=== PATIENT | female | born 1955 | race Caucasian/White ===

== ENCOUNTER 2018-02-09 17:25 | Emergency (ER) | payer OTHER ==
--- OUTSIDE RECORDS SUMMARY | 2018-02-09 17:27 | XMS REPORT | Clinical Summary ---
:1955 Author Organization [facility] Address [address] [place] [address] Care Team Providers Name Role Phone Asked, No Pcp Primary Care Provider Unavailable Allergies Active Allergy Reactions Severity Noted Date Comments Sulfamethoxazole-Trimethoprim Rash High 09/26/2017 Current Medications No known medications Active Problems No known active problems Encounters Date Type Specialty Care Team Description 10/05/2017 Hospital Encounter Radiology Kory Nicole Acute pain of left MD Sebastián knee 09/26/2017 Office Visit Orthopedic Surgery Kory Nicole Acute pain of left MD Sebastián knee (Primary Dx) 09/26/2017 Orders Only Orthopedic Surgery Renetta Davey, Acute pain of left MA knee (Primary Dx) 09/26/2017 Orders Only Orthopedic Surgery Renetta Davey, Left leg pain MA (Primary Dx) 09/26/2017 Ancillary Orders Orthopedic Surgery Kory Nicole Acute pain of left MD Sebastián knee after 02/08/2017 Social History Tobacco Use Types Packs/Day Years Used Date Never Assessed Sex Assigned at Date Recorded Not on file Last Filed Vital Signs Not on file Plan of Treatment Date Type Specialty Care Team Description 03/14/2018 Office Visit Orthopedic Surgery Kory Nicole MD [address] [place] [address] [place] [id number] 03/18/2018 Surgery Orthopedic Surgery Kory Nicole J., MD ARTHROPLASTY, KNEE [address] [place] [address] [place] [address] 03/18/2018 Procedure Pass Orthopedic Surgery 03/18/2018 Hospital Encounter Orthopedic Surgery Kory Nicole MD [address] [facility] [address] [place] [address] Health Maintenance Due Date Last Done Comments CERVICAL CANCER SCREENING 1977 BREAST CANCER SCREENING 2006 COLON CANCER SCREENING 2006 SHINGRIX VACCINE (#1) 2006 ZOSTER VACCINE 2016 INFLUENZA VACCINE 11/28/2017 Procedures Procedure Name Priority Date/Time Associated Comments Diagnosis CT LOWER EXTREMITY Routine 10/05/2017 10:34 AM Acute pain of left Results for this WO CONTRAST LEFT CDT knee procedure are in the results section. XR KNEE 3 VW LEFT Routine 09/26/2017 1:48 PM Acute pain of left Results for this CDT knee procedure are in the results section. XR LEG LENGTH Routine 09/26/2017 1:41 PM Acute pain of left Results for this EVALUATION CDT knee procedure are in the results section. after 02/08/[address] Lower Extremity Wo Contrast Left (10/05/2017 10:34 AM) Narrative Performed At EXAMINATION:CT LOWER EXTREMITY WO CONTRAST LEFT [facility] CLINICAL HISTORY:M25.562 Pain in left knee, JOINT PAINKNEE, EVALUATE CYSTIC MASS. INCLUDE LEFT LOWER LEG. TECHNIQUE: Multiple axial images of the left lower extremity were obtained without contrast. CT imaging was performed with iterative reconstruction technique and/or automated exposure control to reduce radiation dose. COMPARISON:Knee radiographs dated 09/26/2017 FINDINGS: 1.There is a focal fluid collection within the popliteus fossa which extends between the semimembranosus and medial head of the gastrocnemius. This is best seen on series 306, image 39 and measures approximately 3.8 cm anteroposterior, 2.6 cm transverse, and extends approximately 4.0 cm in the craniocaudal dimension. This is most suggestive of a Allen's cyst. 2.Incidental note is made of a muscle hernia of the medial head of the gastrocnemius as noted on series 306, image 90 with buckling of the overlying skin. This is also seen on image 8991. No definite additional soft tissue abnormality can be seen. 3.Prior total knee arthroplasty with a cemented tibial component. The metal cement interface of the tibial component measures up to 2 mm which is within normal limits. There is no discrete focal region of osteolysis along the base plate or the pegs of the tibial implant. There is no evidence of osteolysis involving the femoral implant. There is no displacement or osteolysis of the patellar implant. There is no excessive patellar shift or tilt. There is no evidence of displacement of the liner. 4.There is a large knee joint effusion with synovitis. IMPRESSION: 1.Moderate size popliteal fossa cyst with diffuse synovitis. 2.Muscle herniation of the medial head of the gastrocnemius through a small fascial defect. 3.No additional discrete soft tissue mass. 4.Prior cemented total knee arthroplasty without evidence of osteolysis or periprosthetic fracture. 5.Large joint effusion with synovitis. 1. [facility]-[id number] Procedure Note [facility], Radiology Results Incoming - 10/05/2017 10:59 AM CDT EXAMINATION: CT LOWER EXTREMITY WO CONTRAST LEFT CLINICAL HISTORY: M25.562 Pain in left knee, JOINT PAIN KNEE, EVALUATE CYSTIC MASS. INCLUDE LEFT LOWER LEG. TECHNIQUE: Multiple axial images of the left lower extremity were obtained without contrast. CT imaging was performed with iterative reconstruction technique and/or automated exposure control to reduce radiation dose. COMPARISON: Knee radiographs dated 09/26/2017 FINDINGS: 1. There is a focal fluid collection within the popliteus fossa which extends between the semimembranosus and medial head of the gastrocnemius. This is best seen on series 306, image 39 and measures approximately 3.8 cm anteroposterior, 2.6 cm transverse, and extends approximately 4.0 cm in the craniocaudal dimension. This is most suggestive of a Allen's cyst. 2. Incidental note is made of a muscle hernia of the medial head of the gastrocnemius as noted on series 306, image 90 with buckling of the overlying skin. This is also seen on image 8991. No definite additional soft tissue abnormality can be seen. 3. Prior total knee arthroplasty with a cemented tibial component. The metal cement interface of the tibial component measures up to 2 mm which is within normal limits. There is no discrete focal region of osteolysis along the base plate or the pegs of the tibial implant. There is no evidence of osteolysis involving the femoral implant. There is no displacement or osteolysis of the patellar implant. There is no excessive patellar shift or tilt. There is no evidence of displacement of the liner. 4. There is a large knee joint effusion with synovitis. IMPRESSION: 1. Moderate size popliteal fossa cyst with diffuse synovitis. 2. Muscle herniation of the medial head of the gastrocnemius through a small fascial defect. 3. No additional discrete soft tissue mass. 4. Prior cemented total knee arthroplasty without evidence of osteolysis or periprosthetic fracture. 5. Large joint effusion with synovitis. 1. [facility]-[id number] Performing Organization Address City/[facility]/Zipcode Phone Number [facility] [address] [place] [address] XR Knee 3 Vw Left (09/26/2017 1:48 PM) Narrative Performed At Knee x-rays show a cemented Depue mobile-bearing knee arthroplasty in [facility]. Components appear fixed. Performing Organization Address [facility]/Zipcode Phone Number [facility] [address] [place] [address] XR Leg Length Evaluation (09/26/2017 1:41 PM) Narrative Performed At Long-leg radiographs demonstrate valgus alignment of the left lower [facility] extremity with a knee arthroscopy place. There is varus alignment of the right lower extremity with medial compartment knee arthritis. Performing Organization Address [facility] Phone Number [facility] [address] [place] [address] after 02/08/2017 Insurance Payer Benefit Plan / Group Subscriber ID Type Phone Address [employer] Home: [id number] [phone] [place], [place] [id number]
[2018-02-09] MEDS ORDERED: ONDANSETRON 4 MG/2 ML VIAL ONE (18:02)
[2018-02-09] MEDS ORDERED: NA CHLORIDE 0.9% 1,000 ML ONE (18:02)
[2018-02-09] MEDS ORDERED: MORPHINE 4 MG/ML SYR ONE ×2 (18:02→19:54)
[2018-02-09 18:13] LABS: Absolute Lymphocytes (CBC) 1.7 K/uL (0.7-4.9); Absolute Monocytes 0.6 K/uL (0.1-1.3); Basophils % 0.3 % (0-1.3); Eosinophils % 3.6 % (0-4.4); Hematocrit 43.1 % (36.0-45.0); Lymphocytes % 30.7 % (15.3-44.8); MCH 30.8 pg (27.0-35.0); MCV 89.4 fL (80-100); MPV 7.9 fL (7.6-11.3); Monocytes % 10.4 % (3.3-12.3); RBC Red Blood Cell Count 4.82 M/uL (3.86-4.86)
[2018-02-09 18:27] LABS: ALT/SGPT 25 U/L (12-78); AST/SGOT 23 U/L (15-37); Albumin 3.4 g/dL (3.4-5.0); Alkaline Phosphatase 113 U/L (45-117); BUN Blood Urea Nitrogen 12 mg/dL (7-18); Bicarbonate 32 mmol/L (21-32); Bilirubin Direct 0.2 mg/dL (0-0.2); Bilirubin Total 0.5 mg/dL (0.2-1.0); Glucose Level 100 mg/dL (74-106); Lipase 137 U/L (73-393); Potassium 3.5 mmol/L (3.5-5.1); Protein, Total 7.1 g/dL (6.4-8.2); Sodium Level 140 mmol/L (136-145)
--- NOTE | 2018-02-09 20:14 | RAD REPORT ---
EXAM DESCRIPTION: CT - Abdomen Pelvis W Contrast - 02/09/2018 8:01 pm CLINICAL HISTORY: Pelvic pain, abdominal pain, right flank pain COMPARISON: None. TECHNIQUE: Biphasic, helical CT imaging of the abdomen and pelvis was performed following 100 ml non -ionic IV contrast. Oral contrast was given. All CT scans are performed using dose optimization technique as appropriate and may include automated exposure control or mA/KV adjustment according to patient size. FINDINGS: No suspicious findings in the lung bases. No focal liver lesions seen. Liver capsule is nodular. This could be from cirrhosis or other hepatic parenchymal disease. No splenomegaly or focal splenic finding. Pancreas within normal limits. Gallbla dder and biliary tree are also without suspicious finding. Symmetric renal function is seen with no hydronephrosis or suspicious renal mass. No pyelonephritis o r acute renal parenchymal process. No adrenal abnormality. Urinary bladder shows no suspicious findin gs. Uterus is absent. Ovaries are absent or atrophic. No adnexal mass. No dilated bowel loops or bowel wall thickening. No acute GI process identified. Appendix is not you rly defined and may be surgically absent. This may have occurred at the time of the hysterectomy. Mod erate stool volume seen in the colon. No free air, free fluid or inflammatory stranding. No hernia, mass or bulky lymphadenopathy. A few small nonspecific mesenteric lymph nodes are present along with nonspecific lymph nodes near the jody hepatis in gastrohepatic ligament. No suspicious bony findings. IMPRESSION: Contrast enhanced CT imaging shows no surgically emergent finding. No acute GI process seen. Patient does have nonspecific small lymph nodes. Nodular contour to the liver. Cirrhosis or diffuse hepatic parenchymal disease are not excluded.
[2018-02-09] MEDS ORDERED: HYDROMORPHONE HCL 0.5 MG/0.5 ML INJ ONE (21:13)
--- NOTE | 2018-02-09 21:29 | ER ---
Nurse's Notes [facility] Name: Anastasiya Proctor Age: 62 yrs Sex: Female : 1955 Arrival Date: 02/09/2018 Time: 17:28 Bed 20 Private MD: Diagnosis: Cystocele Presentation: 02/09 17:31 Presenting complaint: Patient states: I have been having back pain for the last month, la1 much worse the last 3 days. Last year I had multiple surgery for my bladder sling and others and now something is different inside my vagina I think something came loose. Transition of care: patient was not received from another setting of care. Onset of symptoms was February 09, 2018. Risk Assessment: Do you want to hurt yourself or someone else? Patient reports no desire to harm self or others. Initial Sepsis Screen: Does the patient meet any 2 criteria? No. Patient's initial sepsis screen is negative. Does the patient have a suspected source of infection? No. Patient's initial sepsis screen is negative. Care prior to arrival: None. 17:31 Method Of Arrival: Ambulatory la1 17:31 Acuity: HALIE 3 la1 Triage Assessment: 17:37 General: Appears in no apparent distress. uncomfortable, Behavior is calm, cooperative, hj appropriate for age. Pain: Complains of pain in back. Musculoskeletal: Circulation, motion, and sensation intact. 17:37 General: Reports pain form previous mesh bladder surgery;. EENT: No signs and/or hj symptoms were reported regarding the EENT system. Neuro: Level of Consciousness is awake, alert, obeys commands, Oriented to person, place, time, situation, Appropriate for age. Cardiovascular: Capillary refill < 3 seconds Patient's skin is warm and dry. Respiratory: Airway is patent Respiratory effort is even, unlabored, Respiratory pattern is regular, symmetrical. GI: No signs and/or symptoms were reported involving the gastrointestinal system. : No signs and/or symptoms were reported regarding the genitourinary system. Derm: No signs and/or symptoms reported regarding the dermatologic system. Historical: - Allergies: 17:35 Sumatriptan Succinate; la1 17:35 Bactrim; la1 - Home Meds: 18:17 lisinopril 40 mg Oral tab 1 tab twice a day [Active]; diltiazem HCl 180 mg Oral cpER 1 hj cap once daily [Active]; - PMHx: 17:35 Hypertension; la1 - PSHx: 17:35 Knee surgery; Mastectomy; mid-urethral sling; interior colporrhaphy; la1 sacrospinosligament suspension; - Immunization history:: Adult Immunizations up to date. - Social history:: Smoking status: Patient/guardian denies using tobacco, Patient/guardian denies using alcohol. - Ebola Screening: : Patient negative for fever greater than or equal to 101.5 degrees Fahrenheit, and additional compatible Ebola Virus Disease symptoms Patient denies exposure to infectious person Patient denies travel to an Ebola-affected area in the 21 days before illness onset. Screenin:36 Abuse screen: Denies threats or abuse. Denies injuries from another. Nutritional hj screening: No deficits noted. Tuberculosis screening: No symptoms or risk factors identified. Fall Risk None identified. Assessment: 18:18 Reassessment: see triage for assessment;. 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 18:34 Reassessment: pt finished contrast; technical communication teacher informed;. hj 19:15 General: Appears uncomfortable, Behavior is appropriate for age. Pain: Complains of lp1 pain in pelvis Pain currently is 9 out of 10 on a pain scale. Quality of pain is described as pressure. Neuro: Level of Consciousness is awake, alert, obeys commands, Oriented to person, place, time, situation. Cardiovascular: Patient's skin is warm and dry. Respiratory: Respiratory effort is even, unlabored. GI: Abdomen is non-distended, Abdomen is tender to palpation in suprapubic area, right lower quadrant and left lower quadrant. : No signs and/or symptoms were reported regarding the genitourinary system. EENT: No signs and/or symptoms were reported regarding the EENT system. Derm: Skin is pink, warm \T\ dry. Musculoskeletal: Circulation, motion, and sensation intact. 19:45 Reassessment: Provider at bedside to pelvic exam, chaperoned by mallory Mclain. lp1 20:00 Reassessment: Patient to CT. lp1 21:00 Reassessment: Patient is alert, oriented x 3, equal unlabored respirations, skin lp1 warm/dry/pink. Patient continued pain to pelvic area. Vital Signs: 17:35 BP 156 / 102; Pulse 87; Resp 16; Temp 97.2; Pulse Ox 96% on R/A; la1 17:35 Weight 76.2 kg; la1 18:35 BP 153 / 94; Pulse 85; Resp 18; Pulse Ox 100% on R/A; hj 19:15 BP 144 / 82; Pulse 92; Resp 18; Pulse Ox 96% on R/A; lp1 20:00 BP 132 / 82; Pulse 94; Resp 18; Pulse Ox 97% on R/A; lp1 21:00 BP 126 / 77; Pulse 96; Resp 16; Pulse Ox 96% on R/A; lp1 ED Course: 17:28 Patient arrived in ED. tw3 17:33 Triage completed. la1 17:35 Arm band placed on left wrist. la1 17:36 Mohan Jacobs, RN is Primary Nurse. hj 17:36 Shay Jacobs PA is PHCP. [facility] 17:36 Jourdan Salinas MD is Attending Physician. [facility] 17:37 Patient has correct armband on for positive identification. Placed in gown. Bed in low hj position. Call light in reach. Side rails up X 1. 18:12 Initial lab(s) drawn, by ma, sent to lab. Inserted saline lock: 22 gauge in left mh5 antecubital area, using aseptic technique. Blood collected. 18:13 Basic Metabolic Panel Sent. 5 18:13 CBC with Diff Sent. 5 18:13 Creatinine for Radiology Sent. 5 18:13 Hepatic Function Sent. 5 18:13 Lipase Sent. 5 18:14 Procalcitonin Sent. 5 18:16 Inserted saline lock: in right forearm, using aseptic technique. hj 20:01 CT completed. Patient moved to CT via wheelchair. Patient moved back from CT. cw1 20:02 CT Abd/Pelvis - W/Contrast In Process Unspecified. EDMS 21:28 No provider procedures requiring assistance completed. lp1 21:54 IV discontinued, No redness/swelling at site. Pressure dressing applied. lp1 Administered Medications: 18:01 Drug: Zofran 4 mg Route: IVP; Site: left antecubital; hj 19:04 Follow up: Response: No adverse reaction hj 18:02 Drug: NS 0.9% 1000 ml Route: IV; Rate: 1000 ml; Site: left antecubital; hj 19:04 Follow up: IV Status: Completed infusion hj 18:02 Drug: morphine 4 mg Route: IVP; Site: left antecubital; hj 19:04 Follow up: Response: No adverse reaction; Pain is unchanged, physician notified hj 19:53 Drug: morphine 4 mg Route: IVP; Site: right forearm; lp1 21:04 Follow up: Response: Pain is unchanged, physician notified lp1 21:16 Drug: Dilaudid 0.5 mg Route: IVP; Site: right forearm; lp1 21:54 Follow up: Response: Pain is decreased 1 Outcome: 21:29 Discharge ordered by MD. mady 21:54 Discharged to home ambulatory, with family. 1 21:54 Condition: good 21:54 Discharge instructions given to patient, Instructed on discharge instructions, follow up and referral plans. medication usage, Demonstrated understanding of instructions, follow-up care, medications, Prescriptions given X 1. 21:54 Patient left the ED. lp1 Signatures: Dispatcher [employer] EDMS Shay Jacobs PA PA jmm Woodley, Crystal cw1 Maddison Mercedes RN RN lp1 Jasmeet Dominique RN RN la1 Mohan Jacobs, Kaitlin Malin RN [facility] Tia Brown 3
--- NOTE | 2018-02-09 21:29 | EDPHYS ---
Physician Documentation [facility] Name: Anastasiya Proctor Age: 62 yrs Sex: Female : 1955 Arrival Date: 02/09/2018 Time: 17:28 Bed 20 Private MD: ED Physician Jourdan Salinas HPI: 02/09 17:54 This 62 yrs old Female presents to ER via Ambulatory with complaints of Back jmm Pain. 17:54 The patient presents with pain that is acute. The symptoms are located in the right jmm flank. Onset: The symptoms/episode began/occurred gradually, 3 day(s) ago. The pain radiates to the abdomen. This is a 62 year old female with a history of htn that present to the ED 3 days of progressively worsening right flank pain and lower back pain. Patient also complains of abdominal pain. Patient had mid urethral sling, interior colporrhaphy performed on 03/19/[address] Shane Loo. Patient states her bladder is now protruding through her vagina. . Historical: - Allergies: 17:35 Sumatriptan Succinate; la1 17:35 Bactrim; la1 - Home Meds: 18:17 lisinopril 40 mg Oral tab 1 tab twice a day [Active]; diltiazem HCl 180 mg Oral cpER 1 hj cap once daily [Active]; - PMHx: 17:35 Hypertension; la1 - PSHx: 17:35 Knee surgery; Mastectomy; mid-urethral sling; interior colporrhaphy; la1 sacrospinosligament suspension; - Immunization history:: Adult Immunizations up to date. - Social history:: Smoking status: Patient/guardian denies using tobacco, Patient/guardian denies using alcohol. - Ebola Screening: : Patient negative for fever greater than or equal to 101.5 degrees Fahrenheit, and additional compatible Ebola Virus Disease symptoms Patient denies exposure to infectious person Patient denies travel to an Ebola-affected area in the 21 days before illness onset. ROS: 17:54 Constitutional: Negative for fever, chills, and weight loss, Cardiovascular: Negative jmm for chest pain, palpitations, and edema, Respiratory: Negative for shortness of breath, cough, wheezing, and pleuritic chest pain. 17:54 Abdomen/GI: Positive for abdominal pain. 17:54 Back: Positive for flank pain, on the right. 17:54 : Positive for pelvic pain. 17:54 All other systems are negative. Exam: 17:54 Head/Face: atraumatic. Chest/axilla: Normal chest wall appearance and motion. [facility] Cardiovascular: Regular rate and rhythm. No edema appreciated Respiratory: Normal respirations, no respiratory distress appreciated 17:54 Constitutional: The patient appears in no acute distress, alert, awake. 17:54 Back: CVA tenderness, that is moderate, is noted on the right. 17:54 Musculoskeletal/extremity: ROM: intact in all extremities. 17:54 Neuro: Orientation: is normal, Mentation: is normal, Memory: is normal, Gait: is steady. 17:54 Psych: Behavior/mood is pleasant, cooperative. Vital Signs: 17:35 BP 156 / 102; Pulse 87; Resp 16; Temp 97.2; Pulse Ox 96% on R/A; la1 17:35 Weight 76.2 kg; la1 18:35 BP 153 / 94; Pulse 85; Resp 18; Pulse Ox 100% on R/A; hj 19:15 BP 144 / 82; Pulse 92; Resp 18; Pulse Ox 96% on R/A; lp1 20:00 BP 132 / 82; Pulse 94; Resp 18; Pulse Ox 97% on R/A; lp1 21:00 BP 126 / 77; Pulse 96; Resp 16; Pulse Ox 96% on R/A; lp1 MDM: 17:41 Patient medically screened. faith 21:25 Data reviewed: vital signs, nurses notes, lab test result(s), radiologic studies, CT [facility] scan. Counseling: I had a detailed discussion with the patient and/or guardian regarding: the historical points, exam findings, and any diagnostic results supporting the discharge/admit diagnosis, lab results, radiology results, the need for outpatient follow up, to return to the emergency department if symptoms worsen or persist or if there are any questions or concerns that arise at home. ED course: Patient's pain is relieved. Patient will follow up with urology on Sunday for reevaluation. Patient given strict return precautions. . 02/09 17:51 Order name: Basic Metabolic Panel; Complete Time: 18:39 [facility] 02/09 17:51 Order name: CBC with Diff; Complete Time: 18:27 [facility] 02/09 17:51 Order name: Creatinine for Radiology; Complete Time: 18:27 [facility] 02/09 17:51 Order name: Hepatic Function; Complete Time: 18:39 [facility] 02/09 17:51 Order name: Lipase; Complete Time: 18:39 [facility] 02/09 17:51 Order name: Procalcitonin; Complete Time: 18:49 [facility] 02/09 17:51 Order name: IV Saline Lock; Complete Time: 18:02 [facility] 02/09 17:51 Order name: Labs collected and sent; Complete Time: 18:02 [facility] 02/09 18:11 Order name: CT Abd/Pelvis - W/Contrast; Complete Time: 20:18 [facility] 02/09 18:52 Order name: Pelvic Exam Setup; Complete Time: 19:04 [facility] Administered Medications: 18:01 Drug: Zofran 4 mg Route: IVP; Site: left antecubital; hj 19:04 Follow up: Response: No adverse reaction 18:02 Drug: NS 0.9% 1000 ml Route: IV; Rate: 1000 ml; Site: left antecubital; hj 19:04 Follow up: IV Status: Completed infusion hj 18:02 Drug: morphine 4 mg Route: IVP; Site: left antecubital; hj 19:04 Follow up: Response: No adverse reaction; Pain is unchanged, physician notified hj 19:53 Drug: morphine 4 mg Route: IVP; Site: right forearm; lp1 21:04 Follow up: Response: Pain is unchanged, physician notified lp1 21:16 Drug: Dilaudid 0.5 mg Route: IVP; Site: right forearm; lp1 21:54 Follow up: Response: Pain is decreased lp1 Disposition: 02/09/18 21:29 Discharged to Home. Impression: Cystocele. - Condition is Stable. - Discharge Instructions: Cystocele Repair, Care After. - Prescriptions for Ultracet 37.5- 325 mg Oral Tablet - take 1 tablet by ORAL route every 6 hours - for up to 5 days; do not exceed 8 tablets per day.; 12 tablet. - Medication Reconciliation Form, Thank You Letter, Antibiotic Education, Prescription Opioid Use form. - Follow up: Private Physician; When: 2 - 3 days; Reason: Recheck today's complaints, Continuance of care, Re-evaluation by your physician. - Notes: Please follow up with Urology for further evaluation. Please return to the ED if you develop increased pain, vomiting, inability to urinate or any other concerning symptoms. Addendum: 02/11/2018 07:15 Co-signature as Attending Physician, Jourdan Salinas MD I agree with the assessment and c saucedo plan of care. Signatures: Dispatcher [employer] EDMS Jourdan Salinas MD MD cha Mickail, Joel, PA PA [facility] Maddison Mercedes RN RN lp1 Jasmeet Dominique RN RN la1 Mohan Jacobs RN RN hj Corrections: (The following items were deleted from the chart) 02/09 21:32 17:54 This is a 62 year old female with a history of htn that present to the ED 3 days jmm of progressively worsening right flank pain. Patient also complains of abdominal pain. Patient had mid urethral sling, interior colporrhaphy performed on 03/19/[address] Shane Loo. Patient states her bladder is now protruding through her vagina. . [facility] 21:54 21:29 02/09/2018 21:29 Discharged to Home. Impression: Cystocele. Condition is Stable. lp1 Forms are Medication Reconciliation Form, Thank You Letter, Antibiotic Education, Prescription Opioid Use. Follow up: Private Physician; When: 2 - 3 days; Reason: Recheck today's complaints, Continuance of care, Re-evaluation by your physician. [facility]
[2018-02-09 21:58] VITALS: TEMP 97.2
[2018-02-09 22:03] VITALS: BP 126/77; O2SAT 96
== END 2018-02-09 21:54 | disposition home or self-care (01) ==
LOC: ER 17:25
DX: N81.10 Cystocele, unspecified (principal); I10 Essential (primary) hypertension; Z88.1 Allergy status to other antibiotic agents; Z88.6 Allergy status to analgesic agent
CPT/HCPCS: 36415; 74177; 80048; 80076; 83690; 84145; 85025; 99284; J1170; J2405; J7030; Q9967

== ENCOUNTER 2021-02-04 23:13 | Inpatient (IN) | payer OTHER ==
[2021-02-04] MEDS ORDERED: HYDROCODONE/APAP 5/325 MG TAB PO ONE (23:30)
[2021-02-04 23:49] VITALS: BMI 32.9
[2021-02-04] MEDS ORDERED: ACETAMINOPHEN 500 MG TAB PO PRN (23:50)
[2021-02-04] MEDS ORDERED: MORPHINE 4 MG/ML SYR IV PRN (23:50)
[2021-02-04] MEDS ORDERED: ONDANSETRON 4 MG/2 ML VIAL IV PRN (23:50)
[2021-02-05] MEDS ORDERED: HYDRALAZINE HCL 20 MG/ML VIAL IV PRN
[2021-02-05] MEDS ORDERED: DIAZEPAM 5 MG TABLET PO ONE
--- NOTE | 2021-02-05 00:16 | P.HP ---
Certification for Inpatient Patient admitted to: Inpatient With expected LOS: <2 Midnights Patient will require the following post-hospital care: None Practitioner: I am a practitioner with admitting privileges, knowledge of patient current condition, hospital course, and medical plan of care. Services: Services provided to patient in accordance with Admission requirements found in Title 42 Section 412.3 of the Code of Federal Regulations <Tru Pierre - Last Filed: 02/05/21 00:22> Patient History Date of Service: 02/05/21 Primary Care Provider: Caroline Reason for admission: right inguinal hernia History of Present Illness: Ms. Proctor is a 65 yo F with HTN who presents with one day 10 sharp intermittent right lower quadrant abdominal pain. She initially thought that she had a UTI due to frequency and dysuria. Denies fever, nausea and vomiting. She was sent over from [place] due to her imaging findings and surgery has agreed to see her in the AM. CT ABDOMEN IMPRESSION: prominent loop of small bowel now seen within the right inguinal hernia with a small amount of adjacent fluid. - Past Medical/Surgical History Has patient received pneumonia vaccine in the past: No Diabetic: No -: Hypertension -: Anxiety -: carpal tunnel -: a-fib/svt s/p ablation -: double mastectomy -: heart ablation -: ankle surgery -: hysterectomy -: carpal tunnel -: left knee replacement -: append -: nose sx - Family History Father -: Heart disease Mother -: Cancer Sister -: Cancer - Social History Smoking Status: Never smoker Alcohol use: Yes CD- Drugs: No Caffeine use: No Place of Residence: Home <Tru Pierre - Last Filed: 02/05/21 00:22> Date of Service: 02/05/21 <Tripp Price - Last Filed: 02/05/21 10:10> Allergies sumatriptan [From Imitrex] Allergy (Verified 12/27/16 21:41) Anaphylaxis sumatriptan succinate [From Imitrex] Allergy (Verified 12/27/16 21:41) Anaphylaxis Home Medications: Diltiazem HCl [Diltiazem 24Hr Cd] 1 cap PO BEDTIME 02/05/21 Diltiazem HCl [Diltiazem 24Hr ER] 1 cap PO SEECOM 02/05/21 Furosemide 1 tab PO PRN PRN 10/09/21 lisinopriL [Lisinopril] 1 tab PO BID 02/05/21 Review of Systems 10-point ROS is otherwise unremarkable Gastrointestinal: Abdominal Pain Genitourinary: Dysuria, Frequency <Tru Pierre - Last Filed: 02/05/21 00:22> Physical Examination - Physical Exam General: Alert, In no apparent distress HEENT: Atraumatic, PERRLA, Mucous membr. moist/pink, EOMI, Sclerae nonicteric Neck: Supple, 2+ carotid pulse no bruit, No LAD, Without JVD or thyroid abnormality Respiratory: Clear to auscultation bilaterally, Normal air movement Cardiovascular: Regular rate/rhythm, Normal S1 S2 Gastrointestinal: Normal bowel sounds, Soft and benign, Non-distended, No ascites, No masses, No rebound, No guarding, Other (severe tenderness in RLQ ), Tenderness Musculoskeletal: No tenderness Integumentary: No rashes Neurological: Normal gait, Normal speech, Normal strength at 5/5 x4 extr, Normal tone, Normal affect Lymphatics: No axilla or inguinal lymphadenopathy <Tru Pierre - Last Filed: 02/05/21 00:22> - Studies Laboratory Data (last 24 hrs) 02/05/21 05:32: Sodium 141, Potassium 3.6, BUN 8, Creatinine 0.42 L, Glucose 92, Phosphorus 3.7, Magnesium 1.8, Total Bilirubin 0.5, AST 25, ALT 24, Alkaline Phosphatase 77, Triglycerides 92, Cholesterol 172, HDL Cholesterol 52, Cholesterol/HDL Ratio 3.31 02/05/21 05:32: WBC 3.70 L, Hgb 12.8, Hct 37.5, Plt Count 197 <Tripp Price - Last Filed: 02/05/21 10:10> Assessment and Plan - Problems (Diagnosis) (1) Right inguinal hernia Current Visit: Yes Status: Acute (2) Hypertension Onset Date: 12/29/16 Current Visit: No Status: Chronic Qualifiers: Hypertension type: primary hypertension Qualified Code(s): I10 - Essential (primary) hypertension - Plan surgery consulted NPO at midnight continue IVF hydration and IV antibiotics pain management and antiemetics as needed BP stable, continue to monitor DVT ppx Discharge Plan: Home Plan to discharge in: 48 Hours - Advance Directives Does patient have a Living Will: No Does patient have a Durable POA for Healthcare: No - Code Status/Comfort Care Code Status Assessed: Yes (full code ) Critical Care: No Time Spent Managing Pts Care (In Minutes): 70 <Tru Pierre - Last Filed: 02/05/21 00:22> Date of Service: 02/05/21 Subjective: Agree with the HPI as above Physical Examination: Vitals: Afebrile vital signs are stable Physical exam: Cardiovascular: Within normal limits. Lungs: Within normal limits Abdomen: Within normal limits Neuro: Awake, alert, oriented to person place and time Assessment: 1. Small-bowel obstruction secondary to strangulated ventral hernia Plan: 1. NPO 2. Surgery consultation 3. Prophylactic antibiotic coverage 4. IV hydration 5. Pain control 6. GI and DVT prophylaxis <Tripp Price - Last Filed: 02/05/21 10:10>
[2021-02-05] MEDS: NA CHLORIDE 0.9% 1,000 ML IV SCH ×3 (00:17→19:58)
[2021-02-05] MEDS: PIPER TAZO 3.375 GM in NA CHLORIDE 0.9% 100 ML IV SCH ×3 (00:18→17:52)
[2021-02-05] MEDS ORDERED: NA CHLORIDE 0.9% 0 ML ONE (00:31)
[2021-02-05 01:36] LABS: Urine Appearance CLEAR (Clear); Urine Bilirubin NEGATIVE (Negative); Urine Blood NEGATIVE (Negative); Urine Color YELLOW (Yellow); Urine Glucose NEGATIVE (Negative); Urine Protein NEGATIVE (Negative); Urine Specific Gravity >=1.030 (1.005-1.030); Urine pH 6.5 (5.0-7.0)
[2021-02-05 01:38] LABS: Urine Microscopic Reflex NO UMIC
[2021-02-05] MEDS: MORPHINE 4 MG/ML SYR IV PRN ×3 (03:37→15:43)
[2021-02-05 06:13] LABS: Absolute Lymphocytes (CBC) 0.8 K/uL (0.7-4.9); Basophils % 0.5 % (0-1.3); Hematocrit 37.5 % (36.0-45.0); Lymphocytes % 22.8 % (15.3-44.8); MPV 7.8 fL (7.6-11.3); RBC Red Blood Cell Count 4.13 M/uL (3.86-4.86)
[2021-02-05 06:27] LABS: ALT/SGPT 24 U/L (12-78); AST/SGOT 25 U/L (15-37); Albumin 3.1 g/dL (3.4-5.0); Alkaline Phosphatase 77 U/L (45-117); BUN Blood Urea Nitrogen 8 mg/dL (7-18); Bicarbonate 29 mmol/L (21-32); Bilirubin Total 0.5 mg/dL (0.2-1.0); Glucose Level 92 mg/dL (74-106); HDL Cholesterol 52 mg/dL (40-60); LDL Cholesterol, Calculated 102 (<130); Magnesium 1.8 mg/dL (1.8-2.4); Phosphorus 3.7 mg/dL (2.5-4.9); Potassium 3.6 mmol/L (3.5-5.1); Protein, Total 6.1 g/dL (6.4-8.2); Sodium Level 141 mmol/L (136-145); Thyroid Stimulating Hormone 0.866 uIU/mL (0.360-3.740)
[2021-02-05] MEDS ORDERED: KCL 20 MEQ/100 mL IVPB 20 MEQ/100 ML BAG IV SCH (07:00)
[2021-02-05] MEDS ORDERED: MAGNESIUM SULFATE 1 gm IVPB 1 GM/100 ML BAG IV ONE (08:00)
[2021-02-05 08:53] LABS: Urine Appearance CLEAR (Clear); Urine Bilirubin NEGATIVE (Negative); Urine Blood NEGATIVE (Negative); Urine Color YELLOW (Yellow); Urine Glucose NEGATIVE (Negative); Urine Protein NEGATIVE (Negative); Urine Specific Gravity 1.015 (1.005-1.030)
[2021-02-05 09:00] LABS: Urine Microscopic Reflex NO UMIC
[2021-02-05] MEDS ORDERED: MORPHINE 2 MG/ML SYR IV ONE (09:00)
[2021-02-05] MEDS ORDERED: NA CHLORIDE 0.9% 100 ML ONE (09:36)
[2021-02-05] MEDS ORDERED: PIPERACIL/TAZO 3.375 GM VIAL IV ONE (09:39)
[2021-02-05] MEDS ORDERED: propofoL 200 MG/20 ML VIAL IV ONE (09:53)
[2021-02-05] MEDS ORDERED: LIDOCAINE 2% MPF 5 ML VIAL ONE (09:54)
[2021-02-05] MEDS ORDERED: ROCURONIUM 50 MG/5 ML VIAL IV ONE (09:54)
[2021-02-05] MEDS ORDERED: KETOROLAC 30 MG/ML INJ ONE (09:54)
[2021-02-05] MEDS ORDERED: FENTANYL CITR 100 MCG/2 ML ONE ×2 (09:54→11:51)
[2021-02-05] MEDS ORDERED: dexAMETHasone 10 MG/ML VIAL ONE (09:54)
[2021-02-05] MEDS ORDERED: Ringers Lactate 1,000 ML IV ONE (10:11)
[2021-02-05] MEDS ORDERED: ACETAMINOPHEN 500 MG TAB ONE (10:11)
[2021-02-05] MEDS ORDERED: CELECOXIB 100 MG CAPSULE ONE (10:27)
[2021-02-05] MEDS ORDERED: BUPIVACAINE 0.25% PF 30 ML VIAL ONE (10:30)
[2021-02-05] MEDS ORDERED: BUPIVACAINE 0.25% PF 10 ML VIAL ONE (10:31)
[2021-02-05] MEDS ORDERED: GLYCOPYRROLATE 0.2 MG/ML SYR ONE (12:38)
[2021-02-05] MEDS ORDERED: NEOSTIGMINE 1 MG/ML -5 ML ONE (12:38)
--- NOTE | 2021-02-05 12:42 | CON ---
Date of Consultation: 02/05/2021 Brief History Of Present Illness: The patient is a 65-year-old female, known to me from previous lef t lower extremity surgery, who has a history of hypertension as well as breast cancer, status post do uble mastectomy with TRAM flap reconstruction, who presents to the hospital with right lower quadrant abdominal pain beginning approximately the day before. She states the pain was relatively rapid ons et, right in the right inguinal and pubic area. It was unrelenting and did not get any better. The pain continued to get progressively worse. It was not associated with vomiting, but had some mild na usea associated. She has continued to have bowel function, passing gas, and having bowel movements, but does feel worsening abdominal tenderness as well. No skin changes as of yet, but the pain has be en unrelenting with the exception with pain medication. It is not improved since her admission to [facility] and continues to be only managed minimally with pain medication. She thought this was due to urinary tract infection; however, she was transferred here from [facility] the [facility] with CT, which showed a prominent loop of small bowel now seen in the right inguinal hernia wit h small amount of adjacent fluid. Allergies: TO IMITREX. Past Medical History: Significant for hypertension, anxiety, carpal tunnel syndrome, atrial fibrilla tion, SVT status post ablation, breast cancer. Past Surgical History: Includes double mastectomy as well as bilateral TRAM flap reconstruction, car diac ablation for atrial fibrillation. She has had a left calf surgery for hematoma/seroma. She had a hysterectomy, carpal tunnel, left knee replacement, appendectomy, and no surgery. Family History: Significant for heart disease in her father. Her sister and mother both had cancer. Social History: She denies smoking. Drinks alcohol recreationally. Denies any recreational drug. Review of Systems: Ten-point review of systems other than HPI, she admits to dysuria and frequency. Ten-point review of systems, otherwise, were with the exception of above is negative. Physical Examination: Vital Signs: At time of my examination, her vital signs were stable. She had a blood pressure of 14 9/67, respiratory rate 16, pulse was 61, temperature 98.4. General: She is awake, alert, and oriented. Psychiatric: She is appropriate, conversive. HEENT: She is normocephalic. Her sclerae were anicteric. Mucous membranes were moist. Oropharynx is clear. Neck: Supple without JVD. Chest: Normal expansion and excursion. Cardiovascular: Regular rate and rhythm. Pulmonary: Clear to auscultation bilaterally. Abdomen: Soft with well-healed surgical scars, particularly in the lower abdomen. She has tendernes s in the right lower quadrant. No skin changes. It is difficult to palpate her abdomen due to her r econstruction, but she does have tenderness in the pubic and inguinal area on the right, consistent w ith a possible inguinal hernia. She guards in this area and makes examination somewhat difficult, bu t I am unable to reduce a bulge in this right inguinal area as such is consistent with an inguinal he rnia with incarceration. Extremities: No clubbing, cyanosis, or edema. Well-healed surgical scars evident in the knee and th e left calf area. Laboratory Data: Laboratory exam, which reveals a white blood cell count of 3.7, hemoglobin 12.8, he matocrit 37.5, platelet count was 197. Her neutrophils were 57%. Her sodium 141, potassium 3.6, chl oride 108, carbon dioxide 29, BUN 8, creatinine 0.4, glucose was 92. Her phosphorus is 3.7, calcium 8.1. Total bilirubin was 0.5, AST 25, ALT 24, alkaline phosphatase is 77. She had a UA, which only showed 2+ urobilinogen, otherwise, negative. She had a CT scan performed of the abdomen and pelvis a [facility]. The official report is in hand and is read as a loop of small bowel seen ext ending into the right inguinal hernia, new from prior. Bowel loop is more prominent, however, no ove rt bowel obstruction seen. Diverticula are noted in the sigmoid colon with surrounding inflammatory changes. Appendix is not visualized, but there are no inflammatory changes at the expected location. 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 Diffuse a therosclerotic disease is noted in the abdominal aorta with no aneurysmal formation seen. The offici al impression is; 1.Prominent loop of small bowel now seen within the right inguinal hernia with a small amount of adj acent fluid. Recommend correlation physical exam to assess for reduced bilirubin. No upper bowel ob struction seen. 2.Cirrhotic morphology of the liver with large portosystemic varices in the left pelvis. 3.Sigmoid diverticulosis without evidence of acute diverticulitis and other findings as described. Assessment And Plan: This is a 65-year-old female with multiple medical problems as described, who c omes in with a likely right inguinal hernia, incarcerated at this time and worsening abdominal pain. As such, I have recommended; 1.IV fluid hydration. 2.Antibiotic coverage. 3.Medical management. 4.I have explained the risks, benefits, and alternatives of open inguinal hernia repair with mesh in cluding, but not limited to bleeding, infection, damage to the surrounding tissue, need further opera tion and procedures. The patient agrees to proceed as indicated. LIA/RL Voice ID: [id number] Report ID: [id number]
--- NOTE | 2021-02-05 12:50 | P.OP ---
Preoperative diagnosis: RIGHT incarcerated inguinal hernia Postoperative diagnosis: RIGHT incarcerated inguinal hernia Primary procedure: Open RIGHT inguinal hernia repair with mesh Secondary procedure: Open RIGHT inguinal lymph node biopsy Anesthesia: GETA Local Estimated blood loss: ~20cc Specimen: RIGHT superficial inguinal lymph node Findings: black LN anterior to ext oblique aponeurosis, [place] inguinal hernia Complications: None Implants: [employer] Small Perfix Hernia plug and patch repair system Transferred to: Recovery Room Condition: Good
[2021-02-05] MEDS ORDERED: HYDROCODONE/APAP 5/325 MG TAB PO PRN (13:08)
[2021-02-05] MEDS: HYDROMORPHONE HCL 1 MG/ML INJ ONE ×2 (13:19→13:24)
[2021-02-05] MEDS: HYDROMORPHONE HCL 2 MG/ML inj ONE ×6 (13:30→14:00)
--- NOTE | 2021-02-05 15:21 | OP ---
Date of Procedure: 02/05/2021 Surgeon: Castro Norris MD, Preoperative Diagnosis: Right incarcerated inguinal hernia. Postoperative Diagnosis: Right incarcerated inguinal hernia. Procedures Performed: 1.Open right inguinal hernia repair with plug and patch mesh system. 2.Open right inguinal lymph node biopsy. Anesthesia: General endotracheal plus local with 0.25% Marcaine. Estimated Blood Loss: 20 cc. Specimen: Right superficial inguinal lymph node. Findings: 1.There was an enlarged, discolored, firm, black inguinal lymph node anterior to the external obliqu e aponeurosis in an unusual anatomic position, which was removed and sent for pathologic examination. 2.The patient had components of both direct and indirect - pantaloon type inguinal hernia with no gregory wel contained, however, incarceration was evident with intra-abdominal adipose tissue. 3.The patient had oozing throughout procedure; however, the patient apparently has evidence of cirrh otic changes, which were undiagnosed at this point, as the patient's family and the patient was unawa re of any hepatic dysfunction. 4.Abnormal position of vasculature with enlarged veins and unusual course of epigastric vessels. Ho wever, patient did have TRAM flap reconstruction, which appeared to have perhaps altered the anatomy in this region. Complications: None. Implants: Bard PerFix hernia plug and patch small repair system. Disposition: The patient transferred to recovery in good condition. Procedure In Detail: After informed consent was obtained, patient was brought to the operating room, prepped and draped in the usual sterile fashion after adequate anesthesia achieved, I palpated the a flex. The anterior superior iliac spine and the pubic tubercle, I made an inguinal incision superior to the inguinal crease down top of a bulged area near the pubic tubercle, which was the area of great est tenderness prior to surgery. Dissection continued down through subcutaneous tissues using electr ocautery after opening the skin with a 10 blade down to subcutaneous tissues. Hemostasis was require d using a combination of electrocautery as well as suture ligation of enlarged blood vessels in the v patrick superficial position in the subcutaneous tissues. Significant scar tissue was evident at the obs curing the anatomy significantly likely contributed to by prior surgery. As the dissection continued down, I encountered a large black lymph node, which was approximately almost 2 cm in size. I circum ferentially dissected this free and using medium clips, I clipped the lymphatic channels to this and the blood supply to this area and then removed a portion of the lymph node and sent it off for pathol ogic examination. I then continued dissection to the external oblique through Camper fat and Donna fascia, which were difficult to dissect as the planes as I said were quite obscured due to scar tissu e. The area was quite fibrotic. However, I did expose the external oblique aponeurosis and I swept back all the other tissues away from this. However, on the superior medial aspect just anterior to t he external oblique aponeurosis, there were several large blood vessels and artery; the vein which wa s quite dilated at a small artery in this area to which had multiple branch points. This was suture ligated and the vein was clipped with a medium clip plumber maintenance to achieve hemostasis. At this point, th tere vessels were swept back. I then turned my attention back to the external oblique aponeurosis. T his was sharply opened with a 15 blade with a small puncture. I then opened in its entirety using Me tzenbaum scissors while sweeping structures away from the incision line. Dissection continued down m edially near the pubic tubercle, at which point, a bulge was appreciated consistent with a hernia. I palpated the area was able to reduce this to the preperitoneal space. It was almost immediately ant erior medial to the pubic tubercle and a defect in the floor of the inguinal canal was appreciated at this point. I therefore swept all the tissues back and placed a small Bard PerFix plug through this defect as I was palpated into the preperitoneal space. I felt this was the defect, which was seen o n previous CT. After the mesh was unfurled in its entirety, I secured it circumferentially around th e floor of the inguinal canal in a parachute type fashion with 2-0 PDS sutures around the superficial inguinal ring, I believe. At this point, I turned my attention back to the deep inguinal ring. I c ircumferentially dissected the round ligament and cord structures at this point, and placed a [place] underneath this dissecting inferior and medial to this to ensure no defects were appreciated. It wa s a general, just weakness of the floor of the inguinal canal appreciated, but no obvious defects wer e appreciated upon palpation of this area. As such, I brought a hernia patch on in a [place] ty pe fashion. I brought the patch down onto the floor of the inguinal canal after trimming the mesh ap propriately to reconstitute the course of the cord/round ligament structures and wrapped the tissues. I secured this mesh then to the pubic tubercle medially with a 2-0 PDS and then to the undersurface of the external oblique aponeurosis/internal oblique aponeurosis on the medial aspect and the unders urface of the inguinal ligament on the lateral surface. I then ensured that the mesh was in good tino tomic position reconstituting the deep inguinal ring and irrigated the area. The hernia defect was f ound to be closed and I have the patient given Valsalva at this time and no additional defects were a ppreciated. I then opted to close the external oblique aponeurosis with a running 3-0 Vicryl suture and I then closed Camper fat and Donna fascia en bloc using the same set 3-0 Vicryl suture in a runn ing fashion. Deep dermal planes were closed with 3-0 Vicryl suture and skin was closed with 4-0 [place] cryl in a running fashion. Dermabond was placed over top. The patient tolerated the procedure well without any complication and transferred to PACU in good condition. All counts were correct at the e nd of the case. LIA/RL Voice ID: [id number] Report ID: [id number]
[2021-02-05] MEDS: HYDROMORPHONE HCL 2 MG/ML inj IV PRN ×2 (17:52→22:17)
[2021-02-06] MEDS: HYDROMORPHONE HCL 2 MG/ML inj IV PRN ×3 (00:43→06:56)
[2021-02-06] MEDS: PIPER TAZO 3.375 GM in NA CHLORIDE 0.9% 100 ML IV SCH ×3 (02:20→17:03)
[2021-02-06 06:24] LABS: BUN Blood Urea Nitrogen 10 mg/dL (7-18); Bicarbonate 29 mmol/L (21-32); Glucose Level 140 mg/dL (74-106); Magnesium 2.1 mg/dL (1.8-2.4); Potassium 4.1 mmol/L (3.5-5.1); Sodium Level 140 mmol/L (136-145)
[2021-02-06] MEDS: NA CHLORIDE 0.9% 1,000 ML IV SCH ×2 (08:53→15:50)
--- NOTE | 2021-02-06 10:52 | P.PN ---
Subjective Date of Service: 02/06/21 Primary Care Provider: Caroline Chief Complaint: right inguinal hernia Subjective: Improving (Patient had some significant pain last night, but now much improved, passing gas, tolerating diet well, request more substantive food today) Physical Examination - Vital Signs Temperature: 97.5 F Blood Pressure: 153/72 Pulse: 58 Respirations: 19 Pulse Ox (%): 93 - Physical Exam General: Alert, Cooperative Respiratory: Clear to auscultation bilaterally, Normal air movement Cardiovascular: No edema, Normal pulses, Regular rate/rhythm Gastrointestinal: Other (soft, mild apporpriate TTP, ND, incision is clean and dry) - Studies Laboratory Data (last 24 hrs) 02/06/21 05:52: Sodium 140, Potassium 4.1, BUN 10, Creatinine 0.47 L, Glucose 140 H, Magnesium 2.1 Assessment And Plan - Current Problems (Diagnosis) (1) Right inguinal hernia Current Visit: Yes Status: Acute Plan: s/p Open inguinal hernia repair and inguinal lymph node biopsy - advance diet - patient miryam has cirrhosis - i have discussed the need for to have close follow up with gastroenterology as an outpatient - continue medical management, - encourage PO pain medication
[2021-02-06] MEDS ORDERED: HYDROCODONE/APAP 5/325 MG TAB PO PRN (11:45)
[2021-02-06] MEDS: HYDROCODONE/APAP 10/325 TAB PO PRN ×2 (12:09→19:38)
[2021-02-07] MEDS: HYDROCODONE/APAP 10/325 TAB PO PRN ×3 (01:33→14:27)
[2021-02-07] MEDS: PIPER TAZO 3.375 GM in NA CHLORIDE 0.9% 100 ML IV SCH ×2 (01:35→10:20)
[2021-02-07] MEDS ORDERED: FUROSEMIDE 40 MG TABLET PO PRN (02:07)
--- NOTE | 2021-02-07 02:12 | P.PN ---
Subjective Date of Service: 02/06/21 Patient is clinically doing well with no new complaints. Still having some pain but this is better than on admission. Clinically improving. Spoke with General surgery and anticipate discharge tomorrow if patient continues to improve. Review of Systems 10-point ROS is otherwise unremarkable Physical Examination - Vital Signs Temperature: 98.8 F Blood Pressure: 180/78 Pulse: 67 Respirations: 16 Pulse Ox (%): 97 - Physical Exam General: Alert, In no apparent distress, Oriented x3 Respiratory: Clear to auscultation bilaterally, Normal air movement Cardiovascular: Regular rate/rhythm, Normal S1 S2 Gastrointestinal: Normal bowel sounds, Soft and benign, Non-distended, Tenderness (Minimal in the right upper quadrant) Musculoskeletal: No clubbing, No swelling, No tenderness Neurological: Normal strength at 5/5 x4 extr, Sensation intact, Cranial nerves 3-12 intact - Studies Laboratory Data (last 24 hrs) 02/06/21 05:52: Sodium 140, Potassium 4.1, BUN 10, Creatinine 0.47 L, Glucose 140 H, Magnesium 2.1 Medications List Reviewed: Yes Assessment & Plan - Problems (Diagnosis) (1) Strangulated inguinal hernia Current Visit: Yes Status: Acute (2) Atrial fibrillation Onset Date: 12/29/16 Current Visit: No Status: Chronic Qualifiers: Atrial fibrillation type: chronic (3) Hypertension Onset Date: 12/29/16 Current Visit: No Status: Chronic Qualifiers: Hypertension type: primary hypertension Qualified Code(s): I10 - Essential (primary) hypertension (4) Obesity (BMI 30.0-34.9) Onset Date: 12/29/16 Current Visit: No Status: Chronic - Plan Plan: 1. Management per General surgery as far as discharge planning 2. Pain control 3. Out of bed and ambulate 4. Monitor GI exam closely 5. Anticipate discharge in the morning 6. Close outpatient follow with surgery 7. GI and DVT prophylaxis Discharge Plan: Home Plan to discharge in: Greater than 2 days - Advance Directives Does patient have a Living Will: No Does patient have a Durable POA for Healthcare: No - Code Status/Comfort Care Code Status Assessed: Yes Code Status: Full Code Critical Care: No Time Spent Managing PTS Care (In Minutes): 35
[2021-02-07 06:38] LABS: Absolute Lymphocytes (CBC) 1.2 K/uL (0.7-4.9); Basophils % 0.3 % (0-1.3); Hematocrit 37.1 % (36.0-45.0); Lymphocytes % 14.8 % (15.3-44.8); MPV 7.9 fL (7.6-11.3); RBC Red Blood Cell Count 4.08 M/uL (3.86-4.86)
[2021-02-07 06:49] LABS: Protime INR 1.15
[2021-02-07 06:52] LABS: ALT/SGPT 26 U/L (12-78); AST/SGOT 24 U/L (15-37); Albumin 3.1 g/dL (3.4-5.0); Alkaline Phosphatase 69 U/L (45-117); BUN Blood Urea Nitrogen 10 mg/dL (7-18); Bicarbonate 30 mmol/L (21-32); Bilirubin Total 0.5 mg/dL (0.2-1.0); Glucose Level 108 mg/dL (74-106); Magnesium 1.8 mg/dL (1.8-2.4); Potassium 3.4 mmol/L (3.5-5.1); Sodium Level 143 mmol/L (136-145)
[2021-02-07] MEDS ORDERED: POTASSIUM 25 MEQ EFFERV TAB PO ONE (09:00)
[2021-02-07] MEDS ORDERED: DILTIAZEM HCL 120 MG SR CAP PO SCH ×2 (09:00→21:00)
[2021-02-07] MEDS ORDERED: lisinopriL 20 MG TAB PO SCH (09:00)
[2021-02-07] MEDS ORDERED: MAGNESIUM SULFATE 1 gm IVPB 1 GM/100 ML BAG IV ONE (09:00)
[2021-02-07 09:47] VITALS: TEMP 98
--- NOTE | 2021-02-07 10:42 | P.PN ---
Subjective Date of Service: 02/07/21 Primary Care Provider: Velazquez Chief Complaint: right inguinal hernia Subjective: Improving complaints of mild swelling @ neck Physical Examination - Vital Signs Temperature: 98.0 F Blood Pressure: 184/89 Pulse: 72 Respirations: 18 Pulse Ox (%): 97 - Physical Exam General: Alert, In no apparent distress, Cooperative Respiratory: Clear to auscultation bilaterally Cardiovascular: Regular rate/rhythm Gastrointestinal: Other (soft, mild appropriate TTP, ND, incision clean) - Studies Laboratory Data (last 24 hrs) 02/07/21 06:03: Sodium 143, Potassium 3.4 L, BUN 10, Creatinine 0.37 L, Glucose 108 H, Magnesium 1.8, Total Bilirubin 0.5, AST 24, ALT 26, Alkaline Phosphatase 69 02/07/21 06:03: PT 13.2 H, INR 1.15, APTT 31.3 02/07/21 06:03: WBC 7.80 D, Hgb 12.7, Hct 37.1, Plt Count 204 Medications List Reviewed: Yes Assessment And Plan - Current Problems (Diagnosis) (1) Right inguinal hernia Current Visit: Yes Status: Acute Plan: s/p Open inguinal hernia repair and inguinal lymph node biopsy - advance diet - patient miryam has cirrhosis - i have discussed the need for to have close follow up with gastroenterology as an outpatient - continue medical management, - encourage PO pain medication - ok to DC from surgical standpoint
--- NOTE | 2021-02-07 11:02 | P.DS ---
Admission Date: 02/04/21 Discharge Date: 02/07/21 Primary Care Provider: Dr. Velazquez Disposition: ROUTINE DISCHARGE Discharge Condition: GOOD Reason for Admission: right inguinal hernia Consultations: Surgery-Dr. Norris Procedures: COVID: Negative Surgery: Date of Procedure: 02/05/2021 Surgeon: Castro Norris MD Preoperative Diagnosis: Right incarcerated inguinal hernia. Postoperative Diagnosis: Right incarcerated inguinal hernia. Procedures Performed: 1. Open right inguinal hernia repair with plug and patch mesh system. 2. Open right inguinal lymph node biopsy. Anesthesia: General endotracheal plus local with 0.25% Marcaine. Estimated Blood Loss: 20 cc. Specimen: Right superficial inguinal lymph node. Findings: 1. There was an enlarged, discolored, firm, black inguinal lymph node anterior to the external oblique aponeurosis in an unusual anatomic position, which was removed and sent for pathologic examination. 2. The patient had components of both direct and indirect - pantaloon type inguinal hernia with no bowel contained, however, incarceration was evident with intra-abdominal adipose tissue. 3. The patient had oozing throughout procedure; however, the patient apparently has evidence of cirrhotic changes, which were undiagnosed at this point, as the patient's family and the patient was unaware of any hepatic dysfunction. 4. Abnormal position of vasculature with enlarged veins and unusual course of epigastric vessels. However, patient did have TRAM flap reconstruction, which appeared to have perhaps altered the anatomy in this region. Complications: None. Implants: Bard PerFix hernia plug and patch small repair system. Medical Problem List: Abdominal pain secondary to right incarcerated inguinal hernia status post open right inguinal hernia repair with plug and patch mesh system and open right inguinal lymph node biopsy Hypertension History of breast cancer Submandibular adenopathy Brief History of Present Illness: 65-year-old female presented to the emergency room with abdominal pain. Patient with history of hypertension and breast cancer with prior double mastectomy with TRAM flap reconstruction. Patient presented with right lower quadrant abdominal pain. Patient was seen at [place] emergency room. CT scan showed prominent loop of small bowel seen in the right inguinal hernia. Patient was transferred to the hospital for further evaluation and treatment. Hospital Course: Patient presented with abdominal pain to the right lower quadrant. Patient was seen by [place] emergency room. She was found to have right incarcerated inguinal hernia. Patient was transferred to the hospital for further evaluation and treatment. Patient seen and evaluated by surgery. Surgical intervention was required. Patient had open right inguinal hernia repair with plug and patch mesh system and open right inguinal lymph node biopsy. Patient tolerated procedure well. Patient has done well postoperatively. Patient able to ambulate and tolerate diet. Patient able to pass stool and gas. Surgery has cleared patient for discharge. At discharge patient will continue with Augmentin 500 mg 1 pill twice daily for 5 more days. Patient will be given a limited supply of [place] 7.5 mg 1 pill 3 times a day as needed for pain. Recommend follow-up with surgery within 1 week. Recommend no heavy lifting, pushing or pulling. Education on inguinal hernia repair provided. Biopsy of l ymph node will be followed up by surgery. Recommend follow-up with PCP within 1 week to follow-up his hospitalization. Patient with hypertension. Overall stable. At discharge patient will continue with her regimen of diltiazem and lisinopril. Recommend to maintain blood pressure less than 130/80. If blood pressures remain above 140/90 further adjustment in medication may be required. This can be done with the help of her PCP. Patient had some submandibular adenopathy prior to discharge. Patient will continue with Augmentin as directed. If this persists this may need to be further evaluated by ENT or surgery. Patient had biopsy of lymph node. This can be followed up by surgery. Vital Signs/Physical Exam: Temp Pulse Resp BP Pulse Ox 98.0 F 72 18 184/89 H 97 02/07/21 10:42 02/07/21 10:42 02/07/21 10:42 02/07/21 10:42 02/07/21 10:42 General: Alert, In no apparent distress, Oriented x3, Cooperative HEENT: Atraumatic Neck: Supple, Other (Submandibular adenopathy) Respiratory: Clear to auscultation bilaterally, Normal air movement Cardiovascular: Normal pulses, Regular rate/rhythm Gastrointestinal: Normal bowel sounds, Other (Postsurgical changes noted. No significant postsurgical pain) Musculoskeletal: No erythema, No tenderness, No warmth Integumentary: No tenderness/swelling Neurological: Normal speech, Normal strength at 5/5 x4 extr, Normal tone Laboratory Data at Discharge: WBC 7.80 K/uL (4.3-10.9) D 02/07/21 06:03 Hgb 12.7 g/dL (12.0-15.0) 02/07/21 06:03 Hct 37.1 % (36.0-45.0) 02/07/21 06:03 Plt Count 204 K/uL (152-406) 02/07/21 06:03 PT 13.2 SECONDS (9.5-12.5) H 02/07/21 06:03 INR 1.15 02/07/21 06:03 APTT 31.3 SECONDS (24.3-36.9) 02/07/21 06:03 Sodium 143 mmol/L (136-145) 02/07/21 06:03 Potassium 3.4 mmol/L (3.5-5.1) L 02/07/21 06:03 BUN 10 mg/dL (7-18) 02/07/21 06:03 Creatinine 0.37 mg/dL (0.55-1.3) L 02/07/21 06:03 Glucose 108 mg/dL (74-106) H 02/07/21 06:03 Phosphorus 3.7 mg/dL (2.5-4.9) 02/05/21 05:32 Magnesium 1.8 mg/dL (1.8-2.4) 02/07/21 06:03 Total Bilirubin 0.5 mg/dL (0.2-1.0) 02/07/21 06:03 AST 24 U/L (15-37) 02/07/21 06:03 ALT 26 U/L (12-78) 02/07/21 06:03 Alkaline Phosphatase 69 U/L (45-117) 02/07/21 06:03 Triglycerides 92 mg/dL (<150) 02/05/21 05:32 Cholesterol 172 mg/dL (<200) 02/05/21 05:32 HDL Cholesterol 52 mg/dL (40-60) 02/05/21 05:32 Cholesterol/HDL Ratio 3.31 02/05/21 05:32 Home Medications: Diltiazem HCl [Diltiazem 24Hr Cd] 1 cap PO BEDTIME 02/05/21 Diltiazem HCl [Diltiazem 24Hr ER] 1 cap PO SEECOM 02/05/21 Furosemide 1 tab PO PRN PRN 02/05/21 lisinopriL [Lisinopril] 1 tab PO BID 02/05/21 Amox/Clavulanate [Augmentin 500-125 mg Tab] 500 mg PO BID #10 tab 02/07/21 Hydrocodone 7.5/APAP 325 [[place] 7.5/325 mg] 1 tab PO TID PRN #10 tab 02/07/21 New Medications: Amox/Clavulanate [Augmentin 500-125 mg Tab] 500 mg PO BID #10 tab Hydrocodone 7.5/APAP 325 [[place] 7.5/325 mg] 1 tab PO TID PRN #10 tab PRN Reason: Pain Physician Discharge Instructions: Patient presented with abdominal pain to the right lower quadrant. Patient was seen by [place] emergency room. She was found to have right incarcerated inguinal hernia. Patient was transferred to the hospital for further evaluation and treatment. Patient seen and evaluated by surgery. Surgical intervention was required. Patient had open right inguinal hernia repair with plug and patch mesh system and open right inguinal lymph node biopsy. Patient tolerated procedure well. Patient has done well postoperatively. Patient able to ambulate and tolerate diet. Patient able to pass stool and gas. Surgery has cleared patient for discharge. At discharge patient will continue with Augmentin 500 mg 1 pill twice daily for 5 more days. Patient will be given a limited supply of [place] 7.5 mg 1 pill 3 times a day as needed for pain. Recommend follow-up with surgery within 1 week. Recommend no heavy lifting, pushing or pulling. Education on inguinal hernia repair provided. Biopsy of lymph node will be followed up by surgery. Recommend follow-up with PCP within 1 week to follow-up his hospitalization. Patient with hypertension. Overall stable. At discharge patient will continue with her regimen of diltiazem and lisinopril. Recommend to maintain blood pressure less than 130/80. If blood pressures remain above 140/90 further adjustment in medication may be required. This can be done with the help of her PCP. Patient had some submandibular adenopathy prior to discharge. Patient will continue with Augmentin as directed. If this persists this may need to be further evaluated by ENT or surgery. Patient had biopsy of lymph node. This can be followed up by surgery. Diet: Regular Activity: Ad lana Followup: Castro Norris MD [ACTIVE - CAN ADMIT] - Time spent managing pt's care (in minutes): 55
[2021-02-07 13:12] VITALS: O2SAT 97
[2021-02-07 13:36] VITALS: BP 165/81
[2021-02-07] MEDS ORDERED: DOCUSATE NA 100 MG CAP PO SCH (21:00)
[2021-02-09 18:44] LABS: HBsAG Nonreactive (Nonreactive)
[2021-02-10 19:22] LABS: Hep C Virus RNA (PCR)log <1.18 log IU/mL
== END 2021-02-07 14:50 | disposition home or self-care (01) | DRG 351 ==
LOC: 2ND 23:13
PROVIDERS: ADMIT Hospitalist; ATTEND Hospitalist
PROC: 07BH0ZX Excision of Right Inguinal Lymphatic, Open Approach, Diagnostic (ICD-10-PCS; 2021-02-05)
PROC: 0YU50JZ Supplement Right Inguinal Region with Synthetic Substitute, Open Approach (ICD-10-PCS; principal; 2021-02-05 09:30)
DX: K40.30 Unilateral inguinal hernia, with obstruction, without gangrene, not specified as recurrent (principal); I48.20 Chronic atrial fibrillation, unspecified; I10 Essential (primary) hypertension; R59.9 Enlarged lymph nodes, unspecified; K74.60 Unspecified cirrhosis of liver; E66.9 Obesity, unspecified; Z68.32 Body mass index [BMI] 32.0-32.9, adult; Z85.3 Personal history of malignant neoplasm of breast; Z96.652 Presence of left artificial knee joint
CPT/HCPCS: 36415; 80048; 80053; 80061; 80074; 81003; 83735; 84100; 84439; 84443; 85025; 85610; 85730; 87522; 88305; 94760; J0360; J1100; J1170; J2270; J2543; J2704; J2710; J3010; J3475; J3480; J7030; J7120

== ENCOUNTER 2021-06-23 22:12 | Inpatient (IN) | payer OTHER ==
--- OUTSIDE RECORDS SUMMARY | 2021-06-23 22:23 | XMS REPORT | Continuity of Care Document ---
:1955 Author Organization [facility] t Address [address] [place] [address] Care Team Providers Name Role Phone Velazquez, E Primary Care Physician GADIEL Attending Clinician Unavailable ANDIE Attending Clinician Unavailable TRANG Attending Clinician Unavailable Carmella HUTCHISON, K.H. Attending Clinician Otilia HUTCHISON Attending Clinician OTILIA Attending Clinician Unavailable Ale Shanks MD Attending Clinician ALE SHANKS Attending Clinician Unavailable Gadiel HUTCHISON Attending Clinician Mauricio BROWN Attending Clinician Unavailable VIRGIL Attending Clinician Unavailable Russ SMITH JR Attending Clinician Unavailable Doctor Unassigned, Name Attending Clinician Unavailable Draw, Lab Attending Clinician Unavailable HALIE, N Attending Clinician Unavailable Only, Test Attending Clinician Unavailable Andie HUTCHISON Attending Clinician Edd HUTCHISON Attending Clinician CARMELLA K.H. Attending Clinician Unavailable Ishmael HUTCHISON Attending Clinician GADIEL Admitting Clinician Unavailable ANDIE Admitting Clinician Unavailable Gadiel HUTCHISON Admitting Clinician Andie HUTCHISON Admitting Clinician Payers Payer Name Policy Type Policy Number Effective Date Expiration Date Denzel hanson [facility] [id number] 2017 CHOICE 00:00:00 Problems Condition Condition Condition Status Onset Resolution Last Treating Co mments Source Name Details Category Date Date Treatment Clinician Date Obesity Obesity Disease Active Univers (BMI (BMI 1-17 ity of 30-39.9) 30-39.9) 00:00: [place] 00 Medical Branch Screening Screening Disease Active 2019-04 Uni vers for colon for colon 2-15 ity of cancer cancer 00:00: [place] 00 Medical Branch Rectocele Rectocele Disease Active 2019-04 Uni vers 2-15 ity of 00:00: [place] [facility] Enterocele Enterocele Disease Active 2019-04 U nivers 2-15 ity of 00:00: [place] 00 Medical Branch Status Status Disease Active Univers post post 7-23 it[place] of circumfere [place]fere [place] 00 Medical ablation ablation 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 Added automatic ally from request for surgery [id number] Pelvic Pelvic Disease Active Overview: [facility] organ organ 8-01 Formattin ity of prolapse prolapse 00:00: g of this [place] as quantifica quantifica 00 note Me dical tion stage tion stage might be Branch 2 2 different cystocele cystocele from the original. Added automatic ally from request for surgery [id number] Essential Essential Disease Active Uni vers hypertensi hypertensi 7-08 it y of on on 00:00: [place] 00 Medical Branch Allergies, Adverse Reactions, Alerts Allergy Allergy Status Severity Reaction(s) Onset Inactive Treating Comm ents Source Name Type Date Date Clinician SULFAMET DRUG Active Hives 2016-04 Univers HOXAZOLE INGREDI 0-26 ity of 00:00: [place] 00 Medical Branch Sulfamet Propensi Active Hives 2016-04 Univer s hoxazole ty to 0-26 ity of adverse 00:00: [place] reaction 00 Medical s Branch SUMATRIP DRUG Active Palpitations Un radha GRAVES INGREDI - ity of SUCCINAT 00:00: [place] E 00 Medical Branch Sumatrip Propensi Active Palpitations Univers graves ty to 7-07 ity of Succinat adverse 00:00: [place] e reaction 00 Medical s Branch Social History Social Habit Start Date Stop Date Quantity Comments Source Exposure to Not sure [facility] SARS-CoV-2 (event) Medica l Branch Tobacco use and 2016-11-03 2016-11-03 Never used [facility] exposure 00:00:00 00:00:00 Medical Branch Sex [birth year] [facility] 00:00:00 00:00:00 Medical Branch Smoking Status Start Date Stop Date Source Former smoker 2016-11-03 00:00:00 2016-11-03 00:00:00 [facility] Medical Branch Medications Ordered Filled Start Stop Current Ordering Indication Dosage Frequency Signature Comments Components Source Medication Medication Date Date Medication? Clinician (SIG) Name Name DILT-XR 120 2020-04 Yes TAKE 1 Univ ers mg 24 hr 0-22 CAPSULE BY ity o f capsule 00:00: MOUTH AT [place] 00 BEDTIME Medical Branch diltiazem 2020-04- No 120mg Take 120 Un radha XR 120 mg 0-21 10-21 mg by ity of 24 hr 08:30: 00:00 mouth at [place] capsule 27 :00 bedtime. Medical Branch diltiazem 2020-04 Yes 120mg Take 1 Unive rs XR 120 mg 0-21 capsule by ity of 24 hr 00:00: mouth at [place] capsule 00 bedtime. Medical Branch diltiazem 2020-04- No 120mg Take 1 Univ ers XR 120 mg 0-21 10-22 capsule by ity of 24 hr 00:00: 00:00 mouth at [place] capsule 00 :00 bedtime. Medical Branch iopamidol 2020- No [id number] 100mL 100 mL, Univers (ISOVUE 8-06 08-06 Intravenou ity o f 370-500 mL) 15:10: 15:10 s, ONCE, 1 [place] injection 00 :00 dose, Fri Medic al 100 mL 12/03/20 at Branch 1030, Routine iohexol 2020-0 2020- No 120mL 120 mL, Unive rs (OMNIPAQUE 06-28- Intravenou it y of 350 23:15: 22:57 s, ONCE, 1 [place] BULK-150 00 :00 dose, Mon Medica l mL) 06/28/20 at Branch injection 1715, 120 mL Routine omeprazole 2020-0 Yes Univers 40 mg 2-23 ity of capsule 00:00: [place] [address] Medical Branch fluconazole 2020-0 Yes 200mg Take 200 U nivers 200 mg 2-23 mg by ity of tablet 00:00: mouth [place] [address] every Medical morning. Branch omeprazole 2020-0 Yes Univers 40 mg 2-23 ity of capsule 00:00: [place] [address] Medical Branch fluconazole 2020-0 Yes 200mg Take 200 U nivers 200 mg 2-23 mg by ity of tablet 00:00: mouth [place] [address] every Medical morning. Branch omeprazole 2020-0 Yes Univers 40 mg 2-23 ity of capsule 00:00: [place] [address] Medical Branch fluconazole 2020-0 Yes 200mg Take 200 U nivers 200 mg 2-23 mg by ity of tablet 00:00: mouth [place] [address] every Medical morning. Branch omeprazole 2020-0 Yes Univers 40 mg 2-23 ity of capsule 00:00: [place] [address] Medical Branch fluconazole 1-0 Yes 200mg Take 200 U nivers 200 mg 2-23 mg by ity of tablet 00:00: mouth [place] [address] every Medical morning. Branch omeprazole 2020-0 Yes Univers 40 mg 2-23 ity of capsule 00:00: [place] [address] Medical Branch fluconazole 1-0 Yes 200mg Take 200 U nivers 200 mg 2-23 mg by ity of tablet 00:00: mouth [place] [address] every Medical morning. Branch omeprazole 2020-0 Yes Univers 40 mg 2-23 ity of capsule 00:00: [address] Branch fluconazole 1-0 Yes 200mg Take 200 U nivers 200 mg 2-23 mg by ity of tablet 00:00: mouth [place] [address] every Medical morning. Branch omeprazole 2020-0 Yes Univers 40 mg 2-23 ity of capsule 00:00: [place] [address] Medical Branch fluconazole 1-0 Yes 200mg Take 200 U nivers 200 mg 2-23 mg by ity of tablet 00:00: mouth [place] [address] every Medical morning. Branch omeprazole 1-0 Yes Univers 40 mg 2-23 ity of capsule 00:00: [place] 00 Medical Branch fluconazole 1-0 Yes 200mg Take 200 U nivers 200 mg 2-23 mg by ity of tablet 00:00: mouth [place] 00 every Medical morning. Branch omeprazole 1-0 Yes Univers 40 mg 2-23 ity of capsule 00:00: [place] 00 Medical Branch fluconazole 1-0 Yes 200mg Take 200 U nivers 200 mg 2-23 mg by ity of tablet 00:00: mouth [place] 00 every Medical morning. Branch omeprazole 1-0 Yes Univers 40 mg 2-23 ity of capsule 00:00: [place] 00 Medical Branch fluconazole 1-0 Yes 200mg Take 200 U nivers 200 mg 2-23 mg by ity of tablet 00:00: mouth [place] every Medical morning. Branch omeprazole 2020-0 Yes Univers 40 mg 2-23 ity of capsule 00:00: [place] 00 Medical Branch fluconazole 1-0 Yes 200mg Take 200 U nivers 200 mg 2-23 mg by ity of tablet 00:00: mouth [place] [address] every Medical morning. Branch omeprazole 2020-0 Yes Univers 40 mg 2-23 ity of capsule 00:00: [place] 00 Medical Branch fluconazole 1-0 Yes 200mg Take 200 U nivers 200 mg 2-23 mg by ity of tablet 00:00: mouth [place] every Medical morning. Branch omeprazole 1-0 Yes Univers 40 mg 2-23 ity of capsule 00:00: [place] 00 Medical Branch fluconazole 1-0 Yes 200mg Take 200 U nivers 200 mg 2-23 mg by ity of tablet 00:00: mouth [place] [address] every Medical morning. Branch omeprazole 1-0 Yes Univers 40 mg 2-23 ity of capsule 00:00: [place] 00 Medical Branch fluconazole 2021-0 Yes 200mg Take 200 U nivers 200 mg 2-23 mg by ity of tablet 00:00: mouth [place] [address] every Medical morning. Branch omeprazole 2020-0 Yes Univers 40 mg 2-23 ity of capsule 00:00: [place] 00 Medical Branch fluconazole 2021-0 Yes 200mg Take 200 U nivers 200 mg 2-23 mg by ity of tablet 00:00: mouth [place] 00 every Medical morning. Branch omeprazole 2020-0 Yes Univers 40 mg 2-23 ity of capsule 00:00: [place] 00 Medical Branch fluconazole 1-0 Yes 200mg Take 200 U nivers 200 mg 2-23 mg by ity of tablet 00:00: [facility] every Medical morning. Branch omeprazole 2020-0 Yes Univers 40 mg 2-23 ity of capsule 00:00: [place] 00 Medical Branch omeprazole 1-0 Yes Univers 40 mg 2-23 ity of capsule 00:00: [place] 00 Medical Branch fluconazole 1-0 Yes 200mg Take 200 U nivers 200 mg 2-23 mg by ity of tablet 00:00: [facility] every Medical morning. Branch fluconazole 1-0 Yes 200mg Take 200 U nivers 200 mg 2-23 mg by ity of tablet 00:00: [facility] every Medical morning. Branch omeprazole 2020-0 Yes Univers 40 mg 2-23 ity of capsule 00:00: [place] 00 Medical Branch fluconazole 1-0 Yes 200mg Take 200 U nivers 200 mg 2-23 mg by ity of tablet 00:00: [facility] every Medical morning. Branch LISINOPRIL 2020-0 Yes [id number] TAKE 1 Univers 20 mg 2-17 TABLET BY ity of tablet 00:00: [facility] 00 TWICE Medical DAILY Branch LISINOPRIL 2020-0 Yes [id number] TAKE 1 Univers 20 mg 2-17 TABLET BY ity of tablet 00:00: [facility] 00 TWICE Medical DAILY Branch LISINOPRIL 2020-0 Yes [id number] TAKE 1 Univers 20 mg 2-17 TABLET BY ity of tablet 00:00: [facility] 00 TWICE Medical DAILY Branch LISINOPRIL 2020-0 Yes [id number] TAKE 1 Univers 20 mg 2-17 TABLET BY ity of tablet 00:00: [facility] 00 TWICE Medical DAILY Branch LISINOPRIL 2020-0 Yes [id number] TAKE 1 Univers 20 mg 2-17 TABLET BY ity of tablet 00:00: [facility] 00 TWICE Medical DAILY Branch LISINOPRIL 1-0 Yes [id number] TAKE 1 Univers 20 mg 2-17 TABLET BY ity of tablet 00:00: [facility] 00 TWICE Medical DAILY Branch LISINOPRIL 1-0 Yes [id number] TAKE 1 Univers 20 mg 2-17 TABLET BY ity of tablet 00:00: MOUTH TWICE Medical DAILY Branch LISINOPRIL 2021-0 Yes [id number] TAKE 1 Univers 20 mg 2-17 TABLET BY ity of tablet 00:00: TWICE Medical DAILY Branch LISINOPRIL 2021-0 Yes [id number] TAKE 1 Univers 20 mg 2-17 TABLET BY ity of tablet 00:00: TWICE Medical DAILY Branch LISINOPRIL 2021-0 Yes [id number] TAKE 1 Univers 20 mg 2-17 TABLET BY ity of tablet 00:00: TWICE Medical DAILY Branch LISINOPRIL 2021-0 Yes [id number] TAKE 1 Univers 20 mg 2-17 TABLET BY ity of tablet 00:00: TWICE Medical DAILY Branch LISINOPRIL 2021-0 Yes [id number] TAKE 1 Univers 20 mg 2-17 TABLET BY ity of tablet 00:00: TWICE Medical DAILY Branch LISINOPRIL 2021-0 Yes [id number] TAKE 1 Univers 20 mg 2-17 TABLET BY ity of tablet 00:00: TWICE Medical DAILY Branch LISINOPRIL 2021-0 Yes [id number] TAKE 1 Univers 20 mg 2-17 TABLET BY ity of tablet 00:00: [facility] TWICE Medical DAILY Branch LISINOPRIL 2021-0 Yes [id number] TAKE 1 Univers 20 mg 2-17 TABLET BY ity of tablet 00:00: [facility] TWICE Medical DAILY Branch LISINOPRIL 2021-0 Yes [id number] TAKE 1 Univers 20 mg 2-17 TABLET BY ity of tablet 00:00: [facility] TWICE Medical DAILY Branch LISINOPRIL 2021-0 Yes [id number] TAKE 1 Univers 20 mg 2-17 TABLET BY ity of tablet 00:00: [facility] TWICE Medical DAILY Branch LISINOPRIL 2021-0 Yes [id number] TAKE 1 Univers 20 mg 2-17 TABLET BY ity of tablet 00:00: [facility] TWICE Medical DAILY Branch LISINOPRIL 2021-0 Yes [id number] TAKE 1 Univers 20 mg 2-17 TABLET BY ity of tablet 00:00: [facility] TWICE Medical DAILY Branch LISINOPRIL 2021-0 Yes [id number] TAKE 1 Univers 20 mg 2-17 TABLET BY ity of tablet 00:00: MOUTH [place] 00 TWICE Medical DAILY [place] LISINOPRIL 1-0 Yes [id number] TAKE 1 Univers 20 mg 2-17 TABLET BY ity of tablet 00:00: MOUTH [place] 00 TWICE Medical DAILY Branch dextroamphe 2021-0 Yes 10mg Take 10 mg Univers tamine-amph 2-11 by mouth 2 it y of etamine 10 00:00: (two) [place] mg tablet 00 times Medical daily. Branch dextroamphe 2021-0 Yes 10mg Take 10 mg Univers tamine-amph 2-11 by mouth 2 it y of etamine 10 00:00: (two) [place] mg tablet 00 times Medical daily. Branch dextroamphe 2021-0 Yes 10mg Take 10 mg Univers tamine-amph 2-11 by mouth 2 it y of etamine 10 00:00: (two) [place] mg tablet 00 times Medical daily. Branch dextroamphe 2021-0 Yes 10mg Take 10 mg Univers tamine-amph 2-11 by mouth 2 it y of etamine 10 00:00: (two) [place] mg tablet 00 times Medical daily. Branch dextroamphe 2021-0 Yes 10mg Take 10 mg Univers tamine-amph 2-11 by mouth 2 it y of etamine 10 00:00: (two) [place] mg tablet 00 times Medical daily. Branch dextroamphe 2021-0 Yes 10mg Take 10 mg Univers tamine-amph 2-11 by mouth 2 it y of etamine 10 00:00: (two) [place] mg tablet 00 times Medical daily. Branch dextroamphe 2021-0 Yes 10mg Take 10 mg Univers tamine-amph 2-11 by mouth 2 it y of etamine 10 00:00: (two) [place] mg tablet 00 times Medical daily. Branch dextroamphe 2021-0 Yes 10mg Take 10 mg Univers tamine-amph 2-11 by mouth 2 it y of etamine 10 00:00: (two) [place] mg tablet 00 times Medical daily. Branch dextroamphe 2021-0 Yes 10mg Take 10 mg Univers tamine-amph 2-11 by mouth 2 it y of etamine 10 00:00: (two) [place] mg tablet 00 times Medical daily. Branch dextroamphe 2021-0 Yes 10mg Take 10 mg Univers tamine-amph 2-11 by mouth 2 it y of etamine 10 00:00: (two) [place] mg tablet 00 times Medical daily. Branch dextroamphe 1-0 Yes 10mg Take 10 mg Univers tamine-amph 2-11 by mouth 2 it y of etamine 10 00:00: (two) [place] mg tablet 00 times Medical daily. Branch dextroamphe 1-0 Yes 10mg Take 10 mg Univers tamine-amph 2-11 by mouth 2 it y of etamine 10 00:00: (two) [place] mg tablet 00 times Medical daily. Branch dextroamphe 1-0 Yes 10mg Take 10 mg Univers tamine-amph 2-11 by mouth 2 it y of etamine 10 00:00: (two) [place] mg tablet 00 times Medical daily. Branch dextroamphe 1-0 Yes 10mg Take 10 mg Univers tamine-amph 2-11 by mouth 2 it y of etamine 10 00:00: (two) [place] mg tablet 00 times Medical daily. Branch dextroamphe 1-0 Yes 10mg Take 10 mg Univers tamine-amph 2-11 by mouth 2 it y of etamine 10 00:00: (two) [place] mg tablet 00 times Medical daily. Branch diltiazem 2020-0 Yes 240mg Take 240 Uni vers XR 240 mg 1-20 mg by ity of 24 hr 18:41: mouth [place] capsule 16 daily. Medical Branch diltiazem 2020-0 Yes 120mg Take 120 Uni vers XR 120 mg 1-20 mg by ity of 24 hr 18:41: mouth at [place] capsule 16 bedtime. Medical Branch diltiazem 2020-0 Yes 240mg Take 240 Uni vers XR 240 mg 1-20 mg by ity of 24 hr 18:41: mouth [place] capsule 16 daily. Medical Branch diltiazem 2020-0 Yes 120mg Take 120 Uni vers XR 120 mg 1-20 mg by ity of 24 hr 18:41: mouth at [place] capsule 16 bedtime. Medical Branch diltiazem 1-0 Yes 240mg Take 240 Uni vers XR 240 mg 1-20 mg by ity of 24 hr 18:41: mouth [place] capsule 16 daily. Medical Branch diltiazem 1-0 Yes 120mg Take 120 Uni vers XR 120 mg 1-20 mg by ity of 24 hr 18:41: mouth at [place] capsule 16 bedtime. Medical Branch diltiazem 0 Yes 240mg Take 240 Uni vers XR 240 mg 1-20 mg by ity of 24 hr 18:41: mouth [place] capsule 16 daily. Medical Branch diltiazem 0 Yes 120mg Take 120 Uni vers XR 120 mg 1-20 mg by ity of 24 hr 18:41: mouth at [place] capsule 16 bedtime. Medical Branch diltiazem 0 Yes 240mg Take 240 Uni vers XR 240 mg 1-20 mg by ity of 24 hr 18:41: mouth [place] capsule 16 daily. Medical Branch diltiazem Yes 120mg Take 120 Uni vers XR 120 mg 1-20 mg by ity of 24 hr 18:41: mouth at [place] capsule 16 bedtime. Medical Branch diltiazem 0 Yes 240mg Take 240 Uni vers XR 240 mg 1-20 mg by ity of 24 hr 18:41: mouth [place] capsule 16 daily. Medical Branch diltiazem Yes 120mg Take 120 Uni vers XR 120 mg 1-20 mg by ity of 24 hr 18:41: mouth at [place] capsule 16 bedtime. Medical Branch diltiazem Yes 240mg Take 240 Uni vers XR 240 mg 1-20 mg by ity of 24 hr 18:41: mouth [place] capsule 16 daily. Medical Branch diltiazem Yes 120mg Take 120 Uni vers XR 120 mg 1-20 mg by ity of 24 hr 18:41: mouth at [place] capsule 16 bedtime. Medical Branch diltiazem Yes 240mg Take 240 Uni vers XR 240 mg 1-20 mg by ity of 24 hr 18:41: mouth [place] capsule 16 daily. Medical Branch diltiazem Yes 120mg Take 120 Uni vers XR 120 mg 1-20 mg by ity of 24 hr 18:41: mouth at [place] capsule 16 bedtime. Medical Branch diltiazem 0 Yes 240mg Take 240 Uni vers XR 240 mg 1-20 mg by ity of 24 hr 18:41: mouth [place] capsule 16 daily. Medical Branch diltiazem 0 Yes 120mg Take 120 Uni vers XR 120 mg 1-20 mg by ity of 24 hr 18:41: mouth at [place] capsule 16 bedtime. Medical Branch diltiazem 2021-0 Yes 240mg Take 240 Uni vers XR 240 mg 1-20 mg by ity of 24 hr 18:41: mouth [place] capsule 16 daily. Medical Branch diltiazem Yes 120mg Take 120 Uni vers XR 120 mg 1-20 mg by ity of 24 hr 18:41: mouth at [place] capsule 16 bedtime. Medical Branch diltiazem 0 Yes 240mg Take 240 Uni vers XR 240 mg 1-20 mg by ity of 24 hr 18:41: mouth [place] capsule 16 daily. Medical Branch diltiazem Yes 120mg Take 120 Uni vers XR 120 mg 1-20 mg by ity of 24 hr 18:41: mouth at [place] capsule 16 bedtime. Medical Branch diltiazem 0 Yes 240mg Take 240 Uni vers XR 240 mg 1-20 mg by ity of 24 hr 18:41: mouth [place] capsule 16 daily. Medical Branch diltiazem Yes 120mg Take 120 Uni vers XR 120 mg 1-20 mg by ity of 24 hr 18:41: mouth at [place] capsule 16 bedtime. Medical Branch diltiazem Yes 240mg Take 240 Uni vers XR 240 mg 1-20 mg by ity of 24 hr 18:41: mouth [place] capsule 16 daily. Medical Branch diltiazem Yes 120mg Take 120 Uni vers XR 120 mg 1-20 mg by ity of 24 hr 18:41: mouth at [place] capsule 16 bedtime. Medical Branch diltiazem Yes 240mg Take 240 Uni vers XR 240 mg 1-20 mg by ity of 24 hr 18:41: mouth [place] capsule 16 daily. Medical Branch diltiazem Yes 120mg Take 120 Uni vers XR 120 mg 1-20 mg by ity of 24 hr 18:41: mouth at [place] capsule 16 bedtime. Medical Branch diltiazem 0 Yes 240mg Take 240 Uni vers XR 240 mg 1-20 mg by ity of 24 hr 18:41: mouth [place] capsule 16 daily. Medical Branch diltiazem 0 Yes 120mg Take 120 Uni vers XR 120 mg 1-20 mg by ity of 24 hr 18:41: mouth at [place] capsule 16 bedtime. Medical Branch diltiazem 0 Yes 240mg Take 240 Uni vers XR 240 mg 1-20 mg by ity of 24 hr 18:41: mouth [place] capsule 16 daily. Medical Branch diltiazem Yes 120mg Take 120 Uni vers XR 120 mg 1-20 mg by ity of 24 hr 18:41: mouth at [place] capsule 16 bedtime. Medical Branch diltiazem Yes 240mg Take 240 Uni vers XR 240 mg 1-20 mg by ity of 24 hr 18:41: mouth [place] capsule 16 daily. Medical Branch diltiazem Yes 120mg Take 120 Uni vers XR 120 mg 1-20 mg by ity of 24 hr 18:41: mouth at [place] capsule 16 bedtime. Medical Branch diltiazem Yes 240mg Take 240 Uni vers XR 240 mg 1-20 mg by ity of 24 hr 18:41: mouth [place] capsule 16 daily. Medical Branch diltiazem Yes 120mg Take 120 Uni vers XR 120 mg 1-20 mg by ity of 24 hr 18:41: mouth at [place] capsule 16 bedtime. Medical Branch diltiazem Yes 240mg Take 240 Uni vers XR 240 mg 1-20 mg by ity of 24 hr 18:41: mouth [place] capsule 16 daily. Medical Branch diltiazem Yes 120mg Take 120 Uni vers XR 120 mg 1-20 mg by ity of 24 hr 18:41: mouth at [place] capsule 16 bedtime. Medical Branch lidocaine Yes 15mL Take 15 mL Un rad[facility] 2% viscous 1-20 by mouth ity o f (LIDOCAINE 18:41: every 4 [place] VISCOUS) 2 15 (four) Medical % solution hours as Branc h needed. ALPRAZolam Yes 1mg Take 1 mg Un radha (XANAX) 1 1-20 by mouth 3 ity of mg tablet 18:41: (three) [place] 15 times Medical daily. Branch amphetamine Yes 15mg Take 15 mg Univers -dextroamph 1-20 by mouth ity of etamine 15 18:41: as needed. [place] mg 24 hr 15 Medical capsule Branch lidocaine Yes 15mL Take 15 mL Un rad[facility] 2% viscous 1-20 by mouth ity o f (LIDOCAINE 18:41: every 4 [place] VISCOUS) 2 15 (four) Medical % solution hours as Branc h needed. ALPRAZolam 2020-0 Yes 1mg Take 1 mg Un radha (XANAX) 1 1-20 by mouth 3 ity of mg tablet 18:41: (three) [place] 15 times Medical daily. Branch amphetamine 2020-0 Yes 15mg Take 15 mg Univers -dextroamph 1-20 by mouth ity of etamine 15 18:41: as needed. [place] mg 24 hr 15 Medical capsule Branch lidocaine 2020-0 Yes 15mL Take 15 mL Un rad[facility] 2% viscous 1-20 by mouth ity o f (LIDOCAINE 18:41: every 4 [place] VISCOUS) 2 15 (four) Medical % solution hours as Branc h needed. ALPRAZolam 2020-0 Yes 1mg Take 1 mg Un radha (XANAX) 1 1-20 by mouth 3 ity of mg tablet 18:41: (three) [place] 15 times Medical daily. Branch amphetamine 0 Yes 15mg Take 15 mg Univers -dextroamph 1-20 by mouth ity of etamine 15 18:41: as needed. [place] mg 24 hr 15 Medical capsule Branch lidocaine 2020-0 Yes 15mL Take 15 mL Un rad[facility] 2% viscous 1-20 by mouth ity o f (LIDOCAINE 18:41: every 4 [place] VISCOUS) 2 15 (four) Medical % solution hours as Branc h needed. ALPRAZolam 2020-0 Yes 1mg Take 1 mg Un radha (XANAX) 1 1-20 by mouth 3 ity of mg tablet 18:41: (three) [place] 15 times Medical daily. Branch amphetamine 2020-0 Yes 15mg Take 15 mg Univers -dextroamph 1-20 by mouth ity of etamine 15 18:41: as needed. [place] mg 24 hr 15 Medical capsule Branch lidocaine 2020-0 Yes 15mL Take 15 mL Un rad[facility] 2% viscous 1-20 by mouth ity o f (LIDOCAINE 18:41: every 4 [place] VISCOUS) 2 15 (four) Medical % solution hours as Branc h needed. ALPRAZolam 2020-0 Yes 1mg Take 1 mg Un radha (XANAX) 1 1-20 by mouth 3 ity of mg tablet 18:41: (three) [place] 15 times Medical daily. Branch amphetamine 0 Yes 15mg Take 15 mg Univers -dextroamph 1-20 by mouth ity of etamine 15 18:41: as needed. [place] mg 24 hr 15 Medical capsule Branch lidocaine 0 Yes 15mL Take 15 mL Un [place] 2% viscous 1-20 by mouth ity o f (LIDOCAINE 18:41: every 4 [place] VISCOUS) 2 15 (four) Medical % solution hours as Branc h needed. ALPRAZolam 0 Yes 1mg Take 1 mg Un rad[facility] (XANAX) 1 1-20 by mouth 3 ity of mg tablet 18:41: (three) [place] 15 times Medical daily. Branch amphetamine 0 Yes 15mg Take 15 mg Univers -dextroamph 1-20 by mouth ity of etamine 15 18:41: as needed. [place] mg 24 hr 15 Medical capsule Branch lidocaine 0 Yes 15mL Take 15 mL Un rad[facility] 2% viscous 1-20 by mouth ity o f (LIDOCAINE 18:41: every 4 [place] VISCOUS) 2 15 (four) Medical % solution hours as Branc h needed. ALPRAZolam 0 Yes 1mg Take 1 mg Un rad[facility] (XANAX) 1 1-20 by mouth 3 ity of mg tablet 18:41: (three) [place] 15 times Medical daily. Branch amphetamine 0 Yes 15mg Take 15 mg Univers -dextroamph 1-20 by mouth ity of etamine 15 18:41: as needed. [place] mg 24 hr 15 Medical capsule Branch lidocaine 0 Yes 15mL Take 15 mL Un rad[facility] 2% viscous 1-20 by mouth ity o f (LIDOCAINE 18:41: every 4 [place] VISCOUS) 2 15 (four) Medical % solution hours as Branc h needed. ALPRAZolam 0 Yes 1mg Take 1 mg Un rad[facility] (XANAX) 1 1-20 by mouth 3 ity of mg tablet 18:41: (three) [place] 15 times Medical daily. Branch amphetamine 2020-0 Yes 15mg Take 15 mg Univers -dextroamph 1-20 by mouth ity of etamine 15 18:41: as needed. [place] mg 24 hr 15 Medical capsule Branch lidocaine 2020-0 Yes 15mL Take 15 mL Un rad[facility] 2% viscous 1-20 by mouth ity o f (LIDOCAINE 18:41: every 4 [place] VISCOUS) 2 15 (four) Medical % solution hours as Branc h needed. ALPRAZolam 2020-0 Yes 1mg Take 1 mg Un rad[facility] (XANAX) 1 1-20 by mouth 3 ity of mg tablet 18:41: (three) [place] 15 times Medical daily. Branch amphetamine 2020-0 Yes 15mg Take 15 mg Univers -dextroamph 1-20 by mouth ity of etamine 15 18:41: as needed. [place] mg 24 hr 15 Medical capsule Branch lidocaine 2020-0 Yes 15mL Take 15 mL [facility] 2% viscous 1-20 by mouth ity o f (LIDOCAINE 18:41: every 4 [place] VISC[place] 2 15 (four) Medical % solution hours as Branc h needed. ALPRAZolam 0 Yes 1mg Take 1 mg [facility] (XANAX) 1 1-20 by mouth 3 ity of mg tablet 18:41: (three) [place] 15 times Medical daily. Branch amphetamine 2020-0 Yes 15mg Take 15 mg [facility] -dextroamph 1-20 by mouth ity of etamine 15 18:41: as needed. [place] mg 24 hr 15 Medical capsule Branch lidocaine 2020-0 Yes 15mL Take 15 mL [facility] 2% viscous 1-20 by mouth ity o f (LIDOCAINE 18:41: every 4 [place] VISCOUS[place] 2 15 (four) Medical % solution hours as Branc h needed. ALPRAZolam 0 Yes 1mg Take 1 mg [facility] (XANAX) 1 1-20 by mouth 3 ity of mg tablet 18:41: (three) [place] 15 times Medical daily. Branch amphetamine 2020-0 Yes 15mg Take 15 mg [facility] -dextroamph 1-20 by mouth ity of etamine 15 18:41: as needed. [place] mg 24 hr 15 Medical capsule Branch lidocaine 2020-0 Yes 15mL Take 15 mL [facility] 2% viscous 1-20 by mouth ity o f (LIDOCAINE 18:41: every 4 [place] VISCOUS[place] 2 15 (four) Medical % solution hours as Branc h needed. ALPRAZolam 2020-0 Yes 1mg Take 1 mg [facility] (XANAX) 1 1-20 by mouth 3 ity of mg tablet 18:41: (three) [place] 15 times Medical daily. Branch amphetamine 2020-0 Yes 15mg Take 15 mg [facility] -dextroamph 1-20 by mouth ity of etamine 15 18:41: as needed. [place] mg 24 hr 15 Medical capsule Branch lidocaine 2020-0 Yes 15mL Take 15 mL [facility] 2% viscous 1-20 by mouth ity o f (LIDOCAINE 18:41: every 4 [place] VISCOUS) 2 15 (four) Medical % solution hours as Branc h needed. ALPRAZolam 2020-0 Yes 1mg Take 1 mg [facility] (XANAX) 1 1-20 by mouth 3 ity of mg tablet 18:41: (three) [place] 15 times Medical daily. Branch amphetamine 2020-0 Yes 15mg Take 15 mg [facility] -dextroamph 1-20 by mouth ity of etamine 15 18:41: as needed. [place] mg 24 hr 15 Medical capsule Branch lidocaine 2020-0 Yes 15mL Take 15 mL [facility] 2% viscous 1-20 by mouth ity o f (LIDOCAINE 18:41: every 4 [place] VISCOUS) 2 15 (four) Medical % solution hours as Branc h needed. ALPRAZolam 2020-0 Yes 1mg Take 1 mg [facility] (XANAX) 1 1-20 by mouth 3 ity of mg tablet 18:41: (three) [place] 15 times Medical daily. Branch amphetamine 2020-0 Yes 15mg Take 15 mg [facility] -dextroamph 1-20 by mouth ity of etamine 15 18:41: as needed. [place] mg 24 hr 15 Medical capsule Branch lidocaine 2020-0 Yes 15mL Take 15 mL [facility] 2% viscous 1-20 by mouth ity o f (LIDOCAINE 18:41: every 4 [place] VISCOUS) 2 15 (four) Medical % solution hours as Branc h needed. ALPRAZolam 2020-0 Yes 1mg Take 1 mg [facility] (XANAX) 1 1-20 by mouth 3 ity of mg tablet 18:41: (three) [place] 15 times Medical daily. Branch amphetamine 2020-0 Yes 15mg Take 15 mg [facility] -dextroamph 1-20 by mouth ity of etamine 15 18:41: as needed. [place] mg 24 hr 15 Medical capsule Branch lidocaine 2020-0 Yes 15mL Take 15 mL [facility] 2% viscous 1-20 by mouth ity o f (LIDOCAINE 18:41: every 4 [place] VISCOUS) 2 15 (four) Medical % solution hours as Branc h needed. ALPRAZolam 0 Yes 1mg Take 1 mg [facility] (XANAX) 1 1-20 by mouth 3 ity of mg tablet 18:41: (three) [place] 15 times Medical daily. Branch amphetamine 0 Yes 15mg Take 15 mg [facility] -dextroamph 1-20 by mouth ity of etamine 15 18:41: as needed. [place] mg 24 hr 15 Medical capsule Branch lidocaine 0 Yes 15mL Take 15 mL [facility] 2% viscous 1-20 by mouth ity o f (LIDOCAINE 18:41: every 4 [place] VISCOUS) 2 15 (four) Medical % solution hours as Branc h needed. ALPRAZolam 0 Yes 1mg Take 1 mg [facility] (XANAX) 1 1-20 by mouth 3 ity of mg tablet 18:41: (three) [place] 15 times Medical daily. Branch amphetamine 0 Yes 15mg Take 15 mg [facility] -dextroamph 1-20 by mouth ity of etamine 15 18:41: as needed. [place] mg 24 hr 15 Medical capsule Branch lidocaine 2020-0 Yes 15mL Take 15 mL [facility] 2% viscous 1-20 by mouth ity o f (LIDOCAINE 18:41: every 4 [place] VISCOUS) 2 15 (four) Medical % solution hours as Branc h needed. ALPRAZolam 0 Yes 1mg Take 1 mg [facility] (XANAX) 1 1-20 by mouth 3 ity of mg tablet 18:41: (three) [place] 15 times Medical daily. Branch amphetamine 2020-0 Yes 15mg Take 15 mg [facility] -dextroamph 1-20 by mouth ity of etamine 15 18:41: as needed. [place] mg 24 hr 15 Medical capsule Branch lidocaine 2020-0 Yes 15mL Take 15 mL [facility] 2% viscous 1-20 by mouth ity o f (LIDOCAINE 18:41: every 4 [place] VISCOUS) 2 15 (four) Medical % solution hours as Branc h needed. ALPRAZolam Yes 1mg Take 1 mg [facility] (XANAX) 1 1-20 by mouth 3 ity of mg tablet 18:41: (three) [place] 15 times Medical daily. Branch amphetamine Yes 15mg Take 15 mg [facility] -dextroamph 1-20 by mouth ity of etamine 15 18:41: as needed. [place] mg 24 hr 15 Medical capsule Branch FENTanyl PF Yes 25ug 25 mcg, Uni vers (SUBLIMAZE 1-20 Slow IV ity of (PF)) 17:28: Push, [place] injection 48 Q5MIN PRN, Medi [place] 25 mcg 4 doses, Branch Starting Sun05/19/20 at 1128, Until Discontinu ed, Routine, Pain (scale 4-6), PACU ondansetron 2020- No 4mg 4 mg, Slow [facility] (ZOFRAN 20 -20 IV Push, ity of (PF)) 17:28: 17:31 PRN, 1 [place] injection 4 48 :00 dose, Medical mg Starting Branch Sun05/19/20 at 1128, Until Sun05/19/20 at 1131, Routine, Nausea and Vomiting (N/V), PACU HYDROcodone 2020- No 1{tbl} 1 tablet, [facility] -acetaminop 05-1920 Oral, PRN, i ty of hen (NORCO) 16:55: 17:12 1 dose, [place] 10-325 mg 35 :00 Starting Medica l tablet 1 Sun Branch tablet 05/19/20 at 1055, Until Discontinu ed, Routine, Pain (scale 7-10), DSU Recovery HYDROcodone Yes 1{tbl} 1 tablet, [facility] -acetaminop 1-20 Oral, PRN, it y of hen (NORCO 16:55: 1 dose, [place] 5) 5-325 mg 32 Starting Medi [place] tablet 1 Sun Branch tablet 05/19/20 at 1055, Until Discontinu ed, Routine, Pain (scale 4-6), DSU Recovery ibuprofen 2020- No 800mg 800 mg, Uni vers (IBU) 05-1920 Oral, PRN, ity of tablet 800 16:55: 17:12 1 dose, [place] mg 15 :00 Starting Medical Wed Branch 05/19/20 at 1055, Until Discontinu ed, Routine, Pain (scale 1-3), DSU Recovery NaCl 0.9% Yes CONTINUOUS [facility] (NS) IV 1-20 PRN, ity of infusion 15:39: Starting [place] [facility] Medical 05/19/20 at Branch 0939, Until Discontinu ed, Routine, Intra-op lactated 2020- No 1000mL at 42 Un[facility] rs ringers IV 1-20 01-20 mL/hr, ity of infusion 14:15: 14:38 1,000 mL, [place] 1,000 mL 00 :00 IV Medical Infusion, [place] ONCE, 1 dose, 05/19/20 at 0815, Routine, DSU Pre-op lidocaine Yes 15mL Take 15 mL [facility] 2% viscous 1-20 by mouth ity o f (LIDOCAINE 13:46: every 4 [place] VISCOUS) 2 12 (four) Medical % solution hours as Branc h needed. ALPRAZolam Yes 1mg Take 1 mg [facility] (XANAX) 1 1-20 by mouth 3 ity of mg tablet 13:46: (three) [place] 12 times Medical daily. Branch amphetamine Yes 15mg Take 15 mg [facility] -dextroamph 1-20 by mouth ity of etamine 15 13:46: as needed. [place] mg 24 hr 12 Medical capsule Branch diltiazem 0 Yes 240mg Take 240 Uni vers XR 240 mg 1-20 mg by ity of 24 hr 13:46: mouth [place] capsule 12 daily. Medical Branch diltiazem 0 Yes 120mg Take 120 Uni vers XR 120 mg 1-20 mg by ity of 24 hr 13:46: mouth at [place] capsule 12 bedtime. Medical Branch diltiazem 2020-0 Yes 240mg Take 240 Uni vers XR 240 mg 1-20 mg by ity of 24 hr 12:41: mouth [place] capsule 16 daily. Medical Branch diltiazem 2020-0 Yes 120mg Take 120 Uni vers XR 120 mg 1-20 mg by ity of 24 hr 12:41: mouth at [place] capsule 16 bedtime. Medical Branch diltiazem 0 Yes 240mg Take 240 Uni vers XR 240 mg 1-20 mg by ity of 24 hr 12:41: mouth [place] capsule 16 daily. Medical Branch diltiazem 0 Yes 240mg Take 240 Uni vers XR 240 mg 1-20 mg by ity of 24 hr 12:41: mouth [place] capsule 16 daily. Medical Branch lidocaine 2020-0 Yes 15mL Take 15 mL [facility] 2% viscous 1-20 by mouth ity o f (LIDOCAINE 12:41: every 4 [place] VISCOUS) 2 15 (four) Medical % solution hours as Branc h needed. ALPRAZolam 0 Yes 1mg Take 1 mg [facility] (XANAX) 1 1-20 by mouth 3 ity of mg tablet 12:41: (three) [place] 15 times Medical daily. Branch amphetamine 0 Yes 15mg Take 15 mg [facility] -dextroamph 1-20 by mouth ity of etamine 15 12:41: as needed. [place] mg 24 hr 15 Medical capsule Branch lidocaine 0 Yes 15mL Take 15 mL [facility] 2% viscous 1-20 by mouth ity o f (LIDOCAINE 12:41: every 4 [place] VISCOUS) 2 15 (four) Medical % solution hours as Branc h needed. ALPRAZolam 0 Yes 1mg Take 1 mg [facility] (XANAX) 1 1-20 by mouth 3 ity of mg tablet 12:41: (three) [place] 15 times Medical daily. Branch amphetamine 2020-0 Yes 15mg Take 15 mg [facility] -dextroamph 1-20 by mouth ity of etamine 15 12:41: as needed. [place] mg 24 hr 15 Medical capsule Branch lidocaine 2020-0 Yes 15mL Take 15 mL [facility] 2% viscous 1-20 by mouth ity o f (LIDOCAINE 12:41: every 4 [place] VISCOUS) 2 15 (four) Medical % solution hours as Branc h needed. ALPRAZolam 2020-0 Yes 1mg Take 1 mg [facility] (XANAX) 1 1-20 by mouth 3 ity of mg tablet 12:41: (three) [place] 15 times Medical daily. Branch amphetamine 2020-0 Yes 15mg Take 15 mg [facility] -dextroamph 1-20 by mouth ity of etamine 15 12:41: as needed. [place] mg 24 hr 15 Medical capsule Branch ibuprofen 2020-0 Yes [id number] 800mg Take 1 [facility] 800 mg 1-20 tablet by ity of tablet 00:00: mouth [place] 00 every 6 Medical (six) Branch hours as needed for Alternate with [place] for pain scale 4-6. docusate 2020-0 Yes [id number] 100mg Take 1 U nivers 100 mg 1-20 capsule by ity of capsule 00:00: mouth [place] 00 daily. Medical Branch sennosides- 2020-0 Yes [id number] 1{tbl} Take 1 [facility] docusate 1-20 tablet by ity of sodium 00:00: mouth [place] 8.6-50 mg 00 daily. Medical per tablet Branch polyethylen 2020-0 Yes [id number] 17g Take 17 g Univers e glycol 1-20 by mouth ity of 3350 17 00:00: as needed [place] gram/dose 00 for Medical powder Constipati Branch on. ibuprofen 2020-0 Yes [id number] 800mg Take 1 [facility] 800 mg 1-20 tablet by ity of tablet 00:00: mouth [place] 00 every 6 Medical (six) Branch hours as needed for Alternate with [place] for pain scale 4-6. docusate 2020-0 Yes [id number] 100mg Take 1 U nivers 100 mg 1-20 capsule by ity of capsule 00:00: mouth [place] 00 daily. Medical Branch sennosides- 2020-0 Yes [id number] 1{tbl} Take 1 Univers docusate 1-20 tablet by ity of sodium 00:00: mouth [place] 8.6-50 mg 00 daily. Medical per tablet Branch polyethylen 2020-0 Yes [id number] 17g Take 17 g Univers e glycol 1-20 by mouth ity of 3350 17 00:00: as needed [place] gram/dose 00 for Medical powder Constipati Branch on. ibuprofen 2020-0 Yes [id number] 800mg Take 1 [facility] 800 mg 1-20 tablet by ity of tablet 00:00: mouth [place] 00 every 6 Medical (six) Branch hours as needed for Alternate with [place] for pain scale 4-6. docusate 2020-0 Yes [id number] 100mg Take 1 U nivers 100 mg 1-20 capsule by ity of capsule 00:00: mouth [place] 00 daily. Medical Branch sennosides- 2021-0 Yes [id number] 1{tbl} Take 1 [facility] docusate 1-20 tablet by ity of sodium 00:00: mouth [place] 8.6-50 mg 00 daily. Medical per tablet Branch polyethylen Yes [id number] 17g Take 17 g Univers e glycol 1-20 by mouth ity of 3350 17 00:00: as needed [place] gram/dose 00 for Medical powder Constipati Branch on. ibuprofen Yes [id number] 800mg Take 1 [facility] 800 mg 1-20 tablet by ity of tablet 00:00: mouth [place] 00 every 6 Medical (six) Branch hours as needed for Alternate with [place] for pain scale 4-6. docusate Yes [id number] 100mg Take 1 U nivers 100 mg 1-20 capsule by ity of capsule 00:00: mouth [place] 00 daily. Medical Branch sennosides- Yes [id number] 1{tbl} Take 1 Univers docusate 1-20 tablet by ity of sodium 00:00: mouth [place] 8.6-50 mg 00 daily. Medical per tablet Branch polyethylen Yes [id number] 17g Take 17 g [facility] e glycol 1-20 by mouth ity of 3350 17 00:00: as needed [place] gram/dose 00 for Medical powder Constipati Branch on. ibuprofen Yes [id number] 800mg Take 1 [facility] 800 mg 1-20 tablet by ity of tablet 00:00: mouth [place] 00 every 6 Medical (six) Branch hours as needed for Alternate with [place] for pain scale 4-6. docusate Yes [id number] 100mg Take 1 U nivers 100 mg 1-20 capsule by ity of capsule 00:00: mouth [place] 00 daily. Medical Branch sennosides- Yes [id number] 1{tbl} Take 1 Univers docusate 1-20 tablet by ity of sodium 00:00: mouth [place] 8.6-50 mg 00 daily. Medical per tablet Branch polyethylen Yes [id number] 17g Take 17 g Univers e glycol 1-20 by mouth ity of 3350 17 00:00: as needed [place] gram/dose 00 for Medical powder Constipati Branch on. ibuprofen 2020-0 Yes [id number] 800mg Take 1 [facility] 800 mg 1-20 tablet by ity of tablet 00:00: mouth [place] 00 every 6 Medical (six) Branch hours as needed for Alternate with [place] for pain scale 4-6. docusate 2020-0 Yes [id number] 100mg Take 1 U nivers 100 mg 1-20 capsule by ity of capsule 00:00: mouth [place] 00 daily. Medical Branch sennosides- 2020-0 Yes [id number] 1{tbl} Take 1 Univers docusate 1-20 tablet by ity of sodium 00:00: mouth [place] 8.6-50 mg 00 daily. Medical per tablet Branch polyethylen 0 Yes [id number] 17g Take 17 g Univers e glycol 1-20 by mouth ity of 3350 17 00:00: as needed [place] gram/dose 00 for Medical powder Constipati Branch on. ibuprofen 0 Yes [id number] 800mg Take 1 [facility] 800 mg 1-20 tablet by ity of tablet 00:00: mouth [place] 00 every 6 Medical (six) Branch hours as needed for Alternate with [place] for pain scale 4-6. docusate 0 Yes [id number] 100mg Take 1 U nivers 100 mg 1-20 capsule by ity of capsule 00:00: mouth [place] 00 daily. Medical Branch sennosides- Yes [id number] 1{tbl} Take 1 Univers docusate 1-20 tablet by ity of sodium 00:00: mouth [place] 8.6-50 mg 00 daily. Medical per tablet Branch polyethylen 2020-0 Yes [id number] 17g Take 17 g Univers e glycol 1-20 by mouth ity of 3350 17 00:00: as needed [place] gram/dose 00 for Medical powder Constipati Branch on. ibuprofen 2020-0 Yes [id number] 800mg Take 1 [facility] 800 mg 1-20 tablet by ity of tablet 00:00: mouth [place] 00 every 6 Medical (six) Branch hours as needed for Alternate with [place] for pain scale 4-6. docusate 2020-0 Yes [id number] 100mg Take 1 U nivers 100 mg 1-20 capsule by ity of capsule 00:00: mouth [place] 00 daily. Medical Branch sennosides- 2021-0 Yes [id number] 1{tbl} Take 1 Univers docusate 1-20 tablet by ity of sodium 00:00: mouth [place] 8.6-50 mg 00 daily. Medical per tablet Branch polyethylen Yes [id number] 17g Take 17 g Univers e glycol 1-20 by mouth ity of 3350 17 00:00: as needed [place] gram/dose 00 for Medical powder Constipati Branch on. ibuprofen 0 Yes [id number] 800mg Take 1 [facility] 800 mg 1-20 tablet by ity of tablet 00:00: mouth [place] 00 every 6 Medical (six) Branch hours as needed for Alternate with [place] for pain scale 4-6. docusate Yes [id number] 100mg Take 1 U nivers 100 mg 1-20 capsule by ity of capsule 00:00: mouth [place] 00 daily. Medical Branch sennosides- Yes [id number] 1{tbl} Take 1 Univers docusate 1-20 tablet by ity of sodium 00:00: mouth [place] 8.6-50 mg 00 daily. Medical per tablet Branch polyethylen Yes [id number] 17g Take 17 g Univers e glycol 1-20 by mouth ity of 3350 17 00:00: as needed [place] gram/dose 00 for Medical powder Constipati Branch on. ibuprofen 0 Yes [id number] 800mg Take 1 [facility] 800 mg 1-20 tablet by ity of tablet 00:00: mouth [place] 00 every 6 Medical (six) Branch hours as needed for Alternate with [place] for pain scale 4-6. docusate Yes [id number] 100mg Take 1 U nivers 100 mg 1-20 capsule by ity of capsule 00:00: mouth [place] 00 daily. Medical Branch sennosides- Yes [id number] 1{tbl} Take 1 Univers docusate 1-20 tablet by ity of sodium 00:00: mouth [place] 8.6-50 mg 00 daily. Medical per tablet Branch polyethylen Yes [id number] 17g Take 17 g Univers e glycol 1-20 by mouth ity of 3350 17 00:00: as needed [place] gram/dose 00 for Medical powder Constipati Branch on. ibuprofen 2020-0 Yes [id number] 800mg Take 1 [facility] 800 mg 1-20 tablet by ity of tablet 00:00: mouth [place] 00 every 6 Medical (six) Branch hours as needed for Alternate with [place] for pain scale 4-6. docusate 2020-0 Yes [id number] 100mg Take 1 U nivers 100 mg 1-20 capsule by ity of capsule 00:00: mouth [place] 00 daily. Medical Branch sennosides- 2020-0 Yes [id number] 1{tbl} Take 1 Univers docusate 1-20 tablet by ity of sodium 00:00: mouth [place] 8.6-50 mg 00 daily. Medical per tablet Branch polyethylen 0 Yes [id number] 17g Take 17 g Univers e glycol 1-20 by mouth ity of 3350 17 00:00: as needed [place] gram/dose 00 for Medical powder Constipati Branch on. ibuprofen Yes [id number] 800mg Take 1 [facility] 800 mg 1-20 tablet by ity of tablet 00:00: mouth [place] 00 every 6 Medical (six) Branch hours as needed for Alternate with [place] for pain scale 4-6. docusate Yes [id number] 100mg Take 1 U nivers 100 mg 1-20 capsule by ity of capsule 00:00: mouth [place] 00 daily. Medical Branch sennosides- Yes [id number] 1{tbl} Take 1 Univers docusate 1-20 tablet by ity of sodium 00:00: mouth [place] 8.6-50 mg 00 daily. Medical per tablet Branch polyethylen 2020-0 Yes [id number] 17g Take 17 g [facility] e glycol 1-20 by mouth ity of 3350 17 00:00: as needed [place] gram/dose 00 for Medical powder Constipati Branch on. ibuprofen 2020-0 Yes [id number] 800mg Take 1 [facility] 800 mg 1-20 tablet by ity of tablet 00:00: mouth [place] 00 every 6 Medical (six) Branch hours as needed for Alternate with [place] for pain scale 4-6. docusate 0 Yes [id number] 100mg Take 1 U nivers 100 mg 1-20 capsule by ity of capsule 00:00: mouth [place] 00 daily. Medical Branch sennosides- 0 Yes [id number] 1{tbl} Take 1 Univers docusate 1-20 tablet by ity of sodium 00:00: mouth [place] 8.6-50 mg 00 daily. Medical per tablet Branch polyethylen 0 Yes [id number] 17g Take 17 g Univers e glycol 1-20 by mouth ity of 3350 17 00:00: as needed [place] gram/dose 00 for Medical powder Constipati Branch on. ibuprofen 2020-0 Yes [id number] 800mg Take 1 [facility] 800 mg 1-20 tablet by ity of tablet 00:00: mouth [place] 00 every 6 Medical (six) Branch hours as needed for Alternate with [place] for pain scale 4-6. docusate 2020- Yes [id number] 100mg Take 1 U nivers 100 mg 1-20 capsule by ity of capsule 00:00: mouth [place] 00 daily. Medical Branch sennosides- Yes [id number] 1{tbl} Take 1 Univers docusate 1-20 tablet by ity of sodium 00:00: mouth [place] 8.6-50 mg 00 daily. Medical per tablet Branch polyethylen Yes [id number] 17g Take 17 g Univers e glycol 1-20 by mouth ity of 3350 17 00:00: as needed [place] gram/dose 00 for Medical powder Constipati Branch on. ibuprofen 2020-0 Yes [id number] 800mg Take 1 [facility] 800 mg 1-20 tablet by ity of tablet 00:00: mouth [place] 00 every 6 Medical (six) Branch hours as needed for Alternate with [place] for pain scale 4-6. ibuprofen 2020-0 Yes [id number] 800mg Take 1 [facility] 800 mg 1-20 tablet by ity of tablet 00:00: mouth [place] 00 every 6 Medical (six) Branch hours as needed for Alternate with [place] for pain scale 4-6. docusate 2020-0 Yes [id number] 100mg Take 1 U nivers 100 mg 1-20 capsule by ity of capsule 00:00: mouth [place] 00 daily. Medical Branch sennosides- Yes [id number] 1{tbl} Take 1 [facility] docusate 1-20 tablet by ity of sodium 00:00: mouth [place] 8.6-50 mg 00 daily. Medical per tablet Branch polyethylen 2020-0 Yes [id number] 17g Take 17 g Univers e glycol 1-20 by mouth ity of 3350 17 00:00: as needed [place] gram/dose 00 for Medical powder Constipati Branch on. docusate Yes [id number] 100mg Take 1 U nivers 100 mg 1-20 capsule by ity of capsule 00:00: mouth [place] 00 daily. Medical Branch sennosides- Yes [id number] 1{tbl} Take 1 Univers docusate 1-20 tablet by ity of sodium 00:00: mouth [place] 8.6-50 mg 00 daily. Medical per tablet Branch ibuprofen Yes [id number] 800mg Take 1 [facility] 800 mg 1-20 tablet by ity of tablet 00:00: mouth [place] 00 every 6 Medical (six) Branch hours as needed for Alternate with [place] for pain scale 4-6. docusate Yes [id number] 100mg Take 1 U nivers 100 mg 1-20 capsule by ity of capsule 00:00: mouth [place] 00 daily. Medical Branch sennosides- Yes [id number] 1{tbl} Take 1 [facility] docusate 1-20 tablet by ity of sodium 00:00: mouth [place] 8.6-50 mg 00 daily. Medical per tablet Branch polyethylen 0 Yes [id number] 17g Take 17 g [facility] e glycol 1-20 by mouth ity of 3350 17 00:00: as needed [place] gram/dose 00 for Medical powder Constipati Branch on. polyethylen Yes [id number] 17g Take 17 g [facility] e glycol 1-20 by mouth ity of 3350 17 00:00: as needed [place] gram/dose 00 for Medical powder Constipati Branch on. ibuprofen 0 Yes [id number] 800mg Take 1 [facility] 800 mg 1-20 tablet by ity of tablet 00:00: mouth [place] 00 every 6 Medical (six) Branch hours as needed for Alternate with [place] for pain scale 4-6. docusate Yes [id number] 100mg Take 1 U nivers 100 mg 1-20 capsule by ity of capsule 00:00: mouth [place] 00 daily. Medical Branch sennosides- Yes [id number] 1{tbl} Take 1 [facility] docusate 1-20 tablet by ity of sodium 00:00: mouth [place] 8.6-50 mg 00 daily. Medical per tablet Branch polyethylen 2020-0 Yes [id number] 17g Take 17 g [facility] e glycol 1-20 by mouth ity of 3350 17 00:00: as needed [place] gram/dose 00 for Medical powder Constipati Branch on. ibuprofen 2020-0 Yes [id number] 800mg Take 1 [facility] 800 mg 1-20 tablet by ity of tablet 00:00: mouth [place] 00 every 6 Medical (six) Branch hours as needed for Alternate with [place] for pain scale 4-6. docusate 2020-0 Yes [id number] 100mg Take 1 U nivers 100 mg 1-20 capsule by ity of capsule 00:00: mouth [place] 00 daily. Medical Branch sennosides- Yes [id number] 1{tbl} Take 1 [facility] docusate 1-20 tablet by ity of sodium 00:00: mouth [place] 8.6-50 mg 00 daily. Medical per tablet Branch polyethylen 2020-0 Yes [id number] 17g Take 17 g [facility] e glycol 1-20 by mouth ity of 3350 17 00:00: as needed [place] gram/dose 00 for Medical powder Constipati Branch on. ibuprofen 2020-0 Yes [id number] 800mg Take 1 [facility] 800 mg 1-20 tablet by ity of tablet 00:00: mouth [place] 00 every 6 Medical (six) Branch hours as needed for Alternate with [place] for pain scale 4-6. docusate 2020-0 Yes [id number] 100mg Take 1 U nivers 100 mg 1-20 capsule by ity of capsule 00:00: mouth [place] 00 daily. Medical Branch sennosides- 2020-0 Yes [id number] 1{tbl} Take 1 [facility] docusate 1-20 tablet by ity of sodium 00:00: mouth [place] 8.6-50 mg 00 daily. Medical per tablet Branch polyethylen 2020-0 Yes [id number] 17g Take 17 g [facility] e glycol 1-20 by mouth ity of 3350 17 00:00: as needed [place] gram/dose 00 for Medical powder Constipati Branch on. ibuprofen 2020-0 Yes [id number] 800mg Take 1 [facility] 800 mg 1-20 tablet by ity of tablet 00:00: mouth [place] 00 every 6 Medical (six) Branch hours as needed for Alternate with [place] for pain scale 4-6. docusate Yes [id number] 100mg Take 1 U nivers 100 mg 1-20 capsule by ity of capsule 00:00: mouth [place] 00 daily. Medical Branch sennosides- Yes [id number] 1{tbl} Take 1 [facility] docusate 1-20 tablet by ity of sodium 00:00: mouth [place] 8.6-50 mg 00 daily. Medical per tablet Branch polyethylen Yes [id number] 17g Take 17 g [facility] e glycol 1-20 by mouth ity of 3350 17 00:00: as needed [place] gram/dose 00 for Medical powder Constipati Branch on. ibuprofen Yes [id number] 800mg Take 1 [facility] 800 mg 1-20 tablet by ity of tablet 00:00: mouth [place] 00 every 6 Medical (six) Branch hours as needed for Alternate with [place] for pain scale 4-6. docusate Yes [id number] 100mg Take 1 U nivers 100 mg 1-20 capsule by ity of capsule 00:00: mouth [place] 00 daily. Medical Branch [facility]- Yes [id number] 1{tbl} Take 1 [facility] docusate 1-20 tablet by ity of sodium 00:00: mouth [place] 8.6-50 mg 00 daily. Medical per tablet Branch polyethylen Yes [id number] 17g Take 17 g Univers e glycol 1-20 by mouth ity of 3350 17 00:00: as needed [place] gram/dose 00 for Medical powder Constipati Branch on. HYDROcodone 2020- No [id number] 1{tbl} Take 1 U nivers -acetaminop 1-20 - tablet by it y of hen 5-325 00:00: 05:59 mouth [place] mg tablet 00 :00 every 6 Medical (six) Branch hours as needed for Pain (scale 4-6) or Pain (scale 7-10) (alternate with ibuprofen) for up to 7 days. Indication s: acute pain lidocaine 2019-04 Yes 15mL Take 15 mL [facility] 2% viscous 2-22 by mouth ity o f (LIDOCAINE 20:29: every 4 [place] VISCOUS) 2 24 (four) Medical % solution hours as Branc h needed. ALPRAZolam 2019-04 Yes 1mg Take 1 mg [facility] (XANAX) 1 2-22 by mouth 3 ity of mg tablet 20:29: (three) [place] 24 times Medical daily. Branch amphetamine 2019-04 Yes 15mg Take 15 mg [facility] -dextroamph 2-22 by mouth ity of etamine 15 20:29: as needed. [place] [place] [facility] 24 hr 24 [facility] capsule Branch lidocaine 2019-04 Yes 15mL Take 15 mL [facility] 2% viscous 2-22 by mouth ity o f (LIDOCAINE 20:29: every 4 [place] VISC[place] 2 24 (four) Medical % solution hours as Branc h needed. ALPRAZolam 2019-04 Yes 1mg Take 1 mg [facility] (XANAX) 1 2-22 by mouth 3 ity of mg tablet 20:29: (three) [place] 24 times Medical daily. Branch amphetamine 2019-04 Yes 15mg Take 15 mg [facility] -dextroamph 2-22 by mouth ity of etamine 15 20:29: as needed. [place] [facility] 24 hr 24 [facility] capsule [facility] ALPRAZolam 2019-04 Yes 1mg Take 1 mg [facility] (XANAX) 1 2-22 by mouth 3 ity of mg tablet 14:36: (three) [place] 09 times Medical daily. Branch ALPRAZolam 2019-04 Yes 1mg Take 1 mg [facility] (XANAX) 1 2-22 by mouth 3 ity of mg tablet 14:36: (three) [place] 09 times Medical daily. Branch ALPRAZolam 2019-04 Yes 1mg Take 1 mg [facility] (XANAX) 1 2-22 by mouth 3 ity of mg tablet 14:36: (three) [place] 09 times Medical daily. Branch lidocaine 2019-04 Yes 15mL Take 15 mL [facility] 2% viscous 2-22 by mouth ity o f (LIDOCAINE 00:07: every 4 [place] VISCOUS[place] 2 22 (four) Medical % solution hours as Branc h needed. ALPRAZolam 2019-04 Yes 1mg Take 1 mg [facility] (XANAX) 1 2-22 by mouth 3 ity of mg tablet 00:07: (three) [place] 22 times Medical daily. Branch amphetamine 2019-04 Yes 15mg Take 15 mg [facility] -dextroamph 2-22 by mouth ity of etamine 15 00:07: as needed. [place] [facility] 24 hr 22 [facility] capsule [facility] lidocaine 2019-04 Yes 15mL Take 15 mL [facility] 2% viscous 2-22 by mouth ity o f (LIDOCAINE 00:07: every 4 [place] VISC[place] 2 22 (four) Medical % solution hours as Branc h needed. amphetamine 2019-04 Yes 15mg Take 15 mg [facility] -dextroamph 2-22 by mouth ity of etamine 15 00:07: as needed. [place] [facility] 24 hr 22 [facility] capsule [facility] lidocaine 2019-04 Yes 15mL Take 15 mL [facility] 2% viscous 2-22 by mouth ity o f (LIDOCAINE 00:07: every 4 [place] VISC[place] 2 22 (four) Medical % solution hours as Branc h needed. amphetamine 2019-04 Yes 15mg Take 15 mg [facility] -dextroamph 2-22 by mouth ity of etamine 15 00:07: as needed. [place] [facility] 24 hr 22 [facility] capsule [facility] lidocaine 2019-04 Yes 15mL Take 15 mL [facility] 2% viscous 2-22 by mouth ity o f (LIDOCAINE 00:07: every 4 [place] VISCOUS) 2 22 (four) Medical % solution hours as Branc h needed. amphetamine 2019-04 Yes 15mg Take 15 mg [facility] -dextroamph 2-22 by mouth ity of etamine 15 00:07: as needed. [place] [facility] 24 hr 22 [facility] capsule [facility] lactated 2019-04 Yes 1000mL at 75 [facility] ringers IV 2-21 mL/hr, it[facility] infusion 23:30: 1,000 mL, [place] 1,000 mL 00 IV Medical Infusion, Branch CONTINUOUS , Starting 04/19/20 at 1730, Until Discontinu ed, Routine, PACU FENTanyl PF 2019-04 Yes 25ug 25 mcg, [facility] vers (SUBLIMAZE 2-21 Slow IV ity of (PF)) 23:24: Push, [place] injection 23 Q5MIN PRN, Medi [place] 25 mcg 4 doses, Branch Starting 04/19/20 at 1724, Until Discontinu ed, Routine, Pain (scale 4-6), PACU ondansetron 2019-04 Yes 4mg 4 mg, Slow [facility] (ZOFRAN 2-21 IV Push, ity of (PF)) 23:24: PRN, 1 [place] injection 4 23 dose, Medical mg Starting Branch 04/19/20 at 1724, Until Discontinu ed, Routine, Nausea and Vomiting (N/V), PACU simethicone 2019-04 Yes PRN, [facility]iver [facility] (GAS RELIEF 2-21 Starting ity of (SIMETHICON 20:17: Mon [place] E)) 40 00 04/19/20 Medical mg/0.6 mL at 1417, Branch drops Until Discontinu ed, Routine, Intra-op lactated 2019-04 2020- No 1000mL at 42 Un[facility] rs ringers IV 2-21 12-21 mL/hr, ity of infusion 20:00: 20:08 1,000 mL, [place] 1,000 mL 00 :00 IV Medical Infusion, Branch ONCE, 1 dose, 04/19/20 at 1400, Routine, DSU Pre-op lidocaine 2019-04 Yes 15mL Take 15 mL [facility] 2% viscous 2-18 by mouth ity o f (LIDOCAINE 18:28: every 4 [place] VISCOUS) 2 09 (four) Medical % solution hours as Branc h needed. ALPRAZolam 2019-04 Yes 1mg Take 1 mg [facility] (XANAX) 1 2-18 by mouth 3 ity of mg tablet 18:28: (three) [place] 09 times Medical daily. Branch HYDROcodone 2019-04- No 4647 1{tbl} Take 1 U n[facility] -acetaminop 2-17 12-25 tablet by it y of hen ([facility]) 00:00: 05:59 [place] 5-325 mg 00 :00 every 6 Medical tablet (six) Branch hours as needed for Pain (scale 4-6) for up to 7 days. Indication s: acute pain HYDROcodone 2019-04 2020- No 4647 1{tbl} Take 1 U n[facility] -acetaminop 2-17 12-25 tablet by it y of hen ([facility]) 00:00: 05:59 [place] 5-325 mg 00 :00 every 6 Medical tablet (six) Branch hours as needed for Pain (scale 4-6) for up to 7 days. Indication s: acute pain HYDROcodone 2019-04- No 4647 1{tbl} Take 1 U nivers -acetaminop 2-17 12-25 tablet by it y of hen ([facility]) 00:00: 05:59 [place] 5-325 mg 00 :00 every 6 Medical tablet (six) Branch hours as needed for Pain (scale 4-6) for up to 7 days. Indication s: acute pain HYDROcodone 2019-04- No 4647 1{tbl} Take 1 [facility] nivers -acetaminop 2-17 12-25 tablet by it y of hen ([employer]) 00:00: 05:59 [place] 5-325 mg 00 :00 every 6 Medical tablet (six) Branch hours as needed for Pain (scale 4-6) for up to 7 days. Indication s: acute pain HYDROcodone 2019-04- No 4647 1{tbl} Take 1 U nivers -acetaminop 2-17 12-25 tablet by it y of hen ([employer]) 00:00: 05:59 [place] 5-325 mg 00 :00 every 6 Medical tablet (six) Branch hours as needed for Pain (scale 4-6) for up to 7 days. Indication s: acute pain amphetamine 2019-04 Yes 15mg Take 15 mg [facility] -dextroamph 2-15 by mouth ity of etamine 15 17:24: as needed. [place] [facility] 24 hr 09 Medical capsule [facility] amphetamine 2019-04 Yes 15mg Take 15 mg [facility] -dextroamph 2-15 by mouth ity of etamine 15 17:24: as needed. [place] [facility] 24 hr 09 Medical capsule [facility] amphetamine 2019-04 Yes 15mg Take 15 mg [facility] -dextroamph 2-15 by mouth ity of etamine 15 17:24: as needed. [place] [facility] 24 hr 09 Medical capsule [facility] amphetamine 2019-04 Yes 15mg Take 15 mg [facility] -dextroamph 2-15 by mouth ity of etamine 15 17:24: as needed. [place] [facility] 24 hr 09 Medical capsule [facility] amphetamine 2019-04 Yes 15mg Take 15 mg [facility] -dextroamph 2-15 by mouth ity of etamine 15 17:24: as needed. [place] [facility] 24 hr 09 Medical capsule [facility] amphetamine 2019-04 Yes 15mg Take 15 mg [facility] -dextroamph 2-15 by mouth ity of etamine 15 17:24: as needed. [place] [facility] 24 hr 09 Medical capsule [facility] amphetamine 2019-04 Yes 15mg Take 15 mg [facility] -dextroamph 2-15 by mouth ity of etamine 15 17:24: as needed. [place] [facility] 24 hr 09 Medical capsule [facility] amphetamine 2019-04 Yes 15mg Take 15 mg [facility] -dextroamph 2-15 by mouth ity of etamine 15 17:24: as needed. [place] [facility] 24 hr 09 Medical capsule [facility] amphetamine 2019-04 Yes 15mg Take 15 mg [facility] -dextroamph 2-15 by mouth ity of etamine 15 17:24: as needed. [place] [facility] 24 hr 09 Medical capsule [facility] amphetamine 2019-04 Yes 15mg Take 15 mg [facility] -dextroamph 2-15 by mouth ity of etamine 15 17:24: as needed. [place] [facility] 24 hr 09 Medical capsule [facility] amphetamine 2019-04 Yes 15mg Take 15 mg [facility] -dextroamph 2-15 by mouth ity of etamine 15 17:24: as needed. [place] [facility] 24 hr 09 Medical capsule [facility] amphetamine 2019-04 Yes 15mg Take 15 mg [facility] -dextroamph 2-15 by mouth ity of etamine 15 17:24: as needed. [place] [facility] 24 hr 09 Medical capsule [facility] amphetamine 2019-04 Yes 15mg Take 15 mg [facility] -dextroamph 2-15 by mouth ity of etamine 15 17:24: as needed. [place] [facility] 24 hr 09 Medical capsule Branch HYDROcodone 2019-04- No 4647 1{tbl} Take 1 [facility] nivers -acetaminop 2-15 12-23 tablet by it y of hen ([facility]) 00:00: 05:59 [place] 5-325 mg 00 :00 every 6 Medical tablet (six) Branch hours as needed for Pain (scale 4-6) for up to 7 days. Indication s: acute pain HYDROcodone 2019-04- No 4647 1{tbl} Take 1 [facility] nivers -acetaminop 2-15 12-23 tablet by it y of hen ([facility]) 00:00: 05:59 [place] 5-325 mg 00 :00 every 6 Medical tablet (six) Branch hours as needed for Pain (scale 4-6) for up to 7 days. Indication s: acute pain HYDROcodone 2019-04- No 4647 1{tbl} Take 1 [facility] nivers -acetaminop 2-15 12-23 tablet by it y of hen ([employer]) 00:00: 05:59 [place] 5-325 mg 00 :00 every 6 Medical tablet (six) Branch hours as needed for Pain (scale 4-6) for up to 7 days. Indication s: acute pain HYDROcodone 2019-04- No 4647 1{tbl} Take 1 U nivers -acetaminop 2-15 12-23 tablet by it y of hen ([employer]) 00:00: 05:59 [place] 5-325 mg 00 :00 every 6 Medical tablet (six) Branch hours as needed for Pain (scale 4-6) for up to 7 days. Indication s: acute pain HYDROcodone 2019-04 No 4647 1{tbl} Take 1 U nivers -acetaminop 2-15 12-23 tablet by it y of hen ([employer]) 00:00: 05:59 [place] 5-325 mg 00 :00 every 6 Medical tablet (six) Branch hours as needed for Pain (scale 4-6) for up to 7 days. Indication s: acute pain HYDROcodone 2019-04 No 4647 1{tbl} Take 1 [facility] nivers -acetaminop 2-15 12-23 tablet by it y of hen ([employer]) 00:00: 05:59 [place] 5-325 mg 00 :00 every 6 Medical tablet (six) Branch hours as needed for Pain (scale 4-6) for up to 7 days. Indication s: acute pain HYDROcodone 2019-04 No 4647 1{tbl} Take 1 [facility] nivers -acetaminop 2-15 12-23 tablet by it y of hen ([employer]) 00:00: 05:59 [place] 5-325 mg 00 :00 every 6 Medical tablet (six) Branch hours as needed for Pain (scale 4-6) for up to 7 days. Indication s: acute pain HYDROcodone 2019-04 No 4647 1{tbl} Take 1 [facility] nivers -acetaminop 2-15 12-23 tablet by it y of hen ([employer]) 00:00: 05:59 [place] 5-325 mg 00 :00 every 6 Medical tablet (six) Branch hours as needed for Pain (scale 4-6) for up to 7 days. Indication s: acute pain HYDROcodone 2019-04- No 4647 1{tbl} Take 1 [facility] nivers -acetaminop 2-15 12-23 tablet by it y of hen ([employer]) 00:00: 05:59 [place] 5-325 mg 00 :00 every 6 Medical tablet (six) Branch hours as needed for Pain (scale 4-6) for up to 7 days. Indication s: acute pain HYDROcodone 2019-04- No 4647 1{tbl} Take 1 U nivers -acetaminop 2-15 12-23 tablet by it y of hen ([employer]) 00:00: 05:59 mouth [place] 5-325 mg 00 :00 every 6 Medical tablet (six) Branch hours as needed for Pain (scale 4-6) for up to 7 days. Indication s: acute pain HYDROcodone 2019-04 No 4647 1{tbl} Take 1 U nivers -acetaminop 2-15 12-23 tablet by it y of hen ([employer]) 00:00: 05:59 mouth [place] 5-325 mg 00 :00 every 6 Medical tablet (six) Branch hours as needed for Pain (scale 4-6) for up to 7 days. Indication s: acute pain HYDROcodone 2019-04- No 4647 1{tbl} Take 1 [facility] nivers -acetaminop 2-15 12-23 tablet by it y of hen ([employer]) 00:00: 05:59 mouth [place] 5-325 mg 00 :00 every 6 Medical tablet (six) Branch hours as needed for Pain (scale 4-6) for up to 7 days. Indication s: acute pain HYDROcodone 2019-04 No 4647 1{tbl} Take 1 [facility] nivers -acetaminop 2-15 12-23 tablet by it y of hen ([employer]) 00:00: 05:59 mouth [place] 5-325 mg 00 :00 every 6 Medical tablet (six) Branch hours as needed for Pain (scale 4-6) for up to 7 days. Indication s: acute pain barium 2019-04- No 355mL 355 mL, [facility] sulfate 2-10 12-10 Oral, ity of (LIQUID E-Z 16:15: 15:15 ONCE, 1 [place]) 60 % 00 :00 dose, [place] [facility] ical (w/v) oral 04/08/20 Branc h suspension at 1015, 355 mL Routine lidocaine 2019-04 Yes 15mL Take 15 mL [facility] 2% viscous 2-08 by mouth ity o f (LIDOCAINE 20:29: every 4 [place] VISCOUS) 2 49 (four) Medical % solution hours as Branc h needed. ALPRAZolam 2019-04 Yes 1mg Take 1 mg [facility] (XANAX) 1 2-08 by mouth 3 ity of mg tablet 20:29: (three) [place] 49 times Medical daily. Branch lidocaine 2019-04 Yes 15mL Take 15 mL [facility] 2% viscous 2-08 by mouth ity o f (LIDOCAINE 20:29: every 4 [place] VISCOUS) 2 49 (four) Medical % solution hours as Branc h needed. ALPRAZolam 2019-04 Yes 1mg Take 1 mg [facility] (XANAX) 1 2-08 by mouth 3 ity of mg tablet 20:29: (three) [place] 49 times Medical daily. Branch lidocaine 2019-04 Yes 15mL Take 15 mL [facility] 2% viscous 2-08 by mouth ity o f (LIDOCAINE 20:29: every 4 [place] VISCOUS) 2 49 (four) Medical % solution hours as Branc h needed. ALPRAZolam 2019-04 Yes 1mg Take 1 mg [facility] (XANAX) 1 2-08 by mouth 3 ity of mg tablet 20:29: (three) [place] 49 times Medical daily. Branch lidocaine 2019-04 Yes 15mL Take 15 mL [facility] 2% viscous 2-08 by mouth ity o f (LIDOCAINE 20:29: every 4 [place] VISCOUS) 2 49 (four) Medical % solution hours as Branc h needed. ALPRAZolam 2019-04 Yes 1mg Take 1 mg [facility] (XANAX) 1 2-08 by mouth 3 ity of mg tablet 20:29: (three) [place] 49 times Medical daily. Branch lidocaine 2019-04 Yes 15mL Take 15 mL [facility] 2% viscous 2-08 by mouth ity o f (LIDOCAINE 20:29: every 4 [place] VISCOUS) 2 49 (four) Medical % solution hours as Branc h needed. ALPRAZolam 2019-04 Yes 1mg Take 1 mg [facility] (XANAX) 1 2-08 by mouth 3 ity of mg tablet 20:29: (three) [place] 49 times Medical daily. Branch lidocaine 2019-04 Yes 15mL Take 15 mL [facility] 2% viscous 2-08 by mouth ity o f (LIDOCAINE 20:29: every 4 [place] VISCOUS) 2 49 (four) Medical % solution hours as Branc h needed. ALPRAZolam 2019-04 Yes 1mg Take 1 mg [facility] (XANAX) 1 2-08 by mouth 3 ity of mg tablet 20:29: (three) [place] 49 times Medical daily. Branch lidocaine 2019-04 Yes 15mL Take 15 mL [facility] 2% viscous 2-08 by mouth ity o f (LIDOCAINE 20:29: every 4 [place] VISCOUS) 2 49 (four) Medical % solution hours as Branc h needed. ALPRAZolam 2019-04 Yes 1mg Take 1 mg [facility] (XANAX) 1 2-08 by mouth 3 ity of mg tablet 20:29: (three) [place] 49 times Medical daily. Branch lidocaine 2019-04 Yes 15mL Take 15 mL [facility] 2% viscous 2-08 by mouth ity o f (LIDOCAINE 20:29: every 4 [place] VISCOUS) 2 49 (four) Medical % solution hours as Branc h needed. ALPRAZolam 2019-04 Yes 1mg Take 1 mg [facility] (XANAX) 1 2-08 by mouth 3 ity of mg tablet 20:29: (three) [place] 49 times Medical daily. Branch lidocaine 2019-04 Yes 15mL Take 15 mL [facility] 2% viscous 2-08 by mouth ity o f (LIDOCAINE 20:29: every 4 [place] VISCOUS) 2 49 (four) Medical % solution hours as Branc h needed. ALPRAZolam 2019-04 Yes 1mg Take 1 mg [facility] (XANAX) 1 2-08 by mouth 3 ity of mg tablet 20:29: (three) [place] 49 times Medical daily. Branch lidocaine 2019-04 Yes 15mL Take 15 mL [facility] 2% viscous 2-08 by mouth ity o f (LIDOCAINE 20:29: every 4 [place] VISCOUS) 2 49 (four) Medical % solution hours as Branc h needed. ALPRAZolam 2019-04 Yes 1mg Take 1 mg [facility] (XANAX) 1 2-08 by mouth 3 ity of mg tablet 20:29: (three) [place] 49 times Medical daily. Branch lidocaine 2019-04 Yes 15mL Take 15 mL [facility] 2% viscous 2-08 by mouth ity o f (LIDOCAINE 20:29: every 4 [place] VISCOUS) 2 49 (four) Medical % solution hours as Branc h needed. ALPRAZolam 2019-04 Yes 1mg Take 1 mg [facility] (XANAX) 1 2-08 by mouth 3 ity of mg tablet 20:29: (three) [place] 49 times Medical daily. Branch lidocaine 2019-04 Yes 15mL Take 15 mL [facility] 2% viscous 2-08 by mouth ity o f (LIDOCAINE 20:29: every 4 [place] VISCOUS) 2 49 (four) Medical % solution hours as Branc h needed. ALPRAZolam 2019-04 Yes 1mg Take 1 mg [facility] (XANAX) 1 2-08 by mouth 3 ity of mg tablet 20:29: (three) [place] 49 times Medical daily. Branch lidocaine 2019-04 Yes 15mL Take 15 mL [facility] 2% viscous 2-08 by mouth ity o f (LIDOCAINE 20:29: every 4 [place] VISCOUS) 2 49 (four) Medical % solution hours as Branc h needed. ALPRAZolam 2019-04 Yes 1mg Take 1 mg [facility] (XANAX) 1 2-08 by mouth 3 ity of mg tablet 20:29: (three) [place] 49 times Medical daily. Branch estradioL 2019-04 Yes [id number] 1g Insert 1 g [facility] (ESTRACE) 2-08 into ity of 0.01 % (0.1 00:00: [place] mg/gram) 00 daily. Medical vaginal Branch cream estradioL 2019-04 Yes [id number] 1g Insert 1 g [facility] (ESTRACE) 2-08 into ity of 0.01 % (0.1 00:00: [place] mg/gram) 00 daily. Medical vaginal Branch cream estradioL 2019-04 Yes [id number] 1g Insert 1 g [facility] (ESTRACE) 2-08 into ity of 0.01 % (0.1 00:00: [place] mg/gram) 00 daily. Medical vaginal Branch cream estradioL 2019-04 Yes [id number] 1g Insert 1 g [facility] (ESTRACE) 2-08 into ity of 0.01 % (0.1 00:00: [place] mg/gram) 00 daily. Medical vaginal Branch cream estradioL 2019-04 Yes [id number] 1g Insert 1 g [facility] (ESTRACE) 2-08 into ity of 0.01 % (0.1 00:00: [place] mg/gram) 00 daily. Medical vaginal Branch cream estradioL 2019-04 Yes [id number] 1g Insert 1 g [facility] (ESTRACE) 2-08 into ity of 0.01 % (0.1 00:00: [place] mg/gram) 00 daily. Medical vaginal Branch cream estradioL 2019-04 Yes [id number] 1g Insert 1 g [facility] (ESTRACE) 2-08 into ity of 0.01 % (0.1 00:00: [place] mg/gram) 00 daily. Medical vaginal Branch cream estradioL 2019-04 Yes [id number] 1g Insert 1 g [facility] (ESTRACE) 2-08 into ity of 0.01 % (0.1 00:00: [place] mg/gram) 00 daily. Medical vaginal Branch cream estradioL 2019-04 Yes [id number] 1g Insert 1 g [facility] (ESTRACE) 2-08 into ity of 0.01 % (0.1 00:00: [place] mg/gram) 00 daily. Medical vaginal Branch cream estradioL 2019-04 Yes [id number] 1g Insert 1 g [facility] (ESTRACE) 2-08 into ity of 0.01 % (0.1 00:00: [place] mg/gram) 00 daily. Medical vaginal Branch cream estradioL 2019-04 Yes [id number] 1g Insert 1 g [facility] (ESTRACE) 2-08 into ity of 0.01 % (0.1 00:00: [place] mg/gram) 00 daily. Medical vaginal Branch cream estradioL 2019-04 Yes [id number] 1g Insert 1 g [facility] (ESTRACE) 2-08 into ity of 0.01 % (0.1 00:00: [place] mg/gram) 00 daily. Medical vaginal Branch cream estradioL 2019-04 Yes [id number] 1g Insert 1 g [facility] (ESTRACE) 2-08 into ity of 0.01 % (0.1 00:00: [place] mg/gram) 00 daily. Medical vaginal Branch cream estradioL 2019-04 Yes [id number] 1g Insert 1 g [facility] (ESTRACE) 2-08 into ity of 0.01 % (0.1 00:00: [place] mg/gram) 00 daily. Medical vaginal Branch cream estradioL 2019-04 Yes [id number] 1g Insert 1 g [facility] (ESTRACE) 2-08 into ity of 0.01 % (0.1 00:00: [place] mg/gram) 00 daily. Medical vaginal Branch cream estradioL 2019-04 Yes [id number] 1g Insert 1 g [facility] (ESTRACE) 2-08 into ity of 0.01 % (0.1 00:00: [place] mg/gram) 00 daily. Medical vaginal Branch cream estradioL 2019-04 Yes [id number] 1g Insert 1 g [facility] (ESTRACE) 2-08 into ity of 0.01 % (0.1 00:00: [place] mg/gram) 00 daily. Medical vaginal Branch cream estradioL 2019-04 Yes [id number] 1g Insert 1 g [facility] (ESTRACE) 2-08 into ity of 0.01 % (0.1 00:00: [place] mg/gram) 00 daily. Medical vaginal Branch cream estradioL 2019-04 Yes [id number] 1g Insert 1 g [facility] (ESTRACE) 2-08 into ity of 0.01 % (0.1 00:00: [place] mg/gram) 00 daily. Medical vaginal Branch cream estradioL 2019-04 Yes [id number] 1g Insert 1 g [facility] (ESTRACE) 2-08 into ity of 0.01 % (0.1 00:00: [place] mg/gram) 00 daily. Medical vaginal Branch cream estradioL 2019-04 Yes [id number] 1g Insert 1 g [facility] (ESTRACE) 2-08 into ity of 0.01 % (0.1 00:00: [place] mg/gram) 00 daily. Medical vaginal Branch cream estradioL 2019-04 Yes [id number] 1g Insert 1 g [facility] (ESTRACE) 2-08 into ity of 0.01 % (0.1 00:00: [place] mg/gram) 00 daily. Medical vaginal Branch cream estradioL 2019-04 Yes [id number] 1g Insert 1 g [facility] (ESTRACE) 2-08 into ity of 0.01 % (0.1 00:00: [place] mg/gram) 00 daily. Medical vaginal Branch cream estradioL 2019-04 Yes [id number] 1g Insert 1 g [facility] (ESTRACE) 2-08 into ity of 0.01 % (0.1 00:00: [place] mg/gram) 00 daily. Medical vaginal Branch cream estradioL 2019-04 Yes [id number] 1g Insert 1 g [facility] (ESTRACE) 2-08 into ity of 0.01 % (0.1 00:00: [place] mg/gram) 00 daily. Medical vaginal Branch cream estradioL 2019-04 Yes [id number] 1g Insert 1 g [facility] (ESTRACE) 2-08 into ity of 0.01 % (0.1 00:00: [place] mg/gram) 00 daily. Medical vaginal Branch cream estradioL 2019-04 Yes [id number] 1g Insert 1 g [facility] (ESTRACE) 2-08 into ity of 0.01 % (0.1 00:00: [place] mg/gram) 00 daily. Medical vaginal Branch cream estradioL 2019-04 Yes [id number] 1g Insert 1 g [facility] (ESTRACE) 2-08 into ity of 0.01 % (0.1 00:00: [place] mg/gram) 00 daily. Medical vaginal Branch cream estradioL 2019-04 Yes [id number] 1g Insert 1 g [facility] (ESTRACE) 2-08 into ity of 0.01 % (0.1 00:00: [place] mg/gram) 00 daily. Medical vaginal Branch cream estradioL 2019-04 Yes [id number] 1g Insert 1 g [facility] (ESTRACE) 2-08 into ity of 0.01 % (0.1 00:00: [place] mg/gram) 00 daily. Medical vaginal Branch cream estradioL 2019-04 Yes [id number] 1g Insert 1 g [facility] (ESTRACE) 2-08 into ity of 0.01 % (0.1 00:00: [place] mg/gram) 00 daily. Medical vaginal Branch cream estradioL 2019-04 Yes [id number] 1g Insert 1 g [facility] (ESTRACE) 2-08 into ity of 0.01 % (0.1 00:00: [place] mg/gram) 00 daily. Medical vaginal Branch cream estradioL 2019-04 Yes [id number] 1g Insert 1 g [facility] (ESTRACE) 2-08 into ity of 0.01 % (0.1 00:00: [place] mg/gram) 00 daily. Medical vaginal Branch cream estradioL 2019-04 Yes [id number] 1g Insert 1 g [facility] (ESTRACE) 2-08 into ity of 0.01 % (0.1 00:00: [place] mg/gram) 00 daily. Medical vaginal Branch cream estradioL 2019-04 Yes [id number] 1g Insert 1 g [facility] (ESTRACE) 2-08 into ity of 0.01 % (0.1 00:00: [place] mg/gram) 00 daily. Medical vaginal Branch cream estradioL 2019-04 Yes [id number] 1g Insert 1 g [facility] (ESTRACE) 2-08 into ity of 0.01 % (0.1 00:00: [place] mg/gram) 00 daily. Medical vaginal Branch cream estradioL 2019-04 Yes [id number] 1g Insert 1 g [facility] (ESTRACE) 2-08 into ity of 0.01 % (0.1 00:00: [place] mg/gram) 00 daily. Medical vaginal Branch cream estradioL 2019-04 Yes [id number] 1g Insert 1 g [facility] (ESTRACE) 2-08 into ity of 0.01 % (0.1 00:00: [place] mg/gram) 00 daily. Medical vaginal Branch cream estradioL 2019-04 Yes [id number] 1g Insert 1 g [facility] (ESTRACE) 2-08 into ity of 0.01 % (0.1 00:00: [place] mg/gram) 00 daily. Medical vaginal Branch cream estradioL 2019-04 Yes [id number] 1g Insert 1 g [facility] (ESTRACE) 2-08 into ity of 0.01 % (0.1 00:00: [place] mg/gram) 00 daily. Medical vaginal Branch cream estradioL 2019-04 Yes [id number] 1g Insert 1 g [facility] (ESTRACE) 2-08 into ity of 0.01 % (0.1 00:00: [place] mg/gram) 00 daily. Medical vaginal Branch cream estradioL 2019-04 Yes [id number] 1g Insert 1 g [facility] (ESTRACE) 2-08 into ity of 0.01 % (0.1 00:00: [place] mg/gram) 00 daily. Medical vaginal Branch cream estradioL 2019-04 Yes [id number] 1g Insert 1 g [facility] (ESTRACE) 2-08 into ity of 0.01 % (0.1 00:00: [place] mg/gram) 00 daily. Medical vaginal Branch cream lisinopriL 2020-1 Yes [id number] 20mg Take 1 [facility] 20 mg 1-13 tablet by ity of tablet 00:00: mouth 2 (two) Medical times Branch daily. lisinopriL 2020-1 Yes [id number] 20mg Take 1 [facility] 20 mg 1-13 tablet by ity of tablet 00:00: mouth 2 (two) Medical times Branch daily. lisinopriL 2020-1 Yes [id number] 20mg Take 1 [facility] 20 mg 1-13 tablet by ity of tablet 00:00: mouth (two) Medical times Branch daily. lisinopriL 2020-1 Yes [id number] 20mg Take 1 [facility] 20 mg 1-13 tablet by ity of tablet 00:00: mouth (two) Medical times Branch daily. lisinopriL 2020-1 Yes [id number] 20mg Take 1 [facility] 20 mg 1-13 tablet by ity of tablet 00:00: mouth (two) Medical times Branch daily. lisinopriL 2020-1 Yes [id number] 20mg Take 1 [facility] 20 mg 1-13 tablet by ity of tablet 00:00: mouth (two) Medical times Branch daily. lisinopriL 2020-1 Yes [id number] 20mg Take 1 [facility] 20 mg 1-13 tablet by ity of tablet 00:00: mouth (two) Medical times Branch daily. lisinopriL 2020-1 Yes [id number] 20mg Take 1 [facility] 20 mg 1-13 tablet by ity of tablet 00:00: mouth (two) Medical times Branch daily. lisinopriL 2020-1 Yes [id number] 20mg Take 1 [facility] 20 mg 1-13 tablet by ity of tablet 00:00: mouth (two) Medical times Branch daily. lisinopriL 2020-1 Yes [id number] 20mg Take 1 [facility] 20 mg 1-13 tablet by ity of tablet 00:00: mouth 2 (two) Medical times Branch daily. lisinopriL 2020-1 Yes [id number] 20mg Take 1 [facility] 20 mg 1-13 tablet by ity of tablet 00:00: mouth 2 (two) Medical times Branch daily. lisinopriL 2020-1 Yes [id number] 20mg Take 1 [facility] 20 mg 1-13 tablet by ity of tablet 00:00: mouth (two) Medical times Branch daily. lisinopriL 2020-1 Yes [id number] 20mg Take 1 [facility] 20 mg 1-13 tablet by ity of tablet 00:00: mouth (two) Medical times Branch daily. lisinopriL 2020-1 Yes [id number] 20mg Take 1 [facility] 20 mg 1-13 tablet by ity of tablet 00:00: mouth (two) Medical times Branch daily. lisinopriL 2020-1 Yes [id number] 20mg Take 1 [facility] 20 mg 1-13 tablet by ity of tablet 00:00: mouth [place] (two) Medical times Branch daily. lisinopriL 2020-1 Yes [id number] 20mg Take 1 [facility] 20 mg 1-13 tablet by [facility] tablet 00:00: mouth [place] (two) Medical times Branch daily. lisinopriL 2020-1 Yes [id number] 20mg Take 1 [facility] 20 mg 1-13 tablet by [facility] tablet 00:00: mouth [place] (two) Medical times Branch daily. lisinopriL 2020-1 Yes [id number] 20mg Take 1 [facility] 20 mg 1-13 tablet by [facility] tablet 00:00: mouth [place] (two) Medical times Branch daily. lisinopriL 2020-1 Yes [id number] 20mg Take 1 [facility] 20 mg 1-13 tablet by [facility] tablet 00:00: mouth [place] (two) Medical times Branch daily. lisinopriL 2020-1 Yes [id number] 20mg Take 1 [facility] 20 mg 1-13 tablet by [facility] tablet 00:00: mouth [place] (two) Medical times Branch daily. lisinopriL 2020-1 Yes [id number] 20mg Take 1 [facility] 20 mg 1-13 tablet by [facility] tablet 00:00: mouth 2 [place] (two) Medical times Branch daily. lisinopriL 2020-1 Yes [id number] 20mg Take 1 [facility] 20 mg 1-13 tablet by [facility] tablet 00:00: mouth [place] (two) Medical times Branch daily. lisinopriL 2020-1 Yes [id number] 20mg Take 1 [facility] 20 mg 1-13 tablet by [facility] tablet 00:00: mouth 2 [place] 00 (two) Medical times Branch daily. lisinopriL 2019-04- No [id number] 20mg Take 1 [facility] 20 mg 1-13 02-17 tablet by [facility] tablet 00:00: 00:00 mouth 2 [place] 00 :00 (two) Medical times Branch daily. lidocaine 2019-04 Yes 15mL Take 15 mL [facility] 2% viscous 0-06 by mouth [facility] o f (LIDOCAINE 18:24: every 4 [place] VISC[facility] 2 10 (four) Medical % solution hours as Branc h needed. ALPRAZolam 2019-04 Yes 1mg Take 1 mg [facility] (XANAX) 1 0-06 by mouth 3 [facility] of mg tablet 18:24: (three) [place] 10 times Medical daily. Branch amphetamine 2019-04 Yes 15mg Take 15 mg [facility] -dextroamph 0-06 by mouth [facility] etamine 15 18:24: as needed. [place] mg 24 hr 10 Medical capsule Branch lidocaine 2019-04 Yes 15mL Take 15 mL [facility] 2% viscous 0-06 by mouth [facility] o f (LIDOCAINE 18:24: every 4 [place] VISCOUS[place] 2 10 (four) Medical % solution hours as Branc h needed. ALPRAZolam 2019-04 Yes 1mg Take 1 mg [facility] (XANAX) 1 0-06 by mouth 3 [facility] of mg tablet 18:24: (three) [place] 10 times Medical daily. Branch amphetamine 2019-04 Yes 15mg Take 15 mg [facility] -dextroamph 0-06 by mouth [facility] of etamine 15 18:24: as needed. [place] mg 24 hr 10 Medical capsule Branch lidocaine 2019-04 Yes 15mL Take 15 mL [facility] 2% viscous 0-06 by mouth [facility] o f (LIDOCAINE 18:24: every 4 [place] VISCOUS[place] 2 10 (four) Medical % solution hours as Branc h needed. ALPRAZolam 2019-04 Yes 1mg Take 1 mg [facility] (XANAX) 1 0-06 by mouth 3 [facility] of mg tablet 18:24: (three) [place] 10 times Medical daily. Branch amphetamine 2019-04 Yes 15mg Take 15 mg [facility] -dextroamph 0-06 by mouth [facility] of etamine 15 18:24: as needed. [place] mg 24 hr 10 Medical capsule Branch lidocaine 2019-04 Yes 15mL Take 15 mL [facility] 2% viscous 0-06 by mouth [facility] o f (LIDOCAINE 18:24: every 4 [place] VISCOUS[place] 2 10 (four) Medical % solution hours as Branc h needed. ALPRAZolam 2019-04 Yes 1mg Take 1 mg [facility] (XANAX) 1 0-06 by mouth 3 [facility] of mg tablet 18:24: (three) [place] 10 times Medical daily. Branch amphetamine 2019-04 Yes 15mg Take 15 mg [facility] -dextroamph 0-06 by mouth [facility] of etamine 15 18:24: as needed. [place] mg 24 hr 10 Medical capsule Branch lidocaine 2019-04 Yes 15mL Take 15 mL [facility] 2% viscous 0-06 by mouth [facility] o f (LIDOCAINE 18:24: every 4 [place] VISCOUS) 2 10 (four) Medical % solution hours as Branc h needed. ALPRAZolam 2019-04 Yes 1mg Take 1 mg [facility] (XANAX) 1 0-06 by mouth 3 [facility] of mg tablet 18:24: (three) [place] 10 times Medical daily. Branch amphetamine 2019-04 Yes 15mg Take 15 mg [facility] -dextroamph 0-06 by mouth [facility] of etamine 15 18:24: as needed. [place] mg 24 hr 10 Medical capsule Branch lidocaine 2019-04 Yes 15mL Take 15 mL [facility] 2% viscous 0-06 by mouth [facility] o f (LIDOCAINE 18:24: every 4 [place] VISCOUS) 2 10 (four) Medical % solution hours as Branc h needed. ALPRAZolam 2019-04 Yes 1mg Take 1 mg [facility] (XANAX) 1 0-06 by mouth 3 [facility] of mg tablet 18:24: (three) [place] 10 times Medical daily. Branch amphetamine 2019-04 Yes 15mg Take 15 mg [facility] -dextroamph 0-06 by mouth [facility] of etamine 15 18:24: as needed. [place] mg 24 hr 10 Medical capsule Branch amphetamine 2019-04 Yes 15mg Take 15 mg [facility] -dextroamph 0-06 by mouth [facility] of etamine 15 18:24: as needed. [place] mg 24 hr 10 Medical capsule Branch furosemide 2020-1 Yes [id number] TAKE ONE [facility] 40 mg 0-06 TABLET BY [facility] of tablet 00:00: MOUTH [place] 00 NEEDED Medical DAILY. Branch BASED ONWAIT AND LEG SWELLING furosemide 2020-1 Yes [id number] TAKE ONE [facility] 40 mg 0-06 TABLET BY [facility] of tablet 00:00: MOUTH [place] 00 NEEDED Medical DAILY. Branch BASED ONWAIT AND LEG SWELLING furosemide 2020-1 Yes [id number] TAKE ONE [facility] 40 mg 0-06 TABLET BY [facility] of tablet 00:00: MOUTH [place] 00 NEEDED Medical DAILY. Branch BASED ONWAIT AND LEG SWELLING furosemide 2020-1 Yes [id number] TAKE ONE [facility] 40 mg 0-06 TABLET BY [facility] of tablet 00:00: MOUTH [place] 00 NEEDED Medical DAILY. Branch BASED ONWAIT AND LEG SWELLING furosemide 2019-1 Yes [id number] TAKE ONE [facility] 40 mg 0-06 TABLET BY [facility] of tablet 00:00: MOUTH [place] 00 NEEDED Medical DAILY. Branch BASED ONWAIT AND LEG SWELLING furosemide 2020-1 Yes [id number] TAKE ONE [facility] 40 mg 0-06 TABLET BY [facility] of tablet 00:00: MOUTH [place] 00 NEEDED Medical DAILY. Branch BASED ONWAIT AND LEG SWELLING furosemide 2019-1 Yes [id number] TAKE ONE [facility] 40 mg 0-06 TABLET BY [facility] of tablet 00:00: MOUTH [place] 00 NEEDED Medical DAILY. Branch BASED ONWAIT AND LEG SWELLING furosemide 2020-1 Yes [id number] TAKE ONE [facility] 40 mg 0-06 TABLET BY [facility] of tablet 00:00: MOUTH [place] 00 NEEDED Medical DAILY. Branch BASED ONWAIT AND LEG SWELLING furosemide 2020-1 Yes [id number] TAKE ONE [facility] 40 mg 0-06 TABLET BY [facility] of tablet 00:00: MOUTH [place] 00 NEEDED Medical DAILY. Branch BASED ONWAIT AND LEG SWELLING furosemide 2020-1 Yes [id number] TAKE ONE [facility] 40 mg 0-06 TABLET BY [facility] of tablet 00:00: MOUTH [place] 00 NEEDED Medical DAILY. Branch BASED ONWAIT AND LEG SWELLING furosemide 2020-1 Yes [id number] TAKE ONE [facility] 40 mg 0-06 TABLET BY [facility] of tablet 00:00: MOUTH [place] 00 NEEDED Medical DAILY. Branch BASED ONWAIT AND LEG SWELLING furosemide 2020-1 Yes [id number] TAKE ONE [facility] 40 mg 0-06 TABLET BY [facility] of tablet 00:00: MOUTH [place] 00 NEEDED Medical DAILY. Branch BASED ONWAIT AND LEG SWELLING furosemide 2020-1 Yes [id number] TAKE ONE [facility] 40 mg 0-06 TABLET BY [facility] of tablet 00:00: MOUTH [place] 00 NEEDED Medical DAILY. Branch BASED ONWAIT AND LEG SWELLING furosemide 2020-1 Yes [id number] TAKE ONE [facility] 40 mg 0-06 TABLET BY [facility] of tablet 00:00: MOUTH [place] 00 NEEDED Medical DAILY. Branch BASED ONWAIT AND LEG SWELLING furosemide 2020-1 Yes [id number] TAKE ONE [facility] 40 mg 0-06 TABLET BY [facility] of tablet 00:00: MOUTH [place] 00 NEEDED Medical DAILY. Branch BASED ONWAIT AND LEG SWELLING furosemide 2019- Yes [id number] TAKE ONE [facility] 40 mg 0-06 TABLET BY [facility] of tablet 00:00: MOUTH [place] 00 NEEDED Medical DAILY. Branch BASED ONWAIT AND LEG SWELLING furosemide 2019- Yes [id number] TAKE ONE [facility] 40 mg 0-06 TABLET BY [facility] of tablet 00:00: MOUTH [place] 00 NEEDED Medical DAILY. Branch BASED ONWAIT AND LEG SWELLING furosemide 2020-1 Yes [id number] TAKE ONE [facility] 40 mg 0-06 TABLET BY [facility] of tablet 00:00: MOUTH [place] 00 NEEDED Medical DAILY. Branch BASED ONWAIT AND LEG SWELLING furosemide 2019-1 Yes [id number] TAKE ONE [facility] 40 mg 0-06 TABLET BY [facility] of tablet 00:00: MOUTH [place] 00 NEEDED Medical DAILY. Branch BASED ONWAIT AND LEG SWELLING furosemide 2019- Yes [id number] TAKE ONE [facility] 40 mg 0-06 TABLET BY [facility] of tablet 00:00: MOUTH [place] 00 NEEDED Medical DAILY. Branch BASED ONWAIT AND LEG SWELLING furosemide 2020-1 Yes [id number] TAKE ONE [facility] 40 mg 0-06 TABLET BY [facility] of tablet 00:00: MOUTH [place] 00 NEEDED Medical DAILY. Branch BASED ONWAIT AND LEG SWELLING furosemide 2020-1 Yes [id number] TAKE ONE [facility] 40 mg 0-06 TABLET BY [facility] of tablet 00:00: MOUTH [place] 00 NEEDED Medical DAILY. Branch BASED ONWAIT AND LEG SWELLING furosemide 2020-1 Yes [id number] TAKE ONE [facility] 40 mg 0-06 TABLET BY [facility] of tablet 00:00: MOUTH [place] 00 NEEDED Medical DAILY. Branch BASED ONWAIT AND LEG SWELLING furosemide 2020-1 Yes [id number] TAKE ONE [facility] 40 mg 0-06 TABLET BY [facility] of tablet 00:00: MOUTH [place] 00 NEEDED Medical DAILY. Branch BASED ONWAIT AND LEG SWELLING furosemide 2020-1 Yes [id number] TAKE ONE [facility] 40 mg 0-06 TABLET BY [facility] of tablet 00:00: MOUTH [place] 00 NEEDED Medical DAILY. Branch BASED ONWAIT AND LEG SWELLING furosemide 2020-1 Yes [id number] TAKE ONE [facility] 40 mg 0-06 TABLET BY [facility] of tablet 00:00: MOUTH [place] 00 NEEDED Medical DAILY. Branch BASED ONWAIT AND LEG SWELLING furosemide 2020-1 Yes [id number] TAKE ONE [facility] 40 mg 0-06 TABLET BY [facility] of tablet 00:00: MOUTH [place] 00 NEEDED Medical DAILY. Branch BASED ONWAIT AND LEG SWELLING furosemide 2020-1 Yes [id number] TAKE ONE [facility] 40 mg 0-06 TABLET BY [facility] of tablet 00:00: MOUTH [place] 00 NEEDED Medical DAILY. Branch BASED ONWAIT AND LEG SWELLING furosemide 2020-1 Yes [id number] TAKE ONE [facility] 40 mg 0-06 TABLET BY [facility] of tablet 00:00: MOUTH [place] 00 NEEDED Medical DAILY. Branch BASED ONWAIT AND LEG SWELLING furosemide 2020-1 Yes [id number] TAKE ONE [facility] 40 mg 0-06 TABLET BY [facility] of tablet 00:00: MOUTH [place] 00 NEEDED Medical DAILY. Branch BASED ONWAIT AND LEG SWELLING furosemide 2020-1 Yes [id number] TAKE ONE [facility] 40 mg 0-06 TABLET BY [facility] of tablet 00:00: MOUTH [place] 00 NEEDED Medical DAILY. Branch BASED ONWAIT AND LEG SWELLING furosemide 2020-1 Yes [id number] TAKE ONE [facility] 40 mg 0-06 TABLET BY [facility] of tablet 00:00: MOUTH [place] 00 NEEDED Medical DAILY. Branch BASED ONWAIT AND LEG SWELLING furosemide 2020-1 Yes [id number] TAKE ONE [facility] 40 mg 0-06 TABLET BY [facility] of tablet 00:00: MOUTH [place] 00 NEEDED Medical DAILY. Branch BASED ONWAIT AND LEG SWELLING furosemide 2020-1 Yes [id number] TAKE ONE [facility] 40 mg 0-06 TABLET BY [facility] of tablet 00:00: MOUTH [place] 00 NEEDED Medical DAILY. Branch BASED ONWAIT AND LEG SWELLING furosemide 2020-1 Yes [id number] TAKE ONE [facility] 40 mg 0-06 TABLET BY [facility] of tablet 00:00: MOUTH [place] 00 NEEDED Medical DAILY. Branch BASED ONWAIT AND LEG SWELLING furosemide 2020-1 Yes [id number] TAKE ONE [facility] 40 mg 0-06 TABLET BY [facility] of tablet 00:00: MOUTH [place] 00 NEEDED Medical DAILY. Branch BASED ONWAIT AND LEG SWELLING furosemide 2020- Yes [id number] TAKE ONE [facility] 40 mg 0-06 TABLET BY [facility] of tablet 00:00: MOUTH [place] 00 NEEDED Medical DAILY. Branch BASED ONWAIT AND LEG SWELLING furosemide 2020- Yes [id number] TAKE ONE [facility] 40 mg 0-06 TABLET BY [facility] of tablet 00:00: MOUTH [place] 00 NEEDED Medical DAILY. Branch BASED ONWAIT AND LEG SWELLING furosemide 2019- Yes [id number] TAKE ONE [facility] 40 mg 0-06 TABLET BY [facility] of tablet 00:00: MOUTH [place] 00 NEEDED Medical DAILY. Branch BASED ONWAIT AND LEG SWELLING furosemide 2019- Yes [id number] TAKE ONE [facility] 40 mg 0-06 TABLET BY [facility] of tablet 00:00: MOUTH [place] 00 NEEDED Medical DAILY. Branch BASED ONWAIT AND LEG SWELLING furosemide 2019- Yes [id number] TAKE ONE [facility] 40 mg 0-06 TABLET BY [facility] of tablet 00:00: MOUTH [place] 00 NEEDED Medical DAILY. Branch BASED ONWAIT AND LEG SWELLING furosemide 2019- Yes [id number] TAKE ONE [facility] 40 mg 0-06 TABLET BY [facility] of tablet 00:00: MOUTH [place] 00 NEEDED Medical DAILY. Branch BASED ONWAIT AND LEG SWELLING furosemide 2019-1 Yes [id number] TAKE ONE [facility] 40 mg 0-06 TABLET BY [facility] of tablet 00:00: MOUTH [place] 00 NEEDED Medical DAILY. Branch BASED ONWAIT AND LEG SWELLING furosemide 2020-1 Yes [id number] TAKE ONE [facility] 40 mg 0-06 TABLET BY [facility] of tablet 00:00: MOUTH [place] 00 NEEDED Medical DAILY. Branch BASED ONWAIT AND LEG SWELLING furosemide 2019-1 Yes [id number] TAKE ONE [facility] 40 mg 0-06 TABLET BY [facility] of tablet 00:00: MOUTH [place] 00 NEEDED Medical DAILY. Branch BASED ONWAIT AND LEG SWELLING furosemide 2020-1 Yes [id number] TAKE ONE [facility] 40 mg 0-06 TABLET BY [facility] of tablet 00:00: MOUTH [place] 00 NEEDED Medical DAILY. Branch BASED ONWAIT AND LEG SWELLING furosemide 2020-1 Yes [id number] TAKE ONE [facility] 40 mg 0-06 TABLET BY [facility] of tablet 00:00: MOUTH [place] 00 NEEDED Medical DAILY. Branch BASED ONWAIT AND LEG SWELLING furosemide 2019-04 Yes [id number] TAKE ONE [facility] 40 mg 0-06 TABLET BY [facility] of tablet 00:00: MOUTH [place] 00 NEEDED Medical DAILY. Branch BASED ONWAIT AND LEG SWELLING lisinopriL 2019-04- No [id number] 20mg Take 1 [facility] 20 mg 0-06 01-05 tablet by [facility] of tablet 00:00: 05:59 mouth 2 [place] 00 :00 (two) Medical times Branch daily for 90 days. apixaban 5 2019-04- No 1358 5mg Take 1 [facility] mg tablet 0-06 01-05 tablet by [facility] of 00:00: 05:59 mouth 2 [place] 00 :00 (two) Medical times Branch daily for 90 days. Indication s: atrial fibrillati on diltiazem 2019-04- No [id number] 120mg Take 1 [facility] 120 mg 24 0-06 01-05 capsule by [facility] of hr capsule 00:00: 05:59 mouth [place] 00 :00 every Medical evening Branch for 90 days. diltiazem 2019-04- No [id number] 240mg Take 1 [facility] 240 mg 24 0-06 01-05 tablet by [facility] of hr tablet 00:00: 05:59 mouth [place] 00 :00 every Medical morning Branch for 90 days. lisinopriL 2019-04- No [id number] 20mg Take 1 [facility] 20 mg 0-06 01-05 tablet by [facility] of tablet 00:00: 05:59 mouth 2 [place] 00 :00 (two) Medical times Branch daily for 90 days. apixaban 5 2019-04- No 1358 5mg Take 1 [facility] mg tablet 0-06 01-05 tablet by ity of 00:00: 05:59 mouth 2 [place] 00 :00 (two) Medical times Branch daily for 90 days. Indication s: atrial fibrillati on diltiazem 2019-04- No [id number] 120mg Take 1 [facility] 120 mg 24 0-06 01-05 capsule by [facility] of hr capsule 00:00: 05:59 mouth [place] 00 :00 every Medical evening Branch for 90 days. diltiazem 2019-04- No [id number] 240mg Take 1 [facility] 240 mg 24 0-06 01-05 tablet by ity of hr tablet 00:00: 05:59 mouth [place] 00 :00 every Medical morning Branch for 90 days. lisinopriL 2019-04 No [id number] 20mg Take 1 [facility] 20 mg 0-06 01-05 tablet by ity of tablet 00:00: 05:59 mouth 2 [place] 00 :00 (two) Medical times Branch daily for 90 days. apixaban 5 2019-04 No 1358 5mg Take 1 [facility] mg tablet 0- 01-05 tablet by ity of 00:00: 05:59 mouth 2 [place] 00 :00 (two) Medical times Branch daily for 90 days. Indication s: atrial fibrillati on diltiazem 2019-04 No [id number] 120mg Take 1 [facility] 120 mg 24 0-06 01-05 capsule by [facility]y of hr capsule 00:00: 05:59 mouth [place] 00 :00 every Medical evening Branch for 90 days. diltiazem 2019-04 No [id number] 240mg Take 1 [facility] 240 mg 24 0-06 -05 tablet by ity of hr tablet 00:00: 05:59 mouth [place] 00 :00 every Medical morning Branch for 90 days. lisinopriL 2019-04 No [id number] 20mg Take 1 [facility] 20 mg 0-06 -05 tablet by ity of tablet 00:00: 05:59 mouth 2 [place] 00 :00 (two) Medical times Branch daily for 90 days. apixaban 5 2019-04 No 1358 5mg Take 1 [facility] mg tablet 0-09 28-05 tablet by ity of 00:00: 05:59 mouth 2 [place] 00 :00 (two) Medical times Branch daily for 90 days. Indication s: atrial fibrillati on diltiazem 2019-04- No [id number] 120mg Take 1 [facility] 120 mg 24 0-06 01-05 capsule by [facility]y of hr capsule 00:00: 05:59 mouth [place] 00 :00 every Medical evening Branch for 90 days. diltiazem 2019-04- No [id number] 240mg Take 1 [facility] 240 mg 24 0-06 01-05 tablet by [facility]y of hr tablet 00:00: 05:59 mouth [place] 00 :00 every Medical morning Branch for 90 days. apixaban 5 2019-04- No 1358 5mg Take 1 [facility] mg tablet 0-06 01-05 tablet by ity of 00:00: 05:59 mouth 2 [place] 00 :00 (two) Medical times Branch daily for 90 days. Indication s: atrial fibrillati on diltiazem 2019-04 No [id number] 120mg Take 1 [facility] 120 mg 24 0-06 01-05 capsule by [facility] of hr capsule 00:00: 05:59 mouth [place] 00 :00 every Medical evening Branch for 90 days. diltiazem 2019-04 No [id number] 240mg Take 1 [facility] 240 mg 24 0-06 01-05 tablet by [facility] of hr tablet 00:00: 05:59 mouth [place] 00 :00 every Medical morning Branch for 90 days. apixaban 5 2019-04 No 1358 5mg Take 1 [facility] mg tablet 0-06 01-05 tablet by [facility] of 00:00: 05:59 mouth 2 [place] 00 :00 (two) Medical times Branch daily for 90 days. Indication s: atrial fibrillati on diltiazem 2019-04 No [id number] 120mg Take 1 [facility] 120 mg 24 0-06 01-05 capsule by [facility] of hr capsule 00:00: 05:59 mouth [place] 00 :00 every Medical evening Branch for 90 days. diltiazem 2019-04 No [id number] 240mg Take 1 [facility] 240 mg 24 0-06 01-05 tablet by [facility]y of hr tablet 00:00: 05:59 mouth [place] 00 :00 every Medical morning Branch for 90 days. apixaban 5 2019-04 No 1358 5mg Take 1 [facility] mg tablet 0-06 01-05 tablet by ity of 00:00: 05:59 mouth 2 [place] 00 :00 (two) Medical times Branch daily for 90 days. Indication s: atrial fibrillati on diltiazem 2019-04- No [id number] 120mg Take 1 [facility] 120 mg 24 0-06 01-05 capsule by [facility] of hr capsule 00:00: 05:59 mouth [place] 00 :00 every Medical evening Branch for 90 days. diltiazem 2019-04- No [id number] 240mg Take 1 [facility] 240 mg 24 0-06 01-05 tablet by [facility] of hr tablet 00:00: 05:59 mouth [place] 00 :00 every Medical morning Branch for 90 days. apixaban 5 2019-04 No 1358 5mg Take 1 [facility] mg tablet 0-09 28-05 tablet by ity of 00:00: 05:59 mouth 2 [place] 00 :00 (two) Medical times Branch daily for 90 days. Indication s: atrial fibrillati on diltiazem 2019-04- No [id number] 120mg Take 1 [facility] 120 mg 24 0- 01-05 capsule by [facility] of hr capsule 00:00: 05:59 mouth [place] 00 :00 every Medical evening Branch for 90 days. diltiazem 2019-04 No [id number] 240mg Take 1 [facility] 240 mg 24 0-09 28-05 tablet by [facility] of hr tablet 00:00: 05:59 mouth [place] 00 :00 every Medical morning Branch for 90 days. apixaban 5 2019-04 No 1358 5mg Take 1 [facility] mg tablet 0-09 28-05 tablet by ity of 00:00: 05:59 mouth 2 [place] 00 :00 (two) Medical times Branch daily for 90 days. Indication s: atrial fibrillati on diltiazem 2019-04 No [id number] 120mg Take 1 [facility] 120 mg 24 0-09 28-05 capsule by [facility] of hr capsule 00:00: 05:59 mouth [place] 00 :00 every Medical evening Branch for 90 days. diltiazem 2019-04- No [id number] 240mg Take 1 [facility] 240 mg 24 0-09 28-05 tablet by [facility] of hr tablet 00:00: 05:59 mouth [place] 00 :00 every Medical morning Branch for 90 days. apixaban 5 2019-04 No 1358 5mg Take 1 [facility] mg tablet 0- 01-05 tablet by ity of 00:00: 05:59 mouth 2 [place] 00 :00 (two) Medical times Branch daily for 90 days. Indication s: atrial fibrillati on diltiazem 2019-04- No [id number] 120mg Take 1 [facility] 120 mg 24 0-06 01-05 capsule by [facility] of hr capsule 00:00: 05:59 mouth [place] 00 :00 every Medical evening Branch for 90 days. diltiazem 2019-04- No [id number] 240mg Take 1 [facility] 240 mg 24 0-05 tablet by [facility] of hr tablet 00:00: 05:59 mouth [place] 00 :00 every Medical morning Branch for 90 days. apixaban 5 2019-04- No 1358 5mg Take 1 [facility] mg tablet 0-05 tablet by ity of 00:00: 05:59 mouth 2 [place] 00 :00 (two) Medical times Branch daily for 90 days. Indication s: atrial fibrillati on diltiazem 2019-04- No [id number] 120mg Take 1 [facility] 120 mg 24 0-09 28-05 capsule by [facility] of hr capsule 00:00: 05:59 mouth [place] 00 :00 every Medical evening Branch for 90 days. diltiazem 2019-04- No [id number] 240mg Take 1 [facility] 240 mg 24 0-09 28-05 tablet by [facility]y of hr tablet 00:00: 05:59 mouth [place] 00 :00 every Medical morning Branch for 90 days. diltiazem 2019-04- No [id number] 120mg Take 1 [facility] 120 mg 24 0-05 capsule by [facility] of hr capsule 00:00: 05:59 mouth [place] 00 :00 every Medical evening Branch for 90 days. diltiazem 2019-04- No [id number] 240mg Take 1 [facility] 240 mg 24 0-09 28-05 tablet by [facility] of hr tablet 00:00: 05:59 mouth [place] 00 :00 every Medical morning Branch for 90 days. diltiazem 2019-04- No [id number] 120mg Take 1 [facility] 120 mg 24 0-09 28-05 capsule by [facility] of hr capsule 00:00: 05:59 mouth [place] 00 :00 every Medical evening Branch for 90 days. diltiazem 2019-04- No [id number] 240mg Take 1 [facility] 240 mg 24 0-09 28-05 tablet by [facility] of hr tablet 00:00: 05:59 mouth [place] 00 :00 every Medical morning Branch for 90 days. diltiazem 2019-04- No [id number] 120mg Take 1 [facility] 120 mg 24 0-09 28-05 capsule by [facility] of hr capsule 00:00: 05:59 mouth [place] 00 :00 every Medical evening Branch for 90 days. diltiazem 2019-04- No [id number] 240mg Take 1 [facility] 240 mg 24 0-06 01-05 tablet by [facility] of hr tablet 00:00: 05:59 mouth [place] 00 :00 every Medical morning Branch for 90 days. diltiazem 2019-04- No [id number] 120mg Take 1 [facility] 120 mg 24 0-06 01-05 capsule by [facility] of hr capsule 00:00: 05:59 mouth [place] 00 :00 every Medical evening Branch for 90 days. diltiazem 2019-04- No [id number] 240mg Take 1 [facility] 240 mg 24 0-06 01-05 tablet by [facility] of hr tablet 00:00: 05:59 mouth [place] 00 :00 every Medical morning Branch for 90 days. diltiazem 2019-04- No [id number] 120mg Take 1 [facility] 120 mg 24 0-06 -05 capsule by [facility] of hr capsule 00:00: 05:59 mouth [place] 00 :00 every Medical evening Branch for 90 days. diltiazem 2019-04- No [id number] 240mg Take 1 [facility] 240 mg 24 0-06 -05 tablet by ity of hr tablet 00:00: 05:59 mouth [place] 00 :00 every Medical morning Branch for 90 days. diltiazem 2019-04- No [id number] 120mg Take 1 [facility] 120 mg 24 0-06 01-05 capsule by [facility] of hr capsule 00:00: 05:59 mouth [place] 00 :00 every Medical evening Branch for 90 days. diltiazem 2019-04- No [id number] 240mg Take 1 [facility] 240 mg 24 0-06 01-05 tablet by [facility]y of hr tablet 00:00: 05:59 mouth [place] 00 :00 every Medical morning Branch for 90 days. diltiazem 2019-04- No [id number] 120mg Take 1 [facility] 120 mg 24 0-06 01-05 capsule by [facility] of hr capsule 00:00: 05:59 mouth [place] 00 :00 every Medical evening Branch for 90 days. diltiazem 2019-04- No [id number] 240mg Take 1 [facility] 240 mg 24 0-06 01-05 tablet by [facility] of hr tablet 00:00: 05:59 mouth [place] 00 :00 every Medical morning Branch for 90 days. diltiazem 2019-04- No [id number] 120mg Take 1 [facility] 120 mg 24 0-06 01-05 capsule by [facility] of hr capsule 00:00: 05:59 mouth [place] 00 :00 every Medical evening Branch for 90 days. diltiazem 2019-04- No [id number] 240mg Take 1 [facility] 240 mg 24 0-06 01-05 tablet by [facility] of hr tablet 00:00: 05:59 mouth [place] 00 :00 every Medical morning Branch for 90 days. diltiazem 2019-04- No [id number] 120mg Take 1 [facility] 120 mg 24 0-06 01-05 capsule by [facility] of hr capsule 00:00: 05:59 mouth [place] 00 :00 every Medical evening Branch for 90 days. diltiazem 2019-04- No [id number] 240mg Take 1 [facility] 240 mg 24 0-06 01-05 tablet by [facility] of hr tablet 00:00: 05:59 mouth [place] 00 :00 every Medical morning Branch for 90 days. diltiazem 2019-04- No [id number] 120mg Take 1 [facility] 120 mg 24 0-06 01-05 capsule by [facility] of hr capsule 00:00: 05:59 mouth [place] 00 :00 every Medical evening Branch for 90 days. diltiazem 2019-04- No [id number] 240mg Take 1 [facility] 240 mg 24 0-06 01-05 tablet by [facility] of hr tablet 00:00: 05:59 mouth [place] 00 :00 every Medical morning Branch for 90 days. diltiazem 2019-04- No [id number] 120mg Take 1 [facility] 120 mg 24 0-06 01-05 capsule by [facility] of hr capsule 00:00: 05:59 mouth [place] 00 :00 every Medical evening Branch for 90 days. diltiazem 2019-04- No [id number] 240mg Take 1 [facility] 240 mg 24 0-06 01-05 tablet by [facility] of hr tablet 00:00: 05:59 mouth [place] 00 :00 every Medical morning Branch for 90 days. diltiazem 2019-04- No [id number] 120mg Take 1 [facility] 120 mg 24 0-06 01-05 capsule by [facility] of hr capsule 00:00: 05:59 mouth [place] 00 :00 every Medical evening Branch for 90 days. diltiazem 2019-04- No [id number] 240mg Take 1 [facility] 240 mg 24 0-06 01-05 tablet by [facility] of hr tablet 00:00: 05:59 mouth [place] 00 :00 every Medical morning Branch for 90 days. diltiazem 2019-04- No [id number] 120mg Take 1 [facility] 120 mg 24 0-06 01-05 capsule by [facility] of hr capsule 00:00: 05:59 mouth [place] 00 :00 every Medical evening Branch for 90 days. diltiazem 2019-04 No [id number] 240mg Take 1 [facility] 240 mg 24 0-06 01-05 tablet by [facility] of hr tablet 00:00: 05:59 mouth [place] 00 :00 every Medical morning Branch for 90 days. diltiazem 2019-04 No [id number] 120mg Take 1 [facility] 120 mg 24 0-09 28-05 capsule by [facility] of hr capsule 00:00: 05:59 mouth [place] 00 :00 every Medical evening Branch for 90 days. diltiazem 2019-04 No [id number] 240mg Take 1 [facility] 240 mg 24 0-09 28-05 tablet by [facility] of hr tablet 00:00: 05:59 mouth [place] 00 :00 every Medical morning Branch for 90 days. apixaban 5 2019-04 No 1358 5mg Take 1 [facility] mg tablet 0- 12-16 tablet by [facility] 00:00: 00:00 mouth 2 [place] 00 :00 (two) Medical times Branch daily for 90 days. Indication s: atrial fibrillati on apixaban 5 2019-04 No 1358 5mg Take 1 [facility] mg tablet 0- 12-16 tablet by [facility] 00:00: 00:00 mouth 2 [place] 00 :00 (two) Medical times Branch daily for 90 days. Indication s: atrial fibrillati on apixaban 5 2019-04 No 1358 5mg Take 1 [facility] mg tablet 0-06 12-16 tablet by [facility] of 00:00: 00:00 mouth 2 [place] 00 :00 (two) Medical times Branch daily for 90 days. Indication s: atrial fibrillati on apixaban 5 2019-04 No 1358 5mg Take 1 [facility] mg tablet 0-06 12-16 tablet by [facility] 00:00: 00:00 mouth 2 [place] 00 :00 (two) Medical times Branch daily for 90 days. Indication s: atrial fibrillati on apixaban 5 2019-2019- No 1358 5mg Take 1 [facility] mg tablet 0- 12-16 tablet by [facility] 00:00: 00:00 mouth 2 [place] 00 :00 (two) Medical times Branch daily for 90 days. Indication s: atrial fibrillati on apixaban 5 2019-04- No 1358 5mg Take 1 [facility] mg tablet 0 12-16 tablet by [facility] of 00:00: 00:00 mouth 2 [place] 00 :00 (two) Medical times Branch daily for 90 days. Indication s: atrial fibrillati on lisinopriL 2019-2019- No [id number] 20mg Take 1 [facility] 20 mg 0- 11-13 tablet by [facility] tablet 00:00: 00:00 mouth 2 [place] 00 :00 (two) Medical times Branch daily for 90 days. LISINOPRIL 2020-0 Yes [id number] TAKE 1 [facility] 20 mg 9-04 TABLET BY [facility] tablet 00:00: MOUTH [place] 00 TWICE Medical DAILY Branch DILTIAZEM 2020-0 Yes TAKE ONE [facility] 120 mg 24 9-04 CAPSULE BY [facility] hr capsule 00:00: MOUTH [place] 00 EVERY Medical EVENING Branch metoprolol 2020-0 Yes 25mg Take 1 [facility] succinate 9-04 tablet by [facility] o f XL 25 mg 24 00:00: mouth 2 [place] hr tablet 00 (two) Medical times Branch daily. diltiazem 2020-0 Yes 240mg Take 1 [facility] 240 mg 24 9-04 tablet by [facility] hr tablet 00:00: mouth [place] 00 every Medical morning. Branch LISINOPRIL 2020-0 Yes [id number] TAKE 1 [facility] 20 mg 9-04 TABLET BY [facility] tablet 00:00: MOUTH [place] 00 TWICE Medical DAILY Branch DILTIAZEM 2020-0 Yes TAKE ONE [facility] 120 mg 24 9-04 CAPSULE BY [facility] hr capsule 00:00: MOUTH [place] 00 EVERY Medical EVENING Branch metoprolol 2020-0 Yes 25mg Take 1 [facility] succinate 9-04 tablet by [facility] o f XL 25 mg 24 00:00: mouth 2 [place] hr tablet 00 (two) Medical times Branch daily. diltiazem 2020-0 Yes 240mg Take 1 [facility] 240 mg 24 9-04 tablet by [facility] hr tablet 00:00: mouth [place] 00 every Medical morning. Branch LISINOPRIL 2020-0 Yes [id number] TAKE 1 [facility] 20 mg 9-04 TABLET BY [facility] tablet 00:00: MOUTH [place] 00 TWICE Medical DAILY Branch DILTIAZEM 2020-0 Yes TAKE ONE [facility] 120 mg 24 9-04 CAPSULE BY [facility] hr capsule 00:00: MOUTH [place] 00 EVERY Medical EVENING Branch metoprolol 2020-0 Yes 25mg Take 1 [facility] succinate 9-04 tablet by [facility] o f XL 25 mg 24 00:00: mouth 2 [place] hr tablet 00 (two) Medical times Branch daily. diltiazem 2020-0 Yes 240mg Take 1 [facility] 240 mg 24 9-04 tablet by [facility] hr tablet 00:00: mouth [place] 00 every Medical morning. Branch LISINOPRIL 2019-0 2020- No [id number] TAKE 1 [facility] 20 mg 9-04 10-06 TABLET BY [facility] tablet 00:00: 00:00 MOUTH [place] 00 :00 TWICE Medical DAILY Branch DILTIAZEM 2019-0 2020- No TAKE ONE [facility] 120 mg 24 9-04 10-06 CAPSULE BY [facility] hr capsule 00:00: 00:00 MOUTH [place] 00 :00 EVERY Medical EVENING Branch metoprolol 2020-0 2020- No 25mg Take 1 [facility] succinate 9-04 10-06 tablet by [facility] XL 25 mg 24 00:00: 00:00 mouth 2 [place] hr tablet 00 :00 (two) Medical times Branch daily. diltiazem 2020-0 2020- No 240mg Take 1 [facility] 240 mg 24 9-04 10-06 tablet by [facility] hr tablet 00:00: 00:00 mouth [place] 00 :00 every Medical morning. Branch LISINOPRIL 2020-0 2020- No [id number] TAKE 1 [facility] 20 mg 9-04 10-06 TABLET BY [facility] tablet 00:00: 00:00 MOUTH [place] 00 :00 TWICE Medical DAILY Branch DILTIAZEM 2020-0 2020- No TAKE ONE [facility] 120 mg 24 9-04 10-06 CAPSULE BY [facility] hr capsule 00:00: 00:00 MOUTH [place] 00 :00 EVERY Medical EVENING Branch metoprolol 2020-0 2020- No 25mg Take 1 [facility] succinate 9-04 10-06 tablet by [facility] XL 25 mg 24 00:00: 00:00 mouth 2 [place] hr tablet 00 :00 (two) Medical times Branch daily. diltiazem 2019- No 240mg Take 1 [facility] 240 mg 24 01-01 tablet by [facility] hr tablet 00:00: 00:00 mouth [place] 00 :00 every Medical morning. Branch LISINOPRIL 2019- No [id number] TAKE 1 [facility] 20 mg 01-01 TABLET BY [facility] tablet 00:00: 00:00 MOUTH [place] 00 :00 TWICE Medical DAILY Branch DILTIAZEM 2019- No TAKE ONE [facility] 120 mg 24 01-01 CAPSULE BY [facility] hr capsule 00:00: 00:00 MOUTH [place] 00 :00 EVERY Medical EVENING Branch metoprolol 2019- No 25mg Take 1 [facility] succinate 01-01 tablet by [facility] XL 25 mg 24 00:00: 00:00 mouth 2 [place] hr tablet 00 :00 (two) Medical times Branch daily. diltiazem 2019- No 240mg Take 1 [facility] 240 mg 24 01-01 tablet by [facility] hr tablet 00:00: 00:00 mouth [place] 00 :00 every Medical morning. Branch METOPROLOL Yes TAKE 1 [facility] SUCCINATE 7-31 TABLET BY [facility] o f XL 25 mg 24 00:00: MOUTH [place] hr tablet 00 TWICE Medical DAILY Branch METOPROLOL 2019- No TAKE 1 [facility] SUCCINATE 7-31 - TABLET BY [facility] XL 25 mg 24 00:00: 00:00 MOUTH [place] hr tablet 00 :00 TWICE Medical DAILY Branch furosemide 2019-0 Yes [id number] TAKE ONE [facility] 40 mg 2-26 TABLET BY [facility] tablet 00:00: MOUTH [place] 00 NEEDED Medical DAILY. Branch BASED ONWAIT AND LEG SWELLING furosemide 2019-0 Yes [id number] TAKE ONE [facility] 40 mg 2-26 TABLET BY [facility] tablet 00:00: MOUTH [place] 00 NEEDED Medical DAILY. Branch BASED ONWAIT AND LEG SWELLING diltiazem 2019-0 Yes 120mg Take 1 [facility] 120 mg 24 2-26 capsule by [facility] hr capsule 00:00: mouth [place] 00 every Medical evening. Branch diltiazem 2020-0 Yes 240mg Take 1 [facility] 240 mg 24 2-26 tablet by [facility] o f hr tablet 00:00: mouth [place] 00 every Medical morning. Branch lisinopril 2020-0 Yes [id number] 20mg Take 1 [facility] 20 mg 2-26 tablet by [facility] tablet 00:00: mouth 2 [place] 00 (two) Medical times Branch daily. metoprolol 2020-0 Yes 25mg Take 1 [facility] succinate 2-26 tablet by [facility] o f XL 25 mg 24 00:00: mouth 2 [place] hr tablet 00 (two) Medical times Branch daily. furosemide 2020-0 Yes [id number] TAKE ONE [facility] 40 mg 2-26 TABLET BY [facility] tablet 00:00: MOUTH [place] 00 NEEDED Medical DAILY. Branch BASED ONWAIT AND LEG SWELLING diltiazem 2020-0 Yes 120mg Take 1 [facility] 120 mg 24 2-26 capsule by [facility] hr capsule 00:00: mouth [place] 00 every Medical evening. Branch diltiazem 2020-0 Yes 240mg Take 1 [facility] 240 mg 24 2-26 tablet by [facility] hr tablet 00:00: mouth [place] 00 every Medical morning. Branch lisinopril 2020-0 Yes [id number] 20mg Take 1 [facility] 20 mg 2-26 tablet by [facility] tablet 00:00: mouth 2 [place] 00 (two) Medical times Branch daily. furosemide 2020-0 Yes [id number] TAKE ONE [facility] 40 mg 2-26 TABLET BY [facility] tablet 00:00: MOUTH [place] 00 NEEDED Medical DAILY. Branch BASED ONWAIT AND LEG SWELLING furosemide 2020-0 Yes [id number] TAKE ONE [facility] 40 mg 2-26 TABLET BY [facility] tablet 00:00: MOUTH [place] 00 NEEDED Medical DAILY. Branch BASED ONWAIT AND LEG SWELLING furosemide 2020-0 2020- No [id number] TAKE ONE [facility] 40 mg 2-26 10-06 TABLET BY [facility] tablet 00:00: 00:00 MOUTH [place] 00 :00 NEEDED Medical DAILY. Branch BASED ONWAIT AND LEG SWELLING furosemide 2020-0 2020- No [id number] TAKE ONE [facility] 40 mg 2-26 10-06 TABLET BY [facility] tablet 00:00: 00:00 MOUTH [place] 00 :00 NEEDED Medical DAILY. Branch BASED ONWAIT AND LEG SWELLING furosemide 2020-0 2020- No [id number] TAKE ONE [facility] 40 mg 2-26 10-06 TABLET BY [facility] tablet 00:00: 00:00 MOUTH [place] 00 :00 NEEDED Medical DAILY. Branch BASED ONWAIT AND LEG SWELLING diltiazem 2019-0 2019- No 120mg Take 1 [facility] 120 mg 24 06-25- capsule by [facility] hr capsule 00:00: 00:00 mouth [place] 00 :00 every Medical evening. Branch diltiazem 2019-2019- No 240mg Take 1 [facility] 240 mg 24 06-25 tablet by [facility] hr tablet 00:00: 00:00 mouth [place] 00 :00 every Medical morning. Branch lisinopril 2019-2019- No [id number] 20mg Take 1 [facility] 20 mg 06-25 tablet by [facility] tablet 00:00: 00:00 mouth 2 [place] 00 :00 (two) Medical times Branch daily. metoprolol 2019-2019- No 25mg Take 1 [facility] succinate 06-25 tablet by [facility] XL 25 mg 24 00:00: 00:00 mouth 2 [place] hr tablet 00 :00 (two) Medical times Branch daily. apixaban 5 2020-0 Yes 1358 5mg Take 1 [facility] mg tablet 1-22 tablet by [facility] o f 00:00: mouth 2 (two) Medical times Branch daily. Indication s: atrial fibrillati on apixaban 5 2020-0 Yes 1358 5mg Take 1 [facility] mg tablet 1-22 tablet by [facility] o f 00:00: mouth 2 00 (two) Medical times Branch daily. Indication s: atrial fibrillati on apixaban 5 2020-0 Yes 1358 5mg Take 1 [facility] mg tablet 1-22 tablet by [facility] o f 00:00: mouth 2 [place] 00 (two) Medical times Branch daily. Indication s: atrial fibrillati on apixaban 5 2020-0 Yes 1358 5mg Take 1 [facility] mg tablet 1-22 tablet by [facility] o f 00:00: mouth 2 [place] 00 (two) Medical times Branch daily. Indication s: atrial fibrillati on apixaban 5 2020-0 Yes 1358 5mg Take 1 [facility] mg tablet 1-22 tablet by [facility] o f 00:00: mouth 2 [place] 00 (two) Medical times Branch daily. Indication s: atrial fibrillati on apixaban 5 2020-0 Yes 1358 5mg Take 1 [facility] mg tablet 1-22 tablet by [facility] o f 00:00: mouth 2 [place] 00 (two) Medical times Branch daily. Indication s: atrial fibrillati on apixaban 5 2020-0 Yes 1358 5mg Take 1 [facility] mg tablet 1-22 tablet by [facility] o f 00:00: mouth 2 00 (two) Medical times Branch daily. Indication s: atrial fibrillati on apixaban 5 2020-0 Yes 1358 5mg Take 1 [facility] mg tablet 1-22 tablet by [facility] o f 00:00: mouth 2 00 (two) Medical times Branch daily. Indication s: atrial fibrillati on apixaban 5 2020-0 Yes 1358 5mg Take 1 [facility] mg tablet 1-22 tablet by [facility] o f 00:00: mouth 2 (two) Medical times Branch daily. Indication s: atrial fibrillati on apixaban 5 2020-0 Yes 1358 5mg Take 1 [facility] mg tablet 1-22 tablet by it[facility] o f 00:00: mouth 2 00 (two) Medical times Branch daily. Indication s: atrial fibrillati on apixaban 5 2020-0 Yes 1358 5mg Take 1 [facility] mg tablet 1-22 tablet by [facility] o f 00:00: mouth 2 (two) Medical times Branch daily. Indication s: atrial fibrillati on apixaban 5 2020-0 Yes 1358 5mg Take 1 [facility] mg tablet 1-22 tablet by [facility] o f 00:00: mouth 2 00 (two) Medical times Branch daily. Indication s: atrial fibrillati on apixaban 5 2020-0 Yes 1358 5mg Take 1 [facility] mg tablet 1-22 tablet by [facility] o f 00:00: mouth 2 [place] 00 (two) Medical times Branch daily. Indication s: atrial fibrillati on apixaban 5 2020-0 2020- No 1358 5mg Take 1 [facility] mg tablet 1-22 10-06 tablet by [facility] of 00:00: 00:00 mouth 2 [place] 00 :00 (two) Medical times Branch daily. Indication s: atrial fibrillati on apixaban 5 2020-0 2020- No 1358 5mg Take 1 [facility] mg tablet 1-22 10-06 tablet by [facility] of 00:00: 00:00 mouth 2 [place] 00 :00 (two) Medical times Branch daily. Indication s: atrial fibrillati on apixaban 5 2020-0 2020- No 1358 5mg Take 1 [facility] mg tablet -18 02- tablet by [facility] 00:00: 00:00 mouth 2 [place] 00 :00 (two) Medical times Branch daily. Indication s: atrial fibrillati on ELIQUIS 5 2020-0 Yes [id number] TAKE 1 [facility] mg tablet 1-17 TABLET BY [facility] o f 00:00: MOUTH [place] 00 TWICE Medical DAILY Branch ELIQUIS 5 2020-0 Yes [id number] TAKE 1 [facility] mg tablet 1-17 TABLET BY [facility] o f 00:00: MOUTH 00 TWICE Medical DAILY Branch ELIQUIS 5 2020-0 Yes [id number] TAKE 1 [facility] mg tablet 1-17 TABLET BY [facility] o f 00:00: MOUTH 00 TWICE Medical DAILY Branch ELIQUIS 5 2020-0 Yes [id number] TAKE 1 [facility] mg tablet 1-17 TABLET BY [facility] o f 00:00: MOUTH 00 TWICE Medical DAILY Branch ELIQUIS 5 2020-0 Yes [id number] TAKE 1 [facility] mg tablet 1-17 TABLET BY [facility] o f 00:00: MOUTH 00 TWICE Medical DAILY Branch ELIQUIS 5 2020-0 Yes [id number] TAKE 1 [facility] mg tablet 1-17 TABLET BY [facility] o f 00:00: MOUTH 00 TWICE Medical DAILY Branch ELIQUIS 5 2020-0 Yes [id number] TAKE 1 [facility] mg tablet 1-17 TABLET BY [facility] o f 00:00: MOUTH 00 TWICE Medical DAILY Branch ELIQUIS 5 2020-0 Yes [id number] TAKE 1 [facility] mg tablet 1-17 TABLET BY [facility] o f 00:00: MOUTH 00 TWICE Medical DAILY Branch ELIQUIS 5 2020-0 Yes [id number] TAKE 1 [facility] mg tablet 1-17 TABLET BY [facility] o f 00:00: MOUTH 00 TWICE Medical DAILY Branch ELIQUIS 5 2020-0 Yes [id number] TAKE 1 [facility] mg tablet 1-17 TABLET BY [facility] o f 00:00: MOUTH 00 TWICE Medical DAILY Branch ELIQUIS 5 2020-0 Yes [id number] TAKE 1 [facility] mg tablet 1-17 TABLET BY [facility] o f 00:00: MOUTH [place] 00 TWICE Medical DAILY Branch ELIQUIS 5 2020-0 Yes [id number] TAKE 1 [facility] mg tablet 1-17 TABLET BY [facility] o f 00:00: MOUTH [place] 00 TWICE Medical DAILY Branch ELIQUIS 5 2020-0 Yes [id number] TAKE 1 [facility] mg tablet 1-17 TABLET BY [facility] o f 00:00: MOUTH [place] 00 TWICE Medical DAILY Branch ELIQUIS 5 2020-0 Yes [id number] TAKE 1 [facility] mg tablet 1-17 TABLET BY [facility] o f 00:00: MOUTH [place] 00 TWICE Medical DAILY Branch ELIQUIS 5 2020-0 Yes [id number] TAKE 1 [facility] mg tablet 1-17 TABLET BY [facility] o f 00:00: MOUTH [place] 00 TWICE Medical DAILY Branch ELIQUIS 5 2020-0 2020- No [id number] TAKE 1 [facility] mg tablet 1-17 10-06 TABLET BY [facility] of 00:00: 00:00 MOUTH [place] 00 :00 TWICE Medical DAILY Branch ELIQUIS 5 2020-0 2020- No [id number] TAKE 1 [facility] mg tablet 1-17 10-06 TABLET BY [facility] of 00:00: 00:00 MOUTH [place] 00 :00 TWICE Medical DAILY Branch ELIQUIS 5 2020-0 2020- No [id number] TAKE 1 [facility] mg tablet 1-17 10-06 TABLET BY [facility] of 00:00: 00:00 MOUTH [place] 00 :00 TWICE Medical DAILY Branch diltiazem 2018- Yes 240mg Take 1 [facility] 240 mg 24 0-18 tablet by [facility] o f hr tablet 00:00: mouth [place] 00 every Medical morning. Branch diltiazem 2018-04 Yes 240mg Take 1 [facility] 240 mg 24 0-18 tablet by [facility] o f hr tablet 00:00: mouth [place] 00 every Medical morning. Branch diltiazem 2018-04 Yes 240mg Take 1 [facility] 240 mg 24 0-18 tablet by [facility] o f hr tablet 00:00: mouth [place] 00 every Medical morning. Branch diltiazem 2018-04 Yes 240mg Take 1 [facility] 240 mg 24 0-18 tablet by [facility] o f hr tablet 00:00: mouth [place] 00 every Medical morning. Branch diltiazem 2018-04 Yes 240mg Take 1 [facility] 240 mg 24 0-18 tablet by [facility] o f hr tablet 00:00: mouth [place] 00 every Medical morning. Branch diltiazem 2018-04 Yes 240mg Take 1 [facility] 240 mg 24 0-18 tablet by [facility] o f hr tablet 00:00: mouth [place] 00 every Medical morning. Branch diltiazem 2018-04 Yes 240mg Take 1 [facility] 240 mg 24 0-18 tablet by [facility] o f hr tablet 00:00: mouth [place] 00 every Medical morning. Branch diltiazem 2018-04 Yes 240mg Take 1 [facility] 240 mg 24 0-18 tablet by [facility] o f hr tablet 00:00: mouth [place] 00 every Medical morning. Branch diltiazem 2018-04 Yes 240mg Take 1 [facility] 240 mg 24 0-18 tablet by [facility] o f hr tablet 00:00: mouth [place] 00 every Medical morning. Branch diltiazem 2018-04 Yes 240mg Take 1 [facility] 240 mg 24 0-18 tablet by [facility] o f hr tablet 00:00: mouth [place] 00 every Medical morning. Branch diltiazem 2018-04 2020- No 240mg Take 1 [facility] 240 mg 24 0-18 02-26 tablet by [facility] hr tablet 00:00: 00:00 mouth [place] 00 :00 every Medical morning. Branch metoprolol 2019- No 25mg Take 25 mg [facility] succinate 9-20 09-20 by mouth 2 [facility] XL 25 mg 24 13:38: 00:00 (two) [place] hr tablet 49 :00 times Medical daily. Branch diltiazem 2019- No 120mg Take 120 [facility] 120 mg 24 9-20 09-20 mg by [facility] hr capsule 13:38: 00:00 mouth [place] 49 :00 every Medical evening. Branch diltiazem 2019- No 240mg Take 240 [facility] 240 mg 24 9-20 09-20 mg by [facility] hr tablet 13:38: 00:00 mouth [place] 49 :00 every Medical morning. Branch lisinopril Yes [id number] 20mg Take 1 [facility] 20 mg 9-20 tablet by [facility] of tablet 00:00: mouth 2 [place] 00 (two) Medical times Branch daily. diltiazem Yes 120mg Take 1 [facility] 120 mg 24 9-20 capsule by [facility] hr capsule 00:00: mouth [place] 00 every Medical evening. Branch diltiazem 2019-0 Yes 240mg Take 1 [facility] 240 mg 24 9-20 tablet by [facility] o f hr tablet 00:00: mouth [place] 00 every Medical morning. Branch metoprolol 2019-0 Yes 25mg Take 1 [facility] succinate 9-20 tablet by [facility] o f XL 25 mg 24 00:00: mouth 2 [place] hr tablet 00 (two) Medical times Branch daily. lisinopril 2019-0 Yes [id number] 20mg Take 1 [facility] 20 mg 9-20 tablet by [facility] of tablet 00:00: mouth 2 [place] 00 (two) Medical times Branch daily. diltiazem 2018-0 Yes 120mg Take 1 [facility] 120 mg 24 9-20 capsule by [facility] hr capsule 00:00: mouth [place] 00 every Medical evening. Branch metoprolol 2018-0 Yes 25mg Take 1 [facility] succinate 9-20 tablet by it[facility] o f XL 25 mg 24 00:00: mouth 2 [place] hr tablet 00 (two) Medical times Branch daily. lisinopril 2018-0 Yes [id number] 20mg Take 1 [facility] 20 mg 9-20 tablet by [facility] of tablet 00:00: mouth 2 [place] 00 (two) Medical times Branch daily. diltiazem 2018-0 Yes 120mg Take 1 [facility] 120 mg 24 9-20 capsule by [facility] hr capsule 00:00: mouth [place] 00 every Medical evening. Branch metoprolol 2018-0 Yes 25mg Take 1 [facility] succinate 9-20 tablet by it[facility] o f XL 25 mg 24 00:00: mouth 2 [place] hr tablet 00 (two) Medical times Branch daily. lisinopril 2019-0 Yes [id number] 20mg Take 1 [facility] 20 mg 9-20 tablet by [facility] of tablet 00:00: mouth 2 [place] 00 (two) Medical times Branch daily. diltiazem 2019-0 Yes 120mg Take 1 [facility] 120 mg 24 9-20 capsule by [facility] hr capsule 00:00: mouth [place] 00 every Medical evening. Branch metoprolol 2019-0 Yes 25mg Take 1 [facility] succinate 9-20 tablet by ity o f XL 25 mg 24 00:00: mouth 2 [place] hr tablet 00 (two) Medical times Branch daily. lisinopril 2019-0 Yes [id number] 20mg Take 1 [facility] 20 mg 9-20 tablet by [facility] of tablet 00:00: mouth 2 [place] 00 (two) Medical times Branch daily. diltiazem 2019-0 Yes 120mg Take 1 [facility] 120 mg 24 9-20 capsule by [facility] hr capsule 00:00: mouth [place] 00 every Medical evening. Branch metoprolol 2018-0 Yes 25mg Take 1 [facility] succinate 9-20 tablet by [facility] o f XL 25 mg 24 00:00: mouth 2 [place] hr tablet 00 (two) Medical times Branch daily. lisinopril 2019-0 Yes [id number] 20mg Take 1 [facility] 20 mg 9-20 tablet by [facility] of tablet 00:00: mouth 2 [place] 00 (two) Medical times Branch daily. diltiazem 2018-0 Yes 120mg Take 1 [facility] 120 mg 24 9-20 capsule by [facility] hr capsule 00:00: mouth [place] 00 every Medical evening. Branch metoprolol 2018-0 Yes 25mg Take 1 [facility] succinate 9-20 tablet by it[facility] o f XL 25 mg 24 00:00: mouth 2 [place] hr tablet 00 (two) Medical times Branch daily. lisinopril 2018-0 Yes [id number] 20mg Take 1 [facility] 20 mg 9-20 tablet by [facility] of tablet 00:00: mouth 2 [place] 00 (two) Medical times Branch daily. diltiazem 2018-0 Yes 120mg Take 1 [facility] 120 mg 24 9-20 capsule by [facility] hr capsule 00:00: mouth [place] 00 every Medical evening. Branch metoprolol 2018-0 Yes 25mg Take 1 [facility] succinate 9-20 tablet by ity o f XL 25 mg 24 00:00: mouth 2 [place] hr tablet 00 (two) Medical times Branch daily. lisinopril 2019-0 Yes [id number] 20mg Take 1 [facility] 20 mg 9-20 tablet by [facility] of tablet 00:00: mouth 2 [place] 00 (two) Medical times Branch daily. diltiazem 2018-0 Yes 120mg Take 1 [facility] 120 mg 24 9-20 capsule by [facility] hr capsule 00:00: mouth [place] 00 every Medical evening. Branch metoprolol 2018-0 Yes 25mg Take 1 [facility] succinate 9-20 tablet by ity o f XL 25 mg 24 00:00: mouth 2 [place] hr tablet 00 (two) Medical times Branch daily. lisinopril 2019-0 Yes [id number] 20mg Take 1 [facility] 20 mg 9-20 tablet by [facility] of tablet 00:00: mouth 2 [place] 00 (two) Medical times Branch daily. diltiazem 2019-0 Yes 120mg Take 1 [facility] 120 mg 24 9-20 capsule by [facility] hr capsule 00:00: mouth [place] 00 every Medical evening. Branch metoprolol 2018-0 Yes 25mg Take 1 [facility] succinate 9-20 tablet by ity o f XL 25 mg 24 00:00: mouth 2 [place] hr tablet 00 (two) Medical times Branch daily. lisinopril 2019-0 Yes [id number] 20mg Take 1 [facility] 20 mg 9-20 tablet by [facility] of tablet 00:00: mouth 2 [place] 00 (two) Medical times Branch daily. diltiazem 2018-0 Yes 120mg Take 1 [facility] 120 mg 24 9-20 capsule by [facility] hr capsule 00:00: mouth [place] 00 every Medical evening. Branch metoprolol 2018-0 Yes 25mg Take 1 [facility] succinate 9-20 tablet by ity o f XL 25 mg 24 00:00: mouth 2 [place] hr tablet 00 (two) Medical times Branch daily. lisinopril 2018-0 Yes [id number] 20mg Take 1 [facility] 20 mg 9-20 tablet by [facility] of tablet 00:00: mouth 2 [place] 00 (two) Medical times Branch daily. diltiazem 2018-0 Yes 120mg Take 1 [facility] 120 mg 24 9-20 capsule by [facility] hr capsule 00:00: mouth [place] 00 every Medical evening. Branch metoprolol 2018-0 Yes 25mg Take 1 [facility] succinate 9-20 tablet by ity o f XL 25 mg 24 00:00: mouth 2 [place] hr tablet 00 (two) Medical times Branch daily. lisinopril 2018-0 2020- No [id number] 20mg Take 1 [facility] 20 mg 9-20 02-26 tablet by [facility] tablet 00:00: 00:00 mouth 2 [place] 00 :00 (two) Medical times Branch daily. diltiazem 2019-0 2020- No 120mg Take 1 [facility] 120 mg 24 9-20 02-26 capsule by [facility] hr capsule 00:00: 00:00 mouth [place] 00 :00 every Medical evening. Branch metoprolol 2019- No 25mg Take 1 [facility] succinate 9-20 02-26 tablet by [facility] XL 25 mg 24 00:00: 00:00 mouth 2 [place] hr tablet 00 :00 (two) Medical times Branch daily. diltiazem 0 Yes 240mg Take 240 [facility] 240 mg 24 9-11 mg by [facility] hr tablet 21:28: mouth [place] 48 every Medical morning. Branch diltiazem 0 Yes 240mg Take 240 [facility] 240 mg 24 9-11 mg by [facility] of hr tablet 21:28: mouth [place] 48 every Medical morning. Branch diltiazem Yes 120mg Take 120 [facility] 120 mg 24 9-11 mg by [facility] of hr capsule 21:28: mouth [place] 27 every Medical evening. Branch diltiazem 0 Yes 120mg Take 120 [facility] 120 mg 24 9-11 mg by [facility] of hr capsule 21:28: mouth [place] 27 every Medical evening. Branch metoprolol Yes 25mg Take 25 mg [facility] succinate 9-11 by mouth 2 [facility] XL 25 mg 24 21:27: (two) [place] hr tablet 43 times Medical daily. Branch metoprolol Yes 25mg Take 25 mg [facility] succinate 9-11 by mouth 2 [facility] of XL 25 mg 24 21:27: (two) [place] hr tablet 43 times Medical daily. Branch apixaban Yes [id number] 5mg Take 1 [facility] (ELIQUIS) 5 9-11 tablet by [facility] mg tablet 00:00: mouth 2 [place] 00 (two) Medical times Branch daily. apixaban 2018- Yes [id number] 5mg Take 1 [facility] (ELIQUIS) 5 9-11 tablet by [facility] mg tablet 00:00: mouth 2 [place] 00 (two) Medical times Branch daily. apixaban 2018-0 Yes [id number] 5mg Take 1 [facility] (ELIQUIS) 5 9-11 tablet by [facility] mg tablet 00:00: mouth 2 [place] 00 (two) Medical times Branch daily. apixaban 2019- No [id number] 5mg Take 1 [facility] (ELIQUIS) 5 9-11 01-17 tablet by [facility] y [facility] mg tablet 00:00: 00:00 mouth 2 [place] 00 :[place] (two) Medical times Branch daily. FUROSEMIDE 2018-0 Yes [id number] TAKE ONE [facility] 40 mg 8-23 TABLET BY [facility] tablet 00:00: MOUTH [place] 00 NEEDED Medical DAILY. Branch BASED ONWAIT AND LEG SWELLING FUROSEMIDE 2018-0 Yes [id number] TAKE ONE [facility] 40 mg 8-23 TABLET BY [facility] of tablet 00:00: MOUTH [place] 00 NEEDED Medical DAILY. Branch BASED ONWAIT AND LEG SWELLING FUROSEMIDE 2018- Yes [id number] TAKE ONE [facility] 40 mg 8-23 TABLET BY [facility] of tablet 00:00: MOUTH [place] 00 NEEDED Medical DAILY. Branch BASED ONWAIT AND LEG SWELLING FUROSEMIDE Yes [id number] TAKE ONE [facility] 40 mg 8-23 TABLET BY [facility] of tablet 00:00: MOUTH [place] 00 NEEDED Medical DAILY. Branch BASED ONWAIT AND LEG SWELLING FUROSEMIDE Yes [id number] TAKE ONE [facility] 40 mg 8-23 TABLET BY [facility] of tablet 00:00: MOUTH [place] 00 NEEDED Medical DAILY. Branch BASED ONWAIT AND LEG SWELLING FUROSEMIDE Yes [id number] TAKE ONE [facility] 40 mg 8-23 TABLET BY [facility] tablet 00:00: MOUTH [place] 00 NEEDED Medical DAILY. Branch BASED ONWAIT AND LEG SWELLING FUROSEMIDE Yes [id number] TAKE ONE [facility] 40 mg 8-23 TABLET BY [facility] of tablet 00:00: MOUTH [place] 00 NEEDED Medical DAILY. Branch BASED ONWAIT AND LEG SWELLING FUROSEMIDE 2018- Yes [id number] TAKE ONE [facility] 40 mg 8-23 TABLET BY [facility] of tablet 00:00: MOUTH [place] 00 NEEDED Medical DAILY. Branch BASED ONWAIT AND LEG SWELLING FUROSEMIDE 2018-0 Yes [id number] TAKE ONE [facility] 40 mg 8-23 TABLET BY [facility] of tablet 00:00: MOUTH [place] 00 NEEDED Medical DAILY. Branch BASED ONWAIT AND LEG SWELLING FUROSEMIDE 2018-0 Yes [id number] TAKE ONE [facility] 40 mg 8-23 TABLET BY [facility] of tablet 00:00: MOUTH [place] 00 NEEDED Medical DAILY. Branch BASED ONWAIT AND LEG SWELLING FUROSEMIDE 2018-0 Yes [id number] TAKE ONE [facility] 40 mg 8-23 TABLET BY [facility] of tablet 00:00: MOUTH [place] 00 NEEDED Medical DAILY. Branch BASED ONWAIT AND LEG SWELLING FUROSEMIDE 2018- Yes [id number] TAKE ONE [facility] 40 mg 8-23 TABLET BY [facility] of tablet 00:00: MOUTH [place] 00 NEEDED Medical DAILY. Branch BASED ONWAIT AND LEG SWELLING FUROSEMIDE 2019 Yes [id number] TAKE ONE [facility] 40 mg 8-23 TABLET BY [facility] of tablet 00:00: MOUTH [place] 00 NEEDED Medical DAILY. Branch BASED ONWAIT AND LEG SWELLING FUROSEMIDE Yes [id number] TAKE ONE [facility] 40 mg 8-23 TABLET BY [facility] of tablet 00:00: MOUTH [place] 00 NEEDED Medical DAILY. Branch BASED ONWAIT AND LEG SWELLING FUROSEMIDE 2020- No [id number] TAKE ONE [facility] 40 mg 8-23 02-24 TABLET BY [facility] of tablet 00:00: 00:00 MOUTH [place] 00 :00 NEEDED Medical DAILY. Branch BASED ONWAIT AND LEG SWELLING lidocaine Yes 15mL Take 15 mL [facility] 2% viscous 7-24 by mouth it[facility] o f (LIDOCAINE 20:51: every 4 [place] 2 53 (four) Medical % solution hours as Branc h needed. ALPRAZolam Yes 1mg Take 1 mg [facility] (XANAX) 1 7-24 by mouth 3 ity of mg tablet 20:51: (three) [place] 53 times Medical daily. Branch amphetamine Yes 15mg Take 15 mg [facility] -dextroamph 7-24 by mouth [facility] etamine 15 20:51: as needed. [place] mg 24 hr 53 Medical capsule Branch lidocaine Yes 15mL Take 15 mL [facility] 2% viscous 7-24 by mouth ity o f (LIDOCAINE 20:51: every 4 [place] 2 53 (four) Medical % solution hours as Branc h needed. ALPRAZolam Yes 1mg Take 1 mg [facility] (XANAX) 1 7-24 by mouth 3 ity of mg tablet 20:51: (three) [place] 53 times Medical daily. Branch amphetamine Yes 15mg Take 15 mg [facility] -dextroamph 7-24 by mouth ity of etamine 15 20:51: as needed. [place] mg 24 hr 53 Medical capsule Branch lidocaine 0 Yes 15mL Take 15 mL [facility] 2% viscous 7-24 by mouth ity o f (LIDOCAINE 20:51: every 4 [place] VISC[place] 2 53 (four) Medical % solution hours as Branc h needed. ALPRAZolam Yes 1mg Take 1 mg [facility] (XANAX) 1 7-24 by mouth 3 ity of mg tablet 20:51: (three) [place] 53 times Medical daily. Branch amphetamine 0 Yes 15mg Take 15 mg [facility] -dextroamph 7-24 by mouth ity of etamine 15 20:51: as needed. [place] mg 24 hr 53 Medical capsule Branch lidocaine 0 Yes 15mL Take 15 mL [facility] 2% viscous 7-24 by mouth ity o f (LIDOCAINE 20:51: every 4 [place] VISC[place] 2 53 (four) Medical % solution hours as Branc h needed. ALPRAZolam 0 Yes 1mg Take 1 mg [facility] (XANAX) 1 7-24 by mouth 3 ity of mg tablet 20:51: (three) [place] 53 times Medical daily. Branch amphetamine 0 Yes 15mg Take 15 mg [facility] -dextroamph 7-24 by mouth [facility] of etamine 15 20:51: as needed. [place] mg 24 hr 53 Medical capsule Branch lidocaine Yes 15mL Take 15 mL [facility] 2% viscous 7-24 by mouth it[facility] o f (LIDOCAINE 20:51: every 4 [place] VISC[place] 2 53 (four) Medical % solution hours as Branc h needed. ALPRAZolam 0 Yes 1mg Take 1 mg [facility] (XANAX) 1 7-24 by mouth 3 ity of mg tablet 20:51: (three) [place] 53 times Medical daily. Branch amphetamine Yes 15mg Take 15 mg [facility] -dextroamph 7-24 by mouth ity of etamine 15 20:51: as needed. [place] mg 24 hr 53 Medical capsule Branch lidocaine 0 Yes 15mL Take 15 mL [facility] 2% viscous 7-24 by mouth ity o f (LIDOCAINE 20:51: every 4 [place] VISCOUS[place] 2 53 (four) Medical % solution hours as Branc h needed. ALPRAZolam 0 Yes 1mg Take 1 mg [facility] (XANAX) 1 7-24 by mouth 3 ity of mg tablet 20:51: (three) [place] 53 times Medical daily. Branch amphetamine 0 Yes 15mg Take 15 mg [facility] -dextroamph 7-24 by mouth ity of etamine 15 20:51: as needed. [place] mg 24 hr 53 Medical capsule Branch lidocaine [id number] Yes 15mL Take 15 mL [facility] 2% viscous 7-24 by mouth [facility] o f (LIDOCAINE 20:51: every 4 [place] VISCOUS) 2 53 (four) Medical % solution hours as Branc h needed. ALPRAZolam 2018-0 Yes 1mg Take 1 mg [facility] (XANAX) 1 7-24 by mouth 3 ity of mg tablet 20:51: (three) [place] 53 times Medical daily. Branch amphetamine 2019-0 Yes 15mg Take 15 mg [facility] -dextroamph 7-24 by mouth ity of etamine 15 20:51: as needed. [place] mg 24 hr 53 Medical capsule Branch lidocaine 0 Yes 15mL Take 15 mL [facility] 2% viscous 7-24 by mouth it[facility] o f (LIDOCAINE 20:51: every 4 [place] VISCOUS) 2 53 (four) Medical % solution hours as Branc h needed. ALPRAZolam 0 Yes 1mg Take 1 mg [facility] (XANAX) 1 7-24 by mouth 3 ity of mg tablet 20:51: (three) [place] 53 times Medical daily. Branch amphetamine 0 Yes 15mg Take 15 mg [facility] -dextroamph 7-24 by mouth ity of etamine 15 20:51: as needed. [place] mg 24 hr 53 Medical capsule Branch lidocaine 0 Yes 15mL Take 15 mL [facility] 2% viscous 7-24 by mouth it[facility] o f (LIDOCAINE 20:51: every 4 [place] VISCOUS) 2 53 (four) Medical % solution hours as Branc h needed. ALPRAZolam 0 Yes 1mg Take 1 mg [facility] (XANAX) 1 7-24 by mouth 3 ity of mg tablet 20:51: (three) [place] 53 times Medical daily. Branch amphetamine [id number] Yes 15mg Take 15 mg [facility] -dextroamph 7-24 by mouth it[facility] of etamine 15 20:51: as needed. [place] mg 24 hr 53 Medical capsule Branch lidocaine 0 Yes 15mL Take 15 mL [facility] 2% viscous 7-24 by mouth it[facility] o f (LIDOCAINE 20:51: every 4 [place] VISCOUS) 2 53 (four) Medical % solution hours as Branc h needed. ALPRAZolam 2019-0 Yes 1mg Take 1 mg [facility] (XANAX) 1 7-24 by mouth 3 ity of mg tablet 20:51: (three) [place] 53 times Medical daily. Branch amphetamine 2019-0 Yes 15mg Take 15 mg [facility] -dextroamph 7-24 by mouth [facility] of etamine 15 20:51: as needed. [place] mg 24 hr 53 Medical capsule Branch lidocaine 2019-0 Yes 15mL Take 15 mL [facility] 2% viscous 7-24 by mouth it[facility] o f (LIDOCAINE 20:51: every 4 [place] VISCOUS) 2 53 (four) Medical % solution hours as Branc h needed. ALPRAZolam [id number] Yes 1mg Take 1 mg [facility] (XANAX) 1 7-24 by mouth 3 ity of mg tablet 20:51: (three) [place] 53 times Medical daily. Branch amphetamine 0 Yes 15mg Take 15 mg [facility] -dextroamph 7-24 by mouth ity of etamine 15 20:51: as needed. [place] mg 24 hr 53 Medical capsule Branch lidocaine 0 Yes 15mL Take 15 mL [facility] 2% viscous 7-24 by mouth [facility] o f (LIDOCAINE 20:51: every 4 [place] VISCOUS) 2 53 (four) Medical % solution hours as Branc h needed. ALPRAZolam 0 Yes 1mg Take 1 mg [facility] (XANAX) 1 7-24 by mouth 3 ity of mg tablet 20:51: (three) [place] 53 times Medical daily. Branch amphetamine [id number] Yes 15mg Take 15 mg [facility] -dextroamph 7-24 by mouth ity of etamine 15 20:51: as needed. [place] mg 24 hr 53 Medical capsule Branch lidocaine 0 Yes 15mL Take 15 mL [facility] 2% viscous 7-24 by mouth [facility] o f (LIDOCAINE 20:51: every 4 [place] VISCOUS) 2 53 (four) Medical % solution hours as Branc h needed. ALPRAZolam 2019-0 Yes 1mg Take 1 mg [facility] (XANAX) 1 7-24 by mouth 3 ity of mg tablet 20:51: (three) [place] 53 times Medical daily. Branch amphetamine 2019-0 Yes 15mg Take 15 mg [facility] -dextroamph 7-24 by mouth it[facility] of etamine 15 20:51: as needed. [place] mg 24 hr 53 Medical capsule Branch lidocaine 0 Yes 15mL Take 15 mL [facility] 2% viscous 7-24 by mouth [facility] o f (LIDOCAINE 20:51: every 4 [place] VISCOUS) 2 53 (four) Medical % solution hours as Branc h needed. ALPRAZolam 0 Yes 1mg Take 1 mg [facility] (XANAX) 1 7-24 by mouth 3 it[facility] of mg tablet 20:51: (three) [place] 53 times Medical daily. Branch amphetamine [id number] Yes 15mg Take 15 mg [facility] -dextroamph 7-24 by mouth ity of etamine 15 20:51: as needed. [place] mg 24 hr 53 Medical capsule Branch lidocaine 0 Yes 15mL Take 15 mL [facility] 2% viscous 7-24 by mouth it[facility] o f (LIDOCAINE 20:51: every 4 [place] VISCOUS) 2 53 (four) Medical % solution hours as Branc h needed. ALPRAZolam 0 Yes 1mg Take 1 mg [facility] (XANAX) 1 7-24 by mouth 3 ity of mg tablet 20:51: (three) [place] 53 times Medical daily. Branch amphetamine 0 Yes 15mg Take 15 mg [facility] -dextroamph 7-24 by mouth [facility]y of etamine 15 20:51: as needed. [place] mg 24 hr 53 Medical capsule Branch lidocaine 0 Yes 15mL Take 15 mL [facility] 2% viscous 7-24 by mouth [facility] o f (LIDOCAINE 20:51: every 4 [place] VISCOUS) 2 53 (four) Medical % solution hours as Branc h needed. ALPRAZolam 0 Yes 1mg Take 1 mg [facility] (XANAX) 1 7-24 by mouth 3 ity of mg tablet 20:51: (three) [place] 53 times Medical daily. Branch amphetamine [id number] Yes 15mg Take 15 mg [facility] -dextroamph 7-24 by mouth ity of etamine 15 20:51: as needed. [place] mg 24 hr 53 Medical capsule Branch lidocaine 0 Yes 15mL Take 15 mL [facility] 2% viscous 7-24 by mouth [facility] o f (LIDOCAINE 20:51: every 4 [place] VISCOUS) 2 53 (four) Medical % solution hours as Branc h needed. ALPRAZolam 2018-0 Yes 1mg Take 1 mg [facility] (XANAX) 1 7-24 by mouth 3 it[facility] of mg tablet 20:51: (three) [place] 53 times Medical daily. Branch amphetamine 2019-0 Yes 15mg Take 15 mg [facility] -dextroamph 7-24 by mouth [facility] of etamine 15 20:51: as needed. [place] mg 24 hr 53 Medical capsule Branch lidocaine 20190 Yes 15mL Take 15 mL [facility] 2% viscous 7-24 by mouth [facility] o f (LIDOCAINE 20:51: every 4 [place] VISCOUS) 2 53 (four) Medical % solution hours as Branc h needed. ALPRAZolam 0 Yes 1mg Take 1 mg [facility] (XANAX) 1 7-24 by mouth 3 ity of mg tablet 20:51: (three) [place] 53 times Medical daily. Branch amphetamine 0 Yes 15mg Take 15 mg [facility] -dextroamph 7-24 by mouth ity of etamine 15 20:51: as needed. [place] mg 24 hr 53 Medical capsule Branch lidocaine 0 Yes 15mL Take 15 mL [facility] 2% viscous 7-24 by mouth it[facility] o f (LIDOCAINE 20:51: every 4 [place] VISCOUS) 2 53 (four) Medical % solution hours as Branc h needed. ALPRAZolam 0 Yes 1mg Take 1 mg [facility] (XANAX) 1 7-24 by mouth 3 ity of mg tablet 20:51: (three) [place] 53 times Medical daily. Branch amphetamine 0 Yes 15mg Take 15 mg [facility] -dextroamph 7-24 by mouth ity of etamine 15 20:51: as needed. [place] mg 24 hr 53 Medical capsule Branch lidocaine 0 Yes 15mL Take 15 mL [facility] 2% viscous 7-24 by mouth ity o f (LIDOCAINE 20:51: every 4 [place] VISCOUS) 2 53 (four) Medical % solution hours as Branc h needed. ALPRAZolam 2018-0 Yes 1mg Take 1 mg [facility] (XANAX) 1 7-24 by mouth 3 ity of mg tablet 20:51: (three) [place] 53 times Medical daily. Branch amphetamine 2019-0 Yes 15mg Take 15 mg [facility] -dextroamph 7-24 by mouth [facility]y of etamine 15 20:51: as needed. [place] mg 24 hr 53 Medical capsule Branch omeprazole 2019- No [id number] 20mg Take 1 [facility] 20 mg -24 08-09 capsule by ity of capsule 00:00: 04:59 mouth [place] 00 :00 daily for Medical 15 days. Branch sucralfate 2019- No [id number] 1g Take 1 [facility] 1 gram 11-20 08-09 tablet by ity of tablet 00:00: 04:59 mouth [place] 00 :00 before Medical meals and Branch at bedtime for 15 days. lisinopril 2018- Yes [id number] 20mg Take 1 [facility] 20 mg 5-28 tablet by ity of tablet 00:00: mouth 2 [place] 00 (two) Medical times Branch daily. lisinopril 2018- Yes [id number] 20mg Take 1 [facility] 20 mg 5-28 tablet by ity of tablet 00:00: mouth 2 [place] 00 (two) Medical times Branch daily. lisinopril 2018- Yes [id number] 20mg Take 1 [facility] 20 mg 5-28 tablet by [facility] of tablet 00:00: mouth 2 [place] 00 (two) Medical times Branch daily. lisinopril Yes [id number] 20mg Take 1 [facility] 20 mg 5-28 tablet by ity of tablet 00:00: mouth 2 [place] 00 (two) Medical times Branch daily. lisinopril 2019- No [id number] 20mg Take 1 [facility] 20 mg 5-28 09-20 tablet by ity of tablet 00:00: 00:00 mouth 2 [place] 00 :00 (two) Medical times Branch daily. metoprolol 2019- No [id number] 25mg Take 1 [facility] succinate 5-28 08-27 tablet by ity of XL 25 mg 24 00:00: 04:59 mouth 2 [place] hr tablet 00 :00 (two) Medical times Branch daily for 90 days. metoprolol 2019- No [id number] 25mg Take 1 [facility] succinate 5-28 08-27 tablet by ity of XL 25 mg 24 00:00: 04:59 mouth 2 [place] hr tablet 00 :00 (two) Medical times Branch daily for 90 days. ELIQUIS 5 2018- Yes [id number] 5mg Take 5 mg [facility] mg tablet 5-25 by mouth 2 ity of 00:00: (two) [place] 00 times Medical daily. Branch ELIQUIS 5 Yes [id number] 5mg Take 5 mg [facility] mg tablet 5-25 by mouth 2 ity of 00:00: (two) [place] 00 times Medical daily. Branch ELIQUIS 5 2019- No [id number] 5mg Take 5 mg [facility] mg tablet 5-25 - by mouth 2 ity of 00:00: 00:00 (two) [place] 00 :00 times Medical daily. Branch furosemide Yes [id number] 40mg Take 1 [facility] 40 mg 3-28 tablet by [facility] of tablet 00:00: mouth as [place] 00 needed Medical (based on Branch weight and leg swelling) for up to 30 doses. furosemide 2019- No [id number] 40mg Take 1 [facility] 40 mg 3-28 08-19 tablet by ity of tablet 00:00: 00:00 mouth as [place] 00 :00 needed Medical (based on Branch weight and leg swelling) for up to 30 doses. HYDROcodone 2016-04 Yes 1{tbl} Take 1 [facility] -acetaminop 1-20 tablet by [facility]y of hen 10-325 00:00: mouth [place] mg tablet 00 every 6 Medical (six) Branch hours as needed for Pain (scale 7-10). HYDROcodone 2016-04 Yes 1{tbl} Take 1 [facility] -acetaminop 1-20 tablet by ity of hen 10-325 00:00: mouth [place] mg tablet 00 every 6 Medical (six) Branch hours as needed for Pain (scale 7-10). HYDROcodone 2016-04 Yes 1{tbl} Take 1 [facility] -acetaminop 1-20 tablet by ity of hen 10-325 00:00: mouth [place] mg tablet 00 every 6 Medical (six) Branch hours as needed for Pain (scale 7-10). HYDROcodone 2016-04 Yes 1{tbl} Take 1 [facility] -acetaminop 1-20 tablet by ity of hen 10-325 00:00: mouth [place] mg tablet 00 every 6 Medical (six) Branch hours as needed for Pain (scale 7-10). HYDROcodone 2016-04 Yes 1{tbl} Take 1 [facility] -acetaminop 1-20 tablet by ity of hen 10-325 00:00: mouth [place] mg tablet 00 every 6 Medical (six) Branch hours as needed for Pain (scale 7-10). HYDROcodone 2016-04 Yes 1{tbl} Take 1 [facility] -acetaminop 1-20 tablet by ity of hen 10-325 00:00: mouth [place] mg tablet 00 every 6 Medical (six) Branch hours as needed for Pain (scale 7-10). HYDROcodone 2016-04 Yes 1{tbl} Take 1 [facility] -acetaminop 1-20 tablet by ity of hen 10-325 00:00: mouth [place] mg tablet 00 every 6 Medical (six) Branch hours as needed for Pain (scale 7-10). HYDROcodone 2016-04 Yes 1{tbl} Take 1 [facility] -acetaminop 1-20 tablet by ity of hen 10-325 00:00: mouth [place] mg tablet 00 every 6 Medical (six) Branch hours as needed for Pain (scale 7-10). HYDROcodone 2016-04 Yes 1{tbl} Take 1 [facility] -acetaminop 1-20 tablet by ity of hen 10-325 00:00: mouth [place] mg tablet 00 every 6 Medical (six) Branch hours as needed for Pain (scale 7-10). HYDROcodone 2016-04 Yes 1{tbl} Take 1 [facility] -acetaminop 1-20 tablet by ity of hen 10-325 00:00: mouth [place] mg tablet 00 every 6 Medical (six) Branch hours as needed for Pain (scale 7-10). HYDROcodone 2016-04 Yes 1{tbl} Take 1 [facility] -acetaminop 1-20 tablet by ity of hen 10-325 00:00: mouth [place] mg tablet 00 every 6 Medical (six) Branch hours as needed for Pain (scale 7-10). HYDROcodone 2016-04 Yes 1{tbl} Take 1 [facility] -acetaminop 1-20 tablet by ity of hen 10-325 00:00: mouth [place] mg tablet 00 every 6 Medical (six) Branch hours as needed for Pain (scale 7-10). HYDROcodone 2016-04 Yes 1{tbl} Take 1 [facility] -acetaminop 1-20 tablet by ity of hen 10-325 00:00: mouth [place] mg tablet 00 every 6 Medical (six) Branch hours as needed for Pain (scale 7-10). HYDROcodone 2016-04 Yes 1{tbl} Take 1 [facility] -acetaminop 1-20 tablet by ity of hen 10-325 00:00: mouth [place] mg tablet 00 every 6 Medical (six) Branch hours as needed for Pain (scale 7-10). HYDROcodone 2016-04 Yes 1{tbl} Take 1 [facility] -acetaminop 1-20 tablet by ity of hen 10-325 00:00: mouth [place] mg tablet 00 every 6 Medical (six) Branch hours as needed for Pain (scale 7-10). HYDROcodone 2016-04 Yes 1{tbl} Take 1 [facility] -acetaminop 1-20 tablet by ity of hen 10-325 00:00: mouth [place] mg tablet 00 every 6 Medical (six) Branch hours as needed for Pain (scale 7-10). HYDROcodone 2016-04 Yes 1{tbl} Take 1 [facility] -acetaminop 1-20 tablet by ity of hen 10-325 00:00: mouth [place] mg tablet 00 every 6 Medical (six) Branch hours as needed for Pain (scale 7-10). HYDROcodone 2016-04 Yes 1{tbl} Take 1 [facility] -acetaminop 1-20 tablet by ity of hen 10-325 00:00: mouth [place] mg tablet 00 every 6 Medical (six) Branch hours as needed for Pain (scale 7-10). HYDROcodone 2016-04 Yes 1{tbl} Take 1 [facility] -acetaminop 1-20 tablet by ity of hen 10-325 00:00: mouth [place] mg tablet 00 every 6 Medical (six) Branch hours as needed for Pain (scale 7-10). HYDROcodone 2016-04 Yes 1{tbl} Take 1 [facility] -acetaminop 1-20 tablet by ity of hen 10-325 00:00: mouth [place] mg tablet 00 every 6 Medical (six) Branch hours as needed for Pain (scale 7-10). HYDROcodone 2016-04 Yes 1{tbl} Take 1 [facility] -acetaminop 1-20 tablet by ity of hen 10-325 00:00: mouth [place] mg tablet 00 every 6 Medical (six) Branch hours as needed for Pain (scale 7-10). HYDROcodone 2016-04 Yes 1{tbl} Take 1 [facility] -acetaminop 1-20 tablet by ity of hen 10-325 00:00: mouth [place] mg tablet 00 every 6 Medical (six) Branch hours as needed for Pain (scale 7-10). HYDROcodone 2016-04 Yes 1{tbl} Take 1 [facility] -acetaminop 1-20 tablet by ity of hen 10-325 00:00: mouth [place] mg tablet 00 every 6 Medical (six) Branch hours as needed for Pain (scale 7-10). HYDROcodone 2016-04 Yes 1{tbl} Take 1 [facility] -acetaminop 1-20 tablet by ity of hen 10-325 00:00: mouth [place] mg tablet 00 every 6 Medical (six) Branch hours as needed for Pain (scale 7-10). HYDROcodone 2016-04 Yes 1{tbl} Take 1 [facility] -acetaminop 1-20 tablet by ity of hen 10-325 00:00: mouth [place] mg tablet 00 every 6 Medical (six) Branch hours as needed for Pain (scale 7-10). HYDROcodone 2016-04 Yes 1{tbl} Take 1 [facility] -acetaminop 1-20 tablet by ity of hen 10-325 00:00: mouth [place] mg tablet 00 every 6 Medical (six) Branch hours as needed for Pain (scale 7-10). HYDROcodone 2016-04 Yes 1{tbl} Take 1 [facility] -acetaminop 1-20 tablet by ity of hen 10-325 00:00: mouth [place] mg tablet 00 every 6 Medical (six) Branch hours as needed for Pain (scale 7-10). HYDROcodone 2016-04 Yes 1{tbl} Take 1 [facility] -acetaminop 1-20 tablet by ity of hen 10-325 00:00: mouth [place] mg tablet 00 every 6 Medical (six) Branch hours as needed for Pain (scale 7-10). HYDROcodone 2016-04 Yes 1{tbl} Take 1 [facility] -acetaminop 1-20 tablet by ity of hen 10-325 00:00: mouth [place] mg tablet 00 every 6 Medical (six) Branch hours as needed for Pain (scale 7-10). HYDROcodone 2016-04 Yes 1{tbl} Take 1 [facility] -acetaminop 1-20 tablet by ity of hen 10-325 00:00: mouth [place] mg tablet 00 every 6 Medical (six) Branch hours as needed for Pain (scale 7-10). HYDROcodone 2016-04 Yes 1{tbl} Take 1 [facility] -acetaminop 1-20 tablet by ity of hen 10-325 00:00: mouth [place] mg tablet 00 every 6 Medical (six) Branch hours as needed for Pain (scale 7-10). HYDROcodone 2016-04 Yes 1{tbl} Take 1 [facility] -acetaminop 1-20 tablet by ity of hen 10-325 00:00: mouth [place] mg tablet 00 every 6 Medical (six) Branch hours as needed for Pain (scale 7-10). HYDROcodone 2016-04 Yes 1{tbl} Take 1 [facility] -acetaminop 1-20 tablet by ity of hen 10-325 00:00: mouth [place] mg tablet 00 every 6 Medical (six) Branch hours as needed for Pain (scale 7-10). HYDROcodone 2016-04 Yes 1{tbl} Take 1 [facility] -acetaminop 1-20 tablet by ity of hen 10-325 00:00: mouth [place] mg tablet 00 every 6 Medical (six) Branch hours as needed for Pain (scale 7-10). HYDROcodone 2016-04 Yes 1{tbl} Take 1 [facility] -acetaminop 1-20 tablet by ity of hen 10-325 00:00: mouth [place] mg tablet 00 every 6 Medical (six) Branch hours as needed for Pain (scale 7-10). HYDROcodone 2016-04 Yes 1{tbl} Take 1 [facility] -acetaminop 1-20 tablet by ity of hen 10-325 00:00: mouth [place] mg tablet 00 every 6 Medical (six) Branch hours as needed for Pain (scale 7-10). HYDROcodone 2016-04 Yes 1{tbl} Take 1 [facility] -acetaminop 1-20 tablet by ity of hen 10-325 00:00: mouth [place] mg tablet 00 every 6 Medical (six) Branch hours as needed for Pain (scale 7-10). HYDROcodone 2016-04 Yes 1{tbl} Take 1 [facility] -acetaminop 1-20 tablet by ity of hen 10-325 00:00: mouth [place] mg tablet 00 every 6 Medical (six) Branch hours as needed for Pain (scale 7-10). HYDROcodone 2016-04 Yes 1{tbl} Take 1 [facility] -acetaminop 1-20 tablet by ity of hen 10-325 00:00: mouth [place] mg tablet 00 every 6 Medical (six) Branch hours as needed for Pain (scale 7-10). HYDROcodone 2016-04 Yes 1{tbl} Take 1 [facility] -acetaminop 1-20 tablet by ity of hen 10-325 00:00: mouth [place] mg tablet 00 every 6 Medical (six) Branch hours as needed for Pain (scale 7-10). HYDROcodone 2016-04 Yes 1{tbl} Take 1 [facility] -acetaminop 1-20 tablet by ity of hen 10-325 00:00: mouth [place] mg tablet 00 every 6 Medical (six) Branch hours as needed for Pain (scale 7-10). HYDROcodone 2016-04 Yes 1{tbl} Take 1 [facility] -acetaminop 1-20 tablet by ity of hen 10-325 00:00: mouth [place] mg tablet 00 every 6 Medical (six) Branch hours as needed for Pain (scale 7-10). HYDROcodone 2016-04 Yes 1{tbl} Take 1 [facility] -acetaminop 1-20 tablet by ity of hen 10-325 00:00: mouth [place] mg tablet 00 every 6 Medical (six) Branch hours as needed for Pain (scale 7-10). HYDROcodone 2016-04 Yes 1{tbl} Take 1 [facility] -acetaminop 1-20 tablet by ity of hen 10-325 00:00: mouth [place] mg tablet 00 every 6 Medical (six) Branch hours as needed for Pain (scale 7-10). HYDROcodone 2016-04 Yes 1{tbl} Take 1 [facility] -acetaminop 1-20 tablet by ity of hen 10-325 00:00: mouth [place] mg tablet 00 every 6 Medical (six) Branch hours as needed for Pain (scale 7-10). HYDROcodone 2016-04 Yes 1{tbl} Take 1 [facility] -acetaminop 1-20 tablet by ity of hen 10-325 00:00: mouth [place] mg tablet 00 every 6 Medical (six) Branch hours as needed for Pain (scale 7-10). HYDROcodone 2016-04 Yes 1{tbl} Take 1 [facility] -acetaminop 1-20 tablet by ity of hen 10-325 00:00: mouth [place] mg tablet 00 every 6 Medical (six) Branch hours as needed for Pain (scale 7-10). HYDROcodone 2016-04- No 1{tbl} Take 1 [facility] n[facility] -acetaminop 05-19 tablet by it y of hen 10-325 00:00: 00:00 mouth [place] mg tablet 00 :00 every 6 Medical (six) Branch hours as needed for Pain (scale 7-10). Immunizations Ordered Filled Immunization Date Status Comments [facility] e Immunization Name Name SARS-COV-2 COVID-19 2020-07-17 Completed Unive rsity of PFIZER VACCINE 00:00:00 [facility] [place] [facility] SARS-COV-2 COVID-19 2020-07-17 Completed Unive rsity of PFIZER VACCINE 00:00:00 [facility] [place] [facility] SARS-COV-2 COVID-19 2020-07-17 Completed Unive rsity of PFIZER VACCINE 00:00:00 [facility] [place] [facility] SARS-COV-2 COVID-19 2020-07-17 Completed Unive rsity of PFIZER VACCINE 00:00:00 [facility] [place] [facility] SARS-COV-2 COVID-19 2020-07-17 Completed Unive rsity of PFIZER VACCINE 00:00:00 [facility] [place] [facility] SARS-COV-2 COVID-19 2020-07-17 Completed Unive rsity of PFIZER VACCINE 00:00:00 [facility] [place] [facility] SARS-COV-2 COVID-19 2020-07-17 Completed Unive rsity of PFIZER VACCINE 00:00:00 [facility] [place] [facility] SARS-COV-2 COVID-19 2020-07-17 Completed Unive rsity of PFIZER VACCINE 00:00:00 [facility] [place] [facility] SARS-COV-2 COVID-19 2020-07-17 Completed Unive rs[facility] of PFIZER VACCINE 00:00:00 [facility] [place] [facility] SARS-COV-2 COVID-19 2020-07-17 Completed [facility]ive rs[facility] of PFIZER VACCINE 00:00:00 [facility] [place] [facility] SARS-COV-2 COVID-19 2020-07-17 Completed Unive rsity of PFIZER VACCINE 00:00:00 [facility] [place] [facility] SARS-COV-2 COVID-19 2020-06-26 Completed Unive rsity of PFIZER VACCINE 00:00:00 [facility] [place] [facility] SARS-COV-2 COVID-19 2020-06-26 Completed Unive rsity of PFIZER VACCINE 00:00:00 [facility] [place] [facility] SARS-COV-2 COVID-19 2020-06-26 Completed Unive rsity of PFIZER VACCINE 00:00:00 [facility] [place] [facility] SARS-COV-2 COVID-19 2020-06-26 Completed Unive rsity of PFIZER VACCINE 00:00:00 [facility] [place] [facility] SARS-COV-2 COVID-19 2020-06-26 Completed Unive rsity of PFIZER VACCINE 00:00:00 [facility] [place] [facility] SARS-COV-2 COVID-19 2020-06-26 Completed Unive rsity of PFIZER VACCINE 00:00:00 [facility] [place] [facility] SARS-COV-2 COVID-19 2020-06-26 Completed Unive rsity of PFIZER VACCINE 00:00:00 [facility] [place] [facility] SARS-COV-2 COVID-19 2020-06-26 Completed Unive rsity of PFIZER VACCINE 00:00:00 [facility] [place] [facility] SARS-COV-2 COVID-19 2020-06-26 Completed Unive rsity of PFIZER VACCINE 00:00:00 [facility] [place] [facility] SARS-COV-2 COVID-19 2020-06-26 Completed Unive rsity of PFIZER VACCINE 00:00:00 [facility] [place] [facility] SARS-COV-2 COVID-19 2020-06-26 Completed Unive rsity of PFIZER VACCINE 00:00:00 [facility] [place] [facility] SARS-COV-2 COVID-19 2020-06-26 Completed [facility] rsity of PFIZER VACCINE 00:00:00 [facility] SARS-COV-2 COVID-19 2020-06-26 Completed [facility] of PFIZER VACCINE 00:00:00 [facility] SARS-COV-2 COVID-19 2020-06-26 Completed [facility]ive rsity of PFIZER VACCINE 00:00:00 [facility] SARS-COV-2 COVID-19 2020-06-26 Completed [facility]ive rsity of PFIZER VACCINE 00:00:00 [facility] SARS-COV-2 COVID-19 2020-06-26 Completed [facility]ive rsity of PFIZER VACCINE 00:00:00 [facility] Pneumococcal 13 2019-01-10 Completed Universit y of Conjugate, PCV13 00:00:00 [place] [facility] (Prevnar 13) Branch Zoster Vaccine 2019-01-10 Completed University of Recombinant 00:00:00 [facility] Pneumococcal 13 2019-01-10 Completed Universit y of Conjugate, PCV13 00:00:00 [place] [facility] (Prevnar 13) Branch Zoster Vaccine 2019-01-10 Completed University of Recombinant 00:00:00 [facility] Pneumococcal 13 2019-01-10 Completed Universit y of Conjugate, PCV13 00:00:00 [place] [facility] (Prevnar 13) Branch Zoster Vaccine 2019-01-10 Completed University of Recombinant 00:00:00 [facility] Pneumococcal 13 2019-01-10 Completed Universit y of Conjugate, PCV13 00:00:00 [place] [facility] (Prevnar 13) Branch Zoster Vaccine 2019-01-10 Completed University of Recombinant 00:00:00 [facility] Pneumococcal 13 2019-01-10 Completed Universit y of Conjugate, PCV13 00:00:00 [place] [facility] (Prevnar 13) Branch Zoster Vaccine 2019-01-10 Completed University of Recombinant 00:00:00 [facility] Pneumococcal 13 2019-01-10 Completed Universit y of Conjugate, PCV13 00:00:00 [place] [facility] (Prevnar 13) Branch Zoster Vaccine 2019-01-10 Completed University of Recombinant 00:00:00 [facility] Pneumococcal 13 2019-01-10 Completed Universit y of Conjugate, PCV13 00:00:00 [place] [facility] (Prevnar 13) Branch Zoster Vaccine 2019-01-10 Completed University of Recombinant 00:00:00 [facility] Pneumococcal 13 2019-01-10 Completed Universit y of Conjugate, PCV13 00:00:00 [place] [facility] (Prevnar 13) Branch Zoster Vaccine 2019-01-10 Completed University of Recombinant 00:00:00 [facility] Pneumococcal 13 2019-01-10 Completed Universit y of Conjugate, PCV13 00:00:00 [place] [facility] (Prevnar 13) Branch Zoster Vaccine 2019-01-10 Completed University of Recombinant 00:00:00 [facility] Pneumococcal 13 2019-01-10 Completed Universit y of Conjugate, PCV13 00:00:00 [place] [facility] (Prevnar 13) Branch Zoster Vaccine 2019-01-10 Completed University of Recombinant 00:00:00 [facility] Pneumococcal 13 2019-01-10 Completed Universit y of Conjugate, PCV13 00:00:00 [place] [facility] (Prevnar 13) Branch Zoster Vaccine 2019-01-10 Completed University of Recombinant 00:00:00 [facility] Pneumococcal 13 2019-01-10 Completed Universit y of Conjugate, PCV13 00:00:00 [place] [facility] (Prevnar 13) Branch Zoster Vaccine 2019-01-10 Completed University of Recombinant 00:00:00 [facility] Pneumococcal 13 2019-01-10 Completed Universit y of Conjugate, PCV13 00:00:00 [place] [facility] (Prevnar 13) Branch Zoster Vaccine 2019-01-10 Completed University of Recombinant 00:00:00 [facility] Pneumococcal 13 2019-01-10 Completed Universit y of Conjugate, PCV13 00:00:00 [place] [facility] (Prevnar 13) Branch Zoster Vaccine 2019-01-10 Completed University of Recombinant 00:00:00 [facility] Pneumococcal 13 2019-01-10 Completed Universit y of Conjugate, PCV13 00:00:00 [place] [facility] (Prevnar 13) Branch Zoster Vaccine 2019-01-10 Completed University of Recombinant 00:00:00 [facility] Pneumococcal 13 2019-01-10 Completed Universit y of Conjugate, PCV13 00:00:00 [place] [facility] (Prevnar 13) Branch Zoster Vaccine 2019-01-10 Completed University of Recombinant 00:00:00 [facility] Pneumococcal 13 2019-01-10 Completed Universit y of Conjugate, PCV13 00:00:00 [place] [facility] (Prevnar 13) Branch Zoster Vaccine 2019-01-10 Completed University of Recombinant 00:00:00 [facility] Pneumococcal 13 2019-01-10 Completed Universit y of Conjugate, PCV13 00:00:00 [place] [facility] (Prevnar 13) Branch Zoster Vaccine 2019-01-10 Completed University of Recombinant 00:00:00 [facility] Pneumococcal 13 2019-01-10 Completed Universit y of Conjugate, PCV13 00:00:00 [place] [facility] (Prevnar 13) Branch Zoster Vaccine 2019-01-10 Completed University of Recombinant 00:00:00 [facility] Pneumococcal 13 2019-01-10 Completed Universit y of Conjugate, PCV13 00:00:00 [place] [facility] (Prevnar 13) Branch Zoster Vaccine 2019-01-10 Completed University of Recombinant 00:00:00 [facility] Pneumococcal 13 2019-01-10 Completed Universit y of Conjugate, PCV13 00:00:00 [place] [facility] (Prevnar 13) Branch Zoster Vaccine 2019-01-10 Completed University of Recombinant 00:00:00 [facility] Pneumococcal 13 2019-01-10 Completed Universit y of Conjugate, PCV13 00:00:00 [facility] dical (Prevnar 13) Branch Zoster Vaccine 2019-01-10 Completed University of Recombinant 00:00:00 [facility] Influenza Virus 2018-02-04 Completed Universit y of Vaccine Quad ID 00:00:00 [place] [facility] 18-64 YRS Branch Influenza Virus 2018-02-04 Completed Universit y of Vaccine Quad .5 mL 00:00:00 [place] [facility] 6+ MO Branch Influenza Virus 2018-02-04 Completed [facility]it y of Vaccine Quad ID 00:00:00 [place] [facility] 18-64 YRS Branch Influenza Virus 2018-02-04 Completed [facility]it y of Vaccine Quad .5 mL 00:00:00 [place] [facility] 6+ MO Branch Influenza Virus 2018-02-04 Completed [facility]it y of Vaccine Quad ID 00:00:00 [place] [facility] ical 18-64 YRS Branch Influenza Virus 2018-02-04 Completed Universit y of Vaccine Quad .5 mL 00:00:00 [place] [facility] 6+ MO Branch Influenza Virus 2018-02-04 Completed [facility]it y of Vaccine Quad ID 00:00:00 [place] [facility] 18-64 YRS Branch Influenza Virus 2018-02-04 Completed [facility]it y of Vaccine Quad .5 mL 00:00:00 [place] [facility] 6+ MO Branch Influenza Virus 2018-02-04 Completed [facility]it y of Vaccine Quad ID 00:00:00 [place] [facility] ical 18-64 YRS Branch Influenza Virus 2018-02-04 Completed Universit y of Vaccine Quad .5 mL 00:00:00 [place] [facility] 6+ MO Branch Influenza Virus 2018-02-04 Completed [facility]it y of Vaccine Quad ID 00:00:00 [place] [facility] 18-64 YRS Branch Influenza Virus 2018-02-04 Completed [facility]it y of Vaccine Quad .5 mL 00:00:00 [place] [facility] 6+ MO Branch Influenza Virus 2018-02-04 Completed [facility]it y of Vaccine Quad ID 00:00:00 [place] [facility] 18-64 YRS Branch Influenza Virus 2018-02-04 Completed [facility]it y of Vaccine Quad .5 mL 00:00:00 [place] [facility] 6+ MO Branch Influenza Virus 2018-02-04 Completed Universit y of Vaccine Quad ID 00:00:00 [place] [facility] ical 18-64 YRS Branch Influenza Virus 2018-02-04 Completed Universit y of Vaccine Quad .5 mL 00:00:00 [place] [facility] 6+ MO Branch Influenza Virus 2018-02-04 Completed [facility]it y of Vaccine Quad ID 00:00:00 [place] [facility] 18-64 YRS Branch Influenza Virus 2018-02-04 Completed Universit y of Vaccine Quad .5 mL 00:00:00 [place] [facility] 6+ MO Branch Influenza Virus 2018-02-04 Completed Universit y of Vaccine Quad ID 00:00:00 [place] [facility] ica 18-64 YRS Branch Influenza Virus 2018-02-04 Completed Universit y of Vaccine Quad .5 mL 00:00:00 [place] [facility] 6+ MO Branch Influenza Virus 2018-02-04 Completed Universit y of Vaccine Quad ID 00:00:00 [facility] ica 18-64 YRS Branch Influenza Virus 2018-02-04 Completed Universit y of Vaccine Quad .5 mL 00:00:00 [place] [facility] IM 6+ MO Branch Influenza Virus 2018-02-04 Completed Universit y of Vaccine Quad ID 00:00:00 [facility] ica 18-64 YRS Branch Influenza Virus 2018-02-04 Completed Universit y of Vaccine Quad .5 mL 00:00:00 [place] [facility] 6+ MO Branch Influenza Virus 2018-02-04 Completed Universit y of Vaccine Quad ID 00:00:00 [facility] ica 18-64 YRS Branch Influenza Virus 2018-02-04 Completed Universit y of Vaccine Quad .5 mL 00:00:00 [place] [facility] 6+ MO Branch Influenza Virus 2018-02-04 Completed Universit y of Vaccine Quad ID 00:00:00 [place] [facility] ica 18-64 YRS Branch Influenza Virus 2018-02-04 Completed Universit y of Vaccine Quad .5 mL 00:00:00 [place] [facility] 6+ MO Branch Influenza Virus 2018-02-04 Completed [facility]it y of Vaccine Quad ID 00:00:00 [place] [facility] 18-64 YRS Branch Influenza Virus 2018-02-04 Completed [facility]it y of Vaccine Quad .5 mL 00:00:00 [place] [facility] 6+ MO Branch Influenza Virus 2018-02-04 Completed [facility]it y of Vaccine Quad ID 00:00:00 [place] [facility] 18-64 YRS Branch Influenza Virus 2018-02-04 Completed [facility]it y of Vaccine Quad .5 mL 00:00:00 [place] [facility] 6+ MO Branch Influenza Virus 2018-02-04 Completed [facility]it y of Vaccine Quad ID 00:00:00 [place] [facility] 18-64 YRS Branch Influenza Virus 2018-02-04 Completed [facility]it y of Vaccine Quad .5 mL 00:00:00 [place] [facility] 6+ MO Branch Influenza Virus 2018-02-04 Completed [facility]it y of Vaccine Quad ID 00:00:00 [place] [facility] 18-64 YRS Branch Influenza Virus 2018-02-04 Completed [facility]it y of Vaccine Quad .5 mL 00:00:00 [place] [facility] 6+ MO Branch Influenza Virus 2018-02-04 Completed [facility]it y of Vaccine Quad ID 00:00:00 [place] [facility] 18-64 YRS Branch Influenza Virus 2018-02-04 Completed [facility]it y of Vaccine Quad ID 00:00:00 [place] [facility] 18-64 YRS Branch Influenza Virus 2018-02-04 Completed [facility]it y of Vaccine Quad ID 00:00:00 [place] [facility] 18-64 YRS Branch Influenza Virus 2018-02-04 Completed [facility]it y of Vaccine Quad ID 00:00:00 [place] [facility] 18-64 YRS Branch Influenza Virus 2018-02-04 Completed [facility]it y of Vaccine Quad ID 00:00:00 [place] [facility] 18-64 YRS Branch Influenza Virus 2018-02-04 Completed [facility]it y of Vaccine Quad ID 00:00:00 [place] [facility] 18-64 YRS Branch Influenza Virus 2018-02-04 Completed [facility]it y of Vaccine Quad ID 00:00:00 [place] [facility] 18-64 YRS Branch Influenza Virus 2018-02-04 Completed [facility]it y of Vaccine Quad ID 00:00:00 [place] [facility] 18-64 YRS Branch Influenza Virus 2018-02-04 Completed [facility]it y of Vaccine Quad ID 00:00:00 [place] [facility] 18-64 YRS Branch Influenza Virus 2018-02-04 Completed [facility]it y of Vaccine Quad ID 00:00:00 [place] [facility] 18-64 YRS Branch Influenza Virus 2018-02-04 Completed [facility]it y of Vaccine Quad ID 00:00:00 [place] [facility] 18-64 YRS Branch Influenza Virus 2018-02-04 Completed [facility]it y of Vaccine Quad ID 00:00:00 [place] [facility] 18-64 YRS Branch Influenza Virus 2018-02-04 Completed [facility]it y of Vaccine Quad ID 00:00:00 [place] [facility] 18-64 YRS Branch Influenza Virus 2018-02-04 Completed [facility]it y of Vaccine Quad ID 00:00:00 [place] [facility] 18-64 YRS Branch Influenza Virus 2018-02-04 Completed [facility]it y of Vaccine Quad ID 00:00:00 [place] [facility] 18-64 YRS Branch Influenza Virus 2018-02-04 Completed [facility]it y of Vaccine Quad ID 00:00:00 [place] [facility] 18-64 YRS Branch Influenza Virus 2018-02-04 Completed [facility]it y of Vaccine Quad ID 00:00:00 [place] [facility] 18-64 YRS Branch Influenza Virus 2018-02-04 Completed [facility]it y of Vaccine Quad ID 00:00:00 [place] [facility] 18-64 YRS Branch Influenza Virus 2018-02-04 Completed [facility]it y of Vaccine Quad ID 00:00:00 [place] [facility] 18-64 YRS Branch Influenza Virus 2018-02-04 Completed Universit y of Vaccine Quad ID 00:00:00 [facility] ical 18-64 YRS Branch Influenza Virus 2018-02-04 Completed Universit y of Vaccine Quad ID 00:00:00 [facility] ical 18-64 YRS Branch Influenza Virus 2018-02-04 Completed Universit y of Vaccine Quad ID 00:00:00 [facility] ical 18-64 YRS Branch Influenza Virus 2018-02-04 Completed Universit y of Vaccine Quad ID 00:00:00 [facility] ical 18-64 YRS Branch Influenza Virus 2018-02-04 Completed Universit y of Vaccine Quad ID 00:00:00 [facility] ical 18-64 YRS Branch Influenza Virus 2018-02-04 Completed Universit y of Vaccine Quad ID 00:00:00 [facility] ical 18-64 YRS Branch Influenza Virus 2018-02-04 Completed Universit y of Vaccine Quad ID 00:00:00 [place] [facility] 18-64 YRS Branch Influenza Virus 2018-02-04 Completed [facility]it y of Vaccine Quad ID 00:00:00 [place] [facility] 18-64 YRS Branch Influenza Virus 2018-02-04 Completed [facility]it y of Vaccine Quad ID 00:00:00 [place] [facility] 18-64 YRS Branch Influenza Virus 2018-02-04 Completed [facility]it y of Vaccine Quad ID 00:00:00 [place] [facility] 18-64 YRS Branch Influenza Virus 2018-02-04 Completed Universit y of Vaccine Quad ID 00:00:00 [place] [facility] 18-64 YRS Branch Influenza Virus 2018-02-04 Completed Universit y of Vaccine Quad ID 00:00:00 [facility] ical 18-64 YRS Branch Influenza Virus 2018-02-04 Completed Universit y of Vaccine Quad ID 00:00:00 [place] [facility] 18-64 YRS Branch Influenza Virus 2018-02-04 Completed Universit y of Vaccine Quad ID 00:00:00 [facility] ical 18-64 YRS Branch Influenza Virus 2018-02-04 Completed Universit y of Vaccine Quad ID 00:00:00 [place] [facility] ical 18-64 YRS Branch Influenza Virus 2018-02-04 Completed Universit y of Vaccine Quad ID 00:00:00 [facility] ical 18-64 YRS Branch Influenza Virus 2018-02-04 Completed Universit y of Vaccine Quad ID 00:00:00 [facility] ical 18-64 YRS Branch Influenza Virus 2018-02-04 Completed Universit y of Vaccine Quad ID 00:00:00 [facility] ical 18-64 YRS Branch Influenza Virus 2018-02-04 Completed Universit y of Vaccine Quad ID 00:00:00 [facility] ical 18-64 YRS Branch Influenza Virus 2018-02-04 Completed Universit y of Vaccine Quad ID 00:00:00 [facility] ical 18-64 YRS Branch Influenza Virus 2018-02-04 Completed Universit y of Vaccine Quad ID 00:00:00 [facility] ical 18-64 YRS Branch Influenza Virus 2018-02-04 Completed Universit y of Vaccine Quad ID 00:00:00 [facility] ical 18-64 YRS Branch Influenza Virus 2018-02-04 Completed Universit y of Vaccine Quad ID 00:00:00 [facility] ical 18-64 YRS Branch Influenza Virus 2018-02-04 Completed Universit y of Vaccine Quad ID 00:00:00 [facility] ical 18-64 YRS Branch Influenza Virus 2018-02-04 Completed Universit y of Vaccine Quad ID 00:00:00 [place] [facility] 18-64 YRS Branch Influenza Virus 2018-02-04 Completed [facility]it y of Vaccine Quad ID 00:00:00 [place] [facility] 18-64 YRS Branch Influenza Virus 2018-02-04 Completed Universit y of Vaccine Quad ID 00:00:00 [place] [facility] 18-64 YRS Branch Influenza Virus 2018-02-04 Completed Universit y of Vaccine Quad ID 00:00:00 [facility] ical 18-64 YRS Branch Influenza Virus 2018-02-04 Completed Universit y of Vaccine Quad ID 00:00:00 [facility] ica 18-64 YRS Branch Influenza Virus 2018-02-04 Completed Universit y of Vaccine Quad .5 mL 00:00:00 [place] [facility] IM 6+ MO Branch Influenza Virus 2018-02-04 Completed Universit y of Vaccine Quad ID 00:00:00 [facility] ical 18-64 YRS Branch Influenza Virus 2018-02-04 Completed Universit y of Vaccine Quad .5 mL 00:00:00 [place] [facility] IM 6+ MO Branch Influenza Virus 2018-02-04 Completed Universit y of Vaccine Quad ID 00:00:00 [facility] ical 18-64 YRS Branch Influenza Virus 2018-02-04 Completed Universit y of Vaccine Quad .5 mL 00:00:00 [place] [facility] 6+ MO Branch Influenza Virus 2018-02-04 Completed Universit y of Vaccine Quad ID 00:00:00 [facility] ica 18-64 YRS Branch Influenza Virus 2018-02-04 Completed Universit y of Vaccine Quad .5 mL 00:00:00 [facility] IM 6+ MO Branch Vital Signs Vital Name Observation Time Observation Value Comments Source Systolic blood 2020-12-14 139 mm[Hg] University of pressure 18:13:00 [facility] Diastolic blood 2020-12-14 79 mm[Hg] University o f pressure 18:13:00 [facility] Heart rate 2020-12-14 62 /min University of 18:13:00 [facility] Body temperature 2020-12-14 36.61 [place] University of 18:13:00 [facility] Respiratory rate 2020-12-14 12 /min University of 18:13:00 [facility] Body height 2020-12-14 157.5 cm University of 18:13:00 [facility] Body weight 2020-12-14 81.285 kg University of 18:13:00 [facility] BMI 2020-12-14 32.78 kg/m2 University of 18:13:00 [facility] Oxygen saturation 2020-12-14 97 /min [facility] in Arterial blood 18:13:00 [facility] by Pulse oximetry [place] Systolic blood 2020-12-09 161 mm[Hg] University of pressure 19:37:00 [facility] Diastolic blood 2020-12-09 86 mm[Hg] University o f pressure 19:37:00 [facility] Heart rate 2020-12-09 60 /min University of 19:34:00 [facility] Body temperature 2020-12-09 36.44 [place] University of 19:34:00 [facility] Branch Respiratory rate 2020-12-09 18 /min University of 19:34:00 [facility] Branch Body height 2020-12-09 157.5 cm University of 19:34:00 [facility] Body weight 2020-12-09 81.602 kg University of 19:34:00 [facility] BMI 2020-12-09 32.90 kg/m2 University of 19:34:00 [facility] Branch Oxygen saturation 2020-12-09 96 /min University of in Arterial blood 19:34:00 [place] [facility] [place] by Pulse oximetry Branch Systolic blood 2020-11-25 168 mm[Hg] University of pressure 18:18:00 [facility] Branch Diastolic blood 2020-11-25 80 mm[Hg] University o f pressure 18:18:00 [facility] Heart rate 2020-11-25 76 /min University of 18:18:00 [facility] Body temperature 2020-11-25 36.56 [place] University of 18:18:00 [facility] Branch Respiratory rate 2020-11-25 18 /min University of 18:18:00 [facility] Branch Body height 2020-11-25 157.5 cm University of 18:18:00 [facility] Body weight 2020-11-25 82.192 kg University of 18:18:00 [facility] BMI 2020-11-25 33.14 kg/m2 University of 18:18:00 [facility] Oxygen saturation 2020-11-25 97 /min University of in Arterial blood 18:18:00 [place] [facility] [place] [facility] Pulse oximetry Branch Systolic blood 2020-07-06 149 mm[Hg] University of pressure 21:17:00 [facility] [place] [facility] Diastolic blood 2020-07-06 92 mm[Hg] University o f pressure 21:17:00 [facility] Heart rate 2020-07-06 69 /min University of 21:17:00 [facility] Branch Respiratory rate 2020-07-06 18 /min University of 21:17:00 [facility] Branch Body height 2020-07-06 157.5 cm University of 21:17:00 [facility] Body weight 2020-07-06 81.965 kg University of 21:17:00 [facility] Branch BMI 2020-07-06 33.05 kg/m2 University of 21:17:00 [facility] Oxygen saturation 2020-07-06 97 /min University of in Arterial blood 21:17:00 [facility] by Pulse oximetry Branch Systolic blood 2020-06-24 138 mm[Hg] University of pressure 22:08:00 [facility] Diastolic blood 2020-06-24 77 mm[Hg] University o f pressure 22:08:00 [facility] Heart rate 2020-06-24 67 /min University of 22:08:00 [facility] Respiratory rate 2020-06-24 18 /min University of 22:08:00 [facility] Body height 2020-06-24 157.5 cm University of 22:08:00 [facility] Body weight 2020-06-24 81.784 kg University of 22:08:00 [facility] BMI 2020-06-24 32.98 kg/m2 University of 22:08:00 [facility] Oxygen saturation 2020-06-24 95 /min [place] [facility] in Arterial blood 22:08:00 [facility] by Pulse oximetry Branch Systolic blood 2020-05-19 156 mm[Hg] University of pressure 18:20:00 [facility] Diastolic blood 2020-05-19 80 mm[Hg] University o f pressure 18:20:00 [facility] Heart rate 2020-05-19 62 /min University of 18:20:00 [facility] Oxygen saturation 2020-05-19 96 /min University of in Arterial blood 18:20:00 [facility] by Pulse oximetry Branch Respiratory rate 2020-05-19 10 /min University of 18:05:00 [facility] Body temperature 2020-05-19 36.61 Rub[place] University of 16:50:00 [facility] Body height 2020-05-19 157.5 cm University of 14:33:00 [facility] Body weight 2020-05-19 81.647 kg University of 14:33:00 [facility] BMI 2020-05-19 32.92 kg/m2 University of 14:33:00 [facility] Systolic blood 2020-04-20 139 mm[Hg] University of pressure 14:33:00 [facility] Diastolic blood 2020-04-20 70 mm[Hg] University o f pressure 14:33:00 [facility] Heart rate 2020-04-20 70 /min University of 14:33:00 [facility] Branch Body temperature 2020-04-20 36.67 [place] University of 14:33:00 [facility] Branch Respiratory rate 2020-04-20 18 /min University of 14:33:00 [facility] Branch Body height 2020-04-20 157.5 cm University of 14:33:00 [facility] Body weight 2020-04-20 80.423 kg University of 14:33:00 [facility] Branch BMI 2020-04-20 32.43 kg/m2 University of 14:33:00 [facility] Branch Oxygen saturation 2020-04-20 96 /min University of in Arterial blood 14:33:00 [facility] [place] by Pulse oximetry Branch Systolic blood 2020-04-19 165 mm[Hg] University of pressure 23:45:00 [facility] Branch Diastolic blood 2020-04-19 72 mm[Hg] University o f pressure 23:45:00 [facility] Branch Heart rate 2020-04-19 73 /min University of 23:45:00 [facility] Oxygen saturation 2020-04-19 99 /min University of in Arterial blood 23:45:00 [facility] mahogany by Pulse oximetry Branch Body temperature 2020-04-19 37.06 Rubia University of 23:20:00 [facility] Branch Respiratory rate 2020-04-19 16 /min University of 20:11:00 [facility] Branch Body height 2020-04-19 157.5 cm University of 20:11:00 [facility] Body weight 2020-04-19 82.555 kg University of 20:11:00 [facility] BMI 2020-04-19 33.29 kg/m2 University of 20:11:00 [facility] Branch Systolic blood 2020-04-13 132 mm[Hg] University of pressure 20:39:00 [facility] Branch Diastolic blood 2020-04-13 73 mm[Hg] University o f pressure 20:39:00 [facility] Branch Heart rate 2020-04-13 88 /min University of 20:39:00 [facility] Branch Body height 2020-04-13 157.5 cm University of 20:39:00 [facility] Branch Body weight 2020-04-13 82.328 kg University of 20:39:00 [facility] Branch BMI 2020-04-13 33.20 kg/m2 University of 20:39:00 [facility] Branch Oxygen saturation 2020-04-13 94 /min University of in Arterial blood 20:39:00 [place] [facility] [place] by Pulse oximetry Branch Systolic blood 2020-04-13 136 mm[Hg] University of pressure 17:21:00 [facility] Diastolic blood 2020-04-13 74 mm[Hg] University o f pressure 17:21:00 [facility] Branch Heart rate 2020-04-13 92 /min University of 17:21:00 [facility] Branch Body temperature 2020-04-13 36.5 Rubia University of 17:21:00 [facility] Branch Respiratory rate 2020-04-13 18 /min University of 17:21:00 [facility] Branch Body height 2020-04-13 157.5 cm University of 17:21:00 [facility] Branch Body weight 2020-04-13 82.146 kg University of 17::00 [facility] Branch BMI 2020-04-13 33.12 kg/m2 University of 17::00 [facility] Oxygen saturation 2020-04-13 95 /min University of in Arterial blood 17:21:00 [facility] mah[place] by Pulse oximetry Branch Systolic blood 2020-04-06 174 mm[Hg] per pt she is University o f pressure 20:29:00 very nervous, [place] [employer] [address] Branch Diastolic blood 2020-04-06 83 mm[Hg] per pt she is University of pressure 20:29:00 very nervous, [place] [employer] [address]. Branch Heart rate 2020-04-06 75 /min University of 20:29:00 [facility] Branch Respiratory rate 2020-04-06 18 /min University of 20:29:00 [facility] Body height 2020-04-06 157.5 cm University of 20:29:00 [facility] Body weight 2020-04-06 82.237 kg University of 20:29:00 [facility] Branch BMI 2020-04-06 33.16 kg/m2 University of 20:29:00 [facility] Branch Oxygen saturation 2020-04-06 96 /min University of in Arterial blood 20:29:00 [place] [facility] [place] by Pulse oximetry Branch Systolic blood 2020-02-03 148 mm[Hg] University of pressure 18:25:00 [facility] Branch Diastolic blood 2020-02-03 77 mm[Hg] University o f pressure 18:25:00 [facility] Branch Heart rate 2020-02-03 61 /min University of 18:25:00 [facility] Branch Respiratory rate 2020-02-03 19 /min University of 18:22:00 [facility] Branch Body height 2020-02-03 157.5 cm University of 18:22:00 [facility] Body weight 2020-02-03 80.967 kg [facility] 18:22:00 [facility] BMI 2020-02-03 32.65 kg/m2 [facility] 18:22:00 [facility] Oxygen saturation 2020-02-03 94 /min [facility] in Arterial blood 18:22:00 [facility] by Pulse oximetry Branch Procedures Procedure Date / Time Performing Clinician Source Performed CT ABDOMEN W CONTRAST 2020-12-03 15:21:34 Elia Gonzalez [facility] HB CREATININE BLOOD 2020-12-03 15:03:00 Elijah Rameshkhan [facility] EXTERNAL PROVIDER RECORDS 2020-07-09 06:01:00 Doctor Suhas, [facility] URINE CULTURE 2020-06-24 22:50:00 Lamine [facility] ASSIGNMENT OF BENEFITS 2020-05-19 13:46:05 Doctor Unassigned, Un [facility] Name [facility] [place] COLONOSCOPY (ENDO) 2020-04-19 21:45:00 Self Referred, [facility] CONSENT/REFUSAL FOR 2020-04-19 19:45:42 Doctor Unassshae, [facility] DIAGNOSIS AND TREATMENT [facility] ASSIGNMENT OF BENEFITS 2020-04-19 19:45:28 Doctor Unassigned, [facility] [facility] DISCLOSURE AND CONSENT, 2020-04-16 06:01:00 [facility] [place] [facility] PROCEDURES FL DEFECOGRAM 2020-04-08 16:00:00 Gadiel [facility] POCT URINALYSIS 2020-04-06 21:56:00 [facility] CONSENT/REFUSAL FOR 2020-02-03 18:09:24 Doctor Unarandi, [facility] DIAGNOSIS AND TREATMENT [facility] MEDICATION CORRESPONDENCE 2019-06-03 06:01:00 Doctor Suhas, [facility] Encounters Start End Encounter Admission Attending Care Care Encounter Source Date/Time Date/Time Type Type Clinicians Facility Department ID 2021-02-26 Outpatient R GADIEL [facility] [id number] [facility] 16:28:26 BERTA ity [facility] 2021-02-26 Outpatient GADIEL [facility] [id number] Univers 12:44:29 BERTA [facility] 2021-02-26 Outpatient R ANDIE [facility] FABIENNE [id number] Univers 11:40:17 LORETA ity [facility] 2021-04-27 2021-04-27 Outpatient TRANG, [facility] [id number] [address] [place] [address] 00:00:00 00:00:00 BERENICE [facility] 2021-02-17 2021-02-17 Refnelson Morales [facility] 1.2.840.114 [id number] Univers 00:00:00 00:00:00 Matt Govea 350.1.13.10 ity of [id number] [phone] Pr dic[address] 2021-02-16 2021-02-16 Grayson Morales [facility] 1.2.840.114 [id number] Univers 00:00:00 00:00:00 Matt Govea 350.1.13.10 ity of [id number] [phone] Pr dic[address] 2020-12-14 2020-12-14 Office Gary Bingham [facility] 1.2.840.114 [id number] Univers 12:50:23 14:17:29 Visit Health 350.1.13.10 it [place] [phone] [address] Office Building 2020-12-14 2020-12-14 Outpatient R GARY BINGHAM [facility] [id number] Univers 13:00:00 13:00:00 [id number] ity [facility] 2020-12-14 2020-12-14 Outpatient R GARY BINGHAM [facility] [id number] Univers 13:00:00 13:00:00 ity [facility] 2020-12-14 2020-12-14 Telephone Gary Bingham [facility] 1.2.840.114 [id number] Univers 00:00:00 00:00:00 Health [id number] it y [place] 4.2.7.2.686 [place] [facility] [phone] [place] [address] Branch Office Building 2020-12-09 2020-12-09 Office [facility] 1.2.840.114 [id number] Univers 14:10:21 16:33:49 Visit Lakiamelissa DONALDSON [id number] ity of [facility] 4.2.7.2.686 [facility] AT [phone] Pr indy BERGER [address] [place] 2020-12-09 2020-12-09 Outpatient R AARON [facility] [id number] Univers 14:15:00 14:15:00 LAKIA [id number] ity [facility] 2020-12-09 2020-12-09 [facility] [id number] Univers 14:15:00 14:15:00 [facility] 2020-12-03 2020-12-03 [facility] 1.2.840.114 [id number] Univers 09:00:00 23:59:00 Encounter Berta Govea 350.1.13.10 ity of [place] 4.2.7.2.686 [facility] [phone] [place] [address] Branch 2020-12-03 2020-12-03 Outpatient Antonia RAMESH [facility] [id number] Univers 09:00:00 09:00:00 BERTA [id number] ity [facility] 2020-12-03 2020-12-03 Outpatient Antonia RAMESH [facility] [id number] Univers 00:00:00 00:00:00 BERTA itleah [facility] 2020-12-02 2020-12-02 Outpatient Antonia RAMESH [facility] [id number] Univers 00:00:00 00:00:00 BERTA [id number] ity [facility] 2020-11-30 2020-11-30 Outpatient Antonia RAMESH [facility] [id number] Univers 09:00:00 09:00:00 BERTA [id number] ity [facility] 2020-11-25 2020-11-25 Office [facility] 1.2.840.114 [id number] Univers 13:07:13 13:37:13 Visit [facility]ly [facility] [id number] it y [id number] [phone] [address] Office Building 2020-11-25 2020-11-25 Outpatient R GADIEL [facility] [id number] Univers 08:30:00 08:30:00 BERTA [id number] [facility] 2020-11-25 2020-11-25 Outpatient R GADIEL [facility] [id number] Univers 08:30:00 08:30:00 [facility] 2020-11-15 2020-11-15 Out[id number] FB 07:55:00 10:45:00 [facility] 2020-10-07 2020-10-07 Outpatient Antonia RAMESH [facility] [id number] Univers 15:30:00 15:30:00 BERTA [id number] [facility] 2020-10-07 2020-10-07 Outpatient Antonia RAMESH [facility] [id number] Univers 15:30:00 15:30:00 BERTA [facility] 2020-09-15 2020-09-15 Outpatient KEVIN, FB [facility]FB [id number] [facility]FB 08:55:00 12:30:00 [facility] 2020-07-28 2020-07-28 Telephone [facility] 1.2.561.351 [id number] Univers 00:00:00 00:00:00 [facility] [employer] [id number] it [place] [phone] [address] Office Building 2020-07-26 2020-07-26 Telephone [facility] [id number] Univers 00:00:00 00:00:00 [facility] Health [id number] it [id number] [phone] [facility] 098 Branch Office Building 2020-07-20 2020-07-20 Outpatient VIRGIL, [facility] [id number] [place] 00:00:00 00:00:00 ISABEL [address] 2020-07-17 2020-07-17 Outpatient [facility] [id number] Univers 12:05:00 12:05:00 ity [facility] 2020-07-12 2020-07-12 Outpatient R [facility] [id number] Univers 10:30:00 10:30:00 [id number] ity [facility] 2020-07-12 2020-07-12 Outpatient R [facility] [id number] Univers 10:30:00 10:30:00 ity [facility] 2020-07-12 2020-07-12 Outpatient VIRGIL, [facility] [id number] [place] 00:00:00 00:00:00 ISABEL [address] 2020-07-12 2020-07-12 Outpatient VIRGIL, [facility] [id number] [place] 00:00:00 00:00:00 ISABEL [address] 2020-07-09 2020-07-09 Outpatient R LUIS FARAH, [facility] [id number] Univers 14:00:00 14:00:00 BYALEE [id number] ity [facility] 2020-07-09 2020-07-09 Outpatient Antonia SMITH JR, [facility] [id number] Univers 14:00:00 14:00:00 BAYLEE [facility] 2020-07-09 2020-07-09 Orders Doctor ADIA 1.2.840.114 [id number] Univers 00:00:00 00:00:00 Only Unassigned, CELESTE 350.1.13.10 ity of [place] [facility] 4.2.7.2.686 Stalin as [phone] [place] [address] Branch 2020-07-06 2020-07-06 Office Gadiel [facility] 1.2.840.114 [id number] Univers 13:46:46 15:13:49 Visit [facility]ly [facility] [id number] it y of [place] 4.2.7.2.686 [place] [phone] [address] Office Building 2020-07-06 2020-07-06 Outpatient R GADIEL [facility] [id number] Univers 14:00:00 14:00:00 BERTA [id number] ity [facility] 2020-07-06 2020-07-06 Outpatient Antonia RAMESH [facility] [id number] Univers 14:00:00 14:00:00 BERTA ity [facility] 2020-06-28 2020-06-28 [facility] 1.2.840.114 [id number] Univers 16:20:13 23:59:00 Encounter Berta Mcrae [place] 350.1.13.10 ity of [place] [id number] [place] [phone] [address] 2020-06-28 2020-06-28 Outpatient Antonia RAMESH [facility] [id number] Univers 16:30:00 16:30:00 BERTA [id number] ity [facility] 2020-06-28 2020-06-28 Outpatient [facility]ia [facility] [id number] Univers 00:00:00 00:00:00 [facility] 2020-06-26 2020-06-26 Outpatient [facility] [id number] Univers 12:05:00 12:05:00 ity [facility] 2020-06-24 2020-06-24 Airborne And Air Delivery Specialist Draw, Clc-Bls Lab [facility] 1.2.8 40.114 [id number] Univers 16:49:53 17:04:53 Visit Elijah Rameshkhan [facility] 350.1.13.10 [place] [phone] [address] Office Building 2020-06-24 2020-06-24 Office [facility] 1.2.840.114 [id number] Univers 15:50:14 16:20:14 Visit [facility]ly [facility] [id number] it [place] [phone] [address] Office Building 2020-06-24 2020-06-24 Outpatient GADIEL [facility] [id number] Univers 16:00:00 16:00:00 BERTA [id number] ity of [facility] 2020-06-24 2020-06-24 Outpatient R GADIEL [facility] [id number] Univers 16:00:00 16:00:00 BERTA ity [facility] 2020-06-22 2020-06-22 Patient Morales [facility] 1.2.840.114 [id number] Univers 00:00:00 00:00:00 Secure Msg Matt Govea 350.1.13.10 ity of [id number] [phone] Pr dicil nal [address] [place] [address] 2020-06-13 2020-06-13 Refill [facility] 1.2.840.114 [id number] Univers 00:00:00 00:00:00 Matt Govea 350.1.13.10 ity of [place].2.[place] [phone] Pr dical nal [address] [place] [address] 2020-06-10 2020-06-10 Outpatient R GADIEL [facility] [id number] Univers 08:30:00 08:30:00 BERTA [id number] ity of [facility] 2020-05-19 2020-05-19 [facility] 1.2.840.114 [id number] Univers 07:45:00 12:41:00 Encounter [facility] [id number] ity of [facility] 4.2.7.2.686 [place] [phone] [address] ([facility]) 2020-05-19 2020-05-19 Orders Doctor CHEEK 1.2.840.114 [id number] Univers 00:00:00 00:00:00 Only Unassigned, CELESTE 350.1.13.10 ity of [place] [facility] 4.2.7.2.686 Stalin as [phone] [address] 2020-05-11 2020-05-11 Outpatient Antonia AMBROSE [facility] [id number] Univers 16:00:00 16:00:00 SARAHANATJESÚS [id number] ity of [facility] 2020-04-27 2020-04-27 Telephone Gadiel [facility] [id number] Univers 00:00:00 00:00:00 Berta Wheeler 350.1.13.10 it [place] [phone] [address] Office Building 2020-04-26 2020-04-26 Laboratory Only, Adc Test [facility] 1.2.840. 114 [id number] Univers 11:10:26 11:25:26 Only Berta Rameshton 350.1.13.10 ity of [place] 4.2.7.2.686 [place] [phone] [address] 2020-04-26 2020-04-26 Outpatient [facility] [id number] Univers 11:15:00 11:15:00 [id number] ity [facility] 2020-04-26 2020-04-26 Outpatient R GADIEL [facility] [id number] Univers 11:15:00 11:15:00 BERTA itleah [facility] 2020-04-20 2020-04-20 Airborne And Air Delivery Specialist Draw, Clc-Bls Lab [facility] 1.2.8 40.114 [id number] Univers 10:38:13 10:53:13 Visit Berta Ramesh 350.1.13.10 ity of [place] 4.2.7.2.686 [place] [phone] [address] Office Building 2020-04-20 2020-04-20 Office Berta Ramesh [facility] 1.2.840.114 [id number] Univers 08:23:42 10:35:15 Visit Loreta Chaves Health 350.1.13.10 [place] [phone] [address] Office Building 2020-04-20 2020-04-20 Outpatient GADIEL [facility] [id number] Univers 08:30:00 08:30:00 BERTA [id number] ity of [facility] 2020-04-20 2020-04-20 [facility] [id number] Univers 08:30:00 08:30:00 BERTA ity of [facility] 2020-04-19 2020-04-19 [facility] 1.2.840.114 [id number] Univers 13:46:00 18:07:00 Encounter Loreta Health 350.1.13.10 ity of [place] 4.2.7.2.686 [facility] [phone] [address] ([facility]) 2020-04-16 2020-04-16 Laboratory Only, Adc Test [facility] 1.2.840. 114 [id number] Univers 13:57:40 14:12:40 Only Baylee Puga 350.1.13.10 ity of [place] 4.2.7.2.686 [facility] [phone] [address] 2020-04-16 2020-04-16 Outpatient R [facility] [id number] Univers 14:00:00 14:00:00 [id number] ity of [facility] 2020-04-16 2020-04-16 Outpatient R [facility] [id number] Univers 14:00:00 14:00:00 ity of [facility] 2020-04-14 2020-04-14 Telephone [facility] 1.2.355.808 [id number] Univers 00:00:00 00:00:00 Matt Govea 350.1.13.10 ity of [place] 4.2.7.2.686 [facility] [phone] Pr dical nal 0[address] [facility] 2020-04-14 2020-04-14 Telephone [facility] [id number] [id number] Univers 00:00:00 00:00:00 [place] Health 350.1.13.10 it y of Cancer 4.2.7.2.686 [facility] - [phone] Med ical [facility] [address] 2020-04-13 2020-04-13 Office [facility] 1.2.840.114 [id number] Univers 14:27:02 14:57:02 Visit [facility] 350.1.13.10 it y [place]2.[place].2.686 [place] - [phone] [address] 2020-04-13 2020-04-13 Office [facility] 1.2.840.114 [id number] Univers 11:12:19 11:42:19 Visit [facility] 350.1.13.10 it [place] [phone] [address] Office [facility] 2020-04-13 2020-04-13 Outpatient R [facility] [id number] Univers 11:30:00 11:30:00 BERTA [id number] ity [facility] 2020-04-13 2020-04-13 Outpatient R [facility] [id number] Univers 11:30:00 11:30:00 [facility] 2020-04-08 2020-04-08 [facility] 1.2.840.114 [id number] Univers 07:50:17 23:59:00 Encounter [facility] 350.1.13.10 ity of CARE 4.2.7.2.686 [facility] AT [phone] Pr elainedemetrius AYSELeah 807 [facility] 2020-04-08 2020-04-08 Outpatient R [facility] [id number] Univers 13:00:00 13:00:00 BERTA ity [facility] 2020-04-08 2020-04-08 Outpatient R [facility] [id number] Univers 00:00:00 00:00:00 [facility] 2020-04-06 2020-04-06 Office [facility] 1.2.840.114 [id number] Univers 13:26:51 15:20:17 Visit [facility]ly [facility] 350.1.13.10 it y [place] [phone] [address] Office [facility] 2020-04-06 2020-04-06 Outpatient R [facility] [id number] Univers 14:00:00 14:00:00 BERTA [id number] ity [facility] 2020-04-06 2020-04-06 Outpatient [facility] [id number] Univers 14:00:00 14:00:00 BERTA ity [facility] 2020-03-08 2020-03-08 [facility]ill [facility] 1.2.840.114 [id number] Univers 00:00:00 00:00:00 Sendzunilda Govea 350.1.13.10 ity of [place] 4.2.7.2.[place] [phone] Pr dic[address] 2020-02-03 2020-02-05 Office [facility] 1.2.840.114 [id number] Univers 13:10:11 16:00:46 Visit Matt Govea 350.1.13.10 ity of [place] 4.2.7.2.[place] [phone] [facility] nal [address] [place] [address] 2020-02-05 2020-02-05 Telephone [facility] 1.2.047.558 [id number] Univers 00:00:00 00:00:00 Sendzunilda Govea 350.1.13.10 ity of [place] 4.2.7.2.[place] [phone] [address] 2020-02-03 2020-02-03 Outpatient R CARMELLA [facility] [id number] Univers 13:00:00 13:00:00 SENDIL ity [facility] 2020-02-03 2020-02-03 Outpatient [facility] [id number] Univers 13:00:00 13:00:00 SENDIL ity [facility] 2020-02-03 2020-02-03 Orders Doctor CHEEK 1.2.840.114 [id number] Univers 00:00:00 00:00:00 Only Unassigned, CELESTE 350.1.13.10 ity of [place] [facility] 4.2.7.2.686 Stalin as [phone] [address] 2020-02-02 2020-02-02 Refill Morales, [facility] 1.2.840.114 [id number] Univers 00:00:00 00:00:00 Matt Govea 350.1.13.10 ity of [place] 4.2.[place].2.[place] [phone] Pr dicil nal 059 [facility] 2020-01-13 2020-01-13 Refill [facility], [facility] 1.2.840.114 [id number] Univers 00:00:00 00:00:00 Matt Govea 350.1.13.10 ity of [place] 4.2.[place].2.[place] [phone] Pr dicil nal [address] [place] [address] 2019-12-27 2019-12-27 Refill [facility] 1.2.840.114 [id number] Univers 00:00:00 00:00:00 Matt Govea 350.1.13.10 ity of [place] 4.2.7.2.[place] [phone] Pr dicil nal 9 [facility] 2019-11-17 2019-11-17 [facility] 1.2.840.114 [id number] Univers 00:00:00 00:00:00 Matt Govea 350.1.13.10 ity of [place] 4.2.7.2.[place] [phone] Pr dic[address] 2019-06-23 2019-06-23 Refill [facility] 1.2.840.114 [id number] Univers 00:00:00 00:00:00 Matt Govea 350.1.13.10 ity of [place] 4.2.[place].2.686 [place] [phone] [facility] nal [address] [place] [address] 2019-06-03 2019-06-03 Orders Doctor ADIA 1.2.840.114 [id number] Univers 00:00:00 00:00:00 Only Unassigned, CELESTE 350.1.13.10 ity of [place] [facility] 4.2.7.2.686 Stalin as [phone] [address] 2019-05-20 2019-05-20 Telephone [facility] 1.2.871.505 [id number] Univers 00:00:00 00:00:00 Matt Govea 350.1.13.10 ity of [place] 4.2.7.2.[place] [phone] [address] 2019-05-15 2019-05-15 Refill Morales, [facility] 1.2.840.114 [id number] Univers 00:00:00 00:00:00 Matt Govea 350.1.13.10 ity of [place] 4.2.7.2.[place] [phone] [address] 2019-01-17 2019-01-17 [facility] 1.2.840.114 [id number] Univers 00:00:00 00:00:00 Lorna Govea 350.1.13.10 ity of [place] 4.2.[place].2.[place] [phone] [address] 2019-01-14 2019-01-14 Telephone [facility] 1.2.819.479 [id number] Univers 00:00:00 00:00:00 Matt Govea 350.1.13.10 ity of [place] 4.2.7.2.[place] [phone] [address] 2019-01-07 2019-01-07 Telephone Morales, [facility] 1.2.091.766 [id number] Univers 00:00:00 00:00:00 Matt Govea 350.1.13.10 ity of [place] 4.2.7.2.[place] [phone] [address] 2018-12-16 2018-12-16 Refill [facility] [id number] [facility] 00:00:00 00:00:00 [facility] [place] [id number] [place] [id number] [phone] Pr dical nal [address] [facility] 2018-11-20 2018-11-20 Telephone Carmella [facility] [id number] [employer] 00:00:00 00:00:00 Matt Govea [id number] [place] [id number] [phone] Pr dicil nal 9 [facility] Results Test Test Test Results Result Source Description Time Comments Comments CT ABDOMEN W 2020-11-28. No acute findings [facility] 06 of the abdomen or [facility] 21:10:09 pelvis.2. Nodular Branch contour of the liver concerning for liver cirrhosis.3. Redemonstrated partially visualized abnormal varicose veins extendingfrom the splenic vein to the pelvis Indication: Abdominal pain, hernia suspected ? Comparison: CT abdomen 06/28/2020 RL: [id number] ORDERING PHYSICIAN: ?BERTA LEON TECHNIQUE: Axial CT images of the abdomen were performed with iv contrast.Sagittal and coronal reformats were created. Dose reduction techniques wereused (ALARA). FINDINGS: ?There is bibasilar dependent atelectasis. There is a smallhiatal hernia Abdomen/pelvis:Liver: There is diffuse fatty infiltration of the liver. There is nodularcontour of the liver concerning for liver cirrhosis. Gallbladder: Normally distended. No calcified stones. Spleen: Normal. Pancreas: The pancreas is mildly atrophic. There is dilatation of thepancreatic duct at the body measuring up to 4 mm Adrenal glands: Normal. Kidneys: Normal Vasculature: The abdominal aorta is normal in caliber with scattered muralcalcification. Bowel: There is diffuse colonic diverticula. No evidence of bowelobstruction.The appendix is not visualized but no secondary signs ofappendicitis. Postsurgical changes of the anterior abdominal wall. No definite evidenceof hernia. Redemonstrated abnormal varicose veins extending from thesplenic vein to the pelvis. Bone and soft tissue: Multilevel degenerative changes of the lumbar spinewith anterior disc osteophytes and disc degeneration. [facility], Radiant Results Inft User - 12/03/2020 4:11 PM CDT Indication: Abdominal pain, hernia suspected Comparison: CT abdomen 1RL: [id number] PHYSICIAN: BERTA ARMESH TECHNIQUE: Axial CT images of the abdomen were performed with iv contrast.Sagittal and coronal reformats were created. Dose reduction techniques wereused (ALARA).FINDINGS: There is bibasilar dependent atelectasis. There is a smallhiatal herniaAbdomen/pelvis:Desi er: There is diffuse fatty infiltration of the liver. There is nodularcontour of the liver concerning for liver cirrhosis.Gallbladder: Normally distended. No calcified stones.Spleen: Normal.Pancreas: The pancreas is mildly atrophic. There is dilatation of thepancreatic duct at the body measuring up to 4 mmAdrenal glands: Normal.Kidneys: NormalVasculature: The abdominal aorta is normal in caliber with scattered muralcalcification.Bowel : There is diffuse colonic diverticula. No evidence of bowelobstruction.The appendix is not visualized but no secondary signs ofappendicitis.Postsurgi mahogany changes of the anterior abdominal wall. No definite evidenceof hernia. Redemonstrated abnormal varicose veins extending from thesplenic vein to the pelvis.Bone and soft tissue: Multilevel degenerative changes of the lumbar spinewith anterior disc osteophytes and disc degeneration.IMPRESSION1 . No acute findings of the abdomen or pelvis.2. Nodular contour of the liver concerning for liver cirrhosis.3. Redemonstrated partially visualized abnormal varicose veins extendingfrom the splenic vein to the pelvis CREATININE 2020-12-03 17:02:35 Test Item Value Reference Range Interpretation Comme nts POCT Creatinine (test code = 0817616501) 0.6 mg/dL 0.5-1.1 Lab Interpretation (test code = 96817-4) Normal [facility] [id number] 14:09:00 Test Item Value Reference Range Interpretation Comments URINE CULTURE (test 10,000 - 100,000 CFU/mL code = 630-4) mixed aerobic organisms - suggests endogenous microbial contamination [facility] [id number] 14:09:00 Test Item Value Reference Range Interpretation Comments URINE CULTURE (test 10,000 - 100,000 CFU/mL code = 630-4) mixed aerobic organisms - suggests endogenous microbial contamination [facility] URINALYSIS W SPECIFIC [id number] 21:58:00 Test Item Value Reference Range Interpretation Comments POCT U SP GRAV (test code = 1.015 mg/dl 1.005-1.025 3255) POCT PH U (test code = 3254) 7 mg/dl 5-8 POCT U LEUK EST (test code = neg Negative - Negative 3263) POCT U NIT (test code = 3262) neg Negative - Negative POCT U PROT (test code = neg Negative - Negative 3259) POCT U GLU (test code = 3256) normal Negative - Negative POCT U KETONE (test code = neg Negative - Negative 3258) POCT U UROBILI (test code = 8 mg/dl 0.2-1 A 3260) POCT U BILI (test code = neg Negative - Negative 3261) POCT U BLD (test code = 3257) neg Negative - Negative POCT U COLOR (test code = yellow 3266) POCT U APPEAR (test code = cloudy 3267) Lab Interpretation (test code Abnormal = 09376-9) [facility] URINALYSIS W SPECIFIC [id number] 21:58:00 Test Item Value Reference Range Interpretation Comments POCT U SP GRAV (test code = 1.015 mg/dl 1.005-1.025 3255) POCT PH U (test code = 3254) 7 mg/dl 5-8 POCT U LEUK EST (test code = neg Negative - Negative 3263) POCT U NIT (test code = 3262) neg Negative - Negative POCT U PROT (test code = neg Negative - Negative 3259) POCT U GLU (test code = 3256) normal Negative - Negative POCT U KETONE (test code = neg Negative - Negative 3258) POCT U UROBILI (test code = 8 mg/dl 0.2-1 A 3260) POCT U BILI (test code = neg Negative - Negative 3261) POCT U BLD (test code = 3257) neg Negative - Negative POCT U COLOR (test code = yellow 3266) POCT U APPEAR (test code = cloudy 3267) Lab Interpretation (test code Abnormal = 93178-7) [facility]
[2021-06-23] MEDS ORDERED: MAGNESIUM SULFATE 1 gm IVPB 1 GM/100 ML BAG IV ONE (22:59)
[2021-06-23] MEDS ORDERED: GLUCAGON 1 MG/VIAL ONE (22:59)
[2021-06-24] MEDS ORDERED: METOCLOPRAMIDE 10 MG/2mL INJ ONE (00:16)
[2021-06-24] MEDS ORDERED: GLUCAGON 1 MG/VIAL ONE (00:23)
--- NOTE | 2021-06-24 01:27 | EDPHYS ---
Physician Documentation [facility] Name: Anastasiya Proctor Age: 65 yrs Sex: Female : 1955 Arrival Date: 06/23/2021 Time: 22:16 Bed 13 Private MD: ED Physician Sascha Easton HPI: 06/23 22:38 This 65 yrs old Unknown Female presents to ER via Ambulatory with complaints of rn Difficulty Swallowing. 22:38 The patient presents with a foreign body sensation in the throat. The patient describes rn throat pain as "stuck". Onset: The symptoms/episode began/occurred 4 hour(s) ago. Severity of symptoms: At their worst the symptoms were moderate, in the emergency department the symptoms are unchanged. Modifying factors: The symptoms are alleviated by nothing, the symptoms are aggravated by fluids, foods, swallowing. Associated signs and symptoms: Pertinent positives: dysphagia, Pertinent negatives chest pain, fever, shortness of breath. The patient has not experienced similar symptoms in the past. The patient has not recently seen a physician. Reports eating steak approx 4 hours ago, feels stuck in throat, has never happened before but has chronic GERD and has required esophageal dilation in past. Reports tried coke and butter, nothing helping and not going down. No fever. Otherwise feels ok.. Historical: - Allergies: 22:21 Bactrim; vc1 22:21 Sumatriptan Succinate; vc1 - Home Meds: 22:21 diltiazem HCl 180 mg Oral cpER 1 cap once daily [Active]; lisinopril 40 mg Oral tab 1 vc1 tab twice a day [Active]; Prilosec 20 mg Oral cpDR [Active]; - PMHx: 22:21 Hypertension; vc1 - Immunization history:: Adult Immunizations up to date. - Social history:: Smoking status: Patient denies any tobacco usage or history of. - Family history:: not pertinent. - Hospitalizations: : No recent hospitalization is reported. ROS: 22:38 Constitutional: Negative for fever, chills, and weight loss, Eyes: Negative for injury, rn pain, redness, and discharge, ENT: + foreign body sensation in esophagus Neck: Negative for injury, pain, and swelling, Cardiovascular: Negative for chest pain, palpitations, and edema, Respiratory: Negative for shortness of breath, cough, wheezing, and pleuritic chest pain, Abdomen/GI: Negative for abdominal pain, nausea, vomiting, diarrhea, and constipation, Back: Negative for injury and pain, : Negative for injury, bleeding, discharge, and swelling, MS/Extremity: Negative for injury and deformity, Skin: Negative for injury, rash, and discoloration, Neuro: Negative for headache, weakness, numbness, tingling, and seizure. Exam: 22:38 Constitutional: This is a well developed, well nourished patient who is awake, alert, rn appears anxious, speaking full sentences, constantly clearing throat and spitting into emesis bag. Head/Face: Normocephalic, atraumatic. ENT: No stridor Neck: Trachea midline, no thyromegaly or masses palpated, and no cervical lymphadenopathy. Supple, full range of motion without nuchal rigidity, or vertebral point tenderness. No Meningismus. Cardiovascular: Regular rate and rhythm. No pulse deficits. Respiratory: No stridor. No increased work of breathing, no retractions or nasal flaring. Vital Signs: 22:24 Pulse 74; Resp 22; Temp 98.6(TE); Pulse Ox 96% on R/A; Weight 81.65 kg; Height 5 ft. 2 vc1 in. (157.48 cm); Pain 0/10; 22:26 BP 161 / 75; Pulse 74; Resp 22; Temp 98.6; Pulse Ox 96% ; vc1 06/24 02:44 BP 169 / 81 LA Sitting (auto/reg); Pulse 77 MON; Resp 22 S; Pulse Ox 94% on R/A; Pain sv1 0/10; 06/23 22:24 Body Mass Index 32.92 (81.65 kg, 157.48 cm) vc1 MDM: 06/23 22:30 Patient medically screened. rn 06/24 01:24 Differential diagnosis: esophageal foreign body. Data reviewed: vital signs, nurses rn notes, and as a result, I will discharge patient. Counseling: I had a detailed discussion with the patient and/or guardian regarding: the historical points, exam findings, and any diagnostic results supporting the discharge/admit diagnosis, the need for further work-up and treatment in the hospital. Response to treatment: the patient's symptoms have mildly improved after treatment. Admission orders: after a detailed discussion of the patient's condition and case, the admit orders are written by me. ED course: Pt feels like it moved down lower but still not able to tolerate liquids, will have to admit for GI consult and scope for removal.. 06/24 01:31 Order name: CBC with Diff rn 06/24 01:31 Order name: Basic Metabolic Panel rn 06/24 01:31 Order name: SARS-COV-2 RT PCR (Document "Date of Onset" if Symptomatic) rn 06/23 22:36 Order name: IV Start; Complete Time: 23:10 rn Administered Medications: 06/23 23:10 Drug: GlucaGen (glucagon) 1 mg Route: IVP; Site: left antecubital; sv1 23:10 Drug: Magnesium Sulfate 1 grams Route: IVPB; Infused Over: 1 hrs; Site: left sv1 antecubital; 06/24 00:17 Follow up: Response: No adverse reaction; IV Status: Completed infusion sv1 00:18 Follow up: Response: No adverse reaction; IV Status: Completed infusion sv1 00:17 Drug: Reglan (metoCLOPramide) 10 mg Route: IVP; Site: left antecubital; sv1 00:53 Follow up: Response: No adverse reaction sv1 00:25 Drug: Glucagon 1 mg Route: IVP; Site: left antecubital; sv1 00:53 Follow up: Response: No adverse reaction sv1 03:52 Drug: Demerol (meperidine) 12.5 mg Route: IVP; Site: left antecubital; sv1 05:44 Follow up: Response: No adverse reaction; Pain is decreased sv1 Disposition Summary: 06/24/21 01:26 Hospitalization Ordered Hospitalization Status: Observation rn Condition: Stable rn Problem: new rn Symptoms: are unchanged rn Bed/Room Type: Standard rn Provider: Vinh Minor(06/24/21 01:39) rn Location: [facility] ER HOLD(06/24/21 04:15) mw Room Assignment: ERHOLD-(06/24/21 04:15) Diagnosis - Food in esophagus - Steak rn Forms: - Medication Reconciliation Form rn - SBAR form rn Signatures: Dispatcher [employer] EDMS Nay Kerr RN RN mw Nieto, Roman, MD MD rn Villicano, Steven, RN RN sv1 Savanah Grace RN RN vc1 Corrections: (The following items were deleted from the chart) 01:39 01:26 Tripp Price rn, rn 04: 01:26 Telemetry/MedSurg (observation) girish christina 04:15 01:26 girish christina
--- NOTE | 2021-06-24 01:27 | ER ---
Nurse's Notes [facility] Name: Anastasiya Proctor Age: 65 yrs Sex: Female : 1955 Arrival Date: 06/23/2021 Time: 22:16 Bed 13 Private MD: Diagnosis: Food in esophagus-Steak Presentation: 06/23 22:19 Chief complaint: Patient states: We went and ate around 6 and I ate some meat and vc1 choked on it. I've tried everything and can't get it to go down. I feel like the meat is still stuck. Coronavirus screen: Vaccine status: Patient reports receiving the 2nd dose of the covid vaccine. [employer] At this time, the client does not indicate any symptoms associated with coronavirus-19. Ebola Screen: No symptoms or risks identified at this time. Risk Assessment: Do you want to hurt yourself or someone else? Patient reports no desire to harm self or others. Onset of symptoms was June 23, 2021 at 18:30. 22:19 Method Of Arrival: Ambulatory vc1 22:19 Acuity: HALIE 3 vc1 22:26 Initial Sepsis Screen: Does the patient meet any 2 criteria? RR > 20 per min. No. vc1 Patient's initial sepsis screen is negative. Does the patient have a suspected source of infection? No. Patient's initial sepsis screen is negative. Triage Assessment: 22:21 General: Appears in no apparent distress. comfortable, Behavior is calm, cooperative, vc1 appropriate for age. Pain: Denies pain. EENT: Patient unable to swallow secretions. Reports difficulty swallowing since 1830. Neuro: No deficits noted. Cardiovascular: No deficits noted. Respiratory: Reports SOB when trying to swallow anything Respiratory effort is even, unlabored, Respiratory pattern is regular. Historical: - Allergies: 22:21 Bactrim; vc1 22:21 Sumatriptan Succinate; vc1 - Home Meds: 22:21 diltiazem HCl 180 mg Oral cpER 1 cap once daily [Active]; lisinopril 40 mg Oral tab 1 vc1 tab twice a day [Active]; Prilosec 20 mg Oral cpDR [Active]; - PMHx: 22:21 Hypertension; vc1 - Immunization history:: Adult Immunizations up to date. - Social history:: Smoking status: Patient denies any tobacco usage or history of. - Family history:: not pertinent. - Hospitalizations: : No recent hospitalization is reported. Screenin:26 Abuse screen: Denies threats or abuse. Nutritional screening: No deficits noted. vc1 Tuberculosis screening: No symptoms or risk factors identified. Fall Risk None identified. Assessment: 06/24 02:41 Reassessment: The patient is to be admitted. . sv1 15:00 Reassessment: Patient taken to surgery for upper endo. jg9 Vital Signs: 06/23 22:24 Pulse 74; Resp 22; Temp 98.6(TE); Pulse Ox 96% on R/A; Weight 81.65 kg; Height 5 ft. 2 vc1 in. (157.48 cm); Pain 0/10; 22:26 BP 161 / 75; Pulse 74; Resp 22; Temp 98.6; Pulse Ox 96% ; vc1 06/24 02:44 BP 169 / 81 LA Sitting (auto/reg); Pulse 77 MON; Resp 22 S; Pulse Ox 94% on R/A; Pain sv1 0/10; 06/23 22:24 Body Mass Index 32.92 (81.65 kg, 157.48 cm) vc1 ED Course: 06/23 22:16 Patient arrived in ED. ja2 22:21 Triage completed. vc1 22:24 Arm band placed on right wrist. vc1 22:30 Sascha Easton MD is Attending Physician. rn 22:37 Dudley Zendejas RN is Primary Nurse. sv1 06/24 01:25 Tripp Price MD is Hospitalizing Provider. rn 01:39 Vinh Minor is Hospitalizing Provider. rn 02:44 Bed in low position. Call light in reach. Side rails up X2. Adult w/ patient. sv1 02:44 No provider procedures requiring assistance completed. sv1 03:28 SARS-COV-2 RT PCR (Document "Date of Onset" if Symptomatic) Sent. sv1 15:00 Patient admitted, IV remains in place. jg9 Administered Medications: 06/23 23:10 Drug: GlucaGen (glucagon) 1 mg Route: IVP; Site: left antecubital; sv1 23:10 Drug: Magnesium Sulfate 1 grams Route: IVPB; Infused Over: 1 hrs; Site: left sv1 antecubital; 06/24 00:17 Follow up: Response: No adverse reaction; IV Status: Completed infusion sv1 00:18 Follow up: Response: No adverse reaction; IV Status: Completed infusion sv1 00:17 Drug: Reglan (metoCLOPramide) 10 mg Route: IVP; Site: left antecubital; sv1 00:53 Follow up: Response: No adverse reaction sv1 00:25 Drug: Glucagon 1 mg Route: IVP; Site: left antecubital; sv1 00:53 Follow up: Response: No adverse reaction sv1 03:52 Drug: Demerol (meperidine) 12.5 mg Route: IVP; Site: left antecubital; sv1 05:44 Follow up: Response: No adverse reaction; Pain is decreased sv1 Outcome: 01:26 Decision to Hospitalize by Provider. rn 16:04 Admitted to OR jg9 16:04 Condition: stable 16:04 Patient left the ED. jg9 Signatures: Sascha Easton MD MD rn Alexander, Jessica ja2 Gilmore, Jennifer, RN RN jg9 Dudley Zendejas RN RN sv1 Savanah Grace RN RN vc1
--- NOTE | 2021-06-24 02:39 | P.HP ---
Certification for Inpatient Patient admitted to: Inpatient With expected LOS: <2 Midnights Patient will require the following post-hospital care: None Practitioner: I am a practitioner with admitting privileges, knowledge of patient current condition, hospital course, and medical plan of care. Services: Services provided to patient in accordance with Admission requirements found in Title 42 Section 412.3 of the Code of Federal Regulations Patient History Date of Service: 06/24/21 Primary Care Provider: None Reason for admission: Food lodged in esophagus History of Present Illness: Patient is a 65-year-old female who presented to the ED tonight after eating steak around 6 PM which got lodged in her esophagus. In the ED several attempts were made to pass the food bolus with mag, glucagonx2, and reglan but were unsuccessful. patient's vitals are stable and airway is noncompromised. Plan for GI to remove food from esophagus tomorrow. Labs have not yet processed. Will admit patient and monitor closely. Allergies sumatriptan [From Imitrex] Allergy (Verified 12/27/16 21:41) Anaphylaxis sumatriptan succinate [From Imitrex] Allergy (Verified 12/27/16 21:41) Anaphylaxis Home medications list reviewed: Yes Home Medications: Diltiazem HCl [Diltiazem 24Hr Cd] 1 cap PO BEDTIME 02/05/21 Diltiazem HCl [Diltiazem 24Hr ER] 1 cap PO SEECOM 02/05/21 Furosemide 1 tab PO PRN PRN 02/05/21 lisinopriL [Lisinopril] 1 tab PO BID 02/05/21 Amox/Clavulanate [Augmentin 500-125 mg Tab] 500 mg PO BID #10 tab 02/07/21 Docusate [Colace Cap*] 100 mg PO DAILY #15 cap 02/07/21 Hydrocodone 7.5/APAP 325 [[place]run 7.5/325 mg] 1 tab PO TID PRN #10 tab 02/07/21 - Past Medical/Surgical History Diabetic: No -: Hypertension -: Anxiety -: carpal tunnel -: a-fib/svt s/p ablation -: double mastectomy -: heart ablation -: ankle surgery -: hysterectomy -: carpal tunnel -: left knee replacement -: append -: nose sx Psychosocial/ Personal History: Patient lives at home with her . - Family History Father -: Heart disease Mother -: Cancer Sister -: Cancer - Social History Smoking Status: Never smoker Alcohol use: Yes CD- Drugs: No Caffeine use: No Place of Residence: Home Review of Systems 10-point ROS is otherwise unremarkable Gastrointestinal: Nausea, Vomiting, As per HPI Physical Examination - Physical Exam General: Alert, In no apparent distress HEENT: Atraumatic, PERRLA, Mucous membr. moist/pink, EOMI, Sclerae nonicteric Neck: Supple, 2+ carotid pulse no bruit, No LAD, Without JVD or thyroid abnormality Respiratory: Clear to auscultation bilaterally, Normal air movement Cardiovascular: Regular rate/rhythm, Normal S1 S2 Gastrointestinal: Normal bowel sounds, No tenderness Musculoskeletal: No tenderness Integumentary: No rashes Neurological: Normal speech, Normal strength at 5/5 x4 extr, Normal tone, Normal affect Assessment and Plan - Problems (Diagnosis) (1) Esophageal obstruction due to food impaction Current Visit: Yes Status: Acute (2) Atrial fibrillation Onset Date: 12/29/16 Current Visit: No Status: Chronic Qualifiers: Atrial fibrillation type: unspecified Qualified Code(s): I48.91 - Unspecified atrial fibrillation (3) Hypertension Onset Date: 12/29/16 Current Visit: Yes Status: Chronic Qualifiers: Hypertension type: primary hypertension Qualified Code(s): I10 - Essential (primary) hypertension (4) Obesity (BMI 30.0-34.9) Onset Date: 12/29/16 Current Visit: Yes Status: Chronic - Plan -patient is in no acute distress. vitals have remained stable. airway is clear -NPO. GI consulted to remove food bolus tomorrow DVT PPx: lovenox Code: Full Discharge Plan: Home Plan to discharge in: 48 Hours - Advance Directives Does patient have a Living Will: No Does patient have a Durable POA for Healthcare: No - Code Status/Comfort Care Code Status Assessed: Yes (Full) Time Spent Managing Pts Care (In Minutes): 70
[2021-06-24] MEDS ORDERED: MEPERIDINE HCL 25 MG/ML SYR ONE (03:34)
[2021-06-24 03:52] LABS: Hematocrit 38.7 % (36.0-45.0); Lymphocytes % 17.2 % (15.3-44.8); MPV 7.1 fL (7.6-11.3); RBC Red Blood Cell Count 4.39 M/uL (3.86-4.86)
[2021-06-24 04:07] LABS: BUN Blood Urea Nitrogen 11 mg/dL (7-18); Bicarbonate 30 mmol/L (21-32); Glucose Level 101 mg/dL (74-106); Potassium 3.7 mmol/L (3.5-5.1); Sodium Level 139 mmol/L (136-145)
[2021-06-24] MEDS ORDERED: HYDRALAZINE HCL 20 MG/ML VIAL IV PRN (08:20)
[2021-06-24] MEDS ORDERED: NA CHLORIDE 0.9% 1,000 ML IV SCH (08:20)
[2021-06-24] MEDS ORDERED: ONDANSETRON 4 MG/2 ML VIAL IV PRN (08:20)
[2021-06-24] MEDS ORDERED: MORPHINE 2 MG/ML SYR IV PRN (08:20)
[2021-06-24] MEDS ORDERED: MORPHINE 4 MG/ML SYR ONE ×2 (08:27→12:56)
[2021-06-24] MEDS ORDERED: NA CHLORIDE 0.9% 1,000 ML ONE (08:54)
[2021-06-24] MEDS ORDERED: ENOXAPARIN 40 MG/0.4 ML SQ ONE (08:58)
[2021-06-24] MEDS ORDERED: ENOXAPARIN 40 MG/0.4 ML SQ SCH (09:00)
[2021-06-24] MEDS ORDERED: SODIUM CHLORIDE 0.9% 10ML INJ IV PRN (11:50)
[2021-06-24] MEDS ORDERED: MORPHINE 4 MG/ML SYR IV ONE (11:51)
[2021-06-24] MEDS ORDERED: PANTOPRAZOLE 40 MG INJ IVP SCH (11:51)
[2021-06-24] MEDS ORDERED: PANTOPRAZOLE 40 MG INJ ONE (12:56)
[2021-06-24] MEDS ORDERED: LIDOCAINE 1% MPF 5 ML VIAL ONE (15:54)
[2021-06-24] MEDS ORDERED: propofoL 200 MG/20 ML VIAL IV ONE ×2 (15:54→16:39)
--- NOTE | 2021-06-24 16:37 | P.PN ---
Date of Service: 06/24/21 Patient seen and examined. She appears to be in distress, complaining of pain. She is also irritable and anxious. She reports a history of esophageal stricture and food getting stuck in the esophagus occasionally. She reports a history of EGD with dilatation of stricture. Plan: IV morphine as needed for pain. We will start IV Protonix for esophageal stricture. GI consulted for EGD and foreign body removal. Supportive measures with IV hydration.
[2021-06-24 16:48] VITALS: BP 169/67; TEMP 98.5; O2SAT 98
--- NOTE | 2021-06-24 16:56 | ENDO RPT ---
[address], [address] EGD PROCEDURE REPORT EXAM DATE: 06/24/2021 PATIENT NAME: Anastasiya Proctor MR#: [id number] BIRTHDATE: 1955 ATTENDING: Casimiro Boyd Dr STATUS: inpatient - 7 POOL FINISHER: Jennifer Rueda RN and Cristina Holcomb CST INDICATIONS: The patient is a 65 yr old Female here for an EGD due to dysphagia and foreign body - esophageal meat impaction PROCEDURE PERFORMED: EGD with foreign body removal MEDICATIONS: Per Anesthesia. TOPICAL ANESTHETIC: none CONSENT: The patient understands the risks and benefits of the procedure and understands that these risks include, but are not limited to: sedation, allergic reaction, infection, perforation and/or bleeding. Alternative means of evaluation and treatment include, among others: physical exam, x-rays, and/or surgical intervention. The patient elects to proceed with this endoscopic procedure. DESCRIPTION OF PROCEDURE: During intra-op preparation period all mechanical medical equipment was checked for proper function. Hand hygiene and appropriate measures for infection prevention was taken. Procedure, possible complications, and alternatives including but not limited to the possibility of bleeding, perforation, tear, infection, sepsis, need for surgery, need for blood transfusion, and anesthesia related complications were explained to the patient. After the risks, benefits and alternatives of the procedure were thoroughly explained, Informed consent was verified, confirmed and timeout was successfully executed by the treatment team. The patient was placed in the left lateral position. The patient was anesthetized with topical anesthesia. Through the anesthetized oropharyngeal area, the scope was passed without any difficulty. The Pentax [id number] ([id number]) endoscope was introduced through the mouth and advanced to the second portion of the duodenum. Retroflexed views revealed a small hiatal hernia. The gastroscope was then slowly withdrawn and removed. Large 4 cm long meat bolus (steak from [employer]) was found in the mid esophagus, s/p removal via snare after placement of clear plastic overtube into upper esophagus. Inflammation was found in the mid esophagus. A stricture was found in the mid esophagus. A small hiatal hernia was found. Mild Atrophic gastritis was found in the antrum. ADVERSE EVENTS: There were no complications. IMPRESSIONS: 1. Large 4 cm long meat bolus (steak from [employer]) in the mid esophagus, s/p removal via snare after placement of clear plastic overtube into upper esophagus 2. Inflammation in the mid esophagus 3. Stricture in the mid esophagus 4. Small hiatal hernia 5. Mild atrophic gastritis in the antrum RECOMMENDATIONS: 1. await biopsy results 2. acid suppression therapy 3. chopped meats / all solid foods or pureed REPEAT EXAM: Return in 1 week(s) for EGD. Casimiro [address] Dr eSigned: Casimiro Boyd Dr 06/24/2021 4:56 PM cc: Casimiro Velazquez CPT CODES: ICD9 CODES: PATIENT NAME: Anastasiya Proctor MR#: [id number]
--- NOTE | 2021-06-24 18:26 | P.DS ---
Admission Date: 06/24/21 Discharge Date: 06/24/21 Primary Care Provider: None Disposition: ROUTINE DISCHARGE Discharge Condition: GOOD Reason for Admission: Food lodged in esophagus Consultations: Gastroenterology-Dr. Boyd - Problems (1) History of esophageal stricture Status: Acute (2) Esophageal obstruction due to food impaction Status: Acute (3) Hypertension Onset Date: 12/29/16 Status: Chronic Qualifiers: Hypertension type: primary hypertension Qualified Code(s): I10 - Essential (primary) hypertension (4) Obesity (BMI 30.0-34.9) Onset Date: 12/29/16 Status: Chronic Brief History of Present Illness: Patient is a 65-year-old female who presented to the ED after eating steak which got lodged in her esophagus. In the ED several attempts were made to pass the food bolus with mag, glucagonx2, and reglan but were unsuccessful. patient's vitals were stable and airway is noncompromised. GI consulted for EGD to be done in a.m to retrieve the steak. Patient admitted for further management. Hospital Course: Patient admitted to the medical floor. She was seen by financial institution branch manager-Dr. Boyd who performed EGD and successfully retrieved the piece of meat. Patient symptoms resolved after the procedure and deemed stable for discharge. Patient is already on omeprazole for esophagitis and esophageal stricture. No changes made in her medications. Vital Signs/Physical Exam: Temp Pulse Resp BP Pulse Ox 98.5 F 87 16 169/67 H 93 06/24/21 17:00 06/24/21 17:00 06/24/21 17:00 06/24/21 17:00 06/24/21 12:00 General: Alert, In no apparent distress, Oriented x3 HEENT: Mucous membr. moist/pink Neck: Supple, JVD not distended Respiratory: Clear to auscultation bilaterally, Normal air movement Cardiovascular: No edema, Regular rate/rhythm, Normal S1 S2 Gastrointestinal: Soft and benign, Non-distended Musculoskeletal: No swelling Integumentary: No rashes Neurological: Normal speech, Normal strength at 5/5 x4 extr Laboratory Data at Discharge: WBC 6.00 K/uL (4.3-10.9) 06/24/21 03:40 Hgb 13.3 g/dL (12.0-15.0) 06/24/21 03:40 Hct 38.7 % (36.0-45.0) 06/24/21 03:40 Plt Count 206 K/uL (152-406) 06/24/21 03:40 Sodium 139 mmol/L (136-145) 06/24/21 03:40 Potassium 3.7 mmol/L (3.5-5.1) 06/24/21 03:40 BUN 11 mg/dL (7-18) 06/24/21 03:40 Creatinine 0.50 mg/dL (0.55-1.3) L 06/24/21 03:40 Glucose 101 mg/dL (74-106) 06/24/21 03:40 Home Medications: Diltiazem HCl [Diltiazem 24Hr Cd] 1.5 cap PO BEDTIME 02/05/21 Diltiazem HCl [Diltiazem 24Hr ER] 1 cap PO SEECOM 02/05/21 Furosemide 1 tab PO PRN PRN 02/05/21 lisinopriL [Lisinopril] 2 tab PO BID 02/05/21 Amox/Clavulanate [Augmentin 500-125 mg Tab*] 500 mg PO BID #10 tab 02/07/21 Docusate [Colace Cap*] 100 mg PO DAILY #15 cap 02/07/21 Hydrocodone 7.5/APAP 325 [[place] 7.5/325 mg*] 1 tab PO TID PRN #10 tab 02/07/21 Omeprazole Magnesium [Prilosec Otc] 1 mg PO BID 06/24/21 Diet: AHA Activity: Ad lana Followup: Casimiro Velazquez MD [Primary Care Provider] - 1-2 Weeks Time spent managing pt's care (in minutes): 33
--- NOTE | 2021-06-24 22:17 | CON ---
Date of Consultation: 06/24/2021 Reason For Consultation: Dysphagia after esophageal meat bolus impaction. History Of Present Illness: The patient is a 65-year-old white female with history of hypertension a nd hyperlipidemia, who presented to hospital due to dysphagia to solids, liquids, and saliva after ea ting steak at [facility] [place] yesterday at approximately 6:00 p.m. The patient is also having chest pain at the suprasternal notch, 4/10 sensation. She notes a history of esophageal varices, taken car e by full stack software engineer in [place], [place] as well. Past Medical History: Significant for hypertension; hyperlipidemia; esophageal varices, taken care b y full stack software engineer in [place], [place]; atrial fibrillation, status post ablation with normal sinus rhythm now; left inguinal hernia repair; appendectomy; bilateral mastectomies for breast cancer; left tibia and fibular fractures; two left knee replacements; carpal tunnel syndrome surgery; and esophageal str icture, status post prior dilatations she reports. Medications: Include diltiazem, furosemide, lisinopril, Augmentin, Colace, and [place]. Allergies: TO IMITREX. Social History: She is , 3 children. No tobacco. No alcohol. Family History: Father of myocardial infarction. Mother of breast cancer. Review of Systems: She has dysphagia to solids, liquids, and saliva. She has chest pain at suprasternal notch. She den ies any fevers, chills, night sweats, seizure, or syncope. No shortness of breath. No lower extremi ty edema, melena, hematochezia, hematemesis, coffee-grounds emesis, hematuria, dysuria, polyuria, leatha ydipsia. She does have history of what appears of some mood disorders. Others as per chart review. Physical Examination: Vital Signs: The patient is 5 feet, 280 pounds, BMI of 32 kg/m2. Temperature 98.6, which is afebril e; pulse 87; respirations 16; blood pressure 169/67; O2 saturation 93% to 95% on room air. General: She is an obese female, lying in bed, not in distress. She has pain in her chest and the u pper chest sternal notch and spitting up all her saliva and spitting into a napkin or cup. HEENT: Normocephalic, atraumatic. Anicteric. Pupils equal, round, and reactive to light. Extraocu lar movements are intact. Oropharynx is clear. Neck: Supple. No masses. Respirations: Clear to auscultation bilaterally. Cardiac: Regular rate and rhythm. Gastrointestinal: Positive bowel sounds. Soft, nontender, and nondistended. No hepatosplenomegaly. No peritoneal or Ivey signs. No rebound, no guarding. Mildly obese. Extremities: No clubbing, cyanosis, or edema. 2+ pulses. Neuro: Alert and oriented x3. Grossly nonfocal. 5/5 motor. Sensation intact to light touch. Data: White count 6.0, hemoglobin 13.3, hematocrit 38.7, MCV of 88, platelet count 206, polys of 73% , lymphocytes 17%, monocytes 8%, eosinophils 2%. Sodium 139, potassium 3.7, chloride 107, bicarb 30, BUN 11, creatinine of 0.5, glucose 101, calcium 8.6. COVID-19 testing negative. Impression: 1.Dysphagia with esophageal meat bolus impaction after eating steak at [facility] [place] at 6:00 p.m. yesterday in [place], [place] with severe dysphagia to solids, liquids, and saliva. Now, she has 4/10 chest pain at suprasternal notch area. 2.History of hypertension, hyperlipidemia, esophageal stricture status post prior dilatations, esoph ageal varices status post therapy in the past, left inguinal hernia repair, appendectomy, bilateral m astectomies for breast cancer, left tibia-fibula fractures, two left total knee replacements, atrial fibrillation status post ablation therapy successful, normal sinus rhythm, and carpal tunnel syndrome . Recommendation: 1.Proceed with EGD. 2.IV fluids. 3.Keep the patient n.p.o. EVER/MODL Voice ID: [id number] Report ID: [id number]
== END 2021-06-24 17:13 | disposition home or self-care (01) | DRG 394 ==
LOC: ER 22:12 → ERHOLD 06-24 02:28 → 2ND 06-24 16:03
PROVIDERS: ADMIT Internal Medicine; ATTEND Internal Medicine
PROC: 0DC18ZZ Extirpation of Matter from Upper Esophagus, Via Natural or Artificial Opening Endoscopic (ICD-10-PCS; principal; 2021-06-24 15:30)
DX: T18.128A Food in esophagus causing other injury, initial encounter (principal); I48.20 Chronic atrial fibrillation, unspecified; X58.XXXA Exposure to other specified factors, initial encounter; I10 Essential (primary) hypertension; E66.9 Obesity, unspecified; Z68.32 Body mass index [BMI] 32.0-32.9, adult; K22.2 Esophageal obstruction; R13.10 Dysphagia, unspecified; K29.40 Chronic atrophic gastritis without bleeding; K44.9 Diaphragmatic hernia without obstruction or gangrene; Z20.822 Contact with and (suspected) exposure to COVID-19
CPT/HCPCS: 36415; 80048; 85025; 96365; 96375; 99285; C9113; J1610; J1650; J2175; J2704; J2765; J3475; J7030; U0003

== ENCOUNTER 2022-12-26 18:05 | Emergency (ER) | payer OTHER ==
--- OUTSIDE RECORDS SUMMARY | 2022-12-26 18:11 | XMS REPORT | Continuity of Care Document ---
:1955 Author Organization [facility] t Address [address] [place] [address] Care Team Providers Name Role Phone Caroline Casimiro Roblero Primary Care Physician BERTA RAMESH Attending Clinician Unavailable LORETA CHAVES Attending Clinician Unavailable BRADFORD JACINTO Attending Clinician Unavailable Bradford Jacinto MD Attending Clinician [phone] Dolly Veliz Attending Clinician Radiology Attending Clinician Unavailable RADIOLOGY Attending Clinician Unavailable Doctor Unassigned, Moville Attending Clinician Unavailable Adria Torrez MD Attending Clinician DAWN BROWN Attending Clinician Unavailable Foster De Leon MD Attending Clinician KULDEEP HURLEY Attending Clinician Unavailable Ge Valentine MD Attending Clinician [phone] Thu Hoover MD Attending Clinician [phone] Kuldeep Meehan Attending Clinician [phone] Pcp-Lab Attending Clinician Unavailable VINH DEVI Attending Clinician Unavailable Carmella HUTCHISON, Matt SortoHRegis Attending Clinician Lissett Bingham MD Attending Clinician LISSETT BINGHAM Attending Clinician Unavailable Lakia Shanks MD Attending Clinician LAKIA SHANKS Attending Clinician Unavailable Berta Ramesh MD Attending Clinician ISABEL HERMAN Attending Clinician Unavailable BAYLEE SMITH JR Attending Clinician Unavailable Draw, Clc-Bls Lab Attending Clinician Unavailable Only, Adc Test Attending Clinician Unavailable Loreta Chaves MD Attending Clinician Baylee Puga MD Attending Clinician MATT WEIR K.HRegis Attending Clinician Unavailable Ishmael HUTCHISON, Lorna Attending Clinician BERTA RAMESH Admitting Clinician Unavailable LORETA CHAVES Admitting Clinician Unavailable THU HOOVER Admitting Clinician Unavailable Thu Hoover MD Admitting Clinician [phone] BRADFORD JACINTO Admitting Clinician Unavailable Berta Ramesh MD Admitting Clinician Loreta Chaves MD Admitting Clinician Payers Payer Name Policy Type Policy Number Effective Date Expiration Date valentin [facility] [employer] [id number] 2020 2024 00:00:00 00:00:00 [facility] [id number] 2017 CHOICE 00:00:00 [facility] [id number] 2021 MEDICARE GOLD PPO 00:00:00 CSNP Problems Condition Condition Condition Status Onset Resolution Last Treating Co mments Source Name Details Category Date Date Treatment Clinician Date Persistent Persistent Disease Active Overview : [facility] atrial atrial 5-18 Formattin ity of fibrillati fibrillati 00:00: g of this [place] on on 00 note Medical might be Branch different from the original. Added automatic ally from request for surgery [id number] Obesity Obesity Disease Active Univers (BMI (BMI 1-17 ity of 30-39.9) 30-39.9) 00:00: [place] 00 Medical Branch Screening Screening Disease Active 2019-04 Uni vers for colon for colon 2-15 ity of cancer cancer 00:00: [place] 00 Medical Branch Rectocele Rectocele Disease Active 2019-04 Uni vers 2-15 ity of 00:00: [place] [facility] Enterocele Enterocele Disease Active 2019-04 U nivers 2-15 ity of 00:00: [place] [facility] Status Status Disease Active Univers post post 7-23 ity of circumfere [place]fere [place] 00 Medical ablation ablation Branch of of pulmonary pulmonary vein vein 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 Added automatic ally from request for surgery [id number] Pelvic Pelvic Disease Active Overview: [facility] [place] [facility] organ organ 8-01 Formattin ity of prolapse prolapse 00:00: g of this [place] as quantifica quantifica 00 note Me dical tion stage tion stage might be Branch 2 2 different cystocele cystocele from the original. Added automatic ally from request for surgery [id number] Essential Essential Disease Active Uni vers hypertensi hypertensi 7-08 it y of on on 00:00: [place] 00 Medical Branch History of History of Disease Active Overview : [facility]i atrial atrial Formattin st fibrillati fibrillati g of this Hospita on on note l might be different from the original. stopped taking xarelto 08/2017 and has not restarted due to leg procedure s. Allergies, Adverse Reactions, Alerts Allergy Allergy Status Severity Reaction(s) Onset Inactive Treating Comm ents Source Name Type Date Date Clinician Sumatrip Propensi Active Other (See 2017-04 Severe Me thodi graves ty to Comments) 2- palpitati st Succinat adverse 00:00: on Hospita e reaction 00 l s to drug Sulfamet Propensi Active Rash Method i hoxazole ty to 5-30 st -Trimeth adverse 00:00: Hospita oprim reaction 00 l s to drug SULFAMET DRUG Active Hives 2016-04 Univers HOXAZOLE INGREDI 0-26 ity of 00:00: [place] 00 Medical Branch Sulfamet Propensi Active Hives 2016-04 Univer s hoxazole ty to 0-26 ity of adverse 00:00: [place] reaction 00 Medical s Branch SUMATRIP DRUG Active Palpitations Un radha GRAVES INGREDI 7-07 ity of SUCCINAT 00:00: [place] E 00 Medical Branch Sumatrip Propensi Active Palpitations Univers graves ty to 7-07 ity of Succinat adverse 00:00: [place] e reaction 00 Medical s Branch Social History Social Habit Start Date Stop Date Quantity Comments Source History of tobacco Current smoker Un iversity of use [facility] Sexual [facility] Exposure to 2022-08-26 2022-09-05 Not sure University of SARS-CoV-2 (event) 00:00:00 09:02:00 [facility] History of Social 2022-07-04 2022-07-[address] function 00:00:00 00:00:00 Hospital Alcohol intake 2021-04-27 2021-04-27 Ex-drinker [facility] 00:00:00 00:00:00 (finding) Hospital Alcohol Comment 2018-04-15 2018-04-[address] 00:00:00 00:00:00 Hospital Cigarette 2018-04-01 2018-04-01 [facility] pack-years 00:00:00 00:00:00 Hospital Tobacco use and 2018-04-01 2018-04-01 Smokeless tobacco Me thodist exposure 00:00:00 00:00:00 non-user Hospital Cigarettes smoked 2018-04-01 2018-04-[address] current (pack per 00:00:00 00:00:00 Hospita l day) - Reported Sex Ass[birth year] At [birth year] [facility] 00:00:00 00:00:00 Hospital Smoking Status Start Date Stop Date Source Ex-smoker 2022-11-27 00:00:00 2022-11-27 00:00:00 [facility] Medications Ordered Filled Start Stop Current Ordering Indication Dosage Frequency Signature Comments Components Source Medication Medication Date Date Medication? Clinician (SIG) Name Name apixaban 2021-04 Yes 5144 5mg Take 1 Univers (ELIQUIS) 5 2-05 tablet by ity of mg tablet [place] the Medical morning Branch and 1 tablet in the evening. Indication s: prevention of thromboemb olism in paroxysmal atrial fibrillati on apixaban 2021-04 Yes 5144 5mg Take 1 Univers (ELIQUIS) 5 2-05 tablet by ity of mg tablet 00:00: [place] 00 the Medical morning Branch and 1 tablet in the evening. Indication s: prevention of thromboemb olism in paroxysmal atrial fibrillati on apixaban 2021-04 Yes 5144 5mg Take 1 [facility] (ELIQUIS) 5 2-05 tablet by ity of mg tablet 00:00: [place] the Medical morning Branch and 1 tablet in the evening. Indication s: prevention of thromboemb olism in paroxysmal atrial fibrillati on apixaban 2021-04 Yes 5144 5mg Take 1 [facility] (ELIQUIS) 5 2-05 tablet by ity of mg tablet 00:00: [place] 00 the Medical morning Branch and 1 tablet in the evening. Indication s: prevention of thromboemb olism in paroxysmal atrial fibrillati on apixaban 2021-04 Yes 5144 5mg Take 1 Univers (ELIQUIS) 5 2-05 tablet by ity of mg tablet 00:00: [place] 00 the Medical morning Branch and 1 tablet in the evening. Indication s: prevention of thromboemb olism in paroxysmal atrial fibrillati on apixaban 2021-04 Yes 5144 5mg Take 1 Univers (ELIQUIS) 5 2-05 tablet by ity of mg tablet 00:00: [place] 00 the Medical morning Branch and 1 tablet in the evening. Indication s: prevention of thromboemb olism in paroxysmal atrial fibrillati on apixaban 2021-04 Yes 5144 5mg Take 1 Univers (ELIQUIS) 5 2-05 tablet by ity of mg tablet 00:00: [place] 00 the Medical morning Branch and 1 tablet in the evening. Indication s: prevention of thromboemb olism in paroxysmal atrial fibrillati on apixaban 2021-04 Yes 5144 5mg Take 1 Univers (ELIQUIS) 5 2-05 tablet by ity of mg tablet 00:00: [place] 00 the Medical morning Branch and 1 tablet in the evening. Indication s: prevention of thromboemb olism in paroxysmal atrial fibrillati on apixaban 2021-04 Yes 5144 5mg Take 1 Univers (ELIQUIS) 5 2-05 tablet by ity of mg tablet 00:00: [place] 00 the Medical morning Branch and 1 tablet in the evening. Indication s: prevention of thromboemb olism in paroxysmal atrial fibrillati on apixaban 2021-04 Yes 5144 5mg Take 1 [facility] (ELIQUIS) 5 2-05 tablet by ity of mg tablet 00:00: [place] 00 the Medical morning Branch and 1 tablet in the evening. Indication s: prevention of thromboemb olism in paroxysmal atrial fibrillati on apixaban 2021-04 Yes 5144 5mg Take 1 Univers (ELIQUIS) 5 2-05 tablet by ity of mg tablet 00:00: [place] 00 the Medical morning Branch and 1 tablet in the evening. Indication s: prevention of thromboemb olism in paroxysmal atrial fibrillati on apixaban 2021-04 Yes 5144 5mg Take 1 Univers (ELIQUIS) 5 2-05 tablet by ity of mg tablet 00:00: [place] 00 the Medical morning Branch and 1 tablet in the evening. Indication s: prevention of thromboemb olism in paroxysmal atrial fibrillati on sucralfate Yes [id number] 1g Take 1 Univers 1 gram 7-08 tablet by ity of tablet 00:00: mouth [place] 00 before Medical meals and Branch at bedtime. sucralfate Yes [id number] 1g Take 1 Univers 1 gram 7-08 tablet by ity of tablet 00:00: mouth [place] 00 before Medical meals and Branch at bedtime. sucralfate Yes [id number] 1g Take 1 Univers 1 gram 7-08 tablet by ity of tablet 00:00: mouth [place] 00 before Medical meals and Branch at bedtime. sucralfate 2022-0 Yes [id number] 1g Take 1 Univers 1 gram 7-08 tablet by ity of tablet 00:00: mouth [place] 00 before Medical meals and Branch at bedtime. sucralfate 2022-0 Yes [id number] 1g Take 1 Univers 1 gram 7-08 tablet by ity of tablet 00:00: mouth [place] 00 before Medical meals and Branch at bedtime. sucralfate 2022-0 Yes [id number] 1g Take 1 Univers 1 gram 7-08 tablet by ity of tablet 00:00: mouth [place] 00 before Medical meals and Branch at bedtime. sucralfate 2022-0 Yes [id number] 1g Take 1 Univers 1 gram 7-08 tablet by ity of tablet 00:00: mouth [place] 00 before Medical meals and Branch at bedtime. sucralfate 2022-0 Yes [id number] 1g Take 1 Univers 1 gram 7-08 tablet by ity of tablet 00:00: mouth [place] 00 before Medical meals and Branch at bedtime. sucralfate 2022-0 Yes [id number] 1g Take 1 Univers 1 gram 7-08 tablet by ity of tablet 00:00: mouth [place] 00 before Medical meals and Branch at bedtime. sucralfate 2022-0 Yes [id number] 1g Take 1 Univers 1 gram 7-08 tablet by ity of tablet 00:00: mouth [place] 00 before Medical meals and Branch at bedtime. sucralfate 2022-0 Yes [id number] 1g Take 1 Univers 1 gram 7-08 tablet by ity of tablet 00:00: mouth [place] 00 before Medical meals and Branch at bedtime. sucralfate 2022-0 Yes [id number] 1g Take 1 Univers 1 gram 7-08 tablet by ity of tablet 00:00: mouth [place] 00 before Medical meals and Branch at bedtime. sucralfate 2022-0 Yes [id number] 1g Take 1 Univers 1 gram 7-08 tablet by ity of tablet 00:00: mouth [place] 00 before Medical meals and Branch at bedtime. sucralfate 2022-0 Yes [id number] 1g Take 1 Univers 1 gram 7-08 tablet by ity of tablet 00:00: mouth [place] 00 before Medical meals and Branch at bedtime. sucralfate 2021-0 Yes [id number] 1g Take 1 Univers 1 gram 7-08 tablet by ity of tablet 00:00: mouth [place] 00 before Medical meals and Branch at bedtime. sucralfate 2021-0 Yes [id number] 1g Take 1 Univers 1 gram 7-08 tablet by ity of tablet 00:00: mouth [place] 00 before Medical meals and Branch at bedtime. lactulose 0 Yes lactulose Uni vers 10 gram/15 6-12 10 gram/15 ity of mL solution 03:45: mL oral [place] as 00 solution Medical Branch lactulose 0 Yes lactulose Uni vers 10 gram/15 6-12 10 gram/15 ity of mL solution 03:45: mL oral [place] 00 solution Medical Branch lactulose Yes lactulose Uni vers 10 gram/15 6-12 10 gram/15 ity of mL solution 03:45: mL oral [place] as 00 solution Medical Branch lactulose 0 Yes lactulose Uni vers 10 gram/15 6-12 10 gram/15 ity of mL solution 03:45: mL oral [place] 00 solution Medical Branch lactulose 0 Yes lactulose Uni vers 10 gram/15 6-12 10 gram/15 ity of mL solution 03:45: mL oral [place] 00 solution Medical Branch lactulose 0 Yes lactulose Uni vers 10 gram/15 6-12 10 gram/15 ity of mL solution 03:45: mL oral [place] 00 solution Medical Branch lactulose 0 Yes lactulose Uni vers 10 gram/15 6-12 10 gram/15 ity of mL solution 03:45: mL oral [place] 00 solution Medical Branch lactulose 0 Yes lactulose Uni vers 10 gram/15 6-12 10 gram/15 ity of mL solution 03:45: mL oral [place] 00 solution Medical Branch lactulose 0 Yes lactulose Uni vers 10 gram/15 6-12 10 gram/15 ity of mL solution 03:45: mL oral [place] 00 solution Medical Branch lactulose 0 Yes lactulose Uni vers 10 gram/15 6-12 10 gram/15 ity of mL solution 03:45: mL oral [place] as 00 solution Medical Branch lactulose 0 Yes lactulose Uni vers 10 gram/15 6-12 10 gram/15 ity of mL solution 03:45: mL oral [place] as 00 solution Medical Branch lactulose Yes lactulose Uni vers 10 gram/15 6-12 10 gram/15 ity of mL solution 03:45: mL oral [place] as 00 solution Medical Branch lactulose Yes lactulose Uni vers 10 gram/15 6-12 10 gram/15 ity of mL solution 03:45: mL oral [place] as 00 solution Medical Branch lactulose Yes lactulose Uni vers 10 gram/15 6-12 10 gram/15 ity of mL solution 03:45: mL oral [place] as 00 solution Medical Branch lactulose Yes lactulose Uni vers 10 gram/15 6-12 10 gram/15 ity of mL solution 03:45: mL oral [place] as 00 solution Medical Branch lactulose Yes lactulose Uni vers 10 gram/15 6-12 10 gram/15 ity of mL solution 03:45: mL oral [place] as 00 solution Medical Branch lidocaine Yes 15mL Take 15 mL Un radha 2% viscous 6-10 by mouth ity o f (LIDOCAINE 16:21: every 4 [place] VISCOUS) 2 57 (four) Medical % solution hours as Branc h needed. diltiazem 2021-0 Yes 240mg Take 240 Uni vers XR 240 mg 6-10 mg by ity of 24 hr 16:21: mouth [place] capsule 57 daily. Medical Branch lidocaine Yes 15mL Take 15 mL Un radha 2% viscous 6-10 by mouth ity o f (LIDOCAINE 16:21: every 4 [place] VISCOUS) 2 57 (four) Medical % solution hours as Branc h needed. diltiazem 2021-0 Yes 240mg Take 240 Uni vers XR 240 mg 6-10 mg by ity of 24 hr 16:21: mouth [place] capsule 57 daily. Medical Branch lidocaine 0 Yes 15mL Take 15 mL Un radha 2% viscous 6-10 by mouth ity o f (LIDOCAINE 16:21: every 4 [place] VISCOUS) 2 57 (four) Medical % solution hours as Branc h needed. diltiazem 2-0 Yes 240mg Take 240 Uni vers XR 240 mg 6-10 mg by ity of 24 hr 16:21: mouth [place] capsule 57 daily. Medical Branch lidocaine 2022-0 Yes 15mL Take 15 mL Un radha 2% viscous 6-10 by mouth ity o f (LIDOCAINE 16:21: every 4 [place] VISCOUS) 2 57 (four) Medical % solution hours as Branc h needed. diltiazem 2022-0 Yes 240mg Take 240 Uni vers XR 240 mg 6-10 mg by ity of 24 hr 16:21: mouth [place] capsule 57 daily. Medical Branch lidocaine 2022-0 Yes 15mL Take 15 mL Un radha 2% viscous 6-10 by mouth ity o f (LIDOCAINE 16:21: every 4 [place] VISCOUS) 2 57 (four) Medical % solution hours as Branc h needed. diltiazem 2022-0 Yes 240mg Take 240 Uni vers XR 240 mg 6-10 mg by ity of 24 hr 16:21: mouth [place] capsule 57 daily. Medical Branch lidocaine 2-0 Yes 15mL Take 15 mL Un radha 2% viscous 6-10 by mouth ity o f (LIDOCAINE 16:21: every 4 [place] VISCOUS) 2 57 (four) Medical % solution hours as Branc h needed. diltiazem 2022-0 Yes 240mg Take 240 Uni vers XR 240 mg 6-10 mg by ity of 24 hr 16:21: mouth [place] capsule 57 daily. Medical Branch lidocaine 2-0 Yes 15mL Take 15 mL Un radha 2% viscous 6-10 by mouth ity o f (LIDOCAINE 16:21: every 4 [place] VISCOUS) 2 57 (four) Medical % solution hours as Branc h needed. diltiazem 2022-0 Yes 240mg Take 240 Uni vers XR 240 mg 6-10 mg by ity of 24 hr 16:21: mouth [place] capsule 57 daily. Medical Branch lidocaine 2022-0 Yes 15mL Take 15 mL Un radha 2% viscous 6-10 by mouth ity o f (LIDOCAINE 16:21: every 4 [place] VISCOUS) 2 57 (four) Medical % solution hours as Branc h needed. diltiazem 2022-0 Yes 240mg Take 240 Uni vers XR 240 mg 6-10 mg by ity of 24 hr 16:21: mouth [place] capsule 57 daily. Medical Branch lidocaine 2022-0 Yes 15mL Take 15 mL Un radha 2% viscous 6-10 by mouth ity o f (LIDOCAINE 16:21: every 4 [place] VISCOUS) 2 57 (four) Medical % solution hours as Branc h needed. diltiazem 2022-0 Yes 240mg Take 240 Uni vers XR 240 mg 6-10 mg by ity of 24 hr 16:21: mouth [place] capsule 57 daily. Medical Branch lidocaine 2022-0 Yes 15mL Take 15 mL Un radha 2% viscous 6-10 by mouth ity o f (LIDOCAINE 16:21: every 4 [place] VISCOUS) 2 57 (four) Medical % solution hours as Branc h needed. diltiazem 2022-0 Yes 240mg Take 240 Uni vers XR 240 mg 6-10 mg by ity of 24 hr 16:21: mouth [place] capsule 57 daily. Medical Branch lidocaine 2022-0 Yes 15mL Take 15 mL Un radha 2% viscous 6-10 by mouth ity o f (LIDOCAINE 16:21: every 4 [place] VISCOUS) 2 57 (four) Medical % solution hours as Branc h needed. diltiazem 2022-0 Yes 240mg Take 240 Uni vers XR 240 mg 6-10 mg by ity of 24 hr 16:21: mouth [place] capsule 57 daily. Medical Branch lidocaine 2022-0 Yes 15mL Take 15 mL Un radha 2% viscous 6-10 by mouth ity o f (LIDOCAINE 16:21: every 4 [place] VISCOUS) 2 57 (four) Medical % solution hours as Branc h needed. diltiazem 2022-0 Yes 240mg Take 240 Uni vers XR 240 mg 6-10 mg by ity of 24 hr 16:21: mouth [place] capsule 57 daily. Medical Branch lidocaine 2022-0 Yes 15mL Take 15 mL Un radha 2% viscous 6-10 by mouth ity o f (LIDOCAINE 16:21: every 4 [place] VISCOUS) 2 57 (four) Medical % solution hours as Branc h needed. diltiazem 2022-0 Yes 240mg Take 240 Uni vers XR 240 mg 6-10 mg by ity of 24 hr 16:21: mouth [place] capsule 57 daily. Medical Branch lidocaine 2022-0 Yes 15mL Take 15 mL Un radha 2% viscous 6-10 by mouth ity o f (LIDOCAINE 16:21: every 4 [place] VISCOUS) 2 57 (four) Medical % solution hours as Branc h needed. diltiazem 2022-0 Yes 240mg Take 240 Uni vers XR 240 mg 6-10 mg by ity of 24 hr 16:21: mouth [place] capsule 57 daily. Medical Branch lidocaine 0 Yes 15mL Take 15 mL Un radha 2% viscous 6-10 by mouth ity o f (LIDOCAINE 16:21: every 4 [place] VISCOUS) 2 57 (four) Medical % solution hours as Branc h needed. diltiazem 0 Yes 240mg Take 240 Uni vers XR 240 mg 6-10 mg by ity of 24 hr 16:21: mouth [place] capsule 57 daily. Medical Branch lidocaine 0 Yes 15mL Take 15 mL Un radha 2% viscous 6-10 by mouth ity o f (LIDOCAINE 16:21: every 4 [place] VISCOUS) 2 57 (four) Medical % solution hours as Branc h needed. diltiazem Yes 240mg Take 240 Uni vers XR 240 mg 6-10 mg by ity of 24 hr 16:21: mouth [place] capsule 57 daily. Medical Branch pantoprazol Yes [id number] 40mg Take 1 Univers e 40 mg EC 6-10 tablet by ity of tablet 00:00: mouth [place] 00 daily. Medical Branch pantoprazol Yes [id number] 40mg Take 1 Univers e 40 mg EC 6-10 tablet by ity of tablet 00:00: mouth [place] 00 daily. Medical Branch pantoprazol Yes [id number] 40mg Take 1 Univers e 40 mg EC 6-10 tablet by ity of tablet 00:00: mouth [place] 00 daily. Medical Branch pantoprazol Yes [id number] 40mg Take 1 Univers e 40 mg EC 6-10 tablet by ity of tablet 00:00: mouth [place] 00 daily. Medical Branch pantoprazol 0 Yes [id number] 40mg Take 1 Univers e 40 mg EC 6-10 tablet by ity of tablet 00:00: mouth [place] 00 daily. Medical Branch pantoprazol Yes [id number] 40mg Take 1 Univers e 40 mg EC 6-10 tablet by ity of tablet 00:00: mouth [place] 00 daily. Medical Branch pantoprazol Yes [id number] 40mg Take 1 Univers e 40 mg EC 6-10 tablet by ity of tablet 00:00: mouth [place] 00 daily. Medical Branch pantoprazol Yes [id number] 40mg Take 1 Univers e 40 mg EC 6-10 tablet by ity of tablet 00:00: mouth [place] 00 daily. Medical Branch pantoprazol Yes [id number] 40mg Take 1 Univers e 40 mg EC 6-10 tablet by ity of tablet 00:00: mouth [place] 00 daily. Medical Branch pantoprazol Yes [id number] 40mg Take 1 Univers e 40 mg EC 6-10 tablet by ity of tablet 00:00: mouth [place] 00 daily. Medical Branch pantoprazol Yes [id number] 40mg Take 1 Univers e 40 mg EC 6-10 tablet by ity of tablet 00:00: mouth [place] 00 daily. Medical Branch pantoprazol Yes [id number] 40mg Take 1 Univers e 40 mg EC 6-10 tablet by ity of tablet 00:00: mouth [place] 00 daily. Medical Branch pantoprazol Yes [id number] 40mg Take 1 Univers e 40 mg EC 6-10 tablet by ity of tablet 00:00: mouth [place] 00 daily. Medical Branch pantoprazol Yes [id number] 40mg Take 1 Univers e 40 mg EC 6-10 tablet by ity of tablet 00:00: mouth [place] 00 daily. Medical Branch pantoprazol Yes [id number] 40mg Take 1 Univers e 40 mg EC 6-10 tablet by ity of tablet 00:00: mouth [place] 00 daily. Medical Branch pantoprazol Yes [id number] 40mg Take 1 Univers e 40 mg EC 6-10 tablet by ity of tablet 00:00: mouth [place] 00 daily. Medical Branch sucralfate 2021- No [id number] 1g Take 1 Univers 1 gram 6-09 07-08 tablet by ity of tablet 00:00: 00:00 mouth [place] 00 :00 before Medical meals and Branch at bedtime. apixaban Yes [id number] 5mg Take 1 Univers (ELIQUIS) 5 5-12 tablet by ity of mg tablet 00:00: mouth 2 [place] 00 (two) Medical times Branch daily. Indication s: prevention of thromboemb olism in paroxysmal atrial fibrillati on apixaban Yes 5144 5mg Take 1 Univers (ELIQUIS) 5 5-12 tablet by ity of mg tablet 00:00: mouth 2 [place] 00 (two) Medical times Branch daily. Indication s: prevention of thromboemb olism in paroxysmal atrial fibrillati on apixaban Yes 5144 5mg Take 1 Univers (ELIQUIS) 5 5-12 tablet by ity of mg tablet 00:00: mouth 2 [place] 00 (two) Medical times Branch daily. Indication s: prevention of thromboemb olism in paroxysmal atrial fibrillati on apixaban Yes 5144 5mg Take 1 [facility] (ELIQUIS) 5 5-12 tablet by ity of mg tablet 00:00: mouth 2 [place] 00 (two) Medical times Branch daily. Indication s: prevention of thromboemb olism in paroxysmal atrial fibrillati on apixaban No 5144 5mg Take 1 Univer s (ELIQUIS) 5 5-12 12-05 tablet by it y of mg tablet 00:00: 00:00 mouth 2 [place] :00 (two) Medical times Branch daily. Indication s: prevention of thromboemb olism in paroxysmal atrial fibrillati on lisinopril 2020-04 Yes 10mg Q.5D Take 10 mg M ethodi (PRINIVIL,Z 2-[address] ESTRIL) 10 08:39: (two) Hospit a mg tablet 13 times a l day. diltiazem 2020-04 Yes 240mg QD Take 240 Met hodi CD 2-[address] (CardIZEM 08:39: mouth Hospita CD) 240 MG 13 every l 24 hr morning. capsule ALPRAZolam 2020-04 Yes 1mg QD Take 1 mg Me thodi (XANAX) 1 2-[address] MG tablet 08:39: nightly as Ho spita 13 needed for l anxiety. dextroamphe 2020-04 Yes 15mg Q24H Take 15 mg Methodi tamine 15 2-[address] mg tablet 08:39: daily as [facility] 13 needed. l ibuprofen 2020-04 Yes 200mg Q6H Take 200 Met hodi (ADVIL,MOTR 2-[address] [place]) 200 MG 08:39: mouth Hospit a tablet 13 every 6 l (six) hours as needed for mild pain. LISINOPRIL 2021-0 Yes [id number] TAKE 1 Univers 20 mg 2-17 TABLET BY ity of tablet 00:00: MOUTH TWICE Medical DAILY Branch LISINOPRIL 2021-0 Yes [id number] TAKE 1 [facility] 20 mg 2-17 TABLET BY ity of tablet 00:00: MOUTH TWICE Medical DAILY Branch LISINOPRIL 2021-0 Yes [id number] TAKE 1 [facility] 20 mg 2-17 TABLET BY ity of tablet 00:00: MOUTH TWICE Medical DAILY Branch LISINOPRIL 2021-0 Yes [id number] TAKE 1 [facility] 20 mg 2-17 TABLET BY ity of tablet 00:00: MOUTH TWICE Medical DAILY Branch LISINOPRIL 2020-0 Yes [id number] TAKE 1 Univers 20 mg 2-17 TABLET BY ity of tablet 00:00: [facility] TWICE Medical DAILY Branch LISINOPRIL 2020-0 Yes [id number] TAKE 1 Univers 20 mg 2-17 TABLET BY ity of tablet 00:00: [facility] TWICE Medical DAILY Branch LISINOPRIL 1-0 Yes [id number] TAKE 1 Univers 20 mg 2-17 TABLET BY ity of tablet 00:00: MOUTH TWICE Medical DAILY Branch LISINOPRIL 1-0 Yes [id number] TAKE 1 Univers 20 mg 2-17 TABLET BY ity of tablet 00:00: [facility] TWICE Medical DAILY Branch LISINOPRIL 1-0 Yes [id number] TAKE 1 Univers 20 mg 2-17 TABLET BY ity of tablet 00:00: [facility] TWICE Medical DAILY Branch LISINOPRIL 2021-0 Yes [id number] TAKE 1 Univers 20 mg 2-17 TABLET BY ity of tablet 00:00: [facility] TWICE Medical DAILY Branch LISINOPRIL 2021-0 Yes [id number] TAKE 1 Univers 20 mg 2-17 TABLET BY ity of tablet 00:00: [facility] TWICE Medical DAILY Branch LISINOPRIL 2021-0 Yes [id number] TAKE 1 Univers 20 mg 2-17 TABLET BY ity of tablet 00:00: [facility] TWICE Medical DAILY Branch LISINOPRIL 2021-0 Yes [id number] TAKE 1 Univers 20 mg 2-17 TABLET BY ity of tablet 00:00: MOUTH TWICE Medical DAILY Branch LISINOPRIL 2021-0 Yes [id number] TAKE 1 Univers 20 mg 2-17 TABLET BY ity of tablet 00:00: MOUTH [place] 00 TWICE Medical DAILY Branch LISINOPRIL 2021-0 Yes [id number] TAKE 1 Univers 20 mg 2-17 TABLET BY ity of tablet 00:00: MOUTH [place] 00 TWICE Medical DAILY Branch LISINOPRIL 2021-0 Yes [id number] TAKE 1 Univers 20 mg 2-17 TABLET [...] [place] mg tablet 00 times Medical daily. [place] Immunizations Ordered Filled Immunization Date Status Comments [facility] e Immunization Name Name SARS-COV-2 COVID-19 2020-07-17 Completed Unive rsity of PFIZER VACCINE 00:00:00 [facility] SARS-COV-2 COVID-19 2020-07-17 Completed Unive rsity of PFIZER VACCINE 00:00:00 [facility] SARS-COV-2 COVID-19 2020-07-17 Completed Unive rsity of PFIZER VACCINE 00:00:00 [facility] SARS-COV-2 COVID-19 2020-07-17 Completed Unive rsity of PFIZER VACCINE 00:00:00 [place] [facility] [place] [facility] SARS-COV-2 COVID-19 2020-07-17 Completed Unive rsity of PFIZER VACCINE 00:00:00 [facility] Branch SARS-COV-2 COVID-19 2020-07-17 Completed Unive rsity of PFIZER VACCINE 00:00:00 [facility] Branch SARS-COV-2 COVID-19 2020-07-17 Completed Unive rsity of PFIZER VACCINE 00:00:00 [facility] Branch SARS-COV-2 COVID-19 2020-07-17 Completed Unive rsity of PFIZER VACCINE 00:00:00 [facility] Branch SARS-COV-2 COVID-19 2020-07-17 Completed Unive rsity of PFIZER VACCINE 00:00:00 [facility] Branch SARS-COV-2 COVID-19 2020-07-17 Completed Unive rsity of PFIZER VACCINE 00:00:00 [facility] Branch SARS-COV-2 COVID-19 2020-07-17 Completed Unive rsity of PFIZER VACCINE 00:00:00 [facility] Branch SARS-COV-2 COVID-19 2020-07-17 Completed Unive rsity of PFIZER VACCINE 00:00:00 [facility] Branch SARS-COV-2 COVID-19 2020-07-17 Completed Unive rsity of PFIZER VACCINE 00:00:00 [facility] Branch SARS-COV-2 COVID-19 2020-07-17 Completed Unive rsity of PFIZER VACCINE 00:00:00 [facility] Branch SARS-COV-2 COVID-19 2020-07-17 Completed Unive rsity of PFIZER VACCINE 00:00:00 [facility] Branch SARS-COV-2 COVID-19 2020-07-17 Completed Unive rsity of PFIZER VACCINE 00:00:00 [facility] Branch SARS-COV-2 COVID-19 2020-06-26 Completed Unive rsity of PFIZER VACCINE 00:00:00 [facility] Branch SARS-COV-2 COVID-19 2020-06-26 Completed Unive rsity of PFIZER VACCINE 00:00:00 [facility] Branch SARS-COV-2 COVID-19 2020-06-26 Completed Unive rsity of PFIZER VACCINE 00:00:00 [facility] Branch SARS-COV-2 COVID-19 2020-06-26 Completed Unive rsity of PFIZER VACCINE 00:00:00 [facility] SARS-COV-2 COVID-19 2020-06-26 Completed Unive rsity of PFIZER VACCINE 00:00:00 [facility] SARS-COV-2 COVID-19 2020-06-26 Completed Unive rsity of PFIZER VACCINE 00:00:00 [facility] SARS-COV-2 COVID-19 2020-06-26 Completed Unive rsity of PFIZER VACCINE 00:00:00 [facility] SARS-COV-2 COVID-19 2020-06-26 Completed Unive rsity of PFIZER VACCINE 00:00:00 [facility] SARS-COV-2 COVID-19 2020-06-26 Completed Unive rsity of PFIZER VACCINE 00:00:00 [facility] SARS-COV-2 COVID-19 2020-06-26 Completed Unive rsity of PFIZER VACCINE 00:00:00 [facility] SARS-COV-2 COVID-19 2020-06-26 Completed Unive rsity of PFIZER VACCINE 00:00:00 [facility] SARS-COV-2 COVID-19 2020-06-26 Completed Unive rsity of PFIZER VACCINE 00:00:00 [facility] SARS-COV-2 COVID-19 2020-06-26 Completed Unive rsity of PFIZER VACCINE 00:00:00 [facility] SARS-COV-2 COVID-19 2020-06-26 Completed Unive rsity of PFIZER VACCINE 00:00:00 [facility] SARS-COV-2 COVID-19 2020-06-26 Completed Unive rsity of PFIZER VACCINE 00:00:00 [facility] SARS-COV-2 COVID-19 2020-06-26 Completed Unive rsity of PFIZER VACCINE 00:00:00 [facility] Pneumococcal 13 2019-01-10 Completed Universit y of Conjugate, PCV13 00:00:00 [facility] dical (Prevnar 13) Branch Zoster Vaccine 2019-01-10 Completed University of Recombinant 00:00:00 [facility] Pneumococcal 13 2019-01-10 Completed Universit y of Conjugate, PCV13 00:00:00 [place] Me dical (Prevnar 13) Branch Zoster Vaccine 2019-01-10 Completed University of Recombinant 00:00:00 [facility] Pneumococcal 13 2019-01-10 Completed Universit y of Conjugate, PCV13 00:00:00 [place] Me dical (Prevnar 13) Branch Zoster Vaccine 2019-01-10 Completed University of Recombinant 00:00:00 [facility] Pneumococcal 13 2019-01-10 Completed Universit y of Conjugate, PCV13 00:00:00 [place] Me dical (Prevnar 13) Branch Zoster Vaccine 2019-01-10 Completed University of Recombinant 00:00:00 [facility] Pneumococcal 13 2019-01-10 Completed Universit y of Conjugate, PCV13 00:00:00 [place] Me dical (Prevnar 13) Branch Zoster Vaccine 2019-01-10 Completed University of Recombinant 00:00:00 [facility] Pneumococcal 13 2019-01-10 Completed Universit y of Conjugate, PCV13 00:00:00 [place] Me dical (Prevnar 13) Branch Zoster Vaccine 2019-01-10 Completed University of Recombinant 00:00:00 [facility] Pneumococcal 13 2019-01-10 Completed Universit y of Conjugate, PCV13 00:00:00 [place] Me dical (Prevnar 13) Branch Zoster Vaccine 2019-01-10 Completed University of Recombinant 00:00:00 [facility] Pneumococcal 13 2019-01-10 Completed Universit y of Conjugate, PCV13 00:00:00 [place] Me dical (Prevnar 13) Branch Zoster Vaccine 2019-01-10 Completed University of Recombinant 00:00:00 [facility] Pneumococcal 13 2019-01-10 Completed Universit y of Conjugate, PCV13 00:00:00 [place] Me dical (Prevnar 13) Branch Zoster Vaccine 2019-01-10 Completed University of Recombinant 00:00:00 [facility] Pneumococcal 13 2019-01-10 Completed Universit y of Conjugate, PCV13 00:00:00 [place] Me dical (Prevnar 13) Branch Zoster Vaccine 2019-01-10 Completed University of Recombinant 00:00:00 [facility] Pneumococcal 13 2019-01-10 Completed Universit y of Conjugate, PCV13 00:00:00 [place] Me dical (Prevnar 13) Branch Zoster Vaccine 2019-01-10 Completed University of Recombinant 00:00:00 [facility] Pneumococcal 13 2019-01-10 Completed Universit y of Conjugate, PCV13 00:00:00 [place] Me dical (Prevnar 13) Branch Zoster Vaccine 2019-01-10 Completed University of Recombinant 00:00:00 [facility] Pneumococcal 13 2019-01-10 Completed Universit y of Conjugate, PCV13 00:00:00 [facility] dical (Prevnar 13) Branch Zoster Vaccine 2019-01-10 Completed University of Recombinant 00:00:00 [facility] Pneumococcal 13 2019-01-10 Completed Universit y of Conjugate, PCV13 00:00:00 [facility] dical (Prevnar 13) Branch Zoster Vaccine 2019-01-10 Completed University of Recombinant 00:00:00 [facility] Pneumococcal 13 2019-01-10 Completed Universit y of Conjugate, PCV13 00:00:00 [facility] dical (Prevnar 13) Branch Zoster Vaccine 2019-01-10 Completed University of Recombinant 00:00:00 [facility] Pneumococcal 13 2019-01-10 Completed Universit y of Conjugate, PCV13 00:00:00 [facility] dical (Prevnar 13) Branch Zoster Vaccine 2019-01-10 Completed University of Recombinant 00:00:00 [facility] Influenza Virus 2018-02-04 Completed Universit y of Vaccine Quad ID 00:00:00 [facility] ica 18-64 YRS [place] Influenza Virus 2018-02-04 Completed Universit y of Vaccine Quad .5 mL 00:00:00 [place] [facility] IM 6+ MO Branch Influenza Virus 2018-02-04 Completed Universit y of Vaccine Quad ID 00:00:00 [facility] ica 18-64 YRS Branch Influenza Virus 2018-02-04 Completed Universit y of Vaccine Quad .5 mL 00:00:00 [place] [facility] IM 6+ MO Branch Influenza Virus 2018-02-04 Completed Universit y of Vaccine Quad ID 00:00:00 [facility] ical 18-64 YRS Branch Influenza Virus 2018-02-04 [...] Universit y of Vaccine Quad ID 00:00:00 [facility] ica 18-64 YRS Branch Influenza Virus 2018-02-04 [...] Universit y of Vaccine Quad ID 00:00:00 [facility] ica 18-64 YRS Branch Influenza Virus 2018-02-04 Completed Universit y of Vaccine Quad .5 mL 00:00:00 [place] [facility] IM 6+ MO Branch Influenza Virus 2018-02-04 Completed Universit y of Vaccine Quad ID 00:00:00 [facility] 18-64 YRS Branch Influenza Virus 2018-02-04 Completed Universit y of Vaccine Quad .5 mL 00:00:00 [place] [facility] IM 6+ MO Branch Influenza Virus 2018-02-04 Completed Universit y of Vaccine Quad ID 00:00:00 [facility] ica 18-64 YRS Branch Influenza Virus 2018-02-04 [...] y of Vaccine Quad .5 mL 00:00:00 [facility] IM 6+ MO Branch Influenza Virus 2018-02-04 Completed Universit y of Vaccine Quad ID 00:00:00 [place] [facility] ical 18-64 YRS Branch Influenza Virus 2018-02-04 Completed Universit y of Vaccine Quad .5 mL 00:00:00 [place] [facility] IM 6+ MO Branch Influenza Virus 2018-02-04 Completed Universit y of Vaccine Quad ID 00:00:00 [facility] ical 18-64 YRS Branch Influenza Virus 2018-02-04 Completed Universit y of Vaccine Quad .5 mL 00:00:00 [facility] 6+ MO Branch Vital Signs Vital Name Observation Time Observation Value Comments Source Systolic blood 2022-11-27 17:16:00 107 mm[Hg] Univer sity of pressure [facility] Diastolic blood 2022-11-27 17:16:00 62 mm[Hg] [facility] Heart rate 2022-11-27 17:16:00 62 /min [facility] Body temperature 2022-11-27 17:16:00 36.33 [facility] Res[facility] rate 2022-11-27 17:16:00 18 /min [facility] Body height 2022-11-27 17:16:00 157.5 cm [facility] Body weight 2022-11-27 17:16:00 73.029 kg [facility] BMI 2022-11-27 17:16:00 29.45 kg/m2 [facility] Oxygen saturation in 2022-11-27 17:16:00 95 /min room air [facility] blood by [facility] Pulse oximetry [place] Body height 2022-11-29 20:22:00 157.5 cm [facility] Body weight 2022-11-29 20:22:00 72.576 kg [facility] BMI 2022-11-29 20:22:00 29.26 kg/m2 [facility] Procedures Procedure Date / Time Performed Performing Clinician Sour e MRI ABDOMEN W WO 2022-11-29 21:02:10 Vinh Devi [facility] CONTRAST MR LUMBAR SPINE WO 2022-09-05 15:07:19 [facility] CERV[facility] SPINE WO 2022-09-05 14:58:38 Requisition, Paper [facility] ASSIGNMENT OF BENEFITS 2022-09-05 14:00:22 Doctor Unassigned, No [facility] Medical [place] Plan of Care Planned Activity Planned Date Details Comments Source Future Scheduled 2022-12-25 [facility] Test 20:56:16 malignant neoplasm of colon (procedure) [code = 308833695] Future Scheduled 2022-12-25 [facility] Test 20:56:16 malignant neoplasm of colon (procedure) [code = 510120366] Future Scheduled 2022-12-25 [facility] Test 20:56:16 malignant neoplasm of colon (procedure) [code = 337518090] Future Scheduled 2022-12-25 Hepatitis C screening [facility] Test 20:56:16 (procedure) [code = 098204322] Future Scheduled 2022-12-25 BREAST CANCER [facility] Test 20:56:16 SCREENING [code = BREAST CANCER SCREENING] Future Scheduled 2022-12-25 [facility]IN[facility] 20:56:16 of 2) [code = SHINGLES VACCINES (2 of 2)] Future Scheduled 2022-12-25 COVID-19 VACCINE (4 - [facility] Test 20:56:16 Pfizer series) [code = COVID-19 VACCINE (4 - Pfizer series)] Future Scheduled 2022-12-25 65+ PNEUMOCOCCAL [facility] Test 20:56:16 VACCINE (2 - PPSV23 if available, else PCV20) [code = 65+ PNEUMOCOCCAL VACCINE (2 - PPSV23 if available, else PCV20)] Future Scheduled 2022-12-25 INFLUENZA VACCINE (#1) [facility] Test 20:56:16 [code = INFLUENZA VACCINE (#1)] Future Scheduled 2022-12-25 [facility] Test 20:56:16 malignant neoplasm of colon (procedure) [code = 370498283] Future Scheduled 2022-12-25 [facility] Test 20:56:16 malignant neoplasm of colon (procedure) [code = 575079483] Encounters Start End Encounter Admission Attending Care Care Encounter Source Date/Time Date/Time Type Type Clinicians Facility Department ID 2022-06-16 Outpatient [facility] [id number] [place] 14:21:28 [id number] [facility] 2021-02-26 Outpatient R GADIEL [facility] DSU [id number] Univers 16:28:26 BERTA zelaya [facility] 2021-02-26 Outpatient GADIEL [facility] [id number] Univers 12:44:29 BERTA zelaya [facility] 2021-02-26 Outpatient R ANDIE [facility] GIE [id number] Univers 11:40:17 LORETA zelaya [facility] 2022-11-29 2022-11-29 Outpatient [facility] [id number] [address] [place] 00:00:00 00:00:[address] 2022-11-27 2022-11-27 Outpatient R BEBE [facility] [id number] Univers 11:40:00 12:40:59 BR[place] SHIN it y [facility] 2022-11-27 2022-11-27 Office [facility] 1.2.840.114 [id number] Univers 11:40:00 12:40:59 Visit [place] [id number] ity [place] [id number] [address] 2022-11-20 2022-11-20 Transcribe Rudy 1.2.840.1 [id number] Methodi 00:00:00 00:00:00 Orders Dolly R [address].1.[address] 3.430.2.7 Hospit a .3.819231 l .8 2022-10-04 2022-10-04 Telephone [facility] 1.2.840.114 [id number] Univers 00:00:00 00:00:00 [place] 350.1.13.10 ity [place] [id number] [facility] [place] 2022-09-05 2022-09-05 Hospital Radiology [facility] 1.2.840.114 [id number] Univers 09:04:25 23:59:00 Encounter BHAVYA 350.1.13.10 ity of [place] [id number] [facility] 804 Branch 2022-09-05 2022-09-05 Outpatient R RADIOLOGY [facility] [id number] Univers 09:02:31 09:03:[address] [facility] 2022-09-05 2022-09-05 Hospital Radiology [facility] 1.2.840.114 [id number] Univers 09:00:00 09:03:00 Encounter BHAVYA 350.1.13.10 ity [place] [id number] [facility] 804 Branch 2022-09-05 2022-09-05 Orders Doctor ADIA 1.2.840.114 [id number] Univers 00:00:00 00:00:00 Only Unassigned, CELESTE 350.1.13.10 ity of [place] [facility]OSP[facility] 4.2.7.2.686 Stalin as [id number] [facility] 009 Branch 2022-08-11 2022-08-11 Documentat Lore 1.2.840.1 [id number] Methodi 00:00:00 00:00:00 ion Adria [address]93.1.[address] 3.430.2.7 Hospit a .3.287413 l .8 2022-07-03 2022-07-03 Outpatient KEVIN, FB MHFB [id number] FB 09:53:00 12:15:00 DAWN 2022-05-24 2022-05-24 Telephone Bebe [facility] 1.2.840.114 [id number] Univers 00:00:00 00:00:00 [place] 350.1.13.10 it[place] [id number] Sc dical 059 Branch 2022-05-08 2022-05-08 Telephone Haley [facility] 1.2.840.114 [id number] Univers 00:00:00 [facility] 350.1.13.10 it y of [place] 4.2.7.2.686 Stalin as [place]?BLEA [id number] [facility] [address] MEDICAL OFFICE BUILDING 2022-04-03 2022-04-03 Telephone [facility] 1.2.840.114 [id number] Univers 00:00:00 00:00:00 murali, [place] PRIMARY 350.1.13.10 it[place] [id number] Sc indy [place] 2022-01-10 2022-01-10 Telephone [facility] 1.2.840.114 [id number] Univers 00:00:00 00:00:00 bandaros, [place] PRIMARY 350.1.13.10 ity [place] [id number] [address] 2021-12-13 2021-12-13 Telemedici [facility] 1.2.840.114 [id number] Univers 15:00:00 15:20:00 ne Visit bandarMila moserg PRIMARY 350.1.13.10 it[place] [id number] [address] 2021-12-13 2021-12-13 Outpatient R CARAYANNOPO [facility] [id number] Univers 15:00:00 15:00:00 MILA SHING it y of [facility] 2021-12-13 2021-12-13 Telephone [facility] 1.2.840.114 [id number] Univers 00:00:00 00:00:00 bandaros, [place] PRIMARY 350.1.13.10 it[place] [id number] [address] 2021-11-17 2021-11-17 Outpatient R CARAYANNOPO [facility] [id number] Univers 15:40:00 15:40:00 MURALI, BRADFORD it y of [facility] 2021-11-04 2021-11-04 Telephone [facility] 1.2.840.114 [id number] Univers 00:00:00 00:00:00 ulos, [place] PRIMARY 350.1.13.10 ity of [place]2.[place] [id number] Sc dical 059 Branch 2021-11-04 2021-11-04 Refill Carayannopo [facility] 1.2.840.114 [id number] Univers 00:00:00 00:00:00 ulos, [place] PRIMARY 350.1.13.10 ity [place]2.[place] [id number] Sc dical 059 Branch 2021-11-04 2021-11-04 [facility] 1.2.840.114 [id number] Univers 00:00:00 00:00:00 ulos, [place] PRIMARY 350.1.13.10 ity of [place]2.[place] [id number] Sc dical 059 [place] 2021-11-04 2021-11-04 Telephone [facility] 1.2.840.114 [id number] [facility] 00:00:00 00:00:00 ulos, [place] PRIMARY 350.1.13.10 it[place] [id number] Sc dicma 059 [place] 2021-10-05 2021-10-07 Outpatient R MEI, [facility] [id number] Univers 09:09:00 15:45:[address] [facility] 2021-10-05 2021-10-07 [facility] [place] 1. 2.840.114 [id number] [facility] 09:09:00 15:45:00 Encounter Ge Valentine CELESTE 350. 1.13.10 ity [facility] 4.2 .7.2.686 [facility] [id number] Medical 090 Branch 2021-10-05 2021-10-05 Surgery Bebe PAULA 1.2.840.114 [id number] Univers 10:15:00 14:15:00 [place] CELESTE 350.1.13.10 ity of HOSPITAL 4.2.7.2.686 Stalin as [id number] [address] 2021-10-05 2021-10-05 Hospital [place] [id number] Univers 08:03:02 09:08:00 Encounter [place] sh[place] HEALTH 350.1.13.10 ity [place] CLIN[place] [id number] [address] 2021-10-05 2021-10-05 Outpatient R [facility] [id number] Univers 08:03:02 09:08:00 BRADFORD SHIN [facility] 2021-09-08 2021-09-08 Telemedici [facility] 1.2.840.114 [id number] Univers 14:20:00 14:40:00 ne Visit [place] sh[place] PRIMARY 350.1.13.10 it[place] [id number] [address] 2021-09-08 2021-09-08 Outpatient R [facility] [id number] Univers 14:20:00 14:20:00 BRADFORD SHIN [facility] 2021-09-08 2021-09-08 Outpatient R [facility] [id number] Univers 14:20:00 14:20:00 BRADF[place] SHIN [facility] 2021-09-08 2021-09-08 [address]11 [id number] Univers 00:00:00 00:00:00 [place] sh[place] HEALTH 350.1.13.10 ity [place] CL[place] [id number] [address] 2021-08-18 2021-08-18 Patient [facility] 1.2.840.114 [id number] Univers 00:00:00 00:00:00 Secure Msg [place] sh[place] PRIMARY 350.1.13.10 it[place] [id number] [facility] 059 [place] 2021-08-17 2021-08-17 Outpatient R BETTYVITALY [facility] [id number] Univers 08:53:40 23:59:00 BRADF[place] SHIN it y of [facility] 2021-08-17 2021-08-17 Hospital [facility] UNIVERS 1.2.840.114 [id number] Univers 08:30:00 23:59:00 Encounter [place] shin [facility] 350.1.13.10 ity of CLINICS [place] [id number] [place] [id number] [place] 2021-08-17 2021-08-17 Outpatient R BETTYHAWAKERWINIRAM [facility] [id number] Univers 00:00:00 00:00:00 BRAD[place] SHIN it y of [facility] 2021-08-12 2021-08-12 Outpatient R BETTYHAWAKERWINIRAM [facility] [id number] Univers 11:00:00 23:59:00 BRADF[place] SHIN it y of [facility] 2021-08-12 2021-08-12 Outpatient R NICOLASKERWINIRAM [facility] [id number] Univers 11:00:00 11:00:00 BRADFORD SHNI it y of [facility] 2021-08-12 2021-08-12 Outpatient R BETTYVITALY [facility] [id number] Univers 11:00:00 11:00:00 BANDARBRADFORD MOSER it y of [facility] 2021-08-11 2021-08-11 Patient [facility] 1.2.840.114 [id number] Univers 00:00:00 00:00:00 Secure Msg [place] PRIMARY 350.1.13.10 it[place] [id number] [facility] 059 [place] 2021-08-09 2021-08-09 Interventional Physician Pcp-Lab [facility] [facility] 1.2.840.114 [id number] Univers 16:15:00 16:30:00 Visit Bradford Jacinto PRIMARY 350.1.1 3.10 [place] [phone] Sc dical [address] 2021-08-09 2021-08-09 [facility] [id number] Univers 16:15:00 16:15:00 BRADFORD SHIN it y of [facility] 2021-08-09 2021-08-09 Outpatient [facility] [id number] Univers 15:00:00 16:12:43 BRADFORD SHNI it y of [facility] 2021-08-09 2021-08-09 Office [facility] 1.2.840.114 [id number] Univers 15:00:00 16:12:43 Visit Bradford shin 350.1.13.10 it[place] [phone] Sc dical [address] 2021-08-09 2021-08-09 Outpatient [facility] [id number] Univers 15:00:00 16:12:43 BRADFORD SHIN it y of [facility] 2021-08-09 2021-08-09 Orders Doctor ADIA 1.2.840.114 [id number] Univers 00:00:00 00:00:00 Only Unassigned, CELESTE 350.1.13.10 ity of [place] [facility] 4.2.7.2.686 Stalin as [phone] [address] 2021-04-27 2021-04-27 Outpatient TRANGFORMERLY [facility], [facility] [id number] [place] 00:00:00 00:00:00 VINH [address] [facility] 2021-02-17 2021-02-17 Refill Carmella [facility] 1.2.840.114 [id number] [facility] 00:00:00 00:00:00 Matt Govea 350.1.13.10 [place] [phone] Sc dical nal 059 [facility] 2021-02-16 2021-02-16 Refill Carmella [place] 1.2.840.114 [id number] Univers 00:00:00 00:00:00 Sendil Benoit Govea 350.1.13.10 [place] [phone] Sc dical nal [address] [facility] 2020-12-14 2020-12-14 Office Lissett Bingham [facility] 1.2.840.114 [id number] Univers 12:50:23 14:17:29 Visit Health 350.1.13.10 it [place] [phone] [facility] [address] 2020-12-14 2020-12-14 Outpatient R LISSETT [facility]INGHAM [facility] [id number] Univers 13:00:00 13:00:[address] [facility] 2020-12-14 2020-12-14 Telephone Lissett Bingham [facility] 1.2.840.114 [id number] Univers 00:00:00 00:00:00 Health 350.1.13.10 [place] [phone] [facility] [address] 2020-12-09 2020-12-09 Office [facility] 1.2.840.114 [id number] Univers 14:10:21 16:33:49 Visit Lakia SPECIALTY 350.1.13.10 ity of [facility] 4.2.7.2.686 Stalin as CENTER AT [phone] Sc dical VICTORY [address] [facility] 2020-12-09 2020-12-09 Outpatient R AARON [facility] [id number] Univers 14:15:00 14:15:[address] [facility] 2020-12-03 2020-12-03 [facility] 1.2.840.114 [id number] Univers 09:00:00 23:59:00 Encounter Berta Govea 350.1.13.10 [place].2.[place] [phone] [facility] [address] 2020-12-03 2020-12-03 [facility] [id number] Univers 00:00:00 00:00:00 [facility] 2020-11-25 2020-11-25 Office [facility] 1.2.840.114 [id number] Univers 13:07:13 13:37:13 Visit [facility] 350.1.13.10 it [place] [phone] [address] Office Building 2020-11-25 2020-11-25 Outpatient Anton[facility] [id number] Univers 08:30:00 08:30:00 [facility] 2020-11-15 2020-11-15 Outpatient KEVIN, MHFB MHFB [id number] MHFB 07:55:00 10:45:00 DAWN 2020-10-07 2020-10-07 Outpatient Antonia [facility] [id number] Univers 15:30:00 15:30:00 [facility] 2020-09-15 2020-09-15 Outpatient KEVIN, MHFB MHFB [id number] MHFB 08:55:00 12:30:00 DAWN 2020-07-28 2020-07-28 [facility] 1.2.444.606 [id number] Univers 00:00:00 00:00:00 [facility] Shutl 350.1.13.10 [place] [phone] [address] Office [facility] 2020-07-26 2020-07-26 Telephone [facility] 1.2.472.344 [id number] Univers 00:00:00 00:00:00 [facility] Shutl 350.1.13.10 [place] [phone] [address] Office Building 2020-07-20 2020-07-20 Outpatient VIRGIL [facility] [id number] [address] [place] [address] 00:00:00 00:00:00 ISABEL [facility] 2020-07-17 2020-07-17 Outpatient [facility] [id number] Univers 12:05:00 12:05:[address] [facility] 2020-07-12 2020-07-12 Outpatient R [facility] [id number] Univers 10:30:00 10:30:[address] [facility] 2020-07-12 2020-07-12 Outpatient VIRGIL, [facility] [id number] [address] [place] 00:00:00 00:00:00 ISABEL [address] 2020-07-12 2020-07-12 Outpatient VIRGIL, [facility] [id number] [address] [place] 00:00:00 00:00:00 ISABEL [address] 2020-07-09 2020-07-09 Outpatient R [facility]IS [facility] [id number] Univers 14:00:00 14:00:00 BAYLEE ity [facility] 2020-07-09 2020-07-09 Orders Doctor ADIA 1.2.840.114 [id number] Univers 00:00:00 00:00:00 Only Unassigned, CELESTE 350.1.13.10 ity of [place] [facility] 4.2.7.2.686 Stalin as [phone] [facility] [address] 2020-07-06 2020-07-06 Office [facility] 1.2.840.114 [id number] Univers 13:46:46 15:13:49 Visit [facility] 350.1.13.10 it [place] [phone] [facility] [address] Office [address] 2020-07-06 2020-07-06 Outpatient [facility] [id number] Univers 14:00:00 14:00:00 [facility] ity [facility] 2020-06-28 2020-06-28 [facility] 1.2.840.114 [id number] Univers 16:20:13 23:59:00 Encounter Berta [place] 350.1.13.10 [place] [phone] [facility] [address] 2020-06-28 2020-06-28 [facility] [id number] Univers 00:00:00 00:00:00 BERTA ity [facility] 2020-06-26 2020-06-26 Outpatient [facility] [id number] Univers 12:05:00 12:05:[address] [facility] 2020-06-24 2020-06-24 Interventional Physician Draw, Clc-Bls Lab [facility] 1.2.8 40.114 [id number] Univers 16:49:53 17:04:53 Visit Gadiel [facility] 350.1.13.10 [place] [phone] [facility] [address] 2020-06-24 2020-06-24 Office [facility] 1.2.840.114 [id number] Univers 15:50:14 16:20:14 Visit [facility] 350.1.13.10 it [place] [phone] [address] Office Building 2020-06-24 2020-06-24 Outpatient R [facility] [id number] Univers 16:00:00 16:00:00 [facility] 2020-06-22 2020-06-22 Patient [facility] 1.2.840.114 [id number] Univers 00:00:00 00:00:00 Secure Msg Matt Govea 350.1.13.10 [place].2.[place] [phone] [address] 2020-06-13 2020-06-13 Ref[facility] 1.2.840.114 [id number] Univers 00:00:00 00:00:00 Matt Govea 350.1.13.10 [place] of [place].2.[place] [phone] [address] 2020-05-19 2020-05-19 [facility] 1.2.840.114 [id number] Univers 07:45:00 12:41:00 Encounter Berta Wheeler 350.1.13.10 ity of [place] 4.2.7.2.686 [facility] [phone] [address] ([facility]) 2020-05-19 2020-05-19 Orders Doctor ADIA 1.2.840.114 [id number] Univers 00:00:00 00:00:00 Only Unassigned, CELESTE 350.1.13.10 it[place] of [place] [facility] 4.2.7.2.686 [facility] [phone] [address] 2020-04-27 2020-04-27 Telephone Gadiel [facility] 1.2.661.788 [id number] Univers 00:00:00 00:00:00 Berta Wheeler 350.1.13.10 it y of [place] 4.2.7.2.686 [facility] [phone] [address] Office Building 2020-04-26 2020-04-26 Laboratory Only, Adc Test [facility] 1.2.840. 114 [id number] Univers 11:10:26 11:25:26 Only Berta Ramesh 350.1.13.10 ity of [place] 4.2.7.2.686 [place] [phone] [address] 2020-04-26 2020-04-26 Outpatient R GADIEL [facility] [id number] Univers 11:15:00 11:15:[address] [facility] 2020-04-20 2020-04-20 Interventional Physician Draw, Clc-Bls Lab [facility] 1.2.8 40.114 [id number] Univers 10:38:13 10:53:13 Visit Berta Ramesh 350.1.13.10 ity of AndieLoreta herr [place] 4.2.7.2.686 [facility] [phone] [address] Office Building 2020-04-20 2020-04-20 Office Berta Ramesh [facility] 1.2.840.114 [id number] Univers 08:23:42 10:35:15 Visit AndieLoreta herr Health 350.1.13.10 [place] of [place] 4.2.7.2.686 [facility] [phone] [facility] [address] 2020-04-20 2020-04-20 Outpatient R GADIEL, [facility] [id number] Univers 08:30:00 08:30:[address] [facility] 2020-04-19 2020-04-19 [facility] 1.2.840.114 [id number] Univers 13:46:00 18:07:00 Encounter Loreta Health 350.1.13.10 ity of [place] 4.2.7.2.686 [facility] [phone] [address] ([facility]) 2020-04-16 2020-04-16 Laboratory Only, Adc Test [facility] 1.2.840. 114 [id number] Univers 13:57:40 14:12:40 Only Baylee Puga 350.1.13.10 ity of [place] 4.2.7.2.686 [facility] [phone] [facility] [address] 2020-04-16 2020-04-16 Outpatient R [facility] [id number] Univers 14:00:00 14:00:[address] [facility] 2020-04-14 2020-04-14 Telephone [facility] 1.2.417.881 [id number] Univers 00:00:00 00:00:00 Matt Govea 350.1.13.10 ity of [place] 4.2.7.2.686 [facility] [phone] Sc dical nal [address] [facility] 2020-04-14 2020-04-14 Telephone [facility] 1.2.419.606 [id number] Univers 00:00:00 00:00:00 Loreta Health 350.1.13.10 it y of Cancer 4.2.7.2.686 [facility] [phone] [facility] [address] 2020-04-13 2020-04-13 Office [facility] 1.2.840.114 [id number] Univers 14:27:02 14:57:02 Visit Loreta Health 350.1.13.10 it y of Cancer 4.2.7.2.686 [facility] [phone] Med ical MDA [address] 2020-04-13 2020-04-13 Office [facility] 1.2.840.114 [id number] Univers 11:12:19 11:42:19 Visit [facility] 350.1.13.10 it [place] [phone] [address] 2020-04-13 2020-04-13 Outpatient R [facility] [id number] Univers 11:30:00 11:30:00 [facility] ity [facility] 2020-04-08 2020-04-08 [facility] 1.2.840.114 [id number] Univers 07:50:17 23:59:00 Encounter [facility] SPECIALTY 350.1.13.10 ity of [place] 4.2.7.2.686 [place] CENTER AT [phone] Sc dical VICTORY 807 [facility] 2020-04-08 2020-04-08 Outpatient R [facility] [id number] Univers 00:00:00 00:00:00 [facility] ity [facility] 2020-04-06 2020-04-06 [facility] 1.2.840.114 [id number] Univers 13:26:51 15:20:17 Visit [facility] 350.1.13.10 it [place] [phone] [address] 2020-04-06 2020-04-06 Outpatient R [facility] [id number] Univers 14:00:00 14:00:00 BERTA ity [facility] 2020-03-08 2020-03-08 [facility] 1.2.840.114 [id number] Univers 00:00:00 00:00:00 Matt Govea 350.1.13.10 it[place] of [place].2.[place] [phone] Sc dical nal 059 [facility] 2020-02-03 2020-02-05 Office [facility] 1.2.840.114 [id number] Univers 13:10:11 16:00:46 Visit Matt Govea 350.1.13.10 it[place] of [place]2.[place].2.[place] [phone] [address] 2020-02-05 2020-02-05 Telephone [facility] 1.2.273.227 [id number] Univers 00:00:00 00:00:00 Matt Govea 350.1.13.10 it[place] of [place]2.7.2.[place] [phone] [address] 2020-02-03 2020-02-03 Outpatient [facility] [id number] Univers 13:00:00 13:00:[address] [facility] 2020-02-03 2020-02-03 Orders Doctor ADIA 1.2.840.114 [id number] Univers 00:00:00 00:00:00 Only Unassigned, CELESTE 350.1.13.10 ity of [place] [facility] 4.2.7.2.686 [place] as [phone] [address] 2020-02-02 2020-02-02 Refill [facility] 1.2.840.114 [id number] Univers 00:00:00 00:00:00 Matt Govea 350.1.13.10 it[place] of [place]2.7.2.[place] [phone] [address] 2020-01-13 2020-01-13 Refill [facility] 1.2.840.114 [id number] Univers 00:00:00 00:00:00 Matt Govea 350.1.13.10 it[place] of [place]2.7.2.[place] [phone] [address] 2019-12-27 2019-12-27 Refill [facility] 1.2.840.114 [id number] Univers 00:00:00 00:00:00 Matt Govea 350.1.13.10 it[place] of [place] 4.2.7.2.[place] [phone] [place] 210059 [facility] 2019-11-17 2019-11-17 Refill Carmella [place] 1.2.840.114 [id number] Univers 00:00:00 00:00:00 Matt Govea 350.1.13.10 ity of [place] 4[place]2.7.2.[place] [phone] [address] 2019-06-23 2019-06-23 Refill Carmella [facility] 1.2.840.114 [id number] Univers 00:00:00 00:00:00 Matt Govea 350.1.13.10 ity of [place] 4[place]2.7.2.[place] [phone] [address] 2019-06-03 2019-06-03 Orders Doctor ADIA 1.2.840.114 [id number] Univers 00:00:00 00:00:00 Only Unassigned, CELESTE 350.1.13.10 ity of [place] [facility] 4.2.7.2.686 Stalin as [phone] [address] 2019-05-20 2019-05-20 Telephone Carmella [facility] 1.2.437.917 [id number] Univers 00:00:00 00:00:00 Matt Govea 350.1.13.10 it[place] of [place].2.7.2.[place] [phone] Sc dicma nal 9 [facility] 2019-05-15 2019-05-15 Refill Carmella [place] 1.2.840.114 [id number] Univers 00:00:00 00:00:00 Matt Govea 350.1.13.10 it[place] of [place] 4.2.7.2.[place] [phone] [address] 2019-01-17 2019-01-17 Refill Ishmael [facility] 1.2.840.114 [id number] Univers 00:00:00 00:00:00 Juan Ramonjonathan Bhavya 350.1.13.10 it[place] of [place].2.7.2.[place] [phone] [address] 2019-01-14 2019-01-14 Telephone [facility] [id number] Univers 00:00:00 00:00:00 Sendzunilda Govea 350.1.13.10 it[place] of [place] 4.2.7.2.[place] [phone] [address] 2019-01-07 2019-01-07 Telephone [facility] [id number] Univers 00:00:00 00:00:00 Matt Govea 350.1.13.10 it[place] of [place] 4.2.7.2.[place] [phone] [address] 2018-12-16 2018-12-16 Refill [facility] 1.2.840.114 [id number] Univers 00:00:00 00:00:00 Matt Govea 350.1.13.10 it[place] of [place] 4.2.7.2.[place] [phone] [address] 2018-11-20 2018-11-20 [facility] [id number] [id number] Univers 00:00:00 00:00:00 Sendzunilda Govea 350.1.13.10 [place] of [place] 4.2.7.2.[place] [phone] [address] 2018-11-11 2018-11-11 Outpatient R BEBE [facility] [id number] Univers 10:00:00 10:00:[address] [facility] Results This patient has no known results.
--- NOTE | 2022-12-26 19:50 | RAD REPORT ---
EXAM DESCRIPTION: RAD - Clavicle Right - 12/26/2022 7:03 pm CLINICAL HISTORY: PAIN COMPARISON: No comparisons FINDINGS: Moderate AC joint degenerative changes. Mild glenohumeral joint arthritic changes. No acut e fracture or dislocation.
--- NOTE | 2022-12-26 19:50 | RAD REPORT ---
EXAM DESCRIPTION: RAD - Shoulder Right 2 View - 12/26/2022 7:03 pm CLINICAL HISTORY: PAIN COMPARISON: No comparisons FINDINGS: Mild AC joint and glenohumeral joint arthritic changes are present. No acute fracture or d islocation seen. No aggressive marrow pattern.
[2022-12-26] MEDS ORDERED: HYDROCODONE/APAP 10/325 TAB ONE (19:52)
[2022-12-26] MEDS ORDERED: KETOROLAC 30 MG/ML INJ ONE (19:52)
--- NOTE | 2022-12-26 20:01 | EDPHYS ---
Physician Documentation [facility] Name: Anastasiya Proctor Age: 67 yrs Sex: Female : 1955 Arrival Date: 12/26/2022 Time: 18:05 Bed 16 Private MD: ED Physician Karthik Sheppard HPI: 12/26 21:20 This 67 yrs old Female presents to ER via Ambulatory with complaints of Fall Injury, kb Shoulder Injury. 21:20 Details of fall: The patient fell from an upright position. Onset: The symptoms/episode kb began/occurred today. Associated injuries: The patient sustained right shoulder, painful injury. Severity of symptoms: At their worst the symptoms were moderate, in the emergency department the symptoms are unchanged. The patient has not experienced similar symptoms in the past. The patient has not recently seen a physician. Pt reports she has a tear in her rotator cuff. States she was pushing a bed, slipped and hit her shoulder on the bed making the pain worse. Historical: - Allergies: 18:27 Bactrim; cm10 18:27 Sumatriptan Succinate; cm10 - Home Meds: 19:30 diltiazem HCl 180 mg Oral cpER 1 cap once daily [Active]; lisinopril 40 mg Oral tab 1 eh3 tab twice a day [Active]; Prilosec 20 mg Oral cpDR [Active]; - PMHx: 18:27 Hypertension; cm10 - Immunization history:: Adult Immunizations up to date. - Social history:: Smoking status: Patient denies any tobacco usage or history of. ROS: 21:19 Constitutional: Negative for fever, chills, and weight loss. kb 21:19 MS/extremity: Positive for decreased range of motion, pain, of the right shoulder. 21:19 All other systems are negative. Exam: 21:19 Constitutional: This is a well developed, well nourished patient who is awake, alert, kb and in no acute distress. Head/Face: Normocephalic, atraumatic. ENT: Moist Mucous membranes Cardiovascular: Regular rate and rhythm with a normal S1 and S2. No gallops, murmurs, or rubs. No pulse deficits. Respiratory: Respirations even and unlabored. No increased work of breathing. Talking in full sentences Skin: Warm, dry with normal turgor. Normal color. Neuro: Awake and alert, GCS 15, oriented to person, place, time, and situation. Moves all extremities. Normal gait. 21:19 Musculoskeletal/extremity: Extremities: grossly normal except: noted in the right shoulder: decreased ROM, pain, tenderness, ROM: limited active range of motion due to pain, Circulation is intact in all extremities. Sensation intact. Vital Signs: 18:26 BP 141 / 68; Pulse 78; Resp 16; Temp 98.8; Pulse Ox 95% ; Weight 71.21 kg; Height 5 ft. cm10 2 in. ; Pain 8/10; 19:30 BP 150 / 65; Pulse 67; Resp 18; Pulse Ox 97% on R/A; eh3 18:26 Body Mass Index 28.72 (71.21 kg, 157.48 cm) cm10 18:26 Pain Scale: Adult cm10 MDM: 18:13 Patient medically screened. kb 21:20 Data reviewed: vital signs, nurses notes. kb 21:20 Differential diagnosis: fracture, sprain, strain. Counseling: I had a detailed kb discussion with the patient and/or guardian regarding the historical points, exam findings, and any diagnostic results supporting the discharge/admit diagnosis, radiology results, the need for outpatient follow up, a orthopedic surgeon, to return to the emergency department if symptoms worsen or persist or if there are any questions or concerns that arise at home. ED course: Pt has appt for MRI in the morning to evaluate right shoulder. 12/26 18:26 Order name: Shoulder Right (2 View) XRAY; Complete Time: 20:00 kb 12/26 18:26 Order name: Clavicle Right XRAY; Complete Time: 20:00 kb 12/26 20:15 Order name: Sling; Complete Time: 20:29 kb Administered Medications: : CANCELLED (Duplicate Order): Hydrocodone-Acetaminophen PO (7.5 mg-325 mg) 1 tabs PO oncekb 19:46 Drug: Burkett PO 10 mg-325 mg 1 tabs Route: PO; eh3 20:08 Follow up: Response: No adverse reaction eh3 19:47 Drug: Ketorolac IM 30 mg Route: IM; Site: left deltoid; eh3 20:08 Follow up: Response: No adverse reaction eh3 Disposition Summary: 12/26/22 20:00 Discharge Ordered Location: Home kb Condition: Stable kb Diagnosis - Pain in right shoulder kb Followup: kb - With: Emergency Department - When: As needed - Reason: Worsening of condition Followup: kb - With: Private Physician - When: 2 - 3 days - Reason: Recheck today's complaints, Continuance of care, Re-evaluation by your physician Discharge Instructions: - Discharge Summary Sheet kb - Musculoskeletal Pain kb - Shoulder Pain, Lqme-in-Gscz kb Forms: - Medication Reconciliation Form kb - Thank You Letter kb - Antibiotic Education kb - Prescription Opioid Use kb - Patient Portal Instructions kb - Leadership Thank You Letter kb Signatures: Dispatcher [employer] EDMS Camila Bridges, FITNESS/WELLNESS DIRECTOR-C FITNESS/WELLNESS DIRECTOR-Monique Ricardo RN RN eh3 Corine Romero RN RN cm10 Corrections: (The following items were deleted from the chart) 18:29 18:26 Hydrocodone-Acetaminophen PO (7.5 mg-325 mg) 1 tabs PO once ordered. kb
--- NOTE | 2022-12-26 20:01 | ER ---
Nurse's Notes [facility] Name: Anastasiya Proctor Age: 67 yrs Sex: Female : 1955 Arrival Date: 12/26/2022 Time: 18:05 Bed 16 Private MD: Diagnosis: Pain in right shoulder Presentation: 12/26 18:26 Chief complaint: Patient states: right shoulder pain. Pt states that she was pushing cm10 her bed and hit her shoulder and is now having pain. Pt states that it hurts to move her right arm. Coronavirus screen: Vaccine status: Patient reports receiving the 2nd dose of the covid vaccine. Ebola Screen: Patient denies travel to an Ebola-affected area in the 21 days before illness onset. No symptoms or risks identified at this time. Initial Sepsis Screen: Does the patient meet any 2 criteria? No. Patient's initial sepsis screen is negative. Does the patient have a suspected source of infection? No. Patient's initial sepsis screen is negative. Risk Assessment: Do you want to hurt yourself or someone else? Patient reports no desire to harm self or others. Onset of symptoms was December 26, 2022. 18:26 Method Of Arrival: Ambulatory cm10 18:26 Acuity: HALIE 3 cm10 Historical: - Allergies: 18:27 Bactrim; cm10 18:27 Sumatriptan Succinate; cm10 - Home Meds: 19:30 diltiazem HCl 180 mg Oral cpER 1 cap once daily [Active]; lisinopril 40 mg Oral tab 1 eh3 tab twice a day [Active]; Prilosec 20 mg Oral cpDR [Active]; - PMHx: 18:27 Hypertension; cm10 - Immunization history:: Adult Immunizations up to date. - Social history:: Smoking status: Patient denies any tobacco usage or history of. Screenin:30 [facility] ED Fall Risk Assessment (Adult) Score/Fall Risk Level 0 - 2 = Low Risk. Abuse eh3 screen: Denies threats or abuse. Denies injuries from another. Nutritional screening: No deficits noted. Tuberculosis screening: No symptoms or risk factors identified. Assessment: 19:30 General: Appears in no apparent distress. uncomfortable, Behavior is cooperative, eh3 anxious. Pain: Complains of pain in anterior aspect of right shoulder and posterior aspect of right shoulder. Neuro: Level of Consciousness is awake, alert, obeys commands, Oriented to person, place, time, situation. Cardiovascular: Capillary refill < 3 seconds Patient's skin is warm and dry. Respiratory: Airway is patent Respiratory effort is even, unlabored, Respiratory pattern is regular, symmetrical. GI: Abdomen is round non-distended. Derm: Skin is pink, warm \T\ dry. Musculoskeletal: Circulation, motion, and sensation intact. Range of motion: limited in right shoulder. Vital Signs: 18:26 BP 141 / 68; Pulse 78; Resp 16; Temp 98.8; Pulse Ox 95% ; Weight 71.21 kg; Height 5 ft. cm10 2 in. ; Pain 8/10; 19:30 BP 150 / 65; Pulse 67; Resp 18; Pulse Ox 97% on R/A; eh3 18:26 Body Mass Index 28.72 (71.21 kg, 157.48 cm) cm10 18:26 Pain Scale: Adult cm10 ED Course: 18:08 Patient arrived in ED. kj1 18:13 Camila Bridges FNP-C is PHCP. kb 18:13 Karthik Sheppard MD is Attending Physician. kb 18:27 Triage completed. cm10 18:28 Arm band placed on Patient placed in waiting room. cm10 19:04 Shoulder Right (2 View) XRAY In Process Unspecified. EDMS 19:04 Clavicle Right XRAY In Process Unspecified. EDMS 19:30 Patient has correct armband on for positive identification. Bed in low position. Call eh3 light in reach. Side rails up X2. Adult w/ patient. Provided Education on: Use of call nolan. Pulse ox on. NIBP on. 19:33 Monique Medina, RN is Primary Nurse. eh3 20:12 No provider procedures requiring assistance completed. Patient did not have IV access eh3 during this emergency room visit. 20:12 Sling applied to right arm. eh3 Administered Medications: 18:29 CANCELLED (Duplicate Order): Hydrocodone-Acetaminophen PO (7.5 mg-325 mg) 1 tabs PO oncekb 19:46 Drug: [place] PO 10 mg-325 mg 1 tabs Route: PO; eh3 20:08 Follow up: Response: No adverse reaction eh3 19:47 Drug: Ketorolac IM 30 mg Route: IM; Site: left deltoid; eh3 20:08 Follow up: Response: No adverse reaction eh3 Medication: 20:12 VIS not applicable for this client. eh3 Outcome: 20:00 Discharge ordered by . kb 20:38 Discharged to home ambulatory. eh3 20:38 Discharge instructions given to patient, Instructed on discharge instructions, follow up and referral plans. Demonstrated understanding of instructions, follow-up care. 20:38 Condition: stable eh3 20:38 Patient left the ED. 3 Signatures: Dispatcher [employer] EDCamila Otto, LEOBARDO-Luc BOOTH-Tete Cruz kj1 Monique Medina, RN RN eh3 Corine Romero RN RN cm10
[2022-12-26 21:40] VITALS: TEMP 98.8
[2022-12-26 21:41] VITALS: BP 150/65; O2SAT 97
== END 2022-12-26 20:38 | disposition home or self-care (01) ==
LOC: ER 18:05
DX: M25.511 Pain in right shoulder (principal); I10 Essential (primary) hypertension; Z88.1 Allergy status to other antibiotic agents; Z88.8 Allergy status to other drugs, medicaments and biological substances
CPT/HCPCS: 96372; 99284

== ENCOUNTER 2023-05-27 23:57 | Inpatient (IN) | payer OTHER ==
[2023-05-28] MEDS ORDERED: MAGNESIUM SULFATE 1 gm IVPB 1 GM/100 ML BAG IV ONE (00:43)
[2023-05-28] MEDS ORDERED: GLUCAGON 1 MG/VIAL ONE ×2 (00:44→01:39)
--- NOTE | 2023-05-28 04:41 | ER ---
Nurse's Notes [facility] Name: Anastasiya Proctor Age: 67 yrs Sex: Female : 1955 Arrival Date: 05/27/2023 Time: 23:57 Bed 6 Private MD: Diagnosis: Food in esophagus-with impaction, acute Presentation: 05/28 00:08 Chief complaint: Patient states: eating pork chops for dinner and a piece is stuck in as6 my throat. I've tried everything i know but nothing has worked so far. anything that goes down comes back up. Coronavirus screen: Client denies travel out of the [place] in the last 14 days. At this time, the client does not indicate any symptoms associated with coronavirus-19. Ebola Screen: No symptoms or risks identified at this time. Initial Sepsis Screen: Does the patient meet any 2 criteria? No. Patient's initial sepsis screen is negative. Does the patient have a suspected source of infection? No. Patient's initial sepsis screen is negative. Risk Assessment: Do you want to hurt yourself or someone else? Patient reports no desire to harm self or others. Onset of symptoms was May 27, 2023 at 21:00. 00:08 Method Of Arrival: Ambulatory as6 00:08 Acuity: HALIE 3 as6 Triage Assessment: 00:11 General: Appears in no apparent distress. uncomfortable, Behavior is calm, cooperative. as6 Pain: Complains of pain in throat. EENT: Reports difficulty swallowing. Neuro: No deficits noted. Glasgow Agitation-Sedation Scale (RASS): 0 - Alert and Calm Level of Consciousness is awake, alert, obeys commands, Oriented to person, place, time, situation. Cardiovascular: No deficits noted. Denies chest pain, shortness of breath, Capillary refill < 3 seconds Clubbing of nail beds is absent JVD is absent Patient's skin is warm and dry. Respiratory: No deficits noted. Respiratory effort is even, unlabored, Respiratory pattern is regular, symmetrical. GI: Reports intolerance of fluids. : No deficits noted. No signs and/or symptoms were reported regarding the genitourinary system. Derm: No deficits noted. No signs and/or symptoms reported regarding the dermatologic system. Skin is intact, is healthy with good turgor, Skin is dry, Skin is normal, Skin temperature is warm. Musculoskeletal: No deficits noted. No signs and/or symptoms reported regarding the musculoskeletal system. Circulation, motion, and sensation intact. Range of motion: intact in all extremities. Historical: - Allergies: 00:11 Bactrim; 00:11 Imitrex; 00:11 Sumatriptan Succinate; as6 - Home Meds: 00:11 diltiazem HCl 180 mg Oral cpER 1 cap once daily [Active]; lisinopril 40 mg Oral tab 1 as6 tab twice a day [Active]; Prilosec 20 mg Oral cpDR [Active]; - PMHx: 00:11 Hypertension; 00:16 AFIB; as6 - PSHx: 00:11 Appendectomy; double mastectomy; left knee; left ankle; Total abdominal hysterectomy; as6 - Immunization history:: Adult Immunizations up to date, Client reports receiving the 2nd dose of the Covid vaccine, Flu vaccine is up to date. - Social history:: Smoking status: Patient denies any tobacco usage or history of. Patient/guardian denies using alcohol, street drugs. - Family history:: not pertinent. - Hospitalizations: : No recent hospitalization is reported. Screenin:16 [facility] ED Fall Risk Assessment (Adult) History of falling in the last 3 months, ha1 including since admission No falls in past 3 months (0 pts) Confusion or Disorientation Yes (5 pts) Intoxicated or Sedated No (0 pts) Impaired Gait No (0 pts) Mobility Assist Device Used No (0 pt) Altered Elimination No (0 pt) Score/Fall Risk Level 0 - 2 = Low Risk Oriented to surroundings, Maintained a safe environment, Hourly rounding (assess needs \T\ fall precautionary measures) done. Abuse screen: Denies threats or abuse. Denies injuries from another. Nutritional screening: No deficits noted. Tuberculosis screening: No symptoms or risk factors identified. Assessment: 00:16 General: Appears uncomfortable, Behavior is anxious. Neuro: Level of Consciousness is ha1 awake, alert, obeys commands, Oriented to person, place, time, situation. Cardiovascular: Capillary refill < 3 seconds Patient's skin is warm and dry. Respiratory: Airway is patent Respiratory effort is even, unlabored, Respiratory pattern is regular, symmetrical. GI: Abdomen is round non-distended, Pt is actively vomiting brown secretions Reports nausea, vomiting, foreign body in her throat. Derm: Skin is moist, Skin is normal. Musculoskeletal: Circulation, motion, and sensation intact. Range of motion: intact in all extremities. 02:09 Reassessment: No changes from previously documented assessment. Patient and/or family vc1 updated on plan of care and expected duration. Pain level reassessed. Patient is alert, oriented x 3, equal unlabored respirations, skin warm/dry/pink. 02:56 Reassessment: Patient and/or family updated on plan of care and expected duration. Pain ha1 level reassessed. Patient is alert, oriented x 3, equal unlabored respirations, skin warm/dry/pink. 03:50 Reassessment: Patient and/or family updated on plan of care and expected duration. Pain ha1 level reassessed. Patient is alert, oriented x 3, equal unlabored respirations, skin warm/dry/pink. Patient states symptoms have improved. 07:00 Reassessment: No changes from previously documented assessment. Report received from 1 assistant casino shift manager RN. Vital Signs: 00:08 BP 151 / 85; Pulse 91; Resp 17 S; Temp 99(TE); Pulse Ox 99% on R/A; Weight 72.57 kg as6 (R); Height 5 ft. 2 in. (R); Pain 0/10; 01:10 BP 167 / 82; Pulse 74; Resp 17 S; Pulse Ox 98% on R/A; ha1 02:09 BP 169 / 87; Pulse 76; Resp 17; Pulse Ox 100% ; vc1 02:56 BP 141 / 74; Pulse 76; Resp 17 S; Pulse Ox 97% on R/A; ha1 03:45 BP 149 / 68; Pulse 69; Resp 17 S; Pulse Ox 95% on R/A; ha1 04:39 BP 166 / 59; Pulse 91; Resp 18; Pulse Ox 93% ; vc1 00:08 Body Mass Index 29.26 (72.57 kg, 157.48 cm) as6 00:08 Pain Scale: Adult as6 ED Course: 00:01 Patient arrived in ED. ag3 00:06 Sascha Easton MD is Attending Physician. rn 00:11 Triage completed. as6 00:11 Arm band placed on right wrist. as6 00:16 Patient has correct armband on for positive identification. Placed in gown. Bed in low ha1 position. Call light in reach. Side rails up X 1. Adult w/ patient. 00:35 Inserted saline lock: 22 gauge in left antecubital area, using aseptic technique. ha1 02:09 Savanah Grace, RN is Primary Nurse. vc1 02:59 Provided Education on: medication administration . ha1 04:40 Kassi Steen MD is Hospitalizing Provider. rn 12:01 No provider procedures requiring assistance completed. Patient admitted, IV remains in ll1 place. Administered Medications: 01:00 Drug: Glucagon IVP 1 mg IVP once Route: IVP; Site: left antecubital; vc1 01:10 Drug: Magnesium Sulfate IVPB 1 grams IVPB once over 1 hrs Route: IVPB; Infused Over: 1 vc1 hrs; Site: left antecubital; 01:40 Drug: Glucagon IVP 1 mg IVP once Route: IVP; Site: left antecubital; vc1 Medication: 02:01 VIS not applicable for this client. ha1 Outcome: 04:41 Decision to Hospitalize by Provider. rn 12:01 Admitted to ER Hold. Please see [facility] for further documentation. ll1 12:01 Condition: stable 12:01 Instructed on the need for admit, 12:25 Patient left the ED. 1 Signatures: Sascha Easton MD MD rn Gomez, Alice ag3 Rosenda Root RN RN ll1 Eloy Gomez RN RN as6 Savanah Grace RN RN vc1 Stephany Angelo RN RN 1
--- NOTE | 2023-05-28 04:41 | EDPHYS ---
Physician Documentation [facility] Name: Anastasiya Proctor Age: 67 yrs Sex: Female : 1955 Arrival Date: 05/27/2023 Time: 23:57 Bed 6 Private MD: ED Physician Sascha Easton HPI: 05/28 00:15 This 67 yrs old Female presents to ER via Ambulatory with complaints of Vomiting, rn FOREIGN BODY LODGED IN THROAT. 00:15 The patient presents to the emergency department with nausea, vomiting. Onset: The rn symptoms/episode began/occurred just prior to arrival. Possible causes: Pork Stuck in esophagus. The symptoms are aggravated by Liquids and swallowing. Associated signs and symptoms: Pertinent positives: nausea, vomiting. Severity of symptoms: At their worst the symptoms were moderate in the emergency department the symptoms are unchanged. The patient has experienced a previous episode. Patient reports eating pork chop and a piece is stuck in her esophagus. This is happened several times before, has esophageal stenosis and has required dilatation by GI in the past. She is also required removal of steak the last time this happened to her. Reports tried some water and give it some time at home and has not worked although she has felt slight improvement. No shortness of breath and did not aspirate.. Historical: - Allergies: 00:11 Bactrim; as6 00:11 Imitrex; as6 00:11 Sumatriptan Succinate; as6 - Home Meds: 00:11 diltiazem HCl 180 mg Oral cpER 1 cap once daily [Active]; lisinopril 40 mg Oral tab 1 as6 tab twice a day [Active]; Prilosec 20 mg Oral cpDR [Active]; - PMHx: 00:11 Hypertension; as6 00:16 AFIB; as6 - PSHx: 00:11 Appendectomy; double mastectomy; left knee; left ankle; Total abdominal hysterectomy; as6 - Immunization history:: Adult Immunizations up to date, Client reports receiving the 2nd dose of the Covid vaccine, Flu vaccine is up to date. - Social history:: Smoking status: Patient denies any tobacco usage or history of. Patient/guardian denies using alcohol, street drugs. - Family history:: not pertinent. - Hospitalizations: : No recent hospitalization is reported. ROS: 00:15 Constitutional: Negative for fever, chills, and weight loss, Cardiovascular: Negative rn for chest pain, palpitations, and edema, Respiratory: Negative for shortness of breath, cough, wheezing, and pleuritic chest pain, Abdomen/GI: Positive for food stuck in esophagus Exam: 00:15 Constitutional: This is a well developed, well nourished patient who is awake, alert, rn holding emesis bag with small amount of emesis. ENT: No stridor Cardiovascular: Regular rate and rhythm. No pulse deficits. Respiratory: No increased work of breathing, no retractions or nasal flaring. Vital Signs: 00:08 BP 151 / 85; Pulse 91; Resp 17 S; Temp 99(TE); Pulse Ox 99% on R/A; Weight 72.57 kg as6 (R); Height 5 ft. 2 in. (R); Pain 0/10; 01:10 BP 167 / 82; Pulse 74; Resp 17 S; Pulse Ox 98% on R/A; ha1 02:09 BP 169 / 87; Pulse 76; Resp 17; Pulse Ox 100% ; vc1 02:56 BP 141 / 74; Pulse 76; Resp 17 S; Pulse Ox 97% on R/A; ha1 03:45 BP 149 / 68; Pulse 69; Resp 17 S; Pulse Ox 95% on R/A; ha1 04:39 BP 166 / 59; Pulse 91; Resp 18; Pulse Ox 93% ; vc1 00:08 Body Mass Index 29.26 (72.57 kg, 157.48 cm) as6 00:08 Pain Scale: Adult as6 MDM: 00:06 Patient medically screened. rn 04:37 Differential diagnosis: Esophageal food impaction. Data reviewed: vital signs, nurses rn notes, and as a result, I will admit patient. 04:38 Consideration of Admission/Observation Patient was admitted/placed on observation. rn Escalation of care including admission/observation considered. Counseling: I had a detailed discussion with the patient and/or guardian regarding the historical points, exam findings, and any diagnostic results supporting the discharge/admit diagnosis, lab results, the need for further work-up and treatment in the hospital. Response to treatment: the patient's symptoms have mildly improved after treatment, and as a result, I will admit patient. ED course: Patient initially showed some improvement in symptoms, is able to drink a little bit more water but still has foreign body sensation and unable to tolerate drinking normally. Tried glucagon twice, IV magnesium. Patient also tried Coca-Cola. Will admit to hospitalist service for GI consultation. I believe patient saw Dr. Body the last time this happened and she required procedural removal. 05/28 04:38 Order name: CBC with Diff rn 05/28 04:38 Order name: Basic Metabolic Panel rn 05/28 04:38 Order name: Protime (+inr) rn 05/28 04:38 Order name: Ptt, Activated rn 05/28 05:38 Order name: Urinalysis w/ reflexes EDMS 05/28 05:38 Order name: CBC with Automated Diff EDMS 05/28 05:38 Order name: CBC with Automated Diff EDMS 05/28 05:38 Order name: Comprehensive Metabolic Panel EDMS 05/28 05:38 Order name: Comprehensive Metabolic Panel EDMS 05/28 05:38 Order name: CONS Physician Consult EDMS 05/28 00:14 Order name: IV Start; Complete Time: 01:11 rn 05/28 04:38 Order name: NPO; Complete Time: 04:42 rn Administered Medications: 01:00 Drug: Glucagon IVP 1 mg IVP once Route: IVP; Site: left antecubital; vc1 01:10 Drug: Magnesium Sulfate IVPB 1 grams IVPB once over 1 hrs Route: IVPB; Infused Over: 1 vc1 hrs; Site: left antecubital; 01:40 Drug: Glucagon IVP 1 mg IVP once Route: IVP; Site: left antecubital; vc1 Disposition Summary: 05/28/23 04:41 Hospitalization Ordered Notes: Hospitalization Status: Observation rn Provider: Kassi Steen rn Condition: Stable rn Problem: new rn Symptoms: are unchanged rn Bed/Room Type: Standard rn Location: [facility] ER HOLD(05/28/23 07:31) em1 Room Assignment: ERHOLD-(05/28/23 07:31) em1 Diagnosis - Food in esophagus - with impaction, acute rn Forms: - Medication Reconciliation Form rn - SBAR form rn - Leadership Thank You Letter rn Signatures: Dispatcher [employer] [facility] Sascha Easton MD MD rn Martinez, Eric em1 Eloy Gomez RN RN as6 Savanah Grace RN RN vc1 Corrections: (The following items were deleted from the chart) 04:41 Telemetry/MedSurg (observation) rn em1 04:41 rn em1
[2023-05-28 05:13] LABS: Absolute Lymphocytes (CBC) 0.9 K/uL (0.7-4.9); Hematocrit 40.7 % (36.0-45.0); Lymphocytes % 11.1 % (15.3-44.8); MCV 90.2 fL (80-100); MPV 7.7 fL (7.6-11.3); Platelets 238 thou/uL (152-406); RBC Red Blood Cell Count 4.52 M/uL (3.86-4.86)
[2023-05-28] MEDS ORDERED: ONDANSETRON 4 MG/2 ML VIAL IV PRN (05:33)
[2023-05-28 05:34] LABS: Protime INR 1.18
[2023-05-28 05:36] LABS: Potassium 3.8 mEq/L (3.5-5.1)
--- NOTE | 2023-05-28 06:06 | P.HP ---
Certification for Inpatient Patient admitted to: Inpatient With expected LOS: >2 Midnights Practitioner: I am a practitioner with admitting privileges, knowledge of patient current condition, hospital course, and medical plan of care. Services: Services provided to patient in accordance with Admission requirements found in Title 42 Section 412.3 of the Code of Federal Regulations Patient History Date of Service: 05/28/23 History of Present Illness: 67-year-old female with a history of hypertension and A-fib presented to the ED with chest pain and feeling of food stuck in her throat after eating pork chops. She has the same symptoms of food impaction 2 years ago in her esophagus after she ate steak and required EGD for retrieval. Patient stable on arrival in the ED and patient is being admitted with GI consult. She complains of right shoulder pain and unable to take oral medications. Allergies sulfamethoxazole [From Bactrim] Allergy (Verified 06/24/21 15:42) Itching sumatriptan [From Imitrex] Allergy (Verified 12/27/16 21:41) Anaphylaxis sumatriptan succinate [From Imitrex] Allergy (Verified 12/27/16 21:41) Anaphylaxis trimethoprim [From Bactrim] Allergy (Verified 06/24/21 15:42) Itching Home Medications: Diltiazem HCl [Diltiazem 24Hr Cd] 1.5 cap PO BEDTIME 02/05/21 Furosemide 1 tab PO PRN PRN 02/05/21 dilTIAZem HCL [Diltiazem 24Hr ER] 1 cap PO SEECOM 02/05/21 lisinopriL [Lisinopril] 2 tab PO BID 02/05/21 Amox/Clavulanate [Augmentin 500-125 mg Tab*] 500 mg PO BID #10 tab 02/07/21 Docusate [Colace Cap*] 100 mg PO DAILY #15 cap 02/07/21 Hydrocodone 7.5/APAP 325 [[place] 7.5/325 mg*] 1 tab PO TID PRN #10 tab 02/07/21 Omeprazole Magnesium [Prilosec Otc] 1 mg PO BID 06/24/21 - Past Medical/Surgical History Diabetic: No -: Hypertension -: Anxiety -: carpal tunnel -: a-fib/svt s/p ablation -: double mastectomy -: heart ablation -: ankle surgery -: hysterectomy -: carpal tunnel -: left knee replacement -: append -: nose sx Psychosocial/ Personal History: Patient lives at home with her . - Family History Father -: Heart disease Mother -: Cancer Sister -: Cancer - Social History Alcohol use: Yes CD- Drugs: No Caffeine use: No Review of Systems Unremarkable Physical Examination - Vital Signs Temperature: 99 F Blood Pressure: 166/59 Pulse: 91 Respirations: 17 Pulse Ox (%): 99 - Physical Exam General: Alert, Oriented x3, Mild distress HEENT: Atraumatic, Normocephalic, PERRLA, Mucous membr. moist/pink Neck: Supple, JVD not distended, No Thyromegaly Respiratory: Clear to auscultation bilaterally, Normal air movement Cardiovascular: No edema, Regular rate/rhythm, Normal S1 S2 Gastrointestinal: Normal bowel sounds, Soft and benign, No tenderness, No masses Musculoskeletal: No swelling, No erythema, No tenderness Integumentary: No rashes Neurological: Normal speech, Normal strength at 5/5 x4 extr, Normal tone, Sensation intact - Studies Laboratory Data (last 24 hrs) 05/28/23 05/28/23 05/28/23 04:52 04:52 04:52 WBC 7.70 Hgb 13.8 Hct 40.7 Plt Count 238 PT 12.9 H INR 1.18 APTT 35.1 Sodium 140 Potassium 3.8 BUN 10 Creatinine 0.48 L Glucose 113 H Assessment and Plan - Plan Food impaction in the esophagus, acute Chronic A-fib GERD Hypertension Chronic right shoulder pain Plan N.p.o., IV fluid, IV pain control for now GI consult IV Protonix Resume diltiazem and lisinopril when patient is able to swallow - Advance Directives Does patient have a Living Will: No Does patient have a Durable POA for Healthcare: No
[2023-05-28] MEDS ORDERED: SODIUM CHLORIDE 0.9% 10ML INJ IV PRN (06:09)
[2023-05-28] MEDS ORDERED: D5W 1,000 ML IV ONE (07:52)
[2023-05-28] MEDS ORDERED: ONDANSETRON 4 MG/2 ML VIAL ONE (07:53)
[2023-05-28] MEDS ORDERED: ENOXAPARIN 40 MG/0.4 ML SQ ONE (07:53)
[2023-05-28] MEDS ORDERED: MORPHINE 2 MG/ML SYR ONE ×2 (07:53→11:54)
[2023-05-28] MEDS ORDERED: PANTOPRAZOLE 40 MG INJ ONE (07:53)
[2023-05-28] MEDS: D5 0.9 NS 1,000 ML IV SCH ×2 (08:00→15:12)
[2023-05-28] MEDS: MORPHINE 2 MG/ML SYR IV PRN ×2 (08:02→12:04)
[2023-05-28 08:23] VITALS: BMI 30.2
[2023-05-28] MEDS ORDERED: ENOXAPARIN 40 MG/0.4 ML SQ SCH (09:00)
[2023-05-28] MEDS ORDERED: PANTOPRAZOLE 40 MG INJ IVP SCH (09:00)
[2023-05-28] MEDS ORDERED: Ringers Lactate 1,000 ML IV ONE (12:30)
[2023-05-28] MEDS ORDERED: propofoL 200 MG/20 ML VIAL IV ONE (13:16)
[2023-05-28] MEDS ORDERED: LIDOCAINE 1% MPF 5 ML VIAL ONE (13:16)
[2023-05-28 14:37] VITALS: O2SAT 95
[2023-05-28 16:08] VITALS: BP 179/80; TEMP 97.7
--- NOTE | 2023-05-28 16:36 | P.DS ---
Admission Date: 05/28/23 Discharge Date: 05/28/23 Brief History of Present Illness: Diagnosis Acute Food bolus HPI 05/28/23 Anastasiya Proctor is a 67-year-old female with a history of hypertension and A-fib presented to the ED with chest pain and feeling of food stuck in her throat after eating pork chops. She has the same symptoms of food impaction 2 years ago in her esophagus after she ate steak and required EGD for retrieval. Patient stable on arrival in the ED and patient is being admitted with GI consult. She complains of right shoulder pain and unable to take oral medications. Hospital Course: Anastasiya Proctor is a pleasant 67 with a past medical history significant for hypertension and A-fib who was admitted to the [facility] on 05/28/23 for food bolus. Anastasiya Proctor presented to the ED with complaints of trouble swallowing and feeling like something was stuck in her throat. Dr. Boyd was consulted and he performed an EGD which allowed him to successfully retrieve the pork chop piece. She has tolerated and successfully swallowed s/p procedure and is ready for discharge. Please follow up with Dr. Boyd in one week for a dilatation of your esophagus. On 05/28/23, Anastasiya was seen on morning rounds and deemed medically stable for discharge. Anastasiya was discharged with instructions to schedule follow-up appointment with Dr. Boyd. No prescriptions this admission. Anastasiya Proctor was given the opportunity to ask questions and reported no further questions. Furthermore, all questions were answered to the best of my ability. A copy of this discharge summary will be sent to the above providers to faci litate continuity of care. Today, I personally spent 35 minutes with Anastasiya, of which greater than 50% of the time was spent in patient education, counseling, and coordination of care as described above. Physical Exam General: Alert, Oriented x3, NAD, obese HEENT: Atraumatic, Normocephalic, PERRLA, Mucous membr. moist/pink Neck: Supple, JVD not distended, No Thyromegaly Respiratory: Clear to auscultation bilaterally, Normal air movement, symmetrical chest wall movement Cardiovascular: RRR, Normal S1 S2, No edema Gastrointestinal: Normal bowel sounds, Soft and benign, NT/ND on palpation, No masses Musculoskeletal: No swelling, No erythema, No tenderness, 2 peripheral pulses Integumentary: No rashes Neurological: Normal speech, Normal strength at 5/5 x4 extr, Normal tone, Sensation intact <Yue Conroy - Last Filed: 05/28/23 17:02> Admission Date: 05/28/23 Discharge Date: 05/28/23 Hospital Course: Discharge diagnosis Acute Food impaction in the esophagus. Chronic A-fib GERD Hypertension Chronic right shoulder pain <mag noe - Last Filed: 05/28/23 18:59> Disposition: ROUTINE DISCHARGE Discharge Condition: GOOD Vital Signs/Physical Exam: Temp Pulse Resp BP Pulse Ox 97.7 F 87 17 179/80 H 96 05/28/23 16:00 05/28/23 16:00 05/28/23 16:00 05/28/23 16:00 05/28/23 16:00 Laboratory Data at Discharge: WBC 7.70 thou/uL (4.3-10.9) 05/28/23 04:52 Hgb 13.8 g/dL (12.0-15.0) 05/28/23 04:52 Hct 40.7 % (36.0-45.0) 05/28/23 04:52 Plt Count 238 thou/uL (152-406) 05/28/23 04:52 PT 12.9 SECONDS (9.5-12.5) H 05/28/23 04:52 INR 1.18 05/28/23 04:52 APTT 35.1 SECONDS (24.3-36.9) 05/28/23 04:52 Sodium 140 mEq/L (136-145) 05/28/23 04:52 Potassium 3.8 mEq/L (3.5-5.1) 05/28/23 04:52 BUN 10 mg/dL (7-18) 05/28/23 04:52 Creatinine 0.48 mg/dL (0.55-1.02) L 05/28/23 04:52 Glucose 113 mg/dL (74-106) H 05/28/23 04:52 <Yue Conroy - Last Filed: 05/28/23 17:02> Vital Signs/Physical Exam: Temp Pulse Resp BP Pulse Ox 97.7 F 87 17 179/80 H 96 05/28/23 16:00 05/28/23 16:00 05/28/23 16:00 05/28/23 16:00 05/28/23 16:00 Laboratory Data at Discharge: WBC 7.70 thou/uL (4.3-10.9) 05/28/23 04:52 Hgb 13.8 g/dL (12.0-15.0) 05/28/23 04:52 Hct 40.7 % (36.0-45.0) 05/28/23 04:52 Plt Count 238 thou/uL (152-406) 05/28/23 04:52 PT 12.9 SECONDS (9.5-12.5) H 05/28/23 04:52 INR 1.18 05/28/23 04:52 APTT 35.1 SECONDS (24.3-36.9) 05/28/23 04:52 Sodium 140 mEq/L (136-145) 05/28/23 04:52 Potassium 3.8 mEq/L (3.5-5.1) 05/28/23 04:52 BUN 10 mg/dL (7-18) 05/28/23 04:52 Creatinine 0.48 mg/dL (0.55-1.02) L 05/28/23 04:52 Glucose 113 mg/dL (74-106) H 05/28/23 04:52 <mag noe - Last Filed: 05/28/23 18:59> Activity: Ad lana <Yue Conroy - Last Filed: 05/28/23 17:02> <mag noe - Last Filed: 05/28/23 18:59> Home Medications: Diltiazem HCl [Diltiazem 24Hr Cd] 1.5 cap PO BEDTIME 02/05/21 Furosemide 1 tab PO PRN PRN 02/05/21 dilTIAZem HCL [Diltiazem 24Hr ER] 1 cap PO SEECOM 02/05/21 lisinopriL [Lisinopril] 2 tab PO BID 02/05/21 Amox/Clavulanate [Augmentin 500-125 mg Tab*] 500 mg PO BID #10 tab 02/07/21 Docusate [Colace Cap*] 100 mg PO DAILY #15 cap 02/07/21 Hydrocodone 7.5/APAP 325 [[place] 7.5/325 mg*] 1 tab PO TID PRN #10 tab 02/07/21 Omeprazole Magnesium [Prilosec Otc] 1 mg PO BID 06/24/21 Physician Discharge Instructions: You presented to the ED with complaints of trouble swallowing and feeling like something is stuck in your throat. Dr. Boyd was consulted and he performed an EGD which allowed him to successfully retrieve the pork chop piece. You have tolerated swallowing since the procedure has finished and you are ready for discharge. Please follow up with Dr. Boyd in one week for a dilatation of your esophagus. 1. follow up with Dr. Boyd in one week 2. follow up with your PCP for any medication refills needed 3. We did not change any medications this visit, please continue taking your medications as scheduled 4. continue with careful swallowing as you eat 5. no activity restrictions 6. no new medications this visit 7. Return to the ED if symptoms return or worsen Followup: Casimiro Velazquez MD [Primary Care Provider] - 1-2 Weeks Casimiro Boyd MD [ASSOCIATE-ACTIVE - CAN ADMIT] - 1 Week
== END 2023-05-28 16:36 | disposition home or self-care (01) | DRG 394 ==
LOC: ER 23:57 → ERHOLD 05-28 05:55 → 2ND 05-28 13:12
PROVIDERS: ADMIT Internal Medicine; ATTEND Internal Medicine
PROC: 0DC38ZZ Extirpation of Matter from Lower Esophagus, Via Natural or Artificial Opening Endoscopic (ICD-10-PCS; principal; 2023-05-28 13:30)
DX: T18.128A Food in esophagus causing other injury, initial encounter (principal); I48.20 Chronic atrial fibrillation, unspecified; I10 Essential (primary) hypertension; K22.2 Esophageal obstruction; K21.9 Gastro-esophageal reflux disease without esophagitis; G89.29 Other chronic pain; M25.511 Pain in right shoulder; Z88.1 Allergy status to other antibiotic agents; Z88.8 Allergy status to other drugs, medicaments and biological substances; Z90.49 Acquired absence of other specified parts of digestive tract; Z90.13 Acquired absence of bilateral breasts and nipples; Z90.710 Acquired absence of both cervix and uterus; Z79.899 Other long term (current) drug therapy; Z96.652 Presence of left artificial knee joint
CPT/HCPCS: 36415; 80048; 85025; 85610; 85730; C9113; J1610; J1650; J2001; J2270; J2405; J2704; J3475; J7042; J7120

== ENCOUNTER 2023-11-06 16:16 | Emergency (ER) | payer OTHER ==
--- NOTE | 2023-11-06 21:39 | ER ---
Nurse's Notes [facility] Name: Anastasiya Proctor Age: 68 yrs Sex: Female : 1955 Arrival Date: 11/06/2023 Time: 16:16 Bed [id number] Private MD: Diagnosis: Presentation: 11/05 19:18 Chief complaint: Patient states: she fell 2-3 days ago. patient complains of continued ap3 left med back pain. patient rates her pain as a 6/10 on the pain scale. Coronavirus screen: At this time, the client does not indicate any symptoms associated with coronavirus-19. Ebola Screen: No symptoms or risks identified at this time. Initial Sepsis Screen: Does the patient meet any 2 criteria? No. Patient's initial sepsis screen is negative. Does the patient have a suspected source of infection? No. Patient's initial sepsis screen is negative. Risk Assessment: Do you want to hurt yourself or someone else? Patient reports no desire to harm self or others. Onset of symptoms is unknown. 19:18 Method Of Arrival: Ambulatory ap3 19:18 Acuity: HALIE 4 ap3 Triage Assessment: 19:20 General: Appears in no apparent distress. Behavior is calm, cooperative, appropriate ap3 for age. Pain: Complains of pain in left mid back Pain currently is 6 out of 10 on a pain scale. Neuro: Level of Consciousness is awake, alert, obeys commands, Oriented to person, place, time, situation. Cardiovascular: Patient's skin is warm and dry. Respiratory: Airway is patent Respiratory effort is even, unlabored, Respiratory pattern is regular, symmetrical. Historical: - Allergies: 19:19 Bactrim; ap3 19:19 Imitrex; ap3 19:19 Sumatriptan Succinate; ap3 - PMHx: 19:19 AFIB; Hypertension; ap3 - PSHx: 19:19 Appendectomy; double mastectomy; Left ankle; left knee; Total abdominal hysterectomy; ap3 Screenin:20 Abuse screen: Denies threats or abuse. Nutritional screening: No deficits noted. ap3 Tuberculosis screening: No symptoms or risk factors identified. Vital Signs: 19:18 BP 157 / 83; Pulse 71; Resp 17; Pulse Ox 95% on R/A; Weight 72.57 kg; Height 5 ft. 2 ap3 in. ; Pain 610; 19:18 Body Mass Index 29.26 (72.57 kg, 157.48 cm) ap3 19:18 Pain Scale: Adult ap3 ED Course: 19:16 Patient arrived in ED. rg4 19:19 Triage completed. ap3 19:20 Arm band placed on right wrist. ap3 19:21 [facility] Morrissey [facility]C [facility]. sb4 19:21 Ilia Peters DO is Attending Physician. sb4 19:59 Patient's name was called from ER lobby. No response. vc1 Administered Medications: No medications were administered Outcome: 20:35 Patient left the ED. Signatures: Marielos Brady RN RN Tiffany Garcia rg4 Shefali Arredondo RN RN ap3 Savanah Grace RN RN vc1 Mesha Morrissey PA-C PA-C sb4
[2023-11-07 00:01] VITALS: BP 157/83; O2SAT 95
== END 2023-11-06 20:35 | disposition left against medical advice (07) ==
LOC: SUPCPDRO 16:16 → ER 16:16
DX: M54.9 Dorsalgia, unspecified (principal); I10 Essential (primary) hypertension; I48.91 Unspecified atrial fibrillation; Z88.1 Allergy status to other antibiotic agents; Z53.21 Procedure and treatment not carried out due to patient leaving prior to being seen by health care provider
CPT/HCPCS: 99281

== ENCOUNTER 2024-04-27 23:27 | Emergency (ER) | payer OTHER ==
[2024-04-27] MEDS ORDERED: MORPHINE 4 MG/ML SYR ONE (23:57)
[2024-04-27] MEDS ORDERED: NA CHLORIDE 0.9% 1,000 ML ONE (23:57)
[2024-04-27] MEDS ORDERED: ONDANSETRON 4 MG/2 ML VIAL ONE (23:57)
[2024-04-28 00:27] LABS: Absolute Basophils 0.1 K/uL (0-0.5); Absolute Eosinophils 0.1 K/uL (0-0.5); Absolute Lymphocytes (CBC) 0.7 K/uL (0.7-4.9); Absolute Monocytes 0.8 K/uL (0.1-1.3); Absolute Neutrophil 8.8 K/uL (1.8-8.0); Basophils % 0.7 % (0-1.3); Eosinophils % 1.2 % (0-4.4); Hematocrit 45.7 % (36.0-45.0); Hemoglobin 15.3 g/dL (12.0-15.0); Lymphocytes % 6.2 % (15.3-44.8); MCH 30.4 pg (27.0-35.0); MCHC 33.5 g/dL (32.0-36.0); MCV 90.8 fL (80-100); MPV 8.8 fL (7.6-11.3); Monocytes % 7.4 % (3.3-12.3); Neutrophils % 84.5 % (41.7-73.7); Nucleated Red Blood Cells % 0.1 % (0-0); Platelets 232 thou/uL (152-406); RBC Red Blood Cell Count 5.03 M/uL (3.86-4.86); Red Cell Distribution Width 16.1 % (12.1-15.2)
[2024-04-28 00:39] LABS: Albumin 2.9 g/dL (3.4-5.0); Albumin/Globulin Ratio 0.7 (1.1-1.8); Anion Gap 9.4 mEq/L (5.0-15.0); Bilirubin Total 1.4 mg/dL (0.2-1.0); Globulin 3.9 g/dL (2.3-3.5); Potassium 3.4 mEq/L (3.5-5.1); Protein, Total 6.8 g/dL (6.4-8.2)
[2024-04-28 02:04] LABS: Specific Gravity 1.026 (1.005-1.030); Sqamous Epithelial <5 /HPF (None Seen); Urine Bacteria None Seen /HPF (<20); Urine Bilirubin NEGATIVE (Negative); Urine Blood Negative (Negative); Urine Clarity Clear (Clear); Urine Color Light-Yellow (Yellow); Urine Culture Reflex Order NOT NEEDED; Urine Glucose NEGATIVE (Negative); Urine Ketones NEGATIVE (Negative); Urine Micro Reflex YN NO BILL MICROSCOPIC; Urine Mucus Slight /HPF (None Seen); Urine Nitrite NEGATIVE (Negative); Urine Protein NEGATIVE (Negative); Urine RBC None Seen /HPF (None Seen); Urine Urobilinogen Normal (Normal); Urine WBC <5 /HPF (<5)
[2024-04-28] MEDS ORDERED: METOCLOPRAMIDE 10 MG/2mL INJ ONE (02:16)
[2024-04-28] MEDS ORDERED: NA CHLORIDE 0.9% 100 ML ONE (02:16)
--- NOTE | 2024-04-28 02:43 | ER ---
Nurse's Notes [facility] Name: Anastasiya Proctor Age: 68 yrs Sex: Female : 1955 Arrival Date: 04/27/2024 Time: 23:27 Bed 6 Private MD: Diagnosis: Infectious gastroenteritis and colitis, unspecified Presentation: 04/27 23:40 Chief complaint: Patient states: n/v/d for a week. bm8 23:40 Coronavirus screen: At this time, the client does not indicate any symptoms associated bm8 with coronavirus-19. Ebola Screen: Patient negative for fever greater than or equal to 101.5 degrees Fahrenheit, and additional compatible Ebola Virus Disease symptoms Patient denies exposure to infectious person. Patient denies travel to an Ebola-affected area in the 21 days before illness onset. No symptoms or risks identified at this time. Initial Sepsis Screen: Does the patient meet any 2 criteria? No. Patient's initial sepsis screen is negative. Does the patient have a suspected source of infection? No. Patient's initial sepsis screen is negative. Risk Assessment: Do you want to hurt yourself or someone else? Patient reports no desire to harm self or others. Onset of symptoms was April 21, 2024. 23:40 Method Of Arrival: Ambulatory bm8 23:40 Acuity: HALIE 3 bm8 Triage Assessment: 23:40 General: Appears distressed, uncomfortable, Behavior is calm, cooperative, appropriate bm8 for age. Pain: Complains of pain in abdomen. EENT: No deficits noted. No signs and/or symptoms were reported regarding the EENT system. Neuro: No deficits noted. Cardiovascular: No deficits noted. Respiratory: No deficits noted. GI: Reports lower abdominal pain, upper abdominal pain, diarrhea, nausea, Pain is 5 out of 10 on a pain scale. vomiting. : No signs and/or symptoms were reported regarding the genitourinary system. Derm: No signs and/or symptoms reported regarding the dermatologic system. Musculoskeletal: No signs and/or symptoms reported regarding the musculoskeletal system. Historical: - Allergies: 04/28 00:08 Bactrim; bm8 00:08 Imitrex; bm8 00:08 Sumatriptan Succinate; bm8 - Home Meds: 00:08 diltiazem HCl 180 mg Oral cpER 1 cap once daily [Active]; lisinopril 40 mg Oral tab 1 bm8 tab twice a day [Active]; Prilosec 20 mg Oral cpDR [Active]; - PMHx: 00:08 AFIB; Hypertension; bm8 - PSHx: 00:08 Appendectomy; Left ankle; left knee; Total abdominal hysterectomy; bm8 - Immunization history:: Adult Immunizations up to date. - Infectious Disease History:: Denies. - Social history:: Smoking status: . Screenin:09 [facility] ED Fall Risk Assessment (Adult) History of falling in the last 3 months, bm8 including since admission No falls in past 3 months (0 pts) Confusion or Disorientation No (0 pts) Intoxicated or Sedated No (0 pts) Impaired Gait No (0 pts) Mobility Assist Device Used No (0 pt) Altered Elimination No (0 pt) Score/Fall Risk Level 0 - 2 = Low Risk Oriented to surroundings, Maintained a safe environment, Educated pt \T\ family on fall prevention, incl call for assistance when getting out of bed, Assessed \T\ reinforced patient's understanding of fall precautions, Hourly rounding (assess needs \T\ fall precautionary measures) done, Used ambulatory aids as needed (educated on \T\ assisted with), Used gait belt as appropriate. Abuse screen: Denies threats or abuse. Nutritional screening: No deficits noted. Tuberculosis screening: No symptoms or risk factors identified. Assessment: 00:06 Reassessment: Patient appears in no apparent distress at this time. Patient and/or bm8 family updated on plan of care and expected duration. Pain level reassessed. Patient is alert, oriented x 3, equal unlabored respirations, skin warm/dry/pink. General: Appears in no apparent distress. uncomfortable, Behavior is calm, cooperative, appropriate for age. Pain: Complains of pain in abdomen Pain currently is 5 out of 10 on a pain scale. Neuro: Level of Consciousness is awake, alert, obeys commands, Oriented to person, place, time, situation, Appropriate for age. Cardiovascular: Denies chest pain, Capillary refill < 3 seconds in bilateral fingers Patient's skin is warm and dry. Respiratory: Airway is patent Trachea midline Respiratory effort is even, unlabored, Respiratory pattern is regular, symmetrical. GI: Abdomen is flat, non-distended, Bowel sounds present X 4 quads. Abd is soft and non tender Reports lower abdominal pain, upper abdominal pain, diarrhea, nausea, Pain is 5 out of 10 on a pain scale. vomiting. : No signs and/or symptoms were reported regarding the genitourinary system. EENT: No signs and/or symptoms were reported regarding the EENT system. Derm: No signs and/or symptoms reported regarding the dermatologic system. Musculoskeletal: No signs and/or symptoms reported regarding the musculoskeletal system. 01:13 Reassessment: Patient appears in no apparent distress at this time. Patient and/or bm8 family updated on plan of care and expected duration. Pain level reassessed. Patient is alert, oriented x 3, equal unlabored respirations, skin warm/dry/pink. pt is resting with eyes closed breathing is even unlabored at this time. 02:21 Reassessment: Patient appears in no apparent distress at this time. Patient and/or bm8 family updated on plan of care and expected duration. Pain level reassessed. Patient is alert, oriented x 3, equal unlabored respirations, skin warm/dry/pink. PT REPORTS THAT NAUSEA IS COMING BACK BUT THE PAIN IS BETTER. RATES PAIN 2/10 Patient states symptoms have improved. 03:06 Reassessment: Patient appears in no apparent distress at this time. No changes from bm8 previously documented assessment. Patient and/or family updated on plan of care and expected duration. Pain level reassessed. Patient is alert, oriented x 3, equal unlabored respirations, skin warm/dry/pink. Patient states feeling better. Patient states symptoms have improved. Vital Signs: 00:09 BP 153 / 70; Pulse 86; Resp 17; Temp 98.1; Pulse Ox 93% ; Pain 5/10; bm8 01:13 BP 172 / 81; Pulse 80; Resp 18; Temp 98.1; Pulse Ox 90% ; Weight 74.84 kg; Height 5 ft. bm8 3 in. ; Pain 3/10; 02:21 BP 160 / 90; Pulse 100; Resp 18; Temp 98.1; Pulse Ox 95% ; Pain 2/10; bm8 03:06 BP 154 / 87; Pulse 85; Resp 17; Temp 98.1; Pulse Ox 100% ; Pain 0/10; bm8 01:13 Body Mass Index 29.23 (74.84 kg, 160.02 cm) bm8 00:09 Pain Scale: Adult bm8 01:13 Pain Scale: Adult bm8 02:21 Pain Scale: Adult bm8 03:06 Pain Scale: Adult bm8 Crandon Coma Score: 00:09 Eye Response: spontaneous(4). Motor Response: obeys commands(6). Verbal Response: bm8 oriented(5). Total: 15. 01:13 Eye Response: spontaneous(4). Motor Response: obeys commands(6). Verbal Response: bm8 oriented(5). Total: 15. 02:21 Eye Response: spontaneous(4). Motor Response: obeys commands(6). Verbal Response: bm8 oriented(5). Total: 15. 03:06 Eye Response: spontaneous(4). Motor Response: obeys commands(6). Verbal Response: bm8 oriented(5). Total: 15. ED Course: 04/27 23:30 Patient arrived in ED. im 23:30 Sorin Bedoya MD is Attending Physician. ec2 23:40 Arm band placed on right wrist. bm8 23:54 Xiang De Leon RN is Primary Nurse. bm8 04/28 00:09 Patient has correct armband on for positive identification. Placed in gown. Bed in low bm8 position. Call light in reach. Side rails up X 1. Adult w/ patient. Client placed on continuous cardiac and pulse oximetry monitoring. NIBP monitoring applied. Pulse ox on. NIBP on. Door closed. Noise minimized. Warm blanket given. Pillow given. Head of bed elevated. 00:09 No provider procedures requiring assistance completed. Initial lab(s) drawn, by ED bm8 staff, sent to lab. Inserted saline lock: 20 gauge in left antecubital area, using aseptic technique. Blood collected. Flushed with 10 mL NS. Patient maintains SpO2 saturation greater than 95% on room air. 01:11 Triage completed. bm8 01:29 CT Abd/Pelvis - IV Contrast Only In Process Unspecified. EDMS 03:06 Provided Education on: POST ER CARE. bm8 03:06 IV discontinued, intact, bleeding controlled, No redness/swelling at site. Pressure bm8 dressing applied. Administered Medications: 00:06 Drug: NS 0.9% IV 1000 ml IV at 1000 ml once; to be given as a bolus over 60 minutes bm8 Route: IV; Rate: 1000 ml; Site: left antecubital; 01:13 Follow up: Response: No adverse reaction; IV Status: Completed infusion; IV Intake: bm8 1000ml 00:06 Drug: Ondansetron IVP 4 mg IVP once; over 2 minutes Route: IVP; Site: left antecubital; bm8 01:12 Follow up: Response: No adverse reaction bm8 00:06 Drug: morphine IVP or IV 4 mg IVP once over 4 mins Route: IVP; Infused Over: 4 mins; bm8 Site: left antecubital; 01:12 Follow up: Response: No adverse reaction bm8 01:12 Follow up: Response: No adverse reaction bm8 02:20 Drug: metoCLOPramide IVP 10 mg IVP once; over 1 to 2 minutes Route: IVP; Site: left bm8 antecubital; 03:05 Follow up: Response: No adverse reaction bm8 03:05 Drug: Dicyclomine PO 20 mg PO once Route: PO; bm8 03:05 Follow up: Response: No adverse reaction bm8 Medication: 00:09 VIS not applicable for this client. bm8 Intake: 01:13 IV: 1000ml; Total: 1000ml. bm8 Outcome: 02:43 Discharge ordered by . ec2 03:06 Discharged to home ambulatory, with family, bm8 03:06 Condition: stable 03:06 Discharge instructions given to patient, family, Instructed on discharge instructions, follow up and referral plans. medication usage, safety practices, Demonstrated understanding of instructions, follow-up care, medications, Prescriptions given X 1, 03:07 Patient left the ED. bm8 Signatures: Dispatcher [employer] Kenyatta Nelson Edwin, MD MD ec2 Xiang De Leon RN RN bm8 Corrections: (The following items were deleted from the chart) 00:10 00:08 PSHx: double mastectomy; bm8 bm8
--- NOTE | 2024-04-28 02:43 | EDPHYS ---
Physician Documentation [facility] Name: Anastasiya Proctor Age: 68 yrs Sex: Female : 1955 Arrival Date: 04/27/2024 Time: 23:27 Bed 6 Private MD: ED Physician Sorin Bedoya HPI: 04/28 00:31 This 68 yrs old Female presents to ER via Unassigned with complaints of ec2 Vomiting/Diarrhea, Abdominal Pain. 00:31 Patient arrives today for evaluation of abdominal pain along with nausea and vomiting. ec2 Patient reports that she has been experiencing some nausea and vomiting along with abdominal pain. Reports that she was recently ill with cough and cold symptoms. Reports she been having some decreased p.o. intake as well as loose stools.. Historical: - Allergies: 00:08 Bactrim; bm8 00:08 Imitrex; bm8 00:08 Sumatriptan Succinate; bm8 - Home Meds: 00:08 diltiazem HCl 180 mg Oral cpER 1 cap once daily [Active]; lisinopril 40 mg Oral tab 1 bm8 tab twice a day [Active]; Prilosec 20 mg Oral cpDR [Active]; - PMHx: 00:08 AFIB; Hypertension; bm8 - PSHx: 00:08 Appendectomy; Left ankle; left knee; Total abdominal hysterectomy; bm8 - Immunization history:: Adult Immunizations up to date. - Infectious Disease History:: Denies. - Social history:: Smoking status: . ROS: 00:31 Constitutional: as per hpi ec2 Exam: 00:31 Constitutional: GEN: NAD Head: atraumatic Eyes: EOMI Ears: External ears are ec2 normal. CV: regular rate LUNGS: no respiratory distress ABD: non-distended, tender in the epigastrium, not guarding, not rigid SKIN: no evidence of rashes MSK: no evidence of trauma Vital Signs: 00:09 BP 153 / 70; Pulse 86; Resp 17; Temp 98.1; Pulse Ox 93% ; Pain 5/10; bm8 01:13 BP 172 / 81; Pulse 80; Resp 18; Temp 98.1; Pulse Ox 90% ; Weight 74.84 kg; Height 5 ft. bm8 3 in. ; Pain 3/10; 02:21 BP 160 / 90; Pulse 100; Resp 18; Temp 98.1; Pulse Ox 95% ; Pain 2/10; bm8 03:06 BP 154 / 87; Pulse 85; Resp 17; Temp 98.1; Pulse Ox 100% ; Pain 0/10; bm8 01:13 Body Mass Index 29.23 (74.84 kg, 160.02 cm) bm8 00:09 Pain Scale: Adult bm8 01:13 Pain Scale: Adult bm8 02:21 Pain Scale: Adult bm8 03:06 Pain Scale: Adult bm8 Sarah Coma Score: 00:09 Eye Response: spontaneous(4). Motor Response: obeys commands(6). Verbal Response: bm8 oriented(5). Total: 15. 01:13 Eye Response: spontaneous(4). Motor Response: obeys commands(6). Verbal Response: bm8 oriented(5). Total: 15. 02:21 Eye Response: spontaneous(4). Motor Response: obeys commands(6). Verbal Response: bm8 oriented(5). Total: 15. 03:06 Eye Response: spontaneous(4). Motor Response: obeys commands(6). Verbal Response: bm8 oriented(5). Total: 15. MDM: 04/27 23:45 Medical Screening Exam initiated ec2 04/28 00:31 Data reviewed: vital signs, nurses notes. ED course: Patient arrives today for ec2 evaluation of nausea, vomiting, diarrhea. Examination yields abdominal findings as above. Will obtain lab work, CT imaging. Differential diagnoses considered include processes such as gastroenteritis, colitis, viral infection. UTI.. 02:43 ED course: CT abdomen pelvis shows enterocolitis which is consistent with patient's ec2 symptoms. This shows some mild CBD dilation, patient without significant LFT abnormalities, lipase within normal ranges as well. On reassessment patient with marked improvement in symptoms. Patient without any focal right upper quadrant TTP. Will discharge home have patient follow-up with GI. Return precautions given.. 04/27 23:53 Order name: CBC with Diff; Complete Time: 01:00 ec2 04/27 23:53 Order name: CMP; Complete Time: 01:00 ec2 04/27 23:53 Order name: Lipase; Complete Time: 01:00 ec2 04/27 23:53 Order name: UAM; Complete Time: 02:12 ec2 04/27 23:53 Order name: CT Abd/Pelvis - IV Contrast Only ec2 04/27 23:53 Order name: IV Saline Lock; Complete Time: 00:06 ec2 04/27 23:53 Order name: Labs collected and sent; Complete Time: 00:06 ec2 Administered Medications: 00:06 Drug: NS 0.9% IV 1000 ml IV at 1000 ml once; to be given as a bolus over 60 minutes bm8 Route: IV; Rate: 1000 ml; Site: left antecubital; 01:13 Follow up: Response: No adverse reaction; IV Status: Completed infusion; IV Intake: bm8 1000ml 00:06 Drug: Ondansetron IVP 4 mg IVP once; over 2 minutes Route: IVP; Site: left antecubital; bm8 01:12 Follow up: Response: No adverse reaction bm8 00:06 Drug: morphine IVP or IV 4 mg IVP once over 4 mins Route: IVP; Infused Over: 4 mins; bm8 Site: left antecubital; 01:12 Follow up: Response: No adverse reaction bm8 01:12 Follow up: Response: No adverse reaction bm8 02:20 Drug: metoCLOPramide IVP 10 mg IVP once; over 1 to 2 minutes Route: IVP; Site: left bm8 antecubital; 03:05 Follow up: Response: No adverse reaction bm8 03:05 Drug: Dicyclomine PO 20 mg PO once Route: PO; bm8 03:05 Follow up: Response: No adverse reaction bm8 Disposition Summary: 04/28/24 02:43 Discharge Ordered Notes: Location: Home ec2 Condition: Stable ec2 Diagnosis - Infectious gastroenteritis and colitis, unspecified ec2 Followup: ec2 - With: Private Physician - When: - Reason: Re-evaluation by your physician Discharge Instructions: - Discharge Summary Sheet ec2 - Viral Gastroenteritis, Adult ec2 Forms: - Medication Reconciliation Form ec2 - Antibiotic Education ec2 - Prescription Opioid Use ec2 - Patient Portal Instructions ec2 - Leadership Thank You Letter ec2 Prescriptions: - Zofran 4 mg Oral Tablet - take 1 tablet ORAL route every 12 hours As needed; 20 tablet; Refills: 0, ec2 Product Selection Permitted Signatures: Dispatcher [employer] EDSorin Meadows MD MD ec2 De Leon, Xiang, RN RN bm8 Corrections: (The following items were deleted from the chart) 04/27 23:53 23:53 CBC+H.LAB.BRZ ordered. EDMS EDMS 23:53 23:53 COMPREHENSIVE METABOLIC PANEL+C.LAB.BRZ ordered. EDMS EDMS 23: 23:53 LIPASE+C.LAB.BRZ ordered. EDMS EDMS : 23:53 Urinalysis W/Microscopic+U.LAB.BRZ ordered. EDMS EDMS 23:54 23:53 Abdomen Pelvis W Con+CT.RAD.BRZ ordered. EDMS EDMS 04/28 00:10 00:08 PSHx: double mastectomy; bm8 bm8
--- NOTE | 2024-04-28 02:47 | RAD REPORT ---
CT ABDOMEN PELVIS WITH IV CONTRAST CLINICAL INDICATION: Abdominal pain. COMPARISON: CT abdomen pelvis 05/06/2021 TECHNIQUE: CT images of the abdomen and pelvis obtained following administration of intravenous contr ast. Multiplanar reformats were provided. Dose-optimization techniques such as automated exposure control, iterative reconstruction, and mA and/or kV adjustment for patient size was utilized for this examination. FINDINGS: LOWER CHEST: Lung bases are clear. Partially visualized left upper breast implant. Coronary artery ca lcification. LIVER: Unremarkable. BILIARY: No radiopaque gallstones. No pericholecystic fluid or stranding. Mild common bile duct dilat ation, measuring up to 8 mm in diameter and increased in caliber since prior exam. PANCREAS: Mild pancreatic ductal dilatation, measuring up to 6 mm in diameter and new since prior exa m. No focal lesion SPLEEN: Unremarkable. ADRENALS: Unremarkable. KIDNEYS/URETERS: Unremarkable. STOMACH: Small hiatal hernia. BOWEL: Mild diffuse wall thickening and mucosal enhancement of small bowel and colon, most prominent in ascending colon with associated pericolonic stranding in right upper to mid peritoneal cavity. No bowel obstruction. APPENDIX: Appendix is not visualized. No focal inflammation in right lower quadrant to suggest acute appendicitis. MESENTERY/PERITONEUM: Unremarkable. RETROPERITONEUM: No adenopathy. URINARY BLADDER: Unremarkable. REPRODUCTIVE: Status post hysterectomy. VASCULAR: No aortic aneurysm. Moderate atherosclerotic calcifications of the abdominal and pelvic v asculature. ABDOMINAL/PELVIC WALL: Stable postsurgical changes related to previous right inguinal hernia repair, noting a stable small fluid collection in the right inguinal region. BONES: No acute abnormality. Multilevel degenerative changes at lumbar and lower thoracic spine. Kiki re central canal and foraminal stenosis at L1-2 level secondary to a large disc osteophyte complex and facet arthropathy. Moderate to severe central canal stenosis at L2-3 through L4-5 level secondary to disc osteophyte complex and facet arthropathy, No compression deformity, nor osteolytic or sclerotic lesion. IMPRESSION: 1. Enterocolitis, most prominently in the ascending colon. 2. Interval development of mild common bile duct and pancreatic ductal dilatation. No radiopaque st one or obvious lesion at ampulla is identified. 3. Stable postsurgical changes related to previous right inguinal hernia repair, noting a stable sm all fluid collection in the right inguinal region. 4. Degenerative changes of lumbar spine with multilevel moderate to severe canal stenosis, as descr ibed Electronically signed by: Ana Wang MD 04/28/2024 02:29 AM [facility] Due to temporary technical issues with the PACS/[employer] reporting system, reports are being davion d by the in-house radiologist without review as a courtesy to ensure prompt reporting the interpreting radiologist is fully responsible for the content of the report. Transcribed Date/Time: 04/28/2024 2:47 AM
[2024-04-28] MEDS ORDERED: DICYCLOMINE HCL 10 MG CAP ONE (03:00)
[2024-04-28 07:55] VITALS: TEMP 98.1
[2024-04-28 08:00] VITALS: BP 154/87; O2SAT 100
== END 2024-04-28 03:07 | disposition home or self-care (01) ==
LOC: ER 23:27
DX: A09 Infectious gastroenteritis and colitis, unspecified (principal); I10 Essential (primary) hypertension; I48.91 Unspecified atrial fibrillation
CPT/HCPCS: 96361; 85025; 81001; 36415; 83690; 80053; 74177; 96375; 96374; 99284; Q9967; J2765; J2405; J7030

== ENCOUNTER 2024-08-28 15:58 | Inpatient (IN) | payer OTHER ==
--- NOTE | 2024-08-28 17:19 | RAD REPORT ---
EXAMINATION: US RIGHT LOWER EXTREMITY VENOUS DOPPLER CLINICAL INDICATION: Pain;Swelling RIGHT TECHNIQUE: Complete bilateral duplex sonography of the RIGHT lower extremity veins was performed. The examination included compression for vein patency, color Doppler imaging and flow augmentation in response to distal compression of the distal external iliac, common femoral, femoral, popliteal, tibi al, and great and small saphenous veins. COMPARISON: No prior exam. FINDINGS: Duplex sonography testing of the veins of the RIGHT lower extremity was performed. Color flow imaging shows all veins to be compressible with [id number] color filling. Pulsatile and phasic flow is present within all lower extremity deep and superficial veins examined. IMPRESSION: There is no deep vein or superficial vein thrombosis.
--- NOTE | 2024-08-28 17:20 | RAD REPORT ---
EXAMINATION:Lower Extremity Artery Uni Ltd CLINICAL INDICATION: Female, 68 years old. Pain;Swelling RIGHT TECHNIQUE: Arterial duplex ultrasound was performed of the right lower extremity with real-time, colo r-flow, and spectral wave Doppler evaluation. Ankle brachial indices were not performed. COMPARISON: No prior exam. FINDINGS: Mild plaque throughout the evaluated arterial system. Triphasic waveforms are seen throughout the evaluated right lower extremity arterial system, to the l evel of the dorsalis pedis artery. No other suspicious findings. IMPRESSION: No significant flow abnormality.
[2024-08-28 17:44] LABS: Absolute Eosinophils 0.1 K/uL (0-0.5); Absolute Lymphocytes (CBC) 1.1 K/uL (0.7-4.9); Absolute Monocytes 1.2 K/uL (0.1-1.3); Absolute Neutrophil 5.3 K/uL (1.8-8.0); Basophils % 0.4 % (0-1.3); Eosinophils % 1.4 % (0-4.4); Hemoglobin 11.3 g/dL (12.0-15.0); MCH 29.5 pg (27.0-35.0); MCHC 33.2 g/dL (32.0-36.0); MPV 8.4 fL (7.6-11.3); Monocytes % 15.4 % (3.3-12.3); Neutrophils % 68.8 % (41.7-73.7); Nucleated Red Blood Cells % 0.2 % (0-0); Platelets 252 thou/uL (152-406); RBC Red Blood Cell Count 3.82 M/uL (3.86-4.86); Red Cell Distribution Width 15.9 % (12.1-15.2)
[2024-08-28 17:46] LABS: PT Prothrombin Time 12.6 SECONDS (10-13.0); Protime INR 1.11
[2024-08-28 17:58] LABS: Albumin 2.9 g/dL (3.4-5.0); Albumin/Globulin Ratio 0.9 (1.1-1.8); Anion Gap 5.2 mEq/L (5.0-15.0); Bilirubin Direct 0.2 mg/dL (0-0.2); Bilirubin Indirect, Calculated 0.3 mg/dL (0.2-0.8); Bilirubin Total 0.5 mg/dL (0.2-1.0); Globulin 3.3 g/dL (2.3-3.5); Magnesium 1.9 mg/dL (1.6-2.4); Potassium 4.2 mEq/L (3.5-5.1); Protein, Total 6.2 g/dL (6.4-8.2)
[2024-08-28 18:01] LABS: Troponin High Sensitivity 96.7 pg/mL (<58.9)
--- NOTE | 2024-08-28 18:46 | RAD REPORT ---
EXAMINATION: ONE VIEW CHEST XR CLINICAL INDICATION: SWELLING TECHNIQUE: Frontal chest projection is submitted. Examination is limited by patient positioning and t echnique. COMPARISON: 06/20/2018 FINDINGS: Moderate bilateral pulmonary opacities are present likely representing pulmonary edema. The heart is mildly enlarged in size. No displaced fractures identified. IMPRESSION: Moderate CHF versus volume overload.
[2024-08-28] MEDS ORDERED: FUROSEMIDE 20 MG/ 2ML VIAL ONE (19:07)
[2024-08-28] MEDS ORDERED: FENTANYL CITR 100 MCG/2 ML ONE (19:08)
--- NOTE | 2024-08-28 19:30 | ER ---
Nurse's Notes [facility] Name: Anastasiya Proctor Age: 68 yrs Sex: Female : 1955 Arrival Date: 08/28/2024 Time: 15:58 Bed 5 Private MD: Diagnosis: Edema, unspecified Presentation: 08/28 18:21 Chief complaint: Patient states: R lower leg swelling and drainage. Coronavirus screen: ss Client denies travel out of the [place] in the last 14 days. Ebola Screen: Patient denies exposure to infectious person. Patient denies travel to an Ebola-affected area in the 21 days before illness onset. Initial Sepsis Screen: Does the patient meet any 2 criteria? No. Patient's initial sepsis screen is negative. Does the patient have a suspected source of infection? No. Patient's initial sepsis screen is negative. Risk Assessment: Do you want to hurt yourself or someone else? Patient reports no desire to harm self or others. Onset of symptoms is unknown. 18:21 Method Of Arrival: Ambulatory ss 18:21 Acuity: HALIE 3 ss Historical: - Allergies: 18:24 Bactrim; ss 18:24 Imitrex; ss 18:24 Sumatriptan Succinate; ss 18:24 GABAPENTIN; ss - PMHx: 18:24 AFIB; Hypertension; ss - PSHx: 18:24 Appendectomy; Left ankle; left knee; Total abdominal hysterectomy; ss - Immunization history:: Adult Immunizations up to date. - Infectious Disease History:: Denies. - Social history:: Smoking status: Patient denies any tobacco usage or history of. Screenin:28 [facility] ED Fall Risk Assessment (Adult) History of falling in the last 3 months, bm8 including since admission No falls in past 3 months (0 pts) Confusion or Disorientation No (0 pts) Intoxicated or Sedated No (0 pts) Impaired Gait No (0 pts) Mobility Assist Device Used No (0 pt) Altered Elimination No (0 pt) Score/Fall Risk Level 0 - 2 = Low Risk Oriented to surroundings, Maintained a safe environment, Educated pt \T\ family on fall prevention, incl call for assistance when getting out of bed, Assessed \T\ reinforced patient's understanding of fall precautions, Hourly rounding (assess needs \T\ fall precautionary measures) done, Used ambulatory aids as needed (educated on \T\ assisted with), Used gait belt as appropriate. Abuse screen: Denies threats or abuse. Nutritional screening: No deficits noted. Tuberculosis screening: No symptoms or risk factors identified. Assessment: 19:28 General: Appears in no apparent distress. comfortable, Behavior is calm, cooperative, bm8 appropriate for age. Pain: Complains of pain in right leg Pain currently is 7 out of 10 on a pain scale. Neuro: No deficits noted. Level of Consciousness is awake, alert, obeys commands, Oriented to person, place, time, situation, Appropriate for age. Cardiovascular: Heart tones S1 S2 present Capillary refill < 3 seconds in bilateral fingers Patient's skin is warm and dry. Edema is 3+ to right midcalf and right ankle. Respiratory: Airway is patent Respiratory effort is even, unlabored, Respiratory pattern is regular, symmetrical, Breath sounds are clear bilaterally. GI: No signs and/or symptoms were reported involving the gastrointestinal system. : No signs and/or symptoms were reported regarding the genitourinary system. EENT: No signs and/or symptoms were reported regarding the EENT system. Derm: No signs and/or symptoms reported regarding the dermatologic system. Musculoskeletal: No signs and/or symptoms reported regarding the musculoskeletal system. 21:32 Reassessment: Patient appears in no apparent distress at this time. Patient and/or bm8 family updated on plan of care and expected duration. Pain level reassessed. Patient is alert, oriented x 3, equal unlabored respirations, skin warm/dry/pink. Patient states symptoms have not improved. Vital Signs: 18:21 BP 157 / 82; Pulse 84; Resp 16; Temp 97.8(O); Pulse Ox 98% on R/A; Weight 64.41 kg; ss Height 5 ft. 2 in. ; Pain 4/10; 19:28 BP 159 / 79; Pulse 81; Resp 18; Temp 97.8; Pulse Ox 97% ; Pain 7/10; bm8 21:32 BP 155 / 89; Pulse 83; Resp 16; Temp 97.8; Pulse Ox 98% ; Pain 8/10; bm8 18:21 Body Mass Index 25.97 (64.41 kg, 157.48 cm) ss 18:21 Pain Scale: Adult ss 19:28 Pain Scale: Adult bm8 21:32 Pain Scale: Adult bm8 Sarah Coma Score: 19:28 Eye Response: spontaneous(4). Motor Response: obeys commands(6). Verbal Response: bm8 oriented(5). Total: 15. 21:32 Eye Response: spontaneous(4). Motor Response: obeys commands(6). Verbal Response: bm8 oriented(5). Total: 15. ED Course: 16:01 Patient arrived in ED. im 16:02 Jourdan Livingston PA is PHCP. cp 16:02 Jourdan Salinas MD is Attending Physician. cp 17:16 US Extremity Venous Unilateral Ltd In Process Unspecified. EDMS 17:16 Lower Extremity Artery Uni Ltd US In Process Unspecified. EDMS 17:28 Inserted saline lock: 22 gauge in left antecubital area, using aseptic technique. Blood nh2 collected. Flushed with 10 mL NS. 17:32 Basic Metabolic Panel Sent. nh2 17:32 CBC with Diff Sent. nh2 17:32 LFT's Sent. nh2 17:32 Magnesium Sent. nh2 17:32 NT PRO-BNP Sent. nh2 17:32 PT-INR Sent. nh2 17:32 Troponin HS Sent. nh2 18:24 Triage completed. ss 18:24 Arm band placed on right wrist. ss 18:41 XRAY Chest (1 view) In Process Unspecified. EDMS 19:03 Xiang De Leon, RN is Primary Nurse. bm8 19:28 No provider procedures requiring assistance completed. Patient maintains SpO2 bm8 saturation greater than 95% on room air. 19:28 Patient has correct armband on for positive identification. Bed in low position. Call bm8 light in reach. Side rails up X 1. Adult w/ patient. Client placed on continuous cardiac and pulse oximetry monitoring. NIBP monitoring applied. laboratory monitor on. Pulse ox on. NIBP on. Door closed. Warm blanket given. Pillow given. Verbal reassurance given. Head of bed elevated. 19:29 Yang Mejia MD is Hospitalizing Provider. cp 19:30 EKG done, by ED staff, reviewed by Jourdan MENDES. oe 20:18 CT Chest For PE Angio In Process Unspecified. EDMS 21:32 Patient admitted, IV remains in place. bm8 21:32 Provided Education on: need for admission. bm8 Administered Medications: 19:27 Drug: fentaNYL (PF) IVP 25 mcg IVP once Route: IVP; Site: left antecubital; 8 19:42 Follow up: Response: No adverse reaction dd2 19:28 Drug: Furosemide IVP 20 mg IVP once; give over 2 minutes Route: IVP; Site: left [facility] antecubital; 19:43 Follow up: Response: No adverse reaction dd2 Medication: 19:28 VIS not applicable for this client. [facility] Outcome: 19:29 Decision to Hospitalize by Provider. cp 21:32 Admitted to [facility] 21:35 Admitted to Tele accompanied by tech, via wheelchair, room 407, with chart, [facility] 21:35 Condition: stable 21:35 Condition: stable 21:35 Instructed on the need for admit, medication usage, Demonstrated understanding of instructions, follow-up care, medications, 22:28 Patient left the ED. dd2 Signatures: Dispatcher [employer] Mary Peter RN RN Jourdan Rosas, VAUGHN PA Chalino Thomas Itzel im McDonald, Brad, RN RN bm8 FREDERICK DREW RN RN dd2 Kehinde Venegas, Dany nh2
--- NOTE | 2024-08-28 19:30 | EDPHYS ---
Physician Documentation [facility] Name: Anastasiya Proctor Age: 68 yrs Sex: Female : 1955 Arrival Date: 08/28/2024 Time: 15:58 Bed 5 Private MD: ED Physician Jourdan Salinas HPI: 08/28 16:45 This 68 yrs old Female presents to ER via Ambulatory with complaints of Leg Swelling - cp right. 16:45 The patient presents with pain, that is acute, swelling. cp 16:45 The complaints affect the right lower leg. Context: unknown. patient reports right knee cp replacement surgery earlier this year. Associated signs and symptoms: Pertinent positives: sob with exertion, Pertinent negatives fever, warmth, redness. Treatment prior to arrival includes: no previous treatment. Historical: - Allergies: 18:24 Bactrim; ss 18:24 Imitrex; ss 18:24 Sumatriptan Succinate; ss 18:24 GABAPENTIN; ss - PMHx: 18:24 AFIB; Hypertension; ss - PSHx: 18:24 Appendectomy; Left ankle; left knee; Total abdominal hysterectomy; ss - Immunization history:: Adult Immunizations up to date. - Infectious Disease History:: Denies. - Social history:: Smoking status: Patient denies any tobacco usage or history of. ROS: 16:50 Constitutional: Negative for body aches, chills, fever, poor PO intake, cp 16:50 MS/extremity: Positive for of the right lower leg, edema, Negative for injury or acute cp deformity, decreased range of motion, 16:50 Eyes: Negative for injury, pain, redness, and discharge, cp 16:50 Cardiovascular: Negative for chest pain, palpitations, 16:50 Respiratory: Positive for shortness of breath, on exertion. Negative for cough, wheezing, 16:50 All other systems are negative, Exam: 16:55 Constitutional: The patient appears in no acute distress, alert, awake, cp non-diaphoretic, non-toxic, well developed, well nourished, 16:55 Head/Face: Normocephalic, atraumatic. cp 16:55 Eyes: Periorbital structures: appear normal, Conjunctiva: normal, no exudate, no injection, Sclera: no appreciated abnormality, Lids and lashes: appear normal, bilaterally, 16:55 ENT: External ear(s): are unremarkable, Nose: is normal, Mouth: Lips: moist, Oral mucosa: moist, Posterior pharynx: Airway: no evidence of obstruction, patent, 16:55 Neck: ROM/movement: is normal, is supple, without pain, no range of motions limitations, 16:55 Chest/axilla: Inspection: normal, 16:55 Cardiovascular: Rate: normal, Rhythm: regular, Edema: right lower leg with moderate pitted edema, JVD: is not appreciated, 16:55 Respiratory: the patient does not display signs of respiratory distress, Respirations: labored breathing, that is mild, shallow respirations, are not present, Breath sounds: are clear throughout, no decreased breath sounds, no stridor, no wheezing, 16:55 Abdomen/GI: Exam negative for discomfort, distension, guarding, Inspection: abdomen appears normal, 16:55 Back: pain, is absent, ROM is normal, 16:55 Skin: cellulitis, is not appreciated, no rash present. 19:15 ECG was reviewed by the Attending Physician. Vital Signs: 18:21 BP 157 / 82; Pulse 84; Resp 16; Temp 97.8(O); Pulse Ox 98% on R/A; Weight 64.41 kg; ss Height 5 ft. 2 in. ; Pain 4/10; 19:28 BP 159 / 79; Pulse 81; Resp 18; Temp 97.8; Pulse Ox 97% ; Pain 7/10; bm8 21:32 BP 155 / 89; Pulse 83; Resp 16; Temp 97.8; Pulse Ox 98% ; Pain 8/10; bm8 18:21 Body Mass Index 25.97 (64.41 kg, 157.48 cm) ss 18:21 Pain Scale: Adult ss 19:28 Pain Scale: Adult bm8 21:32 Pain Scale: Adult bm8 Empire Coma Score: 19:28 Eye Response: spontaneous(4). Motor Response: obeys commands(6). Verbal Response: bm8 oriented(5). Total: 15. 21:32 Eye Response: spontaneous(4). Motor Response: obeys commands(6). Verbal Response: bm8 oriented(5). Total: 15. MDM: 16:50 Medical Screening Exam initiated 19:30 Data reviewed: vital signs, nurses notes, lab test result(s), EKG, radiologic studies, cp CT scan, plain films, ultrasound. 05 16:42 Order name: Basic Metabolic Panel; Complete Time: 18:32 cp 08/28 18:32 Interpretation: Normal except: CO2 34; GLUC 110. cp 08/28 16:42 Order name: CBC with Diff; Complete Time: 18:32 cp 08/28 18:32 Interpretation: Normal except: RBC 3.82; HGB 11.3; HCT 34.0; RDW 15.9; LYM% 14.0; MN% cp 15.4. 05 16:42 Order name: LFT's; Complete Time: 18:32 cp 08/28 16:42 Order name: Magnesium; Complete Time: 18:32 cp 08/28 16:42 Order name: NT PRO-BNP; Complete Time: 18:32 cp 08/28 16:42 Order name: PT-INR; Complete Time: 18:32 cp 08/28 16:42 Order name: Troponin HS; Complete Time: 18:32 cp 08/28 18:32 Interpretation: Reviewed. cp 08/28 20:09 Order name: CBC with Automated Diff EDMS 08/28 20:09 Order name: CBC with Automated Diff EDMS 08/28 20:09 Order name: Comprehensive Metabolic Panel EDMS 08/28 20:09 Order name: Comprehensive Metabolic Panel EDMS 08/28 20:09 Order name: Lipid Profile EDMS 08/28 20:09 Order name: Lipid Profile EDMS 08/28 20:09 Order name: Troponin High Sensitivity EDMS / 20:09 Order name: Troponin High Sensitivity EDMS 08/28 20:09 Order name: Troponin High Sensitivity EDMS 08/28 20:09 Order name: Troponin High Sensitivity EDMS 08/28 16:42 Order name: US Extremity Venous Unilateral Ltd; Complete Time: 18:32 cp 08/28 16:42 Order name: Lower Extremity Artery Uni Ltd US; Complete Time: 18:32 cp 08/28 16:42 Order name: XRAY Chest (1 view); Complete Time: 18:52 cp 08/28 18:52 Interpretation: Report review. cp 08/28 19:30 Order name: CT Chest For PE Angio; Complete Time: 21:28 cp 08/28 21:28 Interpretation: Report reviewed. cp 08/28 16:42 Order name: Cardiac monitoring; Complete Time: 19:13 cp 08/28 16:42 Order name: EKG - Nurse/Tech; Complete Time: 19:13 cp 08/28 16:42 Order name: IV Saline Lock; Complete Time: 17:32 cp 08/28 16:42 Order name: Labs collected and sent; Complete Time: 17:32 cp 08/28 16:42 Order name: O2 Per Protocol; Complete Time: 19:28 cp 08/28 16:42 Order name: O2 Sat Monitoring; Complete Time: 19:28 cp EC:15 Rate is 81 beats/min. Rhythm is regular. VT interval is normal. QRS interval is normal. cp QT interval is normal. T waves are Inverted in lead aVR. Interpreted by me. Reviewed by me. Administered Medications: 19:27 Drug: fentaNYL (PF) IVP 25 mcg IVP once Route: IVP; Site: left antecubital; bm8 19:42 Follow up: Response: No adverse reaction dd2 19:28 Drug: Furosemide IVP 20 mg IVP once; give over 2 minutes Route: IVP; Site: left bm8 antecubital; 19:43 Follow up: Response: No adverse reaction dd2 Disposition Summary: 08/28/24 19:29 Hospitalization Ordered Notes: Hospitalization Status: Inpatient Admission cp Provider: Yang Mejia cp Location: Telemetry/MedSurg (Inpatient) cp Condition: Stable cp Problem: new cp Symptoms: have improved cp Bed/Room Type: Standard cp Room Assignment: 407(08/28/24 21:25) kl Diagnosis - Edema, unspecified cp Forms: - Medication Reconciliation Form cp - SBAR form cp - Leadership Thank You Letter cp Addendum: 09/01/2024 01:26 Co-signature as Attending Physician, Jourdan Salinas MD I agree with the assessment and c saucedo plan of care. Signatures: Dispatcher [employer] EDMS Tash Root RN RN kl Anderson, Corey, MD MD cha Blanchard, Shelby, RN RN ss Page, Corey, PA PA cp McDonald, Brad, RN RN bm8 FREDERICK DREW RN dd2 Corrections: (The following items were deleted from the chart) 08/28 16:43 16:43 Lower Extremity Artery Uni Ltd+US.RAD.BRZ ordered. EDMS EDMS 16:43 16:43 BASIC METABOLIC PANEL+C.LAB.BRZ ordered. EDMS EDMS 16:43 16:43 CBC+H.LAB.BRZ ordered. EDMS EDMS 16:43 16:43 HEPATIC FUNCTION+C.LAB.BRZ ordered. EDMS EDMS 16:43 16:43 MAGNESIUM+C.LAB.BRZ ordered. EDMS EDMS 16:43 16:43 PROBNP+C.LAB.BRZ ordered. EDMS EDMS 16:43 16:43 PROTIME (+INR)+COAG.LAB.BRZ ordered. EDMS EDMS 16:43 16:43 Troponin High Sensitivity+C.LAB.BRZ ordered. EDMS EDMS 16:43 16:43 Chest Single View+RAD.RAD.BRZ ordered. EDMS EDMS 21:25 19:29 cp kl
[2024-08-28] MEDS ORDERED: ACETAMINOPHEN 325 MG TABLET PO PRN (20:04)
--- NOTE | 2024-08-28 20:04 | P.HP ---
Certification for Inpatient Patient admitted to: Inpatient With expected LOS: >2 Midnights Practitioner: I am a practitioner with admitting privileges, knowledge of patient current condition, hospital course, and medical plan of care. 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 Patient denies any chest pain or shortness of breath. No fever or chills. No nausea vomiting or diarrhea. Denies any trauma to the right leg. Has a history of right total knee replacement. Patient was assessed in the ER and is admitted for further management of NSTEMI and CHF and right lower extremity possible cellulitis Allergies sulfamethoxazole [From Bactrim] Allergy (Verified 06/24/21 15:42) Itching sumatriptan [From Imitrex] Allergy (Verified 12/27/16 21:41) Anaphylaxis sumatriptan succinate [From Imitrex] Allergy (Verified 12/27/16 21:41) Anaphylaxis trimethoprim [From Bactrim] Allergy (Verified 06/24/21 15:42) Itching Home Medications: Diltiazem HCl [Diltiazem 24Hr Cd] 1.5 cap PO BEDTIME 02/05/21 Furosemide 1 tab PO PRN PRN 02/05/21 dilTIAZem HCL [Diltiazem 24Hr ER] 1 cap PO SEECOM 02/05/21 lisinopriL [Lisinopril] 2 tab PO BID 02/05/21 Amox/Clavulanate [Augmentin 500-125 mg Tab*] 500 mg PO BID #10 tab 02/07/21 Docusate [Colace Cap*] 100 mg PO DAILY #15 cap 02/07/21 Hydrocodone 7.5/APAP 325 [[place] 7.5/325 mg*] 1 tab PO TID PRN #10 tab 02/07/21 Omeprazole Magnesium [Prilosec Otc] 1 mg PO BID 06/24/21 - Past Medical/Surgical History Diabetic: No Past Medical History: Reviewed- Non-Contributory -: Hypertension -: Anxiety -: carpal tunnel -: a-fib/svt s/p ablation Past Surgical History: Reviewed- Non-Contributory -: double mastectomy -: heart ablation -: ankle surgery -: hysterectomy -: carpal tunnel -: left knee replacement -: append -: nose sx Psychosocial/ Personal History: Patient lives at home with her . - Family History Father -: Heart disease Mother -: Cancer Sister -: Cancer - Social History Smoking Status: Never smoker Alcohol use: Yes CD- Drugs: No Caffeine use: No Review of Systems 10-point ROS is otherwise unremarkable Physical Examination - Vital Signs Temperature: 97.9 F Blood Pressure: 186/88 Pulse: 72 Respirations: 18 Pulse Ox (%): 94 - Physical Exam General: Alert, Oriented x3, Mild distress HEENT: Atraumatic, Normocephalic Neck: Supple Respiratory: Clear to auscultation bilaterally, Normal air movement Cardiovascular: Regular rate/rhythm, Normal S1 S2 Capillary refill: <2 Seconds Gastrointestinal: Soft and benign, W/out hepatosplenomegaly Musculoskeletal: No clubbing, Swelling Integumentary: No rashes, No breakdown Neurological: Normal speech, Normal strength at 5/5 x4 extr, Cranial nerves 3-12 intact, Normal reflexes 2+ Lymphatics: No axilla or inguinal lymphadenopathy - Studies Laboratory Data (last 24 hrs) 08/28/24 08/28/24 08/28/24 17:29 17:29 17:29 WBC 7.60 Hgb 11.3 L Hct 34.0 L Plt Count 252 PT 12.6 INR 1.11 Sodium 142 Potassium 4.2 BUN 16 Creatinine 0.64 Glucose 110 H Magnesium 1.9 Total Bilirubin 0.5 AST 30 ALT 30 Alkaline Phosphatase 178 H Assessment and Plan - Plan Right lower extremity cellulitis Pain control Started on empiric antibiotic Will get a CT lower extremity Obtain cultures Change antibiotic as per sensitivity Dopplers negative for acute changes NSTEMI possibly type II Will trend cardiac enzymes Will monitor telemetry Started on aspirin and statin EKG did not show any acute changes suggestive of ischemia Patient denies any chest pain Will get an echocardiogram Cardiology consult Acute on chronic CHF possibly systolic/diastolic Monitor closely on telemetry Started on aggressive diuresis X-ray findings consistent with CHF Oxygen supplementation Will try to wean down oxygen requirement Continue home medications Titrate as needed Will obtain an echocardiogram Cardiology consult History of atrial fibrillation Hypertension Continue home medications and titrate as needed GI/DVT prophylaxis Advanced directive full code Discharge Plan: Home Plan to discharge in: 48 Hours - Advance Directives Does patient have a Living Will: No Does patient have a Durable POA for Healthcare: No - Code Status/Comfort Care Code Status: Full Code Time Spent Managing Pts Care (In Minutes): 48
--- NOTE | 2024-08-28 20:35 | RAD REPORT ---
EXAMINATION: CTA CHEST PE CLINICAL INDICATION: SOB TECHNIQUE: This examination was performed according to an angiographic protocol with 3D post-processi ng. This involves 3D reconstructions, MIPs, volume rendered images and/or shaded surface rendering. One or more of the following dose reduction techniques were used: Automated exposure control, adjustm ent of the mA and/or kV according to patient size, and/or iterative reconstruction. Unless otherwise specified, incidental findings do not require dedicated imaging follow-up. COMPARISON: No prior exam. FINDINGS: Mild diffuse thyroid goiter. PULMONARY ARTERIES: Normal caliber. No evidence of pulmonary emboli to the subsegmental level. THORACIC AORTA: Normal caliber and configuration. LUNGS: No evidence of airspace or interstitial process. No nodules. Mild COPD. PLEURA: No pleural effusion. No pneumothorax. MEDIASTINUM AND LYMPH NODES: No mediastinal mass or fluid collection. Normal size mediastinal, hilar, and axillary lymph nodes. OSSEOUS STRUCTURES AND CHEST WALL: Intact. UPPER ABDOMEN: Liver cirrhosis. IMPRESSION: No evidence of pulmonary emboli to the subsegmental level.
[2024-08-28 23:21] VITALS: O2SAT 98
[2024-08-28] MEDS: FUROSEMIDE 40 MG/4 ML VIAL IV SCH (23:50)
[2024-08-28] MEDS: ONDANSETRON 4 MG/2 ML VIAL IV PRN (23:51)
[2024-08-28] MEDS: MORPHINE 2 MG/ML SYR IV PRN (23:51)
[2024-08-29] MEDS: CEFEPIME 1 GM in NA CHLORIDE 0.9% 100 ML IV SCH (00:40)
[2024-08-29 03:56] VITALS: BMI 25.6
[2024-08-29 04:54] LABS: Absolute Eosinophils 0.1 K/uL (0-0.5); Absolute Neutrophil 4.9 K/uL (1.8-8.0); Basophils % 0.4 % (0-1.3); Eosinophils % 1.5 % (0-4.4); Hematocrit 33.4 % (36.0-45.0); Hemoglobin 11.3 g/dL (12.0-15.0); Lymphocytes % 14.4 % (15.3-44.8); MCH 29.5 pg (27.0-35.0); MCHC 33.7 g/dL (32.0-36.0); MCV 87.6 fL (80-100); MPV 8.4 fL (7.6-11.3); Monocytes % 14.4 % (3.3-12.3); Neutrophils % 69.3 % (41.7-73.7); Platelets 252 thou/uL (152-406); RBC Red Blood Cell Count 3.82 M/uL (3.86-4.86); Red Cell Distribution Width 15.5 % (12.1-15.2)
[2024-08-29 04:58] LABS: Albumin 2.8 g/dL (3.4-5.0); Albumin/Globulin Ratio 0.9 (1.1-1.8); Anion Gap 7.6 mEq/L (5.0-15.0); Bilirubin Total 0.5 mg/dL (0.2-1.0); Potassium 3.6 mEq/L (3.5-5.1); Protein, Total 5.8 g/dL (6.4-8.2)
[2024-08-29] MEDS: HYDROCODONE/APAP 5/325 MG TAB PO PRN (07:14)
[2024-08-29] MEDS: PNEUMOCOCCAL VACCINE 0.5 ML IMVAC ONE (08:00)
[2024-08-29] MEDS: ASPIRIN EC 81 MG TAB PO SCH (09:00)
--- NOTE | 2024-08-29 09:54 | RAD REPORT ---
EXAMINATION: Lower Extremity W/ Cont CLINICAL INDICATION: Female, 68 years old.Right Leg edema RIGHT TECHNIQUE: CT of the right lower extremity (from above the distal femur through the foot) was perform ed with contrast. Reformats were performed. One or more of the following dose reduction techniques were used: Automated exposure control, adjustment of the mA and/or kV according to patient size, and/ or iterative reconstruction. Unless otherwise specified, incidental findings do not require dedicated imaging follow-up. [id number]. COMPARISON: 12/27/2016 FINDINGS: Diffuse skin thickening and subcutaneous edema throughout the visualized right lower extremity. Mild peripheral vascular calcifications. A small nonspecific but enhancing knee effusion is present. The sterility of the fluid is indeterminate. The finding is not unexpected in the setting of a knee arthr oplasty and was present on the prior CT as well. No soft tissue abscess identified. No fracture seen. No CT evidence of osteomyelitis. Scattered degenerative changes are present at the right foot i ncluding calcaneal spurs. IMPRESSION: No acute osseous abnormality, abscess, or soft tissue gas in the visualized portions of the right low er extremity. Small knee effusion is present with synovial thickening and enhancement that is not unexpected given the presence of the knee arthroplasty. The finding is also unchanged since 12/27/2016.
[2024-08-29] MEDS: ENOXAPARIN 40 MG/0.4 ML SQ SCH (09:55)
--- NOTE | 2024-08-29 12:39 | ECHO ---
HEIGHT: 5 ft 2 in WEIGHT: 140 lb 0 oz DATE OF STUDY: 08/29/[address]: Maximilian Mejia DO 2-DIMENSIONAL: YES M.MODE: YES DOPPLER: YES COLOR FLOW: YES TDS: PORTABLE: YES DEFINITY: BUBBLE STUDY: DIAGNOSIS: CONGESTIVE HEART FAILURE CARDIAC HISTORY: CATHERIZATION: NO SURGERY: NO PROSTHETIC VALVE: NO PACEMAKER: NO MEASUREMENTS (cm) DIASTOLIC (NORMALS) SYSTOLIC (NORMALS) IVSd 1.2 (0.6-1.2) LA Diam 2.7 (1.9-4.0) LVEF 60-65% LVIDd 3.9 (3.5-5.7) LVIDs 2.2 (2.0-3.5) %FS 44% LVPWd 1.3 (0.6-1.2) Ao Diam 2.6 (2.0-3.7) 2 DIMENSIONAL ASSESSMENT: RIGHT ATRIUM: NORMAL LEFT ATRIUM: MILDLY DILATED RIGHT VENTRICLE: NORMAL LEFT VENTRICLE: NORMAL TRICUSPID VALVE: MILD TRICUSPID REGURGITATION MITRAL VALVE: TRACE MITRAL REGUGITATION PULMONIC VALVE: NORMAL AORTIC VALVE: NORMAL PERICARDIAL EFFUSION: NONE AORTIC ROOT: NORMAL LEFT VENTRICULAR WALL MOTION: NORMAL DOPPLER/COLOR FLOW: GRADE I DIASTOLIC DYSFUNCTION COMMENTS: 1. NORMAL LEFT VENTRICULAR SYSTOLIC FUNCTION, EJECTION FRACTION 60-65%, NORMAL WALL MOTION 2. GRADE I DIASTOLIC DYSFUNCTION TECHNOLOGIST: GIANCARLO MCPHERSON
[2024-08-29] MEDS: HYDROCODONE/APAP 7.5/325 MG TAB PO PRN (13:27)
[2024-08-29] MEDS: PREGABALIN 25 MG CAPSULE PO PRN (13:27)
--- NOTE | 2024-08-29 15:01 | P.CNS ---
Date of Consult: 08/29/24 Chief Complaint: SOB/ Swelling of extremities History of Present Illness: Patient with PMH of AF s/p ablation x2, HTN, s/p recent knee replacement surgery, presented with worsening right more than left lower extremities swelling for the last few days, denies chest pain, no palpitations, no syncope. Allergies sulfamethoxazole [From Bactrim] Allergy (Verified 06/24/21 15:42) Itching sumatriptan [From Imitrex] Allergy (Verified 12/27/16 21:41) Anaphylaxis sumatriptan succinate [From Imitrex] Allergy (Verified 12/27/16 21:41) Anaphylaxis trimethoprim [From Bactrim] Allergy (Verified 06/24/21 15:42) Itching Home medications list reviewed: Yes Home Medications: Diltiazem HCl [Diltiazem 24Hr Cd] 1.5 cap PO BEDTIME 02/05/21 Furosemide 1 tab PO PRN PRN 02/05/21 dilTIAZem HCL [Diltiazem 24Hr ER] 1 cap PO SEECOM 02/05/21 lisinopriL [Lisinopril] 2 tab PO BID 02/05/21 Amox/Clavulanate [Augmentin 500-125 mg Tab*] 500 mg PO BID #10 tab 02/07/21 Docusate [Colace Cap*] 100 mg PO DAILY #15 cap 02/07/21 Hydrocodone 7.5/APAP 325 [[place] 7.5/325 mg*] 1 tab PO TID PRN #10 tab 02/07/21 Omeprazole Magnesium [Prilosec Otc] 1 mg PO BID 06/24/21 Apixaban [Eliquis] 5 mg PO BID 08/29/24 Pantoprazole Sodium [Protonix] 20 mg PO BID 08/29/24 Pregabalin [Lyrica] 5 mg PO Q8HR PRN 08/29/24 - Past Medical/Surgical History Diabetic: No -: Hypertension -: Anxiety -: carpal tunnel -: a-fib/svt s/p ablation -: double mastectomy -: heart ablation -: ankle surgery -: hysterectomy -: carpal tunnel -: left knee replacement -: append -: nose sx Psychosocial/ Personal History: Patient lives at home with her . - Family History Father Medical History: Heart disease Mother Medical History: Cancer Sister Medical History: Cancer - Social History Smoking Status: Former smoker Alcohol use: Yes CD- Drugs: No Caffeine use: No Review of Systems 10-point ROS is otherwise unremarkable Physical Examination Temp Pulse Resp BP Pulse Ox 98.9 F 83 17 137/75 95 08/29/24 12:00 08/29/24 12:00 08/29/24 12:00 08/29/24 12:00 08/29/24 12:00 General: Alert, In no apparent distress HEENT: Atraumatic, PERRLA, Mucous membr. moist/pink, EOMI, Sclerae nonicteric Neck: Supple, 2+ carotid pulse no bruit, No LAD, Without JVD or thyroid abnormality Respiratory: Clear to auscultation bilaterally, Normal air movement Cardiovascular: Regular rate/rhythm, Normal S1 S2 Gastrointestinal: Normal bowel sounds, No tenderness Musculoskeletal: No tenderness Integumentary: No rashes Neurological: Normal gait, Normal speech, Normal tone, Normal affect Lymphatics: No axilla or inguinal lymphadenopathy Laboratory Data (last 24 hrs) 08/28/24 08/28/24 08/28/24 17:29 17:29 17:29 WBC 7.60 Hgb 11.3 L Hct 34.0 L Plt Count 252 PT 12.6 INR 1.11 Sodium 142 Potassium 4.2 BUN 16 Creatinine 0.64 Glucose 110 H Magnesium 1.9 Total Bilirubin 0.5 AST 30 ALT 30 Alkaline Phosphatase 178 H - Problems (1) Acute on chronic diastolic heart failure Current Visit: Yes Status: Acute Plan: patient swelling is much better after IV Lasix Echo shows normal EF with grade I DD, IVC was not visualized switch lasix to 40 mg po BID on discharge for 5 days then continue lasix 40 mg daily add Aldactone 25 mg daily continue Lisinopril 40 mg po BID, 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 (2) Type 2 CO (myocardial infarction) Current Visit: Yes Status: Acute Plan: Patient denies chest pain, no significant EKG changes. troponin mild elevated, most likely type 2 CO from CHF Outpatient follow up with cardiology. (3) Atrial fibrillation Onset Date: 12/29/16 Current Visit: No Status: Chronic Plan: patient currently in sinus rhythm, she is s/p ablation x2, continue to follow up with EP (Dr. Hdz at [facility]). continue Diltazem continue Eliquis Qualifiers: Atrial fibrillation type: unspecified Qualified Code(s): I48.91 - Unspecified atrial fibrillation
[2024-08-29] MEDS ORDERED: PANTOPRAZOLE 40MG TABLET PO SCH (16:30)
--- NOTE | 2024-08-29 17:08 | P.DS ---
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 Patient was assessed in the ER, troponin mildly elevated. CTA thorax showed no pulmonary embolism and no acute lung disease. She was admitted for further management of NSTEMI and CHF with right lower extremity edema. Hospital Course: Diagnosis Acute on chronic diastolic heart failure NSTEMI Right lower extremity edema Chronic atrial fibrillation Oropharyngeal candidiasis Patient was treated with IV Lasix, was briefly on an antibiotics. Patient's troponin trended flat with no acute rise to suggest acute coronary syndrome. Patient was evaluated by cardiology Dr. Acosta who considers the elevated troponin to be secondary to demand ischemia. Patient effectively diuresed with IV Lasix, her lower extremity swelling (edema) significantly improved. Patient with stable vitals. She is on Cardizem which was continued during the hospital stay. Heart rate was controlled on her home dose Cardizem. Patient prescribed Lasix 40 mg twice a day for the next 5 days followed by 40 mg daily as recommended by cardiology. Aldactone 25 mg added according to cardiology recommendation. Patient reported throat discomfort, oral examination showed oral thrush. Patient diagnosed with oropharyngeal candidiasis and discharged with oral Diflucan and topical nystatin. Patient advised to follow-up with her nurse discharge planner regarding his CHF. She is on lisinopril which can be replaced with Entresto according to her nurse discharge planner's preference. Vital Signs/Physical Exam: Temp Pulse Resp BP Pulse Ox 97 F 96 H 15 137/63 95 08/29/24 16:00 08/29/24 16:00 08/29/24 16:08/29/24 16:08/29/24 16:00 General: Alert, In no apparent distress, Oriented x3 HEENT: Mucous membr. moist/pink, Sclerae nonicteric Neck: Supple, JVD not distended Respiratory: Clear to auscultation bilaterally, Normal air movement Cardiovascular: Regular rate/rhythm, Normal S1 S2, Edema (Mild right lower extremity edema.) Gastrointestinal: Normal bowel sounds, Soft and benign, Non-distended Musculoskeletal: No swelling, No warmth Integumentary: No rashes, No cyanosis Neurological: Normal strength at 5/5 x4 extr, Cranial nerves 3-12 intact Laboratory Data at Discharge: WBC 7.10 thou/uL (4.3-10.9) 08/29/24 04:27 Hgb 11.3 g/dL (12.0-15.0) L 08/29/24 04:27 Hct 33.4 % (36.0-45.0) L 08/29/24 04:27 Plt Count 252 thou/uL (152-406) 08/29/24 04:27 PT 12.6 SECONDS (10-13.0) 08/28/24 17:29 INR 1.11 08/28/24 17:29 Sodium 141 mEq/L (136-145) 08/29/24 04:27 Potassium 3.6 mEq/L (3.5-5.1) D 08/29/24 04:27 BUN 16 mg/dL (7-18) 08/29/24 04:27 Creatinine 0.59 mg/dL (0.55-1.02) 08/29/24 04:27 Glucose 142 mg/dL (74-106) H 08/29/24 04:27 Magnesium 1.9 mg/dL (1.6-2.4) 08/28/24 17:29 Total Bilirubin 0.5 mg/dL (0.2-1.0) 08/29/24 04:27 AST 21 U/L (15-37) 08/29/24 04:27 ALT 24 U/L (13-56) 08/29/24 04:27 Alkaline Phosphatase 131 U/L (45-117) H D 08/29/24 04:27 Triglycerides 47 mg/dL (<150) 08/29/24 04:27 Cholesterol 206 mg/dL (<200) H 08/29/24 04:27 HDL Cholesterol 101 mg/dL (40-60) H 08/29/24 04:27 Cholesterol/HDL Ratio 2.04 08/29/24 04:27 Home Medications: Diltiazem HCl [Diltiazem 24Hr Cd] 1.5 cap PO BEDTIME 02/05/21 lisinopriL [Lisinopril] 2 tab PO BID 02/05/21 Docusate [Colace Cap*] 100 mg PO DAILY #15 cap 02/07/21 Hydrocodone 7.5/APAP 325 [[place] 7.5/325 mg*] 1 tab PO TID PRN #10 tab 02/07/21 Omeprazole Magnesium [Prilosec Otc] 1 mg PO BID 06/24/21 Apixaban [Eliquis] 5 mg PO BID 08/29/24 Atorvastatin Calcium [Lipitor] 40 mg PO BEDTIME #30 tab 08/29/24 Fluconazole [Diflucan] 200 mg PO DAILY #14 tab 08/29/24 Furosemide [Lasix] 40 mg PO BIDL #35 tab 08/29/24 Nystatin 5 ml PO QID 14 Days #473 ml 08/29/24 Pantoprazole Sodium [Protonix] 20 mg PO BID 08/29/24 Pregabalin [Lyrica] 5 mg PO Q8HR PRN 08/29/24 Spironolactone [Aldactone] 25 mg PO DAILY #30 tab 08/29/24 New Medications: Spironolactone [Aldactone] 25 mg PO DAILY #30 tab Fluconazole [Diflucan] 200 mg PO DAILY #14 tab Furosemide [Lasix] 40 mg PO BIDL #35 tab Atorvastatin Calcium [Lipitor] 40 mg PO BEDTIME #30 tab Nystatin 5 ml PO QID 14 Days #473 ml Physician Discharge Instructions: Patient presented with swelling and pain in right lower extremity which has been going on for the last 1 week and has been progressively getting worse She has a history of right total knee replacement. Patient was assessed in the ER, troponin mildly elevated. She was admitted for further management of NSTEMI and CHF with right lower extremity edema. Patient was treated with IV Lasix, was briefly on an antibiotics. Patient's troponin trended flat with no acute rise to suggest acute coronary syndrome. Patient was evaluated by cardiology Dr. Acosta who considers the elevated troponin to be secondary to demand ischemia. Patient effectively diuresed with IV Lasix, her lower extremity swelling (edema) significantly improved. Patient with stable vitals. She is on Cardizem which was continued during the hospital stay. Heart rate was controlled on her home dose Cardizem. Patient prescribed Lasix 40 mg twice a day for the next 5 days followed by 40 mg daily as recommended by cardiology. Aldactone 25 mg added according to cardiology recommendation. Patient reported throat discomfort, oral examination showed oral thrush. Patient diagnosed with oropharyngeal candidiasis and discharged with oral Diflucan and topical nystatin. Patient advised to follow-up with her nurse discharge planner regarding his CHF. She is on lisinopril which can be replaced with Entresto according to her nurse discharge planner's preference. New medications Lasix 40 mg twice a day followed by 40 mg daily Aldactone 25 mg daily Nystatin oral suspension 500,000 units 4 times daily Diflucan 200 mg daily Diet: ADA Activity: Ad lana Followup: Casimiro Velazquez MD [Primary Care Provider] - 1 Week Time spent managing pt's care (in minutes): 34
[2024-08-29] MEDS ORDERED: HOME MED 1 EA UNK (Pantoprazole Sodium [Protonix] 20 MG Tablet.Dr) PO SCH (21:00)
[2024-08-29] MEDS ORDERED: ATORVASTATIN 40 MG TAB PO SCH (21:00)
[2024-08-29] MEDS ORDERED: DILTIAZEM HCL 120 MG SR CAP PO SCH (21:00)
[2024-08-29] MEDS ORDERED: lisinopriL 20 MG TAB PO SCH (21:00)
[2024-08-29 21:05] VITALS: BP 137/63; TEMP 97
[2024-08-30] MEDS ORDERED: APIXABAN 5 MG TABLET PO SCH (09:00)
[2024-08-30] MEDS ORDERED: DOCUSATE NA 100 MG CAP PO SCH (09:00)
--- NOTE | 2024-09-04 11:59 | EKG ---
Test Date: 2024-08-28 Test Time: 19:09:08 Senior Energy Consultant: AUDREY MEASUREMENT RESULTS: Intervals: Rate: 81 MN: 134 QRSD: 72 QT: 378 QTc: 439 [place]: P: 11 MN: 134 QRS: 32 T: 78 INTERPRETIVE STATEMENTS: Sinus rhythm with premature atrial complexes Otherwise normal ECG Compared to ECG 11/14/2016 09:04:30 Atrial premature complex(es) now present Electronically Signed On 09-04-24 11:49:41 CDT by Mika Acosta
== END 2024-08-29 18:45 | disposition home or self-care (01) | DRG 280 ==
LOC: ER 15:58 → ERHOLD 20:04 → 4TH 21:41
PROVIDERS: ADMIT Family Medicine; ATTEND Internal Medicine
DX: I11.0 Hypertensive heart disease with heart failure (principal); I50.33 Acute on chronic diastolic (congestive) heart failure; I21.A1 Myocardial infarction type 2; L03.115 Cellulitis of right lower limb; I48.20 Chronic atrial fibrillation, unspecified; B37.0 Candidal stomatitis; E78.5 Hyperlipidemia, unspecified; M19.90 Unspecified osteoarthritis, unspecified site; Z88.1 Allergy status to other antibiotic agents; Z88.8 Allergy status to other drugs, medicaments and biological substances; Z79.01 Long term (current) use of anticoagulants; Z90.13 Acquired absence of bilateral breasts and nipples; Z90.49 Acquired absence of other specified parts of digestive tract; Z96.653 Presence of artificial knee joint, bilateral; Z79.899 Other long term (current) drug therapy; Z90.710 Acquired absence of both cervix and uterus; Z87.891 Personal history of nicotine dependence
CPT/HCPCS: 36415; 71045; 71275; 73701; 80048; 80053; 80061; 80076; 83735; 83880; 84484; 85025; 85610; 90471; 90732; 93005; 93306; 93926; 93971; 96374; 96375; 99285; J0692; J1650; J1938; J2270; J2405; J3010; Q9967

== ENCOUNTER 2024-09-05 18:31 | Emergency (ER) | payer OTHER ==
[2024-09-05 19:27] LABS: Absolute Eosinophils 0.1 K/uL (0-0.5); Absolute Lymphocytes (CBC) 1.1 K/uL (0.7-4.9); Absolute Monocytes 0.9 K/uL (0.1-1.3); Absolute Neutrophil 4.3 K/uL (1.8-8.0); Basophils % 0.5 % (0-1.3); Eosinophils % 1.4 % (0-4.4); Hematocrit 35.1 % (36.0-45.0); Hemoglobin 11.8 g/dL (12.0-15.0); Lymphocytes % 16.8 % (15.3-44.8); MCH 29.4 pg (27.0-35.0); MCHC 33.7 g/dL (32.0-36.0); MCV 87.2 fL (80-100); MPV 8.5 fL (7.6-11.3); Monocytes % 13.8 % (3.3-12.3); Neutrophils % 67.5 % (41.7-73.7); Platelets 157 thou/uL (152-406); RBC Red Blood Cell Count 4.02 M/uL (3.86-4.86); Red Cell Distribution Width 15.7 % (12.1-15.2)
[2024-09-05 19:37] LABS: PT Prothrombin Time 13.4 SECONDS (10-13.0); Protime INR 1.18
[2024-09-05 19:47] LABS: Albumin 2.9 g/dL (3.4-5.0); Albumin/Globulin Ratio 0.9 (1.1-1.8); Anion Gap 11.9 mEq/L (5.0-15.0); Bilirubin Direct 0.2 mg/dL (0-0.2); Bilirubin Indirect, Calculated 0.3 mg/dL (0.2-0.8); Bilirubin Total 0.5 mg/dL (0.2-1.0); Globulin 3.2 g/dL (2.3-3.5); Magnesium 1.8 mg/dL (1.6-2.4); Potassium 3.9 mEq/L (3.5-5.1); Protein, Total 6.1 g/dL (6.4-8.2)
[2024-09-05 20:22] LABS: Troponin High Sensitivity 75.7 pg/mL (<58.9)
--- NOTE | 2024-09-05 20:36 | EDPHYS ---
Physician Documentation [facility] Name: Anastasiya Proctor Age: 68 yrs Sex: Female : 1955 Arrival Date: 09/05/2024 Time: 18:31 Bed 19 Private MD: ED Physician Jourdan Salinas HPI: 09/05 19:20 This 68 yrs old Female presents to ER via Wheelchair with complaints of Altered Mental ms3 Status, Doesn't Feel Right. 19:20 68-year-old female with past medical history of atrial fibrillation, hypertension ms3 presents to the emergency department for drowsiness, weakness that began 1 week ago. Patient endorses nausea. Patient denies vomiting, pain, shortness of breath.. Historical: - Allergies: 18:50 Bactrim; iw 18:50 GABAPENTIN; iw 18:50 Imitrex; iw 18:50 Sumatriptan Succinate; iw - PMHx: 18:50 AFIB; Hypertension; iw - PSHx: 18:50 Left ankle; Appendectomy; left knee; Total abdominal hysterectomy; iw - Immunization history:: Adult Immunizations up to date. - Infectious Disease History:: Denies. - Social history:: Smoking status: Patient denies any tobacco usage or history of. ROS: 19:20 Cardiovascular: Negative for chest pain, and palpitations. Respiratory: Negative for ms3 shortness of breath, cough, wheezing, and pleuritic chest pain, Abdomen/GI: Negative for abdominal pain, nausea, vomiting, diarrhea, and constipation, MS/Extremity: Negative for injury and deformity, Skin: Negative for injury, rash, and discoloration, 19:20 Constitutional: Positive for fatigue, Exam: 19:21 Constitutional: This is a well developed, well nourished patient who is awake, alert, ms3 and in no acute distress. Head/Face: Normocephalic, atraumatic. Chest/axilla: Normal chest wall appearance and motion. Nontender with no deformity. Cardiovascular: Regular rate and rhythm with a normal S1 and S2. No gallops, murmurs, or rubs. Normal PMI, no JVD. No pulse deficits. Respiratory: Lungs have equal breath sounds bilaterally, clear to auscultation and percussion. No rales, rhonchi or wheezes noted. No increased work of breathing, no retractions or nasal flaring. Abdomen/GI: Soft, non-tender, with normal bowel sounds. No distension or tympany. No guarding or rebound. No evidence of tenderness throughout. Skin: Warm, dry with normal turgor. Normal color with no rashes, no lesions, and no evidence of cellulitis. 19:21 Neuro: Orientation: is normal, Mentation: is normal, Memory: is normal, Cranial nerves: CN I not tested, CN II- XII are normal as tested, Cerebellar function: dysmetria is noted on both sides, Motor: Bilateral Upper and Lower extremity weakness, Sensation: is normal, 20:35 ECG was reviewed by the Attending Physician. ms3 Vital Signs: 18:00 BP 122 / 76; Pulse 95; Resp 16; Pulse Ox 100% on 2 lpm NC; cm10 18:47 BP 114 / 51; Pulse 72; Resp 16; Temp 97.9; Pulse Ox 97% on R/A; iw 19:00 BP 124 / 46; Pulse 63; cm10 20:09 BP 147 / 57; Pulse 82; Resp 16; Pulse Ox 98% on 2 lpm NC; cm10 05 01:34 BP 132 / 68; Pulse 77; Resp 18; Pulse Ox 98% on R/A; kd3 MDM: 09/05 18:54 Medical Screening Exam initiated ms3 19:31 Differential Diagnosis: CVA, electrolyte abnormality, intracranial bleed, UTI, volume ms3 depletion. 21:00 Data reviewed: vital signs, nurses notes, lab test result(s), EKG, radiologic studies, ms3 and as a result, I will. Consideration of Admission/Observation Patient was admitted/placed on observation. Management of patient was discussed with the following: Hospitalist: Mary Giraldo. Independent interpretation of the following test(s) in the Emergency Department EKG: See my EKG interpretation above. Counseling: I had a detailed discussion with the patient and/or guardian regarding the historical points, exam findings, and any diagnostic results supporting the discharge/admit diagnosis, lab results, radiology results, the need for further work-up and treatment in the hospital. 09/05 18:40 Order name: Basic Metabolic Panel; Complete Time: 20:32 ms3 09/05 18:40 Order name: CBC with Diff; Complete Time: 20:32 ms3 09/05 18:40 Order name: LFT's; Complete Time: 20:32 ms3 09/05 18:40 Order name: Magnesium; Complete Time: 20:32 ms3 09/05 18:40 Order name: NT PRO-BNP; Complete Time: 20:32 ms3 09/05 18:40 Order name: PT-INR; Complete Time: 20:32 ms3 09/05 18:40 Order name: Troponin HS; Complete Time: 20:32 ms3 09/05 22:54 Order name: UA Rfx Gilbert Cult if indicated; Complete Time: 01:35 faith 09/05 18:40 Order name: XRAY Chest (1 view); Complete Time: 22:53 ms3 09/05 18:56 Order name: CT Head Brain wo Cont; Complete Time: 22:53 ms3 09/05 23:07 Order name: CT Chest Abdomen Pelvis W/O Contrast faith 09/05 18:40 Order name: Cardiac monitoring; Complete Time: 20:18 ms3 09/05 18:40 Order name: EKG - Nurse/Tech; Complete Time: 20:18 ms3 09/05 18:40 Order name: IV Saline Lock; Complete Time: 19:21 ms3 09/05 18:40 Order name: Labs collected and sent; Complete Time: 19:21 ms3 09/05 18:40 Order name: O2 Per Protocol; Complete Time: 19:21 ms3 09/05 18:40 Order name: O2 Sat Monitoring; Complete Time: 19:21 ms3 EC:35 Rate is 66 beats/min. Rhythm is regular. QRS Tiger is Normal. CT interval is normal. QRS ms3 interval is normal. Clinical impression: Normal ECG. Interpreted by me. Reviewed by me. Administered Medications: 21:32 Drug: Aspirin PO Chewable Tablet 324 mg PO once; 81 mg tablets x 4 Route: PO; cm10 22:08 Follow up: Response: No adverse reaction cm10 23:08 CANCELLED (Duplicate Order): ns 0.9% 500 ml 500 ml IV at 100 per protocol once; to be faith given as a bolus over 30 minutes 09/06 00:01 Drug: Famotidine IVP 20 mg IVP once; dilute with 10 mL 0.9% NaCl; give over 2 minutes kd3 Route: IVP; Site: right forearm; 00:01 Drug: NS 0.9% IV 500 ml 500 ml IV at 100 ml/hr once Volume: 500 ml; Route: IV; Rate: kd3 100 ml/hr; Site: right forearm; Disposition Summary: 09/05/24 22:53 Transfer Ordered Notes: Transfer Location: [facility] faith Reason: Higher level of care faith Condition: Stable(09/05/24 22:53) faith Problem: new(09/05/24 22:53) faith Symptoms: have improved(09/05/24 22:53) faith Accepting Physician: TO ROSEMARY LIN(09/06/24 01:35) kd3 Diagnosis - Weakness faith - History of falling faith - Dysphasia and aphasia faith - Ataxic gait faith - Acute kidney failure, unspecified faith - FPC (current) use of anticoagulants faith Forms: - Medication Reconciliation Form faith - SBAR form faith Signatures: Dispatcher [employer] EDMS Jourdan Salinas MD MD cha Williams, Irene, RN RN iw Ilia Peters DO DO ms3 Carrie Díaz RN RN kd3 Corine Romero RN RN cm10 Corrections: (The following items were deleted from the chart) 09/05 18:41 18:40 BASIC METABOLIC PANEL+C.LAB.BRZ ordered. EDMS EDMS 18:41 18:40 CBC+H.LAB.BRZ ordered. EDMS EDMS 18:41 18:40 HEPATIC FUNCTION+C.LAB.BRZ ordered. EDMS EDMS 18:41 18:40 MAGNESIUM+C.LAB.BRZ ordered. EDMS EDMS 18:41 18:40 PROBNP+C.LAB.BRZ ordered. EDMS EDMS 18:41 18:40 PROTIME (+INR)+COAG.LAB.BRZ ordered. EDMS EDMS 18:41 18:40 Troponin High Sensitivity+C.LAB.BRZ ordered. EDMS EDMS 18:41 18:41 Chest Single View+RAD.RAD.BRZ ordered. EDMS EDMS 22:52 20:35 Observation ms3 faith 22:52 20:35 Daniel Easton ms3 fatih 22:52 20:35 Telemetry/MedSurg (observation) ms3 faith 22:52 20:35 Stable ms3 faith 22:52 20:35 new ms3 faith 22:52 20:35 are unchanged ms3 faith 22:52 20:35 Standard ms3 faith 22:52 20:35 ms3 faith 22:52 20:35 Elevated Troponin ms3 faith 22:52 20:35 Other fatigue ms3 faith 22:52 20:35 Anemia, unspecified ms3 faith 22:52 20:35 Essential (primary) hypertension ms3 afith 23:08 23:07 NS 0.9% IV 500 ml 500 ml IV at 100 per protocol once; to be given as a bolus over faith 30 minutes ordered. faith 23:10 22:53 TO [facility] faith 09/06 01:35 05 23:10 TO [facility] faith kd3
--- NOTE | 2024-09-05 20:36 | ER ---
Nurse's Notes [facility] Name: Anastasiya Proctor Age: 68 yrs Sex: Female : 1955 Arrival Date: 09/05/2024 Time: 18:31 Bed 19 Private MD: Diagnosis: Weakness;History of falling;Dysphasia and aphasia;Ataxic gait;Acute kidney failure, unspecified;[employer] (current) use of anticoagulants Presentation: 09/05 18:47 Chief complaint: Spouse and/or significant other states: she is drowsy, shaking , iw unsteady , started this week , today it got worse , she has been eating and drinking , not vomiting or having diarrhea, no fever, she was in the hospital a week ago for a knee problem, they may have changed some of her meds. Coronavirus screen: At this time, the client does not indicate any symptoms associated with coronavirus-19. Ebola Screen: No symptoms or risks identified at this time. Initial Sepsis Screen: Does the patient meet any 2 criteria? No. Patient's initial sepsis screen is negative. Does the patient have a suspected source of infection? No. Patient's initial sepsis screen is negative. Risk Assessment: Do you want to hurt yourself or someone else? Patient reports no desire to harm self or others. Onset of symptoms was August 31, 2024. 18:47 Method Of Arrival: Wheelchair iw 18:47 Acuity: HALIE 3 iw Historical: - Allergies: 18:50 Bactrim; iw 18:50 GABAPENTIN; iw 18:50 Imitrex; iw 18:50 Sumatriptan Succinate; iw - PMHx: 18:50 AFIB; Hypertension; iw - PSHx: 18:50 Left ankle; Appendectomy; left knee; Total abdominal hysterectomy; iw - Immunization history:: Adult Immunizations up to date. - Infectious Disease History:: Denies. - Social history:: Smoking status: Patient denies any tobacco usage or history of. Screenin:29 [facility] ED Fall Risk Assessment (Adult) History of falling in the last 3 months, cm10 including since admission No falls in past 3 months (0 pts) Confusion or Disorientation No (0 pts) Intoxicated or Sedated No (0 pts) Impaired Gait No (0 pts) Mobility Assist Device Used No (0 pt) Altered Elimination No (0 pt) Score/Fall Risk Level 0 - 2 = Low Risk Oriented to surroundings, Maintained a safe environment, Hourly rounding (assess needs \T\ fall precautionary measures) done. Abuse screen: Denies threats or abuse. Denies injuries from another. Nutritional screening: No deficits noted. Tuberculosis screening: Assessment: 19:20 General: Appears in no apparent distress. comfortable, Behavior is calm, cooperative. cm10 Pain: Denies pain. Neuro: No deficits noted. Level of Consciousness is awake, alert, obeys commands, Oriented to person, place, time, situation, Appropriate for age. Cardiovascular: Patient's skin is warm and dry. Respiratory: No deficits noted. Airway is patent Respiratory effort is even, unlabored, Respiratory pattern is regular, symmetrical. 20:18 Reassessment: Patient appears in no apparent distress at this time. Patient and/or cm10 family updated on plan of care and expected duration. Pain level reassessed. Patient is alert, oriented x 3, equal unlabored respirations, skin warm/dry/pink. 09/06 00:53 General: Report called to [facility] to [facility] for room 1263. kd3 Vital Signs: 09/05 18:00 BP 122 / 76; Pulse 95; Resp 16; Pulse Ox 100% on 2 lpm NC; cm10 18:47 BP 114 / 51; Pulse 72; Resp 16; Temp 97.9; Pulse Ox 97% on R/A; iw 19:00 BP 124 / 46; Pulse 63; cm10 20:09 BP 147 / 57; Pulse 82; Resp 16; Pulse Ox 98% on 2 lpm NC; cm10 05/ 01:34 BP 132 / 68; Pulse 77; Resp 18; Pulse Ox 98% on R/A; kd3 ED Course: 09/05 18:37 Patient arrived in ED. cj3 18:40 Ilia Peters DO is Attending Physician. ms3 18:50 Triage completed. iw 18:51 Arm band placed on. iw 19:21 Corine Romero, NARENDRA is Primary Nurse. cm10 19:21 Initial lab(s) drawn, by me, sent to lab. Inserted saline lock: 20 gauge in right cm10 forearm, using aseptic technique. Blood collected. Flushed with 10 mL NS. 19:21 Basic Metabolic Panel Sent. cm10 19:21 CBC with Diff Sent. cm10 19:21 LFT's Sent. cm10 19:21 Magnesium Sent. cm10 19:21 NT PRO-BNP Sent. cm10 19:21 PT-INR Sent. cm10 19:38 XRAY Chest (1 view) In Process Unspecified. EDMS 19:44 CT Head Brain wo Cont In Process Unspecified. EDMS 20:29 Patient has correct armband on for positive identification. Bed in low position. Call cm10 light in reach. Side rails up X2. Client placed on continuous cardiac and pulse oximetry monitoring. NIBP monitoring applied. property assessment monitor on. 20:29 EKG done, by ED staff, reviewed by Ilia Peters DO. cm10 20:34 Daniel Easton MD is Hospitalizing Provider. ms3 22:40 Carrie Díaz, NARENDRA is Primary Nurse. kd3 22:51 Attending Physician role handed off by Ilia Peters DO faith 22:51 Jourdan Salinas MD is Attending Physician. faith 23:18 initiated transfer with [facility] Amber. kmf 23:43 CT Chest Abdomen Pelvis W/O Contrast In Process Unspecified. EDMS 05/10 01:32 No provider procedures requiring assistance completed. Patient transferred, IV remains kd3 in place. 01:33 Provided Education on: need for transfer . kd3 03:01 pt was accepted to [facility]. Admin Amber N \T\ 0021. Accepting Dr. Yi M \T\ 0021. formerly [facility] Number for nurse to nurse report [phone]. [facility] to transfer pt. Administered Medications: 09/05 21:32 Drug: Aspirin PO Chewable Tablet 324 mg PO once; 81 mg tablets x 4 Route: PO; cm10 22:08 Follow up: Response: No adverse reaction cm10 23:08 CANCELLED (Duplicate Order): ns 0.9% 500 ml 500 ml IV at 100 per protocol once; to be faith given as a bolus over 30 minutes 09/06 00:01 Drug: Famotidine IVP 20 mg IVP once; dilute with 10 mL 0.9% NaCl; give over 2 minutes kd3 Route: IVP; Site: right forearm; 00:01 Drug: NS 0.9% IV 500 ml 500 ml IV at 100 ml/hr once Volume: 500 ml; Route: IV; Rate: kd3 100 ml/hr; Site: right forearm; Medication: 09/05 20:30 VIS not applicable for this client. cm10 Outcome: 20:35 Decision to Hospitalize by Provider. ms3 22:53 ER care complete, transfer ordered by MD. cuevas 09/06 01:33 Transferred by ground EMS to [facility], [facility], kd3 Condition: stable Discharge instructions given to patient, family, Instructed on the need for transfer, Demonstrated understanding of instructions, 01:35 Patient left the ED. kd3 Signatures: Dispatcher [employer] EDJourdan Crain MD MD cha Williams, Irene, RN NARENDRA iw Ilia Peters, DO ms3 Carrie Díaz RN RN kd3 Corine Romero RN RN cm10 Prerna Jewell Celeste 3
[2024-09-05] MEDS ORDERED: ASPIRIN 81 MG CHEWABLE TABLET ONE (21:17)
--- NOTE | 2024-09-05 21:48 | RAD REPORT ---
EXAMINATION: ONE VIEW CHEST XR CLINICAL INDICATION: ams TECHNIQUE: Frontal chest projection is submitted. Examination is limited by patient positioning and t echnique. COMPARISON: 08/28/2024 FINDINGS: Mild bilateral pulmonary edema is suspected. The heart is upper limit of normal in size. No displaced fractures identified. IMPRESSION: Mild CHF versus volume overload pattern is suspected. Electronically signed by: Kayden Ayala MD 09/05/2024 07:45 PM CDT RP Due to temporary technical issues with the PACS/[employer] reporting system, reports are being signed by the in-house radiologist without review as a courtesy to ensure prompt reporting the interpreting radiologist is fully responsible for the content of the report. Transcribed Date/Time: 09/05/2024 9:48 PM
--- NOTE | 2024-09-05 22:09 | RAD REPORT ---
EXAM: CT brain without contrast HISTORY: ams, difficulty walking COMPARISON: None TECHNIQUE: Multiple contiguous axial images were obtained and a CT of the brain without contrast. Sag ittal and coronal reformats were performed. One or more of the following dose reduction techniques were used: Automated exposure control, adjustm ent of the mA and/or kV according to patient size, and/or iterative reconstruction. FINDINGS: No evidence of hydrocephalus, intracranial hemorrhage, or extra-axial fluid collection. Mild brain atrophy with mild periventricular and deep white matter chronic microvascular ischemic faith nges present. No evidence of midline shift or areas of brain edema. [Vertebral atherosclerosis. The calvarium is intact. The visualized paranasal sinuses and mastoid air cells are essentially clear . IMPRESSION: No evidence of acute intracranial abnormality. Electronically signed by: Kayden Ayala MD 09/05/2024 07:53 PM CDT Due to temporary technical issues with the PACS/[employer] reporting system, reports are being davion d by the in-house radiologist without review as a courtesy to ensure prompt reporting the interpreting radiologist is fully responsible for the content of the report. Transcribed Date/Time: 09/05/2024 10:09 PM
[2024-09-05] MEDS ORDERED: NA CHLORIDE 0.9% 500 ML ONE (23:49)
[2024-09-05] MEDS ORDERED: FAMOTIDINE 20 MG/2 ML VIAL IV ONE (23:49)
[2024-09-06 00:36] LABS: Specific Gravity 1.019 (1.005-1.030); Sqamous Epithelial <5 /HPF (None Seen); Urine Bacteria None Seen /HPF (<20); Urine Bilirubin NEGATIVE (Negative); Urine Blood Negative (Negative); Urine Clarity Turbid (Clear); Urine Color Light-Yellow (Yellow); Urine Culture Reflex Order NOT NEEDED; Urine Glucose NEGATIVE (Negative); Urine Ketones NEGATIVE (Negative); Urine Microscopic Reflex YN ORDER UMIC; Urine Mucus Slight /HPF (None Seen); Urine Nitrite NEGATIVE (Negative); Urine Protein NEGATIVE (Negative); Urine RBC None Seen /HPF (None Seen); Urine Urobilinogen Normal (Normal); Urine WBC <5 /HPF (<5); Urine pH 5.5 (5.0-7.0)
--- NOTE | 2024-09-06 00:40 | RAD REPORT ---
Clinical Indication: Bed Name: 19; COUGH Comparison: August 28, 2024 TECHNIQUE: Sequential trans-axial images were obtained through the chest, abdomen and pelvis without iodinated contrast or oral contrast. Coronal and sagittal reconstructions were obtained and provided as separate series. All CT scans at this location are performed using dose optimization techniques as appropriate to perf orm the study. Radiation dose reduction technique was utilized including one or more of the following: Automated exp osure control, adjustment of the mA and/or kV according to patient size and use of iterative reconstruction technique. CT Radiation Dose DLP 663.2 mGy-cm FINDINGS: CT CHEST: LUNG PARENCHYMA AND PLEURA: No pulmonary opacities are noted. . There are no lung nodules. There is n o significant interstitial lung disease. There are no pleural effusions. There is no pneumothorax. Bilateral breast implants are noted. The right implant appears ruptured. AIRWAY: The central airway is patent MEDIASTINUM: No mediastinal lymphadenopathy is noted. HEART: The heart is normal in size.. There is trace pericardial effusion. VASCULAR STRUCTURES: The pulmonary arteries and great vessels are normal in caliber. The thoracic a esha is normal in caliber. The superior vena cava is unremarkable. OSSEOUS STRUCTURES: There are no acute osseous abnormalities seen. Degenerative changes are noted in the thoracic spine. ESOPHAGUS: No gross abnormalities. CT ABDOMEN/PELVIS: NON-CONTRAST ENHANCED SOLID ORGANS: LIVER: Unremarkable. GALLBLADDER: Unremarkable. INTRAHEPATIC BILE DUCT AND EXTRAHEPATIC BILE DUCT: Unremarkable. PANCREAS: Unremarkable. SPLEEN: Unremarkable. ADRENALS: Unremarkable. KIDNEYS: The renal contours are normal. There is no hydronephrosis. No calcified renal stones a re noted. No surrounding fat stranding is noted. STOMACH: Evaluation of the stomach and bowel is limited due to lack of oral contrast. No gross abno rmalities of the stomach are noted. BOWEL: The non-contrast opacified small bowel loops in the abdomen and pelvis appear unremarkable. Sc attered diverticuli are noted in the sigmoid colon. No surrounding inflammatory changes are seen to suggest acute diverticulitis. APPENDIX: Not well seen on the exam. PERITONEUM AND RETROPERITONEUM: No ascites or free air. No loculated fluid collection noted. The abdo alphonse aorta is normal in caliber. Moderate atherosclerotic disease is noted in the aortoiliac vessels. LYMPH NODES: Unremarkable. PELVIS: No pelvic mass or adenopathy. . The patient is status post hysterectomy. BLADDER: Unremarkable. OSSEOUS STRUCTURES: No acute abnormality seen. Degenerative changes are noted in the lumbar spine. SOFT TISSUES: The patient is status post right inguinal hernia repair. IMPRESSION: 1. No acute abnormality of the thorax. 2. No acute abnormality seen on the non-contrast abdomen and pelvis CT. 3. Diverticulosis without CT evidence of acute diverticulitis. Electronically signed by: Anup Garcia MD 09/06/2024 12:35 AM CDT RP Due to temporary technical issues with the PACS/[employer] reporting system, reports are being davion d by the in-house radiologist without review as a courtesy to ensure prompt reporting the interpreting radiologist is fully responsible for the content of the report. Transcribed Date/Time: 09/06/2024 12:40 AM
[2024-09-06 02:19] VITALS: TEMP 97.9
[2024-09-06 02:26] VITALS: O2SAT 98
[2024-09-06 02:27] VITALS: BP 132/68
--- NOTE | 2024-09-08 12:05 | EKG ---
Test Date: 2024-09-05 Test Time: 20:11:22 Resource Conservationist: STAS MEASUREMENT RESULTS: Intervals: Rate: 66 NV: 140 QRSD: 86 QT: 446 QTc: 467 [place]: P: 58 NV: 140 QRS: 27 T: 72 INTERPRETIVE STATEMENTS: Normal sinus rhythm Normal ECG Compared to ECG 08/28/2024 19:09:08 Atrial premature complex(es) no longer present Electronically Signed On 09-08-24 12:02:57 CDT by Mika Acosta
== END 2024-09-06 01:35 | disposition short-term general hospital (02) ==
LOC: ER 18:31
DX: R53.1 Weakness (principal); N17.9 Acute kidney failure, unspecified; R47.02 Dysphasia; R47.01 Aphasia; R27.0 Ataxia, unspecified; Z91.81 History of falling; Z79.01 Long term (current) use of anticoagulants; I10 Essential (primary) hypertension; I48.91 Unspecified atrial fibrillation
CPT/HCPCS: 93005; 85025; 81001; 80048; 36415; 83735; 85610; 80076; 84484; 83880; 70450; 71250; 74176; 71045; 96374; 99285; J7040